=== PATIENT | male | born 1965 | race Native Hawaiian/Other Pacific Islander ===

== ENCOUNTER 2023-04-26 16:39 | Inpatient (IN) | payer BC, OTHER ==
[2023-04-26] MEDS ORDERED: SODIUM CHLORIDE 0.9% 1,000 ML IV ONE ×3 (16:51→17:57)
[2023-04-26 16:59] LABS: Glucose,Whole Blood 146 mg/dL (70-110)
[2023-04-26 17:24] LABS: Basophils # (A) 0.1 k/uL (0-0.2); Basophils % (A) 0 %; Eosinophils % (A) 0 %; Hypochromasia Moderate; Lymphocytes # (A) 1.3 k/uL (1.0-4.8); Lymphocytes % (A) 5 %; MCH 29.6 pg (25.0-35.0); MCHC 31.8 g/dL (31.0-37.0); MCV 93.3 fL (80.0-100.0); Mean Platelet Volume 9.7; Monocytes # (A) 1.2 k/uL (0-1.0); Monocytes % (A) 4 %; Neutrophils # (A) 25.7 k/uL (1.3-7.7); Neutrophils % (A) 90 %; Platelet Count 115 k/uL (150-450); Poikilocytosis Slight; RBC 6.98 m/uL (4.30-5.90); RDW 14.9 % (11.5-15.5); WBC 28.5 k/uL (3.8-10.6)
[2023-04-26 17:39] LABS: HGB 20.7 gm/dL (13.0-17.5)
[2023-04-26 17:40] LABS: HCT 65.1 % (39.0-53.0)
[2023-04-26 17:46] LABS: ALT 123 U/L (4-49); AST 326 U/L (17-59); African American GFR (CKD) 37 (>60 ml/min/1.73 sqM); Alcohol <10 mg/dL; Alkaline Phosphatase 59 U/L (38-126); Anion Gap 30 mmol/L; Blood Urea Nitrogen 56 mg/dL (9-20); Calcium 10.5 mg/dL (8.4-10.2); Chloride 108 mmol/L (98-107); Glucose 147 mg/dL (74-99); Non-African American GFR(CKD) 32 (>60 ml/min/1.73 sqM); Sodium 147 mmol/L (137-145); Total Bilirubin 1.6 mg/dL (0.2-1.3); Total Protein 8.2 g/dL (6.3-8.2)
[2023-04-26 17:52] LABS: Amphetamine Screen,Urine Not Detected (NotDetected); Barbiturate Screen,Urine Not Detected (NotDetected); Benzodiazepines Screen,Urine Not Detected (NotDetected); Cocaine Screen,Urine Not Detected (NotDetected); Methadone Screen, Urine Not Detected (NotDetected); Opiate Screen,Urine Not Detected (NotDetected); Oxycodone Screen, Urine Not Detected (NotDetected); Phencyclidine Screen,Urine Not Detected (NotDetected); Tricyclic Antidepressant,Urine Not Detected (NotDetected); Urn Cannabinoid Scrn Not Detected (NotDetected)
[2023-04-26 17:53] LABS: Carbon Dioxide 9 mmol/L (22-30); Lactic Acid, Venous 12.1 mmol/L (0.7-2.0)
[2023-04-26] MEDS ORDERED: SODIUM CHLORIDE 0.9% 1,000 ML IV SCH (18:00)
[2023-04-26 18:23] LABS: Appearance,Urine Clear (Clear); Bilirubin,Urine Negative (Negative); Color,Urine Yellow; Glucose,Urine (UA) Negative (Negative); Ketones,Urine Negative (Negative); Protein,Urine Trace (Negative)
[2023-04-26 18:24] LABS: Blood,Urine Large (Negative); Leukocyte Esterase,Urine Negative (Negative); Nitrite,Urine Negative (Negative); Urobilinogen,Urine <2.0 mg/dL (<2.0)
--- NOTE | 2023-04-26 18:29 | XR ---
EXAMINATION: XR chest 1V portable DATE AND TIME: 04/26/2023 5:38 PM CLINICAL INDICATION: PHH; altered mental status TECHNIQUE: Portable AP supine COMPARISON: None FINDINGS: There is consolidative opacity throughout the right upper lung zone, in the right infrahilar position , and in the left upper lung zone, consistent with a clinical diagnosis of multifocal bronchopneumoni a. The pleural spaces are negative, as seen. The cardiac silhouette is borderline enlarged. The skeletal structures and soft tissues are negative for acute findings. Limitation: Supine radiography cannot exclude pneumothorax. IMPRESSION: Multifocal airspace filling process.
--- NOTE | 2023-04-26 18:30 | XR ---
PROCEDURE: XR pelvis AP view - 1V DATE AND TIME: 04/26/2023 5:36 PM CLINICAL INDICATION: PHH; found down TECHNIQUE: AP view COMPARISON: None FINDINGS: There is no fracture or malalignment. The soft tissues are unremarkable. IMPRESSION: NO ACUTE PROCESS.
--- NOTE | 2023-04-26 18:42 | ED ---
Altered Mental Status HPI - General Chief Complaint: Altered Mental Status Stated Complaint: Altered Mental Status Time Seen by Provider: 04/26/23 16:45 Source: EMS Mode of arrival: EMS Limitations: altered mental status - History of Present Illness Initial Comments: 58-year-old male with reported recent diagnosis of lung cancer and diabetes who presents to the emergency department with altered mental status. EMS did provide the history. States that the patient was last seen by his neighbor's on Sunday. He does not have any family. He has one brother however he has been a strange to from him. Neighbors state that they help take care of him. On Sunday they took him shopping and this was the last that they had seen him normal. They noted that they had not heard from him in a couple of days and therefore they had police do a well check. Please had to break into the house and found the patient on the floor on his back in front of his stove. It had appeared that the patient had been burning things on his stove and the gas was on. He was significantly altered and it appeared that the patient had been down for an extended period of time. He was unable to provide any history and neighbors were unable to provide much information either. Unknown if the patient was intensely trying to harm himself however on scene he made a comment of "just leave me here" and therefore police do fill out a petition on the patient. Upon exam the patient is covered in soot. Appears to have been down on the ground for an extended period of time as he does have several areas of lividity. He has neglected to his right side with contracture of his right upper extremity. Notable well-healed surgical incisions to the right upper extremity. Neighbor states that the patient went into [facility] and was diagnosed with an arterial occlusion. He was transferred down [facility]. He required 2 surgeries and was placed on Eliquis. She states that he regained function of the right upper extremity after the surgery. Remainder of the history is limited because the patient's current condition with no close family - Related Data Allergies Allergy/AdvReac Type Severity Reaction Status Date / Time Unable to Assess Allergy Verified 04/26/23 16:54 Review of Systems ROS Statement: Those systems with pertinent positive or pertinent negative responses have been documented in the HPI. ROS Other: All systems not noted in ROS Statement are negative. Past Medical History Past Medical History: Cancer, Diabetes Mellitus Additional Past Medical History / Comment(s): lung ca History of Any Multi-Drug Resistant Organisms: Unobtainable Past Psychological History: Unable to Obtain Smoking Status: Unknown if ever smoked Past Alcohol Use History: Unable to Obtain Past Drug Use History: Unable to Obtain General Exam Limitations: altered mental status General appearance: obtunded, in distress, other (Patient has neglect to his right side) Head exam: Present: atraumatic Pupils: Present: mydriatic ENT exam: Present: mucous membranes dry, other (No visible soot in the patient's mouth) Respiratory exam: Present: rales, other (Tachypnea) Cardiovascular Exam: Present: tachycardia GI/Abdominal exam: Present: soft, normal bowel sounds. Absent: distended, tenderness, guarding, rebound, rigid Extremities exam: Present: other (three well-healed incisions on the right anterior forearm. No pustular drainage. No bleeding. Significant hematoma formation to the dependent areas. No palpable pulse from the antecubital fossa down) Neurological exam: Present: altered, other (Incomprehensible sounds) Psychiatric exam: Present: agitated Skin exam: Present: pallor, mottled, other (Dependent areas of lividity on the patient's knees) Course Vital Signs 04/26/23 04/26/23 04/26/23 16:43 17:00 17:15 Temperature 94.4 F L Pulse Rate 104 H 103 H 106 H Respiratory 28 H 28 H 28 H Rate Blood Pressure 115/74 117/77 113/83 O2 Sat by Pulse 93 L 93 L 96 Oximetry Fraction of Inspired Oxygen (FIO2) 04/26/23 04/26/23 04/26/23 17:30 20:30 21:00 Temperature 97.0 F L Pulse Rate 100 113 H 108 H Respiratory 28 H 28 H 20 Rate Blood Pressure 119/77 168/103 147/93 O2 Sat by Pulse 96 95 98 Oximetry Fraction of 100 Inspired Oxygen (FIO2) 04/26/23 04/26/23 04/26/23 21:20 21:55 21:58 Temperature Pulse Rate 102 H 98 Respiratory 20 20 Rate Blood Pressure 148/89 107/71 O2 Sat by Pulse 98 99 Oximetry Fraction of 100 Inspired Oxygen (FIO2) Procedures - Elfrida Protocol (Time Out) Nurse: Maile Mitchell - Intubation Sedative: Etomidate Mg Given: 20 Paralytic: Rocuronium Mg Given: 50 Laryngoscope: fiber optic video scope Size: 3 ET Tube Size: 7.5 ET Tube Uncuffed: No Other Airway Intervention: 26 Tube Secured Location: lips Tube Placement Confirmation: visualized tube passing through cords, equal breath sounds bilaterally, no breath sounds over epigastrium, confirmation by capnometry Patient Tolerated Procedure: well, no complications Medical Decision Making - Medical Decision Making Was pt. sent in by a medical professional or institution (, PA, PLATFORM BUILDER, urgent care, hospital, or [place] health care facility...) When possible be specific @ -No Did you speak to anyone other than the patient for history (EMS, parent, family, police, friend...)? What history was obtained from this source @ -I spoke with EMS and the patient's neighbors Did you review nursing and triage notes (agree or disagree)? Why? @ -I reviewed and agree with nursing and triage notes Were old charts reviewed (outside hosp., previous admission, EMS record, old EKG, old radiological studies, urgent care reports/EKG's, [place] health care facility records)? Report findings @ -No old charts were reviewed Differential Diagnosis (chest pain, altered mental status, abdominal pain women, abdominal pain men, vaginal bleeding, weakness, fever, dyspnea, syncope, headache, dizziness, GI bleed, back pain, seizure, CVA, palpatations, mental health, musculoskeletal)? @ -Differential Altered Mental Status: Hypoglycemia, DKA, hypercapnia, ETOH, overdose, CO poisoning, trauma, myxedema coma, HTN encephalopathy, infection, encephalitis, psychosis, intercranial hemorrhage, hepatic encephalopathy, meningitis, CVA, this is not meant to be an all-inclusive list EKG interpreted by me (3pts min.). @ -Yes and demonstrates sinus tachycardia with a rate of 102. WV interval 112. QRS 106. QTC 438. No acute ST segment elevations or depressions X-rays interpreted by me (1pt min.). @ -Yes and demonstrates multilobar pneumonia CT interpreted by me (1pt min.). @ -Yes and demonstrates large left MCA subacute stroke U/S interpreted by me (1pt. min.). @ -Bedside ultrasound performed of the patient's right upper extremity which does not appear to have arterial flow below the patient's right elbow What testing was considered but not performed or refused? (CT, X-rays, U/S, labs)? Why? @ -CT of the chest, CT of the right arm was considered however patient in acute renal failure What meds were considered but not given or refused? Why? @ -Heparin was considered however not administered as the patient does have a subacute CVA Did you discuss the management of the patient with other professionals (professionals i.e. Dr., PA, PLATFORM BUILDER, lab, RT, psych nurse, social media community manager, scientist, teacher, booking police officer, bilingual patient support caseworker)? Give summary @ -I attempted to transfer the patient for hyperbarics. I spoke with [facility] however they do not have hyperbarics available at this time. They did recommend [facility]. We called and spoke with [facility] however they are unable to perform hyperbarics at this time also. I spoke with Dr. Bustos and who presents to the emergency department to see the patient. He accepts the patient in the ICU. He places a central line. I also spoke with Dr. Cage to ask for recommendations in regards to the patient's care. He states that this is not his patient and that the patient should be transferred to [facility] as the patient is postop. Patient is not stable for transport at this time and Dr. Francisco agrees to keep the patient in the ICU here. Was smoking cessation discussed for >3mins.? @ -No Was critical care preformed (if so, how long)? @ -yes, 65 minutes for multiple attempts at transfer, multiple re-evaluations due to patient's critical status Were there social determinants of health that impacted care today? How? (Homelessness, low income, unemployed, alcoholism, drug addiction, transportation, low edu. Level, literacy, decrease access to med. care, fpc, rehab)? @ -Patient has no family to help make decisions Was there de-escalation of care discussed even if they declined (Discuss DNR or withdrawal of care, Hospice)? DNR status @ -No What co-morbidities impacted this encounter? (DM, HTN, Smoking, COPD, CAD, Cancer, CVA, ARF, Chemo, Hep., AIDS, mental health diagnosis, sleep apnea, mor bid obesity)? @ -None Was patient admitted / discharged? Hospital course, mention meds given and route, prescriptions, significant lab abnormalities, going to OR and other pertinent info. @ -Admitted. Upon arrival patient was promptly placed in a trauma 1. Thorough history and physical exam was performed. GCS is obtained and is 10. Patient is covered in that however has no identifiable ramires. No soot appears to be in the airway. He is placed on a nonrebreather. IV is established. He is given 2 L of normal saline and placed on a blanket warmer due to his temp of 94. Laboratory studies are conducted. Portable chest and pelvic x-ray are performed. X-ray does demonstrate multifocal opacities and therefore did obtain blood cultures and initiated the patient on Rocephin. CT is performed the patient's head which demonstrates subacute CVA. Attempted to perform a CTA however the patient is in renal failure and therefore will not tolerate contrast. Patient is started on 130 mL/h due to his lactic acidosis and rhabdomyolysis. Patient's carbon monoxide is 41%. I did attempt to call several transfer facilities however they do refused as hyperbarics is not available. I spoke with Dr. Bustos who agreed to accept the patient as all other facilities in [place] are refusing with hyperbaric capabilities. Patient was intubated as his work of breathing did increase. Repeat x-ray demonstrates worsening ARDS. I attempted to speak with Dr. Ayon about the arterial occlusion however no recommendations were offered other than to transport the patient to [facility]. Heparin was not initiated due to recent subacute CVA. Dr. Bustos does place a central line. Patient is transported up to the ICU in critical condition with a very guarded prognosis Undiagnosed new problem with uncertain prognosis? @ -yes Drug Therapy requiring intensive monitoring for toxicity (Heparin, Nitro, Insulin, Cardizem)? @ -No Were any procedures done? @ -No Diagnosis/symptom? @ -Acute encephalopathy, ventilator dependence, carbon monoxide poisoning, subacute CVA left MCA, and STEMI, acute kidney injury, rhabdomyolysis, lactic acidosis, leukocytosis, multifocal pneumonia, developing ARDS, suspected arterial occlusion right upper extremity Acute, or Chronic, or Acute on Chronic? @ -Acute Uncomplicated (without systemic symptoms) or Complicated (systemic symptoms)? @ -Complicated Side effects of treatment? @ -No Exacerbation, Progression, or Severe Exacerbation? @ -No Poses a threat to life or bodily function? How? (Chest pain, USA, VT, pneumonia, PE, COPD, DKA, ARF, appy, cholecystitis, CVA, Diverticulitis, Homicidal, Suicidal, threat to staff... and all critical care pts) @ -Yes patient has a very guarded prognosis - Lab Data Result diagrams: 04/26/23 16:58 04/26/23 16:58 Lab Results 04/26/23 04/26/23 04/26/23 Range/Units 16:48 16:58 16:58 WBC 28.5 H (3.8-10.6) k/uL RBC 6.98 H (4.30-5.90) m/uL Hgb 20.7 H* (13.0-17.5) gm/dL Hct 65.1 H* (39.0-53.0) % MCV 93.3 (80.0-100.0) fL MCH 29.6 (25.0-35.0) pg MCHC 31.8 (31.0-37.0) g/dL RDW 14.9 (11.5-15.5) % Plt Count 115 L (150-450) k/uL MPV 9.7 Neutrophils % 90 % Lymphocytes % 5 % Monocytes % 4 % Eosinophils % 0 % Basophils % 0 % Neutrophils # 25.7 H (1.3-7.7) k/uL Lymphocytes # 1.3 (1.0-4.8) k/uL Monocytes # 1.2 H (0-1.0) k/uL Eosinophils # 0.0 (0-0.7) k/uL Basophils # 0.1 (0-0.2) k/uL Differential Comment Manual Slide Review Performed Hypochromasia Moderate Poikilocytosis Slight PT (10.0-12.5) sec INR (<1.2) APTT (22.0-30.0) sec Carbon Monoxide, Quant (<10.0) % Sodium (137-145) mmol/L Potassium (3.5-5.1) mmol/L Chloride (98-107) mmol/L Carbon Dioxide (22-30) mmol/L Anion Gap mmol/L BUN (9-20) mg/dL Creatinine (0.66-1.25) mg/dL Est GFR (CKD-EPI)AfAm (>60 ml/min/1.73 sqM) Est GFR (CKD-EPI)NonAf (>60 ml/min/1.73 sqM) Glucose (74-99) mg/dL POC Glucose (mg/dL) 146 H (70-110) mg/dL POC Glu Appeals Specialist ID Melchor Rosenberg Lactic Ac Sepsis Rflx Plasma Lactic Acid Willie (0.7-2.0) mmol/L Calcium (8.4-10.2) mg/dL Total Bilirubin (0.2-1.3) mg/dL AST (17-59) U/L ALT (4-49) U/L Alkaline Phosphatase (38-126) U/L Ammonia (<30) umol/L Creatine Kinase (55-170) U/L Troponin I (0.000-0.034) ng/mL Total Protein (6.3-8.2) g/dL Albumin (3.5-5.0) g/dL Urine Color Urine Appearance (Clear) Urine pH (5.0-8.0) Ur Specific [place] (1.001-1.035) Urine Protein (Negative) Urine Glucose (UA) (Negative) Urine Ketones (Negative) Urine Blood (Negative) Urine Nitrite (Negative) Urine Bilirubin (Negative) Urine Urobilinogen (<2.0) mg/dL Ur Leukocyte Esterase (Negative) Urine RBC (0-5) /hpf Urine WBC (0-5) /hpf Hyaline Casts (0-2) /lpf Urine Mucus (None) /hpf Urine Opiates Screen Not Detected (NotDetected) Ur Oxycodone Screen Not Detected (NotDetected) Urine Methadone Screen Not Detected (NotDetected) Ur Propoxyphene Screen Not Detected (NotDetected) Ur Barbiturates Screen Not Detected (NotDetected) U Tricyclic Antidepress Not Detected (NotDetected) Ur Phencyclidine Scrn Not Detected (NotDetected) Ur Amphetamines Screen Not Detected (NotDetected) U Methamphetamines Scrn Not Detected (NotDetected) U Benzodiazepines Scrn Not Detected (NotDetected) Urine Cocaine Screen Not Detected (NotDetected) U Marijuana (THC) Screen Not Detected (NotDetected) Serum Alcohol mg/dL 04/26/23 04/26/23 04/26/23 Range/Units 16:58 16:58 16:58 WBC (3.8-10.6) k/uL RBC (4.30-5.90) m/uL Hgb (13.0-17.5) gm/dL Hct (39.0-53.0) % MCV (80.0-100.0) fL MCH (25.0-35.0) pg MCHC (31.0-37.0) g/dL RDW (11.5-15.5) % Plt Count (150-450) k/uL MPV Neutrophils % % Lymphocytes % % Monocytes % % Eosinophils % % Basophils % % Neutrophils # (1.3-7.7) k/uL Lymphocytes # (1.0-4.8) k/uL Monocytes # (0-1.0) k/uL Eosinophils # (0-0.7) k/uL Basophils # (0-0.2) k/uL Differential Comment Manual Slide Review Hypochromasia Poikilocytosis PT (10.0-12.5) sec INR (<1.2) APTT (22.0-30.0) sec Carbon Monoxide, Quant (<10.0) % Sodium 147 H (137-145) mmol/L Potassium 5.0 (3.5-5.1) mmol/L Chloride 108 H (98-107) mmol/L Carbon Dioxide 9 L* (22-30) mmol/L Anion Gap 30 mmol/L BUN 56 H (9-20) mg/dL Creatinine 2.19 H (0.66-1.25) mg/dL Est GFR (CKD-EPI)AfAm 37 (>60 ml/min/1.73 sqM) Est GFR (CKD-EPI)NonAf 32 (>60 ml/min/1.73 sqM) Glucose 147 H (74-99) mg/dL POC Glucose (mg/dL) (70-110) mg/dL POC Glu Appeals Specialist ID Lactic Ac Sepsis Rflx Plasma Lactic Acid Willie (0.7-2.0) mmol/L Calcium 10.5 H (8.4-10.2) mg/dL Total Bilirubin 1.6 H (0.2-1.3) mg/dL AST 326 H (17-59) U/L ALT 123 H (4-49) U/L Alkaline Phosphatase 59 (38-126) U/L Ammonia (<30) umol/L Creatine Kinase 78475 H* (55-170) U/L Troponin I 8.390 H* (0.000-0.034) ng/mL Total Protein 8.2 (6.3-8.2) g/dL Albumin 5.0 (3.5-5.0) g/dL Urine Color Yellow Urine Appearance Clear (Clear) Urine pH 6.0 (5.0-8.0) Ur Specific [place] 1.030 (1.001-1.035) Urine Protein Trace H (Negative) Urine Glucose (UA) Negative (Negative) Urine Ketones Negative (Negative) Urine Blood Large H (Negative) Urine Nitrite Negative (Negative) Urine Bilirubin Negative (Negative) Urine Urobilinogen <2.0 (<2.0) mg/dL Ur Leukocyte Esterase Negative (Negative) Urine RBC 1 (0-5) /hpf Urine WBC 9 H (0-5) /hpf Hyaline Casts 11 H (0-2) /lpf Urine Mucus Occasional H (None) /hpf Urine Opiates Screen (NotDetected) Ur Oxycodone Screen (NotDetected) Urine Methadone Screen (NotDetected) Ur Propoxyphene Screen (NotDetected) Ur Barbiturates Screen (NotDetected) U Tricyclic Antidepress (NotDetected) Ur Phencyclidine Scrn (NotDetected) Ur Amphetamines Screen (NotDetected) U Methamphetamines Scrn (NotDetected) U Benzodiazepines Scrn (NotDetected) Urine Cocaine Screen (NotDetected) U Marijuana (THC) Screen (NotDetected) Serum Alcohol <10 mg/dL 04/26/23 04/26/23 04/26/23 Range/Units 16:58 16:58 17:53 WBC (3.8-10.6) k/uL RBC (4.30-5.90) m/uL Hgb (13.0-17.5) gm/dL Hct (39.0-53.0) % MCV (80.0-100.0) fL MCH (25.0-35.0) pg MCHC (31.0-37.0) g/dL RDW (11.5-15.5) % Plt Count (150-450) k/uL MPV Neutrophils % % Lymphocytes % % Monocytes % % Eosinophils % % Basophils % % Neutrophils # (1.3-7.7) k/uL Lymphocytes # (1.0-4.8) k/uL Monocytes # (0-1.0) k/uL Eosinophils # (0-0.7) k/uL Basophils # (0-0.2) k/uL Differential Comment Manual Slide Review Hypochromasia Poikilocytosis PT (10.0-12.5) sec INR (<1.2) APTT (22.0-30.0) sec Carbon Monoxide, Quant >20.0 H* (<10.0) % Sodium (137-145) mmol/L Potassium (3.5-5.1) mmol/L Chloride (98-107) mmol/L Carbon Dioxide (22-30) mmol/L Anion Gap mmol/L BUN (9-20) mg/dL Creatinine (0.66-1.25) mg/dL Est GFR (CKD-EPI)AfAm (>60 ml/min/1.73 sqM) Est GFR (CKD-EPI)NonAf (>60 ml/min/1.73 sqM) Glucose (74-99) mg/dL POC Glucose (mg/dL) (70-110) mg/dL POC Glu Appeals Specialist ID Lactic Ac Sepsis Rflx Y Plasma Lactic Acid Willie 12.1 H* (0.7-2.0) mmol/L Calcium (8.4-10.2) mg/dL Total Bilirubin (0.2-1.3) mg/dL AST (17-59) U/L ALT (4-49) U/L Alkaline Phosphatase (38-126) U/L Ammonia 14 (<30) umol/L Creatine Kinase (55-170) U/L Troponin I (0.000-0.034) ng/mL Total Protein (6.3-8.2) g/dL Albumin (3.5-5.0) g/dL Urine Color Urine Appearance (Clear) Urine pH (5.0-8.0) Ur Specific [place] (1.001-1.035) Urine Protein (Negative) Urine Glucose (UA) (Negative) Urine Ketones (Negative) Urine Blood (Negative) Urine Nitrite (Negative) Urine Bilirubin (Negative) Urine Urobilinogen (<2.0) mg/dL Ur Leukocyte Esterase (Negative) Urine RBC (0-5) /hpf Urine WBC (0-5) /hpf Hyaline Casts (0-2) /lpf Urine Mucus (None) /hpf Urine Opiates Screen (NotDetected) Ur Oxycodone Screen (NotDetected) Urine Methadone Screen (NotDetected) Ur Propoxyphene Screen (NotDetected) Ur Barbiturates Screen (NotDetected) U Tricyclic Antidepress (NotDetected) Ur Phencyclidine Scrn (NotDetected) Ur Amphetamines Screen (NotDetected) U Methamphetamines Scrn (NotDetected) U Benzodiazepines Scrn (NotDetected) Urine Cocaine Screen (NotDetected) U Marijuana (THC) Screen (NotDetected) Serum Alcohol mg/dL 04/26/23 04/26/23 Range/Units 17:59 21:08 WBC (3.8-10.6) k/uL RBC (4.30-5.90) m/uL Hgb (13.0-17.5) gm/dL Hct (39.0-53.0) % MCV (80.0-100.0) fL MCH (25.0-35.0) pg MCHC (31.0-37.0) g/dL RDW (11.5-15.5) % Plt Count (150-450) k/uL MPV Neutrophils % % Lymphocytes % % Monocytes % % Eosinophils % % Basophils % % Neutrophils # (1.3-7.7) k/uL Lymphocytes # (1.0-4.8) k/uL Monocytes # (0-1.0) k/uL Eosinophils # (0-0.7) k/uL Basophils # (0-0.2) k/uL Differential Comment Manual Slide Review Hypochromasia Poikilocytosis PT 13.9 H (10.0-12.5) sec INR 1.3 H (<1.2) APTT 19.9 L (22.0-30.0) sec Carbon Monoxide, Quant (<10.0) % Sodium (137-145) mmol/L Potassium (3.5-5.1) mmol/L Chloride (98-107) mmol/L Carbon Dioxide (22-30) mmol/L Anion Gap mmol/L BUN (9-20) mg/dL Creatinine (0.66-1.25) mg/dL Est GFR (CKD-EPI)AfAm (>60 ml/min/1.73 sqM) Est GFR (CKD-EPI)NonAf (>60 ml/min/1.73 sqM) Glucose (74-99) mg/dL POC Glucose (mg/dL) (70-110) mg/dL POC Glu Appeals Specialist ID Lactic Ac Sepsis Rflx Plasma Lactic Acid Willie 2.4 H* (0.7-2.0) mmol/L Calcium (8.4-10.2) mg/dL Total Bilirubin (0.2-1.3) mg/dL AST (17-59) U/L ALT (4-49) U/L Alkaline Phosphatase (38-126) U/L Ammonia (<30) umol/L Creatine Kinase (55-170) U/L Troponin I (0.000-0.034) ng/mL Total Protein (6.3-8.2) g/dL Albumin (3.5-5.0) g/dL Urine Color Urine Appearance (Clear) Urine pH (5.0-8.0) Ur Specific [place] (1.001-1.035) Urine Protein (Negative) Urine Glucose (UA) (Negative) Urine Ketones (Negative) Urine Blood (Negative) Urine Nitrite (Negative) Urine Bilirubin (Negative) Urine Urobilinogen (<2.0) mg/dL Ur Leukocyte Esterase (Negative) Urine RBC (0-5) /hpf Urine WBC (0-5) /hpf Hyaline Casts (0-2) /lpf Urine Mucus (None) /hpf Urine Opiates Screen (NotDetected) Ur Oxycodone Screen (NotDetected) Urine Methadone Screen (NotDetected) Ur Propoxyphene Screen (NotDetected) Ur Barbiturates Screen (NotDetected) U Tricyclic Antidepress (NotDetected) Ur Phencyclidine Scrn (NotDetected) Ur Amphetamines Screen (NotDetected) U Methamphetamines Scrn (NotDetected) U Benzodiazepines Scrn (NotDetected) Urine Cocaine Screen (NotDetected) U Marijuana (THC) Screen (NotDetected) Serum Alcohol mg/dL Disposition Clinical Impression: Ventilator dependence, Ischemic cerebrovascular accident (CVA), Rhabdomyolysis, DARRYL (acute kidney injury), Arterial occlusion, NSTEMI (non-ST elevated myocardial infarction), Carbon monoxide poisoning, Encephalopathy acute Disposition: ADMITTED IP TO THIS HOSP Condition: Critical Is patient prescribed a controlled substance at d/c from ED?: No Time of Disposition: 21:21 Decision to Admit Reason: Admit from EC Decision Date: 04/26/23 Decision Time: 21:22
[2023-04-26 18:49] LABS: Hyaline Casts,Urine 11 /lpf (0-2); Mucus,Urine Occasional /hpf; RBC,Urine 1 /hpf (0-5); WBC,Urine 9 /hpf (0-5)
--- NOTE | 2023-04-26 19:10 | CT ---
EXAMINATION TYPE: CT brain cspine wo con DATE OF EXAM: 04/26/2023 COMPARISON: NONE HISTORY: Pt arrives repeating himself and asking for help. AMS CT DLP: 1540.8 mGycm. Automated Exposure Control for Dose Reduction was Utilized. TECHNIQUE: CT scan of the head and cervical spine are performed without contrast. FINDINGS: CT HEAD There is diffuse low attenuation in the left anterior territory, involving the left temporal and carlos etal lobe and measuring 8 x 4.5 x 3.5 cm. There is associated sulcal effacement consistent with mild local mass effect. No midline shift of structures. There is no skull fracture and no intracranial hem orrhage. There is no focal encephalomalacia. No extra-axial fluid collection. Orbits are intact and the orbital contents are unremarkable. The paranasal sinuses, middle ear caviti es, and mastoid sinus air cells are clear. CT CERVICAL SPINE Negative for fracture or malalignment. Visualized lung apices show prominent bilateral lung consolidations, consistent with multifocal pneum onia. Requesting clinician notified of results via phone discussion. IMPRESSION: CT Head: Subacute 8 x 4 x 4 cm left MCA territory nonhemorrhagic infarction. CT C Spine: Prominent biapical lung consolidations.
[2023-04-26 19:26] LABS: Creatine Kinase 10403 U/L (55-170)
[2023-04-26] MEDS ORDERED: ROCURONIUM 10 MG/ML (5 ML VIAL) IV STA (20:15)
[2023-04-26] MEDS ORDERED: ETOMIDATE 2 MG/ML 10 ML VIAL IVP STA (20:15)
[2023-04-26 20:20] LABS: INR 1.3 (<1.2); Prothrombin Time 13.9 sec (10.0-12.5)
[2023-04-26 20:35] LABS: Partial Thromboplastin Time 19.9 sec (22.0-30.0)
[2023-04-26] MEDS ORDERED: SODIUM CHLORIDE 0.9% 2,000 ML IV ONE (20:57)
[2023-04-26] MEDS ORDERED: Magnesium Replacement Protocol 1 EACH MISC MISCELLANE PRN (21:22)
[2023-04-26] MEDS ORDERED: Phosphorus Replacement Protoco 1 EACH MISC MISCELLANE PRN (21:22)
[2023-04-26] MEDS ORDERED: Potassium Replacement Protocol 1 EACH MISC MISCELLANE PRN (21:22)
[2023-04-26] MEDS ORDERED: NALOXONE 0.4 MG/ML 1 ML VIAL IV PRN (21:22)
--- NOTE | 2023-04-26 21:29 | XR ---
EXAMINATION: XR chest 1V portable DATE AND TIME: 04/26/2023 9:10 PM CLINICAL INDICATION: PHH; tube placement TECHNIQUE: Portable AP supine radiograph COMPARISON: Portable AP supine radiograph 04/26/2023 at 5:17 PM FINDINGS: Since the prior study the patient has been intubated, with ET tube tip 1 cm above the chasidy; may be better placed if withdrawn 2 cm. Also new since the prior study is the placement of an NG tube with its port superimposed over the exp ected position of the most distal esophagus; NG tube may be better placement if advanced 7 cm distall y. There is interval progression of the consolidative opacity - now seen throughout the central right up per, mid, and lower lung zones and the left left upper and midlung zones. The pleural spaces are negative, as seen, but this is a supine radiograph. The cardiac silhouette is borderline enlarged. The skeletal structures and soft tissues are negative for acute findings. Limitation: Supine radiography cannot exclude pneumothorax. IMPRESSION: Post intubation CXR with ET tube and NG tube comments as above. Interval worsening in the bilateral airspace filling process, right greater than left.
--- NOTE | 2023-04-26 21:33 | XR ---
EXAMINATION: XR chest 1V portable DATE AND TIME: 04/26/2023 9:27 PM CLINICAL INDICATION: PHH; line placement TECHNIQUE: Portable AP supine COMPARISON: Portable AP supine radiograph 04/26/2023 at 8:34 PM FINDINGS: Since the prior study a left subclavian central line is in place with tip superimposed over the dista l SVC. The ET tube tip is 1 cm above the chasidy, and may be better placed if withdrawn 2 cm. The NG tube has its port superimposed over the expected position of the most distal esophagus; NG tub e may be better placement if advanced 7 cm distally. Redemonstrated marked bilateral consolidative opacity - seen throughout the central right upper, mid, and lower lung zones and the central left upper and midlung zones. The pleural spaces are negative, as seen, but this is a supine radiograph. The cardiac silhouette is borderline enlarged. The skeletal structures and soft tissues are negative for acute findings. Limitation: Supine radiography cannot exclude pneumothorax. IMPRESSION: Post central line placement CXR. ET tube comments as above. NG tube comments as above.
[2023-04-26 21:37] LABS: ABG Base Excess -19.6 mmol/L; ABG Oxygen Saturation 89.4 % (94-97); ABG PCO2 24 mmHg (35-45); ABG PO2 68 mmHg (83-108); ABG TCO2 10 mmol/L (19-24); Allen Test Performed? Yes
[2023-04-26 21:45] LABS: ABG HCO3 9 mmol/L (21-25); ABG PH 7.17 (7.35-7.45)
[2023-04-26 22:14] LABS: Glucose,Whole Blood 122 mg/dL (70-110)
[2023-04-26] MEDS ORDERED: DEXTROSE 5% IN WATER 1,000 ML with SODIUM BICARB (1 MEQ/ML) 150 ML IV SCH (22:30)
[2023-04-26] MEDS ORDERED: SODIUM BICARB 8.4% 50 ML SYR (1 MEQ/ML) IV STA (23:21)
[2023-04-27] MEDS: CHLORHEXIDINE GLUCONATE 15 ML CUP MUCOUS MEM SCH ×3 (00:36→22:54)
[2023-04-27] MEDS: PIPERACILLIN-TAZOBACTAM 3.375 GM in SODIUM CHLORIDE 0.9% 100 ML IVPB SCH ×3 (00:45→15:30)
[2023-04-27] MEDS ORDERED: ASPIRIN 325 MG TAB PO STA (03:12)
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
[2023-04-27 04:25] LABS: HCT 52.7 % (39.0-53.0); Hypochromasia Moderate; MCH 30.5 pg (25.0-35.0); MCHC 32.9 g/dL (31.0-37.0); MCV 92.7 fL (80.0-100.0); Mean Platelet Volume 9.8; Poikilocytosis Slight; RBC 5.69 m/uL (4.30-5.90); RDW 15.2 % (11.5-15.5)
[2023-04-27] MEDS: IPRATROPIUM-ALBUTEROL 3 ML NEB INHALATION SCH ×7 (04:35→23:41)
[2023-04-27 04:39] LABS: African American GFR (CKD) 78 (>60 ml/min/1.73 sqM); Anion Gap 10 mmol/L; Blood Urea Nitrogen 45 mg/dL (9-20); Calcium 7.6 mg/dL (8.4-10.2); Carbon Dioxide 23 mmol/L (22-30); Chloride 116 mmol/L (98-107); Glucose 167 mg/dL (74-99); Non-African American GFR(CKD) 67 (>60 ml/min/1.73 sqM); Potassium 4.3 mmol/L (3.5-5.1); Sodium 149 mmol/L (137-145)
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
[2023-04-27 05:19] LABS: Creatine Kinase 18435 U/L (55-170)
[2023-04-27 05:34] LABS: HGB 17.3 gm/dL (13.0-17.5)
[2023-04-27 06:21] LABS: ABG Base Excess 2.5 mmol/L; ABG HCO3 27 mmol/L (21-25); ABG PCO2 40 mmHg (35-45); ABG PH 7.44 (7.35-7.45); ABG PO2 >400 mmHg (83-108); ABG TCO2 28 mmol/L (19-24); Allen Test Performed? Yes
[2023-04-27] MEDS: fentaNYL (PF). 1,000 MCG in SODIUM CHLORIDE 0.9% 80 ML IV SCH ×2 (07:05→22:00)
[2023-04-27 07:19] LABS: Band Neutrophils % 1 %; Monocytes # (M) 0.64 k/uL (0-1.0); Neutrophils % (M) 90 %; Nucleated Red Blood Cells 1 /100 WBC (0-0); Total Cells Counted 200; WBC 21.4 k/uL (3.8-10.6)
[2023-04-27 07:20] LABS: Anisocytosis (M) Present; Polychromasia Present
[2023-04-27 07:22] LABS: Platelet Count 75 k/uL (150-450)
[2023-04-27 07:26] LABS: Amorphous Sediment,Urine Rare /hpf; Bacteria,Urine Rare /hpf; Budding Yeast,Urine Many /hpf; RBC,Urine 35 /hpf (0-5); Uric Acid Crystals,Urine Few /hpf; WBC,Urine 15 /hpf (0-5)
[2023-04-27 07:37] LABS: Appearance,Urine Cloudy (Clear); Bilirubin,Urine Negative (Negative); Blood,Urine Large (Negative); Color,Urine Yellow; Glucose,Urine (UA) Negative (Negative); Ketones,Urine Negative (Negative); Protein,Urine 1+ (Negative); Specific Gravity,Urine 1.025 (1.001-1.035)
[2023-04-27 07:38] LABS: Leukocyte Esterase,Urine Negative (Negative); Nitrite,Urine Negative (Negative); Urobilinogen,Urine 0.2 mg/dL (<2.0)
[2023-04-27] MEDS ORDERED: HEPARIN SODIUM,PORCINE 5,000 UNIT/ML 1 ML VIAL SQ SCH (08:00)
--- NOTE | 2023-04-27 08:22 | XR ---
EXAMINATION TYPE: XR chest 1V portable DATE OF EXAM: 04/27/2023 Comparison: 04/26/2023 Clinical History: 58-year-old male Tube placement Findings: NG tube satisfactory. Left subclavian CVC tip at the lower SVC. Heart normal size. Mild interstitial densities remain low with considerable improvement from prior study. No pleural effusion. ET tube has been pulled back by 3.5 cm, tip now at the medial clavicular heads. Impression: 1. Note that the ET tube has been pulled back by 3.5 cm. Tip is now at the medial clavicular heads. 2. Some minimal interstitial densities remain, though with considerable improvement from prior exam.
[2023-04-27] MEDS: SODIUM CHLORIDE 0.9% 1,000 ML IV SCH ×3 (08:37→15:33)
--- NOTE | 2023-04-27 08:43 | P.PCN ---
Date of Procedure: 04/26/23 Operative Findings: Procedure(s) Performed: central line insertion Anesthesia: local Surgeon: Mikki Francisco Estimated Blood Loss (ml): 0 Pathology: none sent Condition: critical Disposition: ICU Operative Findings: Indication: Hemodynamic monitoring/Intravenous access. A time-out was completed verifying correct patient, procedure, site, positioning, and implant(s) or special equipment if applicable. The patient was placed in a dependent position appropriate for central line placement based on the vein to be cannulated. The patients left chest was prepped and draped in sterile fashion. 1% Lidocaine was used to anesthetize the surrounding skin area. A triple lumen 9F Cordis catheter was introduced into the left subclavian vein using Seldinger technique. The catheter was threaded smoothly over the guide wire and appropriate blood return was obtained. Each lumen of the catheter was evacuated of air and flushed with sterile saline. The catheter was then sutured in place to the skin and a sterile dressing applied. Perfusion to the extremity distal to the point of catheter insertion was checked and found to be adequate. The patient tolerated the procedure well and there were no complications.
[2023-04-27] MEDS: ASPIRIN 81 MG PO SCH (09:18)
[2023-04-27] MEDS: METOPROLOL TARTRATE 12.5 MG TAB PO SCH ×2 (09:18→22:54)
--- NOTE | 2023-04-27 09:18 | XR ---
EXAMINATION TYPE: XR chest 1V portable DATE OF EXAM: 04/27/2023 Comparison: 04/27/2023 Clinical History: 58-year-old male ETT PLACEMENT Findings: Interval repositioning of the patient's ET tube. Tip now measuring 3.5 cm from the chasidy, satisfacto ry. NG tube remains satisfactory as well. Heart normal size. Mild interstitial density is unchanged f rom earlier today, again, noted to be considerably improved from yesterday's exam. No pleural effusio n. Impression: Interval satisfactory repositioning of the ET tube, now 3.5 cm from the chasidy.
--- NOTE | 2023-04-27 10:15 | CA ---
Transthoracic Echo Report Name: Chava Kaba Age: 58 Gender: M : 1965 Exam Date: 04/27/2023 08:58 Exam Location: [facility] Ht (in): 70 Wt (lb): 154 Ordering Physician: Otilio Julien Attending/Referring Phys: Trauma Doctor Bebo Holder Procedure CPT: Indications: evaluate LV function Cardiac Hx: Technical Quality: Technically difficult study Contrast 1: Definity Total Dose (mL): 2 Contrast 2: Total Dose (mL): MEASUREMENTS (Male / Female) Normal Values 2D ECHO LV Diastolic Diameter PLAX 3.8 cm 4.2 - 5.9 / 3.9 - 5.3 cm LV Systolic Diameter PLAX 2.7 cm IVS Diastolic Thickness 1.1 cm 0.6 - 1.0 / 0.6 - 0.9 cm LVPW Diastolic Thickness 0.9 cm 0.6 - 1.0 / 0.6 - 0.9 cm LV Relative Wall Thickness 0.5 RV Internal Dim ED PLAX 2.1 cm LVOT Diameter 2.1 cm Aortic Root Diameter 2.4 cm LA Systolic Diameter LX 2.5 cm 3.0 - 4.0 / 2.7 - 3.8 cm LV Diastolic Volume MOD BP 76.0 cm??? 67 - 155 / 56 - 104 cm??? LV Systolic Volume MOD BP 58.4 cm??? - 58 / 19 - 49 cm??? LV Ejection Fraction MOD BP 23.2 % >= 55 % LV Cardiac Index MOD BP 1104.1 cm???/min???m??? LV Diastolic Volume MOD 4C 75.0 cm??? LV Systolic Volume MOD 4C 59.7 cm??? LV Ejection Fraction MOD 4C 20.4 % LV Cardiac Index MOD 4C 958.2 cm???/min???m??? LV Diastolic Length 4C 8.9 cm LV Systolic Length 4C 8.8 cm LV Diastolic Volume MOD 2C 76.0 cm??? LV Systolic Volume MOD 2C 55.9 cm??? LV Ejection Fraction MOD 2C 26.5 % LV Cardiac Index MOD 2C 1257.3 cm???/min???m??? LV Diastolic Length 2C 8.8 cm LV Systolic Length 2C 8.6 cm LA Volume 27.9 cm??? 18 - 58 / 22 - 52 cm??? LA Volume Index 15.0 cm???/m??? 16 - 28 cm???/m??? DOPPLER AV Peak Velocity 115.5 cm/s AV Peak Gradient 5.3 mmHg LVOT Peak Velocity 81.9 cm/s LVOT Peak Gradient 2.7 mmHg LVOT Velocity Time Integral 13.4 cm LVOT Stroke Volume 44.9 cm??? LVOT Stroke Volume Index 24.0 ml/m??? LVOT Cardiac Index 2803.0 cm???/min???m??? AV Area Cont Eq pk 2.4 cm??? MV Peak Velocity 88.1 cm/s MV Peak Gradient 3.1 mmHg MV Mean Velocity 45.9 cm/s MV Mean Gradient 1.0 mmHg MV Velocity Time Integral 25.7 cm Mitral E Point Velocity 75.0 cm/s Mitral A Point Velocity 32.1 cm/s Mitral E to A Ratio 2.3 MV Deceleration Time 53.6 ms MV E' Velocity 9.8 cm/s Mitral E to MV E' Ratio 7.7 PV Peak Velocity 85.3 cm/s PV Peak Gradient 2.9 mmHg FINDINGS Left Ventricle Normal LV size and wall thickness. Left ventricular ejection fraction is estimated at 20-25 %. Right Ventricle Normal right ventricular size. Right Atrium Normal right atrial size. Left Atrium Normal left atrial size. Mitral Valve Structurally normal mitral valve. No mitral regurgitation. Aortic Valve Aortic valve not well visualized. No aortic regurgitation. No aortic stenosis. Tricuspid Valve Structurally normal tricuspid valve. No tricuspid regurgitation. Pulmonic Valve Pulmonic valve not well visualized. No pulmonic regurgitation. Pericardium Not visualized. Aorta Normal size aortic root. CONCLUSIONS Impaired all the function. The ejection fraction is about 20-25%. Mid ventricle and apical hypokinesia Previewed by: Dr. Leroy Carrera MD (Electronically Signed) Final Date: 27 April 2023 10:14
--- NOTE | 2023-04-27 10:39 | US ---
EXAMINATION TYPE: US carotid duplex BILAT DATE OF EXAM: 04/27/2023 COMPARISON: NONE CLINICAL INDICATION: Male, 58 years old with history of CVA MCA; CVA TECHNIQUE: Carotid duplex ultrasound examination. Indirect Doppler criteria was utilized. FINDINGS: EXAM MEASUREMENTS: RIGHT: Peak Systolic Velocity (PSV) cm/sec ----- Right CCA: 79.4 ----- Right ICA: 102.9 ----- Right ECA: 86.6 ICA/CCA ratio: 1.3 RIGHT: End Diastole cm/sec ----- Right CCA: 20.7 ----- Right ICA: 33.8 ----- Right ECA: 15.4 LEFT: Peak Systolic Velocity (PSV) cm/sec ----- Left CCA: 132.2 ----- Left ICA: 112.9 ----- Left ECA: 111.3 ICA/CCA ratio: 0.9 LEFT: End Diastole cm/sec ----- Left CCA: 41.8 ----- Left ICA: 22.5 ----- Left ECA: 16.0 VERTEBRALS (direction of flow): Right Vertebral: Antegrade Left Vertebral: Antegrade Rhythm: Normal FORGING MACHINE OPERATOR NOTES: No significant stenosis seen exam limited due to patient being intubated, and very high carotid bifurcation IMPRESSION: Less than 50% stenosis of bilateral carotid bifurcations. Criteria for Assigning % of Stenosis / Diameter reduction (Estimation based on the indirect measurements of the internal carotid artery velocities (ICA PSV). 1. Normal (no stenosis)=ICA PSV < 125 cm/s: ratio < 2.0: ICA EDV<40 cm/s. 2. Less than 50% stenosis=ICA PSV < 125 cm/s: ratio < 2.0: ICA EDV<40 cm/s. 3. 50 to 69% stenosis=ICA PSV of 125 to 230 cm/s: ration 2.0 ? 4.0: ICA EDV 40-100 cm/s. 4. Greater than 70% stenosis to near occlusion= ICA PSV > 230 cm/s: ratio > 4.0: ICA EDV > 100 cm/s. 5. Near occlusion= ICA PSV velocities may be low or undetectable: variable ratio and ICA EDV. 6. Total occlusion=unable to detect flow.
--- NOTE | 2023-04-27 10:48 | P.GSCN ---
History of Present Illness Consult date: 04/27/23 Reason for Consult: Arterial occlusion right arm Requesting physician: Giselle Cristobal History of present illness: This 58-year-old male who was brought into the emergency department yesterday evening around 1840 after being found unresponsive from a wellness check. Patient was admitted to the ICU and is currently sedated and intubated. Patient history is obtained from the chart. Patient was recently admitted to [facility] for right upper extremity limb ischemia due to thrombosis and underwent right brachial, radial and ulnar thrombectomy reportedly occurred twice during that hospitalization. Also reported that patient has a history of hypertension and recently diagnosed with lung cancer and chronic ongoing smoker. Patient reportedly was discharged on anticoagulation. Patient was noted to have no palpable pulses of the right upper extremity and cold hand. Vascular surgery, Dr. Ayon surgeon on-call was contacted by the emergency department and spoke with Dr. Ayon who recommended and requested that they transfer the patient to [facility] where patient was previously admitted and underwent right upper extremity thrombectomy with Dr. Carter. In the meantime apparently patient was admitted to the ICU with multiple acute conditions. He was intubated and sedated for acute hypoxemia secondary to aspiration pneumonia and monoxide poisoning. He had elevated creatinine kinase consistent with rhabdomyolysis but also may be consistent with critical limb ischemia. He was also noted to have elevated troponin consistent with non-ST elevation DC as well as CT head showing left anterior territory and left temporal and parietal lobe stroke. I was able to discuss patient's condition with Dr. Ayon this morning who recommended transfer to [facility], however ICU attending Dr. Francisco does not believe patient is stable for transfer. Review of Systems ROS unobtainable: due to endotracheal tube Past Medical History Past Medical History: Cancer, Diabetes Mellitus Additional Past Medical History / Comment(s): lung ca History of Any Multi-Drug Resistant Organisms: Unobtainable Past Surgical History: Unable to Obtain Additional Past Surgical History / Comment(s): Right Radial, ulnar, and brachial open thrombectomy Past Anesthesia/Blood Transfusion Reactions: No Reported Reaction Past Psychological History: Unable to Obtain Smoking Status: Unknown if ever smoked Past Alcohol Use History: Unable to Obtain Past Drug Use History: Unable to Obtain Medications and Allergies Home Medications Medication Instructions Recorded Confirmed Type Rivaroxaban [Xarelto] 15 mg PO BID 04/26/23 04/26/23 History Rivaroxaban [Xarelto] 20 mg PO DIRECTED 04/26/23 04/26/23 History Acetaminophen Tab [Tylenol] 650 mg PO Q6H 04/27/23 04/27/23 History Gabapentin [Neurontin] 100 mg PO TID 04/27/23 04/27/23 History Losartan/Hydrochlorothiazide 1 tab PO DAILY 04/27/23 04/27/23 History [Hyzaar 100-25 Tablet] amLODIPine [Norvasc] 10 mg PO DAILY 04/27/23 04/27/23 History Allergies Allergy/AdvReac Type Severity Reaction Status Date / Time Unable to Assess Allergy Verified 04/26/23 16:54 Surgical - Exam Vital Signs Temp Pulse Resp BP Pulse Ox 94.4 F L 104 H 28 H 115/74 93 L 04/26/23 16:43 04/26/23 16:43 04/26/23 16:43 04/26/23 16:43 04/26/23 16:43 General appearance: The patient is sedated and intubated on mechanical ventilation. HET: Head is normocephalic and atraumatic. Neck: Supple. Heart: Regular. Lungs: Equal expansion, on mechanical ventilation. Abdomen: Soft, nontender, nondistended. Extremities: Palpable left radial artery pulse, warm to the touch. Right upper extremity warm to the touch to the wrist, hand and fingers cold with noted bruising. There are sutures over radial and ulnar artery as well as brachial that are well approximated. Nonpalpable pulse, unable to obtain Doppler signal. Right hand contracted. B/l palpable femoral pulses. Bilateral feet mottled, cool to touch. Popliteal Doppler signal. Neurological: Sedated and intubated. Results - Labs 04/27/23 04:00 04/27/23 04:00 Abnormal Lab Results - Last 24 Hours (Table) 04/26/23 04/26/23 04/26/23 Range/Units 16:48 16:58 16:58 WBC 28.5 H (3.8-10.6) k/uL RBC 6.98 H (4.30-5.90) m/uL Hgb 20.7 H* (13.0-17.5) gm/dL Hct 65.1 H* (39.0-53.0) % Plt Count 115 L (150-450) k/uL Neutrophils # 25.7 H (1.3-7.7) k/uL Monocytes # 1.2 H (0-1.0) k/uL PT (10.0-12.5) sec INR (<1.2) APTT (22.0-30.0) sec ABG pH (7.35-7.45) ABG pCO2 (35-45) mmHg ABG pO2 (83-108) mmHg ABG HCO3 (21-25) mmol/L ABG Total CO2 (19-24) mmol/L ABG O2 Saturation (94-97) % Carbon Monoxide, Quant (<10.0) % Sodium 147 H (137-145) mmol/L Chloride 108 H (98-107) mmol/L Carbon Dioxide 9 L* (22-30) mmol/L BUN 56 H (9-20) mg/dL Creatinine 2.19 H (0.66-1.25) mg/dL Glucose 147 H (74-99) mg/dL POC Glucose (mg/dL) 146 H (70-110) mg/dL Plasma Lactic Acid Willie (0.7-2.0) mmol/L Calcium 10.5 H (8.4-10.2) mg/dL Total Bilirubin 1.6 H (0.2-1.3) mg/dL AST 326 H (17-59) U/L ALT 123 H (4-49) U/L Creatine Kinase 74111 H* (55-170) U/L Troponin I (0.000-0.034) ng/mL Urine Protein (Negative) Urine Blood (Negative) Urine WBC (0-5) /hpf Hyaline Casts (0-2) /lpf Urine Mucus (None) /hpf 04/26/23 04/26/23 04/26/23 Range/Units 16:58 16:58 16:58 WBC (3.8-10.6) k/uL RBC (4.30-5.90) m/uL Hgb (13.0-17.5) gm/dL Hct (39.0-53.0) % Plt Count (150-450) k/uL Neutrophils # (1.3-7.7) k/uL Monocytes # (0-1.0) k/uL PT (10.0-12.5) sec INR (<1.2) APTT (22.0-30.0) sec ABG pH (7.35-7.45) ABG pCO2 (35-45) mmHg ABG pO2 (83-108) mmHg ABG HCO3 (21-25) mmol/L ABG Total CO2 (19-24) mmol/L ABG O2 Saturation (94-97) % Carbon Monoxide, Quant (<10.0) % Sodium (137-145) mmol/L Chloride (98-107) mmol/L Carbon Dioxide (22-30) mmol/L BUN (9-20) mg/dL Creatinine (0.66-1.25) mg/dL Glucose (74-99) mg/dL POC Glucose (mg/dL) (70-110) mg/dL Plasma Lactic Acid Willie 12.1 H* (0.7-2.0) mmol/L Calcium (8.4-10.2) mg/dL Total Bilirubin (0.2-1.3) mg/dL AST (17-59) U/L ALT (4-49) U/L Creatine Kinase (55-170) U/L Troponin I 8.390 H* (0.000-0.034) ng/mL Urine Protein Trace H (Negative) Urine Blood Large H (Negative) Urine WBC 9 H (0-5) /hpf Hyaline Casts 11 H (0-2) /lpf Urine Mucus Occasional H (None) /hpf 04/26/23 04/26/23 04/26/23 Range/Units 16:58 17:59 21:08 WBC (3.8-10.6) k/uL RBC (4.30-5.90) m/uL Hgb (13.0-17.5) gm/dL Hct (39.0-53.0) % Plt Count (150-450) k/uL Neutrophils # (1.3-7.7) k/uL Monocytes # (0-1.0) k/uL PT 13.9 H (10.0-12.5) sec INR 1.3 H (<1.2) APTT 19.9 L (22.0-30.0) sec ABG pH (7.35-7.45) ABG pCO2 (35-45) mmHg ABG pO2 (83-108) mmHg ABG HCO3 (21-25) mmol/L ABG Total CO2 (19-24) mmol/L ABG O2 Saturation (94-97) % Carbon Monoxide, Quant >20.0 H* (<10.0) % Sodium (137-145) mmol/L Chloride (98-107) mmol/L Carbon Dioxide (22-30) mmol/L BUN (9-20) mg/dL Creatinine (0.66-1.25) mg/dL Glucose (74-99) mg/dL POC Glucose (mg/dL) (70-110) mg/dL Plasma Lactic Acid Willie 2.4 H* (0.7-2.0) mmol/L Calcium (8.4-10.2) mg/dL Total Bilirubin (0.2-1.3) mg/dL AST (17-59) U/L ALT (4-49) U/L Creatine Kinase (55-170) U/L Troponin I (0.000-0.034) ng/mL Urine Protein (Negative) Urine Blood (Negative) Urine WBC (0-5) /hpf Hyaline Casts (0-2) /lpf Urine Mucus (None) /hpf 04/26/23 04/26/23 04/27/23 Range/Units 21:31 22:12 01:20 WBC (3.8-10.6) k/uL RBC (4.30-5.90) m/uL Hgb (13.0-17.5) gm/dL Hct (39.0-53.0) % Plt Count (150-450) k/uL Neutrophils # (1.3-7.7) k/uL Monocytes # (0-1.0) k/uL PT (10.0-12.5) sec INR (<1.2) APTT (22.0-30.0) sec ABG pH 7.17 L* (7.35-7.45) ABG pCO2 24 L (35-45) mmHg ABG pO2 68 L (83-108) mmHg ABG HCO3 9 L* (21-25) mmol/L ABG Total CO2 10 L (19-24) mmol/L ABG O2 Saturation 89.4 L (94-97) % Carbon Monoxide, Quant (<10.0) % Sodium (137-145) mmol/L Chloride (98-107) mmol/L Carbon Dioxide (22-30) mmol/L BUN (9-20) mg/dL Creatinine (0.66-1.25) mg/dL Glucose (74-99) mg/dL POC Glucose (mg/dL) 122 H (70-110) mg/dL Plasma Lactic Acid Willie 2.7 H* (0.7-2.0) mmol/L Calcium (8.4-10.2) mg/dL Total Bilirubin (0.2-1.3) mg/dL AST (17-59) U/L ALT (4-49) U/L Creatine Kinase (55-170) U/L Troponin I (0.000-0.034) ng/mL Urine Protein (Negative) Urine Blood (Negative) Urine WBC (0-5) /hpf Hyaline Casts (0-2) /lpf Urine Mucus (None) /hpf 04/27/23 04/27/23 04/27/23 Range/Units 04:00 04:00 04:00 WBC 21.6 H (3.8-10.6) k/uL RBC (4.30-5.90) m/uL Hgb (13.0-17.5) gm/dL Hct (39.0-53.0) % Plt Count (150-450) k/uL Neutrophils # (1.3-7.7) k/uL Monocytes # (0-1.0) k/uL PT (10.0-12.5) sec INR (<1.2) APTT (22.0-30.0) sec ABG pH (7.35-7.45) ABG pCO2 (35-45) mmHg ABG pO2 (83-108) mmHg ABG HCO3 (21-25) mmol/L ABG Total CO2 (19-24) mmol/L ABG O2 Saturation (94-97) % Carbon Monoxide, Quant (<10.0) % Sodium 149 H (137-145) mmol/L Chloride 116 H (98-107) mmol/L Carbon Dioxide (22-30) mmol/L BUN 45 H (9-20) mg/dL Creatinine (0.66-1.25) mg/dL Glucose 167 H (74-99) mg/dL POC Glucose (mg/dL) (70-110) mg/dL Plasma Lactic Acid Willie (0.7-2.0) mmol/L Calcium 7.6 L (8.4-10.2) mg/dL Total Bilirubin (0.2-1.3) mg/dL AST (17-59) U/L ALT (4-49) U/L Creatine Kinase 20755 H* (55-170) U/L Troponin I 16.000 H* (0.000-0.034) ng/mL Urine Protein (Negative) Urine Blood (Negative) Urine WBC (0-5) /hpf Hyaline Casts (0-2) /lpf Urine Mucus (None) /hpf 04/27/23 Range/Units 06:19 WBC (3.8-10.6) k/uL RBC (4.30-5.90) m/uL Hgb (13.0-17.5) gm/dL Hct (39.0-53.0) % Plt Count (150-450) k/uL Neutrophils # (1.3-7.7) k/uL Monocytes # (0-1.0) k/uL PT (10.0-12.5) sec INR (<1.2) APTT (22.0-30.0) sec ABG pH (7.35-7.45) ABG pCO2 (35-45) mmHg ABG pO2 >400 H (83-108) mmHg ABG HCO3 27 H (21-25) mmol/L ABG Total CO2 28 H (19-24) mmol/L ABG O2 Saturation 100.0 H (94-97) % Carbon Monoxide, Quant (<10.0) % Sodium (137-145) mmol/L Chloride (98-107) mmol/L Carbon Dioxide (22-30) mmol/L BUN (9-20) mg/dL Creatinine (0.66-1.25) mg/dL Glucose (74-99) mg/dL POC Glucose (mg/dL) (70-110) mg/dL Plasma Lactic Acid Willie (0.7-2.0) mmol/L Calcium (8.4-10.2) mg/dL Total Bilirubin (0.2-1.3) mg/dL AST (17-59) U/L ALT (4-49) U/L Creatine Kinase (55-170) U/L Troponin I (0.000-0.034) ng/mL Urine Protein (Negative) Urine Blood (Negative) Urine WBC (0-5) /hpf Hyaline Casts (0-2) /lpf Urine Mucus (None) /hpf Diabetes panel 04/26/23 04/27/23 Range/Units 16:58 04:00 Sodium 147 H 149 H (137-145) mmol/L Potassium 5.0 4.3 (3.5-5.1) mmol/L Chloride 108 H 116 H (98-107) mmol/L Carbon Dioxide 9 L* 23 (22-30) mmol/L BUN 56 H 45 H (9-20) mg/dL Creatinine 2.19 H 1.17 (0.66-1.25) mg/dL Glucose 147 H 167 H (74-99) mg/dL Calcium 10.5 H 7.6 L (8.4-10.2) mg/dL AST 326 H (17-59) U/L ALT 123 H (4-49) U/L Alkaline Phosphatase 59 (38-126) U/L Total Protein 8.2 (6.3-8.2) g/dL Albumin 5.0 (3.5-5.0) g/dL Calcium panel 04/26/23 04/27/23 Range/Units 16:58 04:00 Calcium 10.5 H 7.6 L (8.4-10.2) mg/dL Albumin 5.0 (3.5-5.0) g/dL Pituitary panel 04/26/23 04/27/23 Range/Units 16:58 04:00 Sodium 147 H 149 H (137-145) mmol/L Potassium 5.0 4.3 (3.5-5.1) mmol/L Chloride 108 H 116 H (98-107) mmol/L Carbon Dioxide 9 L* 23 (22-30) mmol/L BUN 56 H 45 H (9-20) mg/dL Creatinine 2.19 H 1.17 (0.66-1.25) mg/dL Glucose 147 H 167 H (74-99) mg/dL Calcium 10.5 H 7.6 L (8.4-10.2) mg/dL Adrenal panel 04/26/23 04/27/23 Range/Units 16:58 04:00 Sodium 147 H 149 H (137-145) mmol/L Potassium 5.0 4.3 (3.5-5.1) mmol/L Chloride 108 H 116 H (98-107) mmol/L Carbon Dioxide 9 L* 23 (22-30) mmol/L BUN 56 H 45 H (9-20) mg/dL Creatinine 2.19 H 1.17 (0.66-1.25) mg/dL Glucose 147 H 167 H (74-99) mg/dL Calcium 10.5 H 7.6 L (8.4-10.2) mg/dL Total Bilirubin 1.6 H (0.2-1.3) mg/dL AST 326 H (17-59) U/L ALT 123 H (4-49) U/L Alkaline Phosphatase 59 (38-126) U/L Total Protein 8.2 (6.3-8.2) g/dL Albumin 5.0 (3.5-5.0) g/dL - Imaging Comments: X-ray chest interval satisfactory repositioning of the ET tube, now 3.5 cm from the chasidy Carotid duplex currently pending Echocardiogram report impaired alcohol function. The ejection fraction is about 20-25%. Mid ventricle and apical hypokinesia. CT brain C-spine without contrast reports diffuse low-attenuation in the left anterior territory, involving left temporal and parietal lobe measuring 8 x 4.5 x 3.5 cm. There is associated sulcal effacement consistent with mild local mass effect. No midline shift of structures. No skull fracture and no intracranial hemorrhage. Cervical spine negative for fracture or malalignment. Visualized lung apices show prominent bilateral lung consolidation, consistent with multifocal pneumonia Assessment and Plan Assessment: 1. Right upper extremity acute limb ischemia, status post recent radial, ulnar, and brachial artery thrombectomy done 04/16/[address] Carter at [facility] 2. Acute hypoxemic respiratory failure, intubated and on mechanical ventilation 3. Elevated carboxy hemoglobin 4. Acute non-ST elevation myocardial infarction 5. Lactic acidosis 6. Rhabdomyolysis 7. CVA 8. Leukocytosis 9. Possible history of lung cancer Plan: 1. Dr. Ayon is the on-call vascular surgeon recommended transfer to [facility] where patient's vascular surgeon Dr. Carter is present and available 2. Recommend IV heparin drip. This was discussed with medicine and neurology. Neurology Dr. Rivera approved to start heparin drip without bolus. 3. Continue with recommendations from other consultants 4. Further recommendations forthcoming per vascular surgeon Thank you for this consultation. The impression and plan of care has been dictated as directed. Dr De I performed a history and examination of this patient, discussed the same with the dictator. I agree with the dictator's note ,documented as a scribe. Any additional findings or plans will be noted.
[2023-04-27] MEDS ORDERED: HEPARIN SODIUM 1,000 UN/ML (10ML VL) IV PRN (11:10)
[2023-04-27] MEDS ORDERED: HEPARIN SOD,PORK IN 0.45% NACL 25,000 UNIT in 0.45% NACL 1 250ML.BAG IV SCH (11:15)
--- NOTE | 2023-04-27 11:24 | P.CNNES ---
History of Present Illness Consult date: 04/27/23 Requesting physician: Mikki Francisco Reason for Consult: ischemic stroke History of Present Illness: This is a 58-year-old gentleman who presented emergency department for altered mental status. History is obtained from medical record. Neurology is consulted for ischemic stroke. History is obtained from medical record. It seems that the patient was reportedly covered in suit and found minimally responsive next to the oven. He presented to our facility on 04/26/2023. She was last seen by his neighbor on Sunday. Per the ED note it seems of the neighbors state they help take care of him at home on [address] and he was normal. Then they have not heard from him in a couple days therefore the police did a well check and had to break into the house and he was found on the floor in front of the stove. Seems the patient has been burning things on the stove and the gas was on. Seems recently the patient was taken to [facility] and had arterial occlusion and was transferred to [facility] in which she had 2 surgeries. He had been right upper extremity ischemia and may be a recently diagnosed with lung cancer and he has a chronic smoker. Some other workup during our facility consisted of: Initial temperature is 94.4 which has improved to euthermia. Initial white blood cell is 28,000 predominantly neutrophilic hemoglobin is 20 hematocrit was 65 the hemoglobin and hematocrit improved. The white blood cells trending down. His recent sodium is 149, BUN 45, creatinine is 1.17, glucose is 167. Plasma lactic acid venous 12.1 and most recent one is 2.1. Calcium is 10.5 CK level is 10,403 and a repeat is 18,435. Troponin is 8.3 and most recent one is 13.7 Ammonia 14 Initial CO2: >20 and repeated 1.7. AB.17 and repeated and HCO3 9. UDS is nondetected and serum alcohol was less than 10 CT of the head is reported as subacute A by 4 x 4 cm left MCA territory nonhemorrhagic infarction. I personally agree that the patient has subacute changes over the left temporal parietal region. CT cervical spine is prominent by apical lung consolidation. Patient is on IV propofol and fentanyl. He is intubated. 2-D echo was reported as him. All the function. The ejection fraction is about 20-25%. Mild ventricular and apical hypokinesis. Review of Systems Limited but the positive and negative as per HPI. Past Medical History Past Medical History: Cancer, Diabetes Mellitus Additional Past Medical History / Comment(s): lung ca History of Any Multi-Drug Resistant Organisms: Unobtainable Past Surgical History: Unable to Obtain Additional Past Surgical History / Comment(s): Right Radial, ulnar, and brachial open thrombectomy Past Anesthesia/Blood Transfusion Reactions: No Reported Reaction Past Psychological History: Unable to Obtain Smoking Status: Unknown if ever smoked Past Alcohol Use History: Unable to Obtain Past Drug Use History: Unable to Obtain Medications and Allergies Home Medications Medication Instructions Recorded Confirmed Type Rivaroxaban [Xarelto] 15 mg PO BID 04/26/23 04/26/23 History Rivaroxaban [Xarelto] 20 mg PO DIRECTED 04/26/23 04/26/23 History Acetaminophen Tab [Tylenol] 650 mg PO Q6H 04/27/23 04/27/23 History Gabapentin [Neurontin] 100 mg PO TID 04/27/23 04/27/23 History Losartan/Hydrochlorothiazide 1 tab PO DAILY 04/27/23 04/27/23 History [Hyzaar 100-25 Tablet] amLODIPine [Norvasc] 10 mg PO DAILY 04/27/23 04/27/23 History Allergies Allergy/AdvReac Type Severity Reaction Status Date / Time Unable to Assess Allergy Verified 04/26/23 16:54 Physical Examination - Vital Signs Vital Signs: Vital Signs Temp Pulse Resp BP Pulse Ox FiO2 04/27/23 09:00 113 H 24 120/74 100 04/27/23 08:59 50 04/27/23 08:57 113 H 24 04/27/23 08:50 50 04/27/23 08:00 99.0 F 116 H 28 H 121/72 100 50 04/27/23 07:45 116 H 27 H 123/70 100 04/27/23 07:30 115 H 26 H 121/78 100 04/27/23 07:15 116 H 28 H 116/69 100 04/27/23 07:00 115 H 26 H 122/69 100 04/27/23 06:45 117 H 27 H 119/72 100 04/27/23 06:30 116 H 25 H 126/71 100 04/27/23 06:24 50 04/27/23 06:15 115 H 23 120/69 100 04/27/23 06:00 115 H 24 120/75 100 04/27/23 05:45 115 H 24 124/72 04/27/23 05:30 114 H 25 H 113/69 100 04/27/23 05:15 113 H 25 H 114/67 100 04/27/23 05:00 99.1 F 112 H 26 H 110/66 100 04/27/23 04:45 110 H 29 H 103/67 100 04/27/23 04:37 100 04/27/23 04:36 110 H 04/27/23 04:30 109 H 30 H 105/66 100 04/27/23 04:15 110 H 28 H 109/61 100 04/27/23 04:00 99.4 F 109 H 28 H 108/61 99 100 04/27/23 03:45 110 H 29 H 108/63 99 04/27/23 03:30 110 H 30 H 112/62 99 04/27/23 03:15 109 H 30 H 107/69 100 04/27/23 03:00 99.5 F 106 H 29 H 108/66 99 04/27/23 02:45 112 H 28 H 109/67 99 04/27/23 02:30 112 H 33 H 115/65 100 04/27/23 02:15 114 H 33 H 124/75 98 04/27/23 02:00 98.9 F 116 H 34 H 105/78 99 04/27/23 01:45 114 H 31 H 115/76 96 04/27/23 01:30 115 H 34 H 116/74 04/27/23 01:15 112 H 33 H 123/69 04/27/23 01:00 111 H 29 H 131/76 04/27/23 00:45 114 H 32 H 110/67 04/27/23 00:30 103 H 30 H 101/62 04/27/23 00:15 96 27 H 99/64 04/27/23 00:10 111 H 04/27/23 00:03 100 04/27/23 00:00 99.3 F 97 28 H 99/67 95 100 04/26/23 23:45 96 28 H 103/69 100 04/26/23 23:37 95 29 H 100 04/26/23 21:55 98 20 107/71 99 04/26/23 21:45 103 H 28 H 127/80 12/07/23 21:20 102 H 20 148/89 98 04/26/23 21:00 108 H 20 147/93 98 04/26/23 20:30 113 H 28 H 168/103 95 100 04/26/23 17:30 97.0 F L 100 28 H 119/77 96 04/26/23 17:15 106 H 28 H 113/83 96 04/26/23 17:00 103 H 28 H 117/77 93 L 04/26/23 16:43 94.4 F L 104 H 28 H 115/74 93 L Intake and Output 04/26/23 04/27/23 04/27/23 22:59 06:59 14:59 Intake Total 9.128 5232.893 627.288 Output Total 1725 385 Balance 9.128 3507.893 242.288 Intake: IV 5160 486 0.9 NS @ KVO 30 ARTERIAL LINE & CVP 6 Dextrose 5% in Water 1, 800 0 000 ml @ 100 mls/hr IV . [id number] DYLAN with Sodium Bicarb (1 Meq/ml) 150 ml Rx#:[id number] Piperacillin-Tazobactam 3 100 100 .375 gm In Sodium Chloride 0.9% 100 ml @ 25 mls/hr IVPB Q8HR ON LICENSE OF [facility] Rx# :[id number] Sodium Chloride 0.9% 1, 350 000 ml @ 150 mls/hr IV . Q6H40M ON LICENSE OF [facility] Rx#:[id number] Sodium Chloride 0.9% 1, 260 000 ml @ 200 mls/hr IV . Q5H ON LICENSE OF [facility] Rx#:[id number] Sodium Chloride 0.9% 1, 4000 000 ml @ 999 mls/hr IV . Q1H1M ONE Rx#:[id number] Intake, IV Titration 9.128 72.893 96.288 Amount fentaNYL (PF). 1,000 mcg 1.458 In Sodium Chloride 0.9% 80 ml @ 0.5 MCG/KG/HR 3.5 mls/hr IV .Q24H ON LICENSE OF [facility] Rx#: [id number] propofoL 1,000 mg In 9.128 72.893 94.83 Empty Bag 1 bag @ 15 MCG/ KG/MIN 4.905 mls/hr IV . [id number] ON LICENSE OF [facility] Rx#:[id number] Other 45 Output: Gastric Drainage 150 Urine 1725 235 Other: Voiding Method Indwelling Catheter Indwelling Catheter Weight 54.5 kg 70 kg General: Lying in bed and does not appear in acute distress. Lung: Intubated on ventilator. Cardiovascular: Has purplish discoloration of the bilateral distal upper and lower extremities. Is cold to touch in lowers distal extremities. Has suture of right upper extremities from recent surgery likely at [facility]. Neuro: Very limited because of overall condition and patient is on IV Propofol 60mcg/kg/min and IV fentanyl 1mg/kg/hr. Comatose. GCS 3 (E1, VT1, M1). I had to open eyes and primary gaze is midline. His pupils appear discolored in which has brownish around peripheral of pupils and center ?greenish. Pupils size appear 3mm bilaterally but again. Hard to assess reactivity. No facial weakness. Has gag/cough. Is breathing over the vent. Motor: Hard to assess. No spontaneous movement. No withdrawal to painful stimuli. Decrease tone througout. Reflex: 1+. Plantars: Mute bilaterally. Results - Laboratory Findings CBC and BMP: 04/27/23 12:12 04/27/23 04:00 Abnormal Lab Findings: Abnormal Labs 04/26/23 04/26/23 04/26/23 16:48 16:58 16:58 WBC 28.5 H RBC 6.98 H Hgb 20.7 H* Hct 65.1 H* Plt Count 115 L Neutrophils # 25.7 H Neutrophils # (Manual) Monocytes # 1.2 H Nucleated RBCs PT INR APTT ABG pH ABG pCO2 ABG pO2 ABG HCO3 ABG Total CO2 ABG O2 Saturation Carbon Monoxide, Quant Sodium 147 H Chloride 108 H Carbon Dioxide 9 L* BUN 56 H Creatinine 2.19 H Glucose 147 H POC Glucose (mg/dL) 146 H Plasma Lactic Acid Willie Calcium 10.5 H Total Bilirubin 1.6 H AST 326 H ALT 123 H Creatine Kinase 37145 H* Troponin I Urine Protein Urine Blood Urine RBC Urine WBC Uric Acid Crystals Amorphous Sediment Urine Bacteria Hyaline Casts Urine Mucus Urine Yeast (Budding) 04/26/23 04/26/23 04/26/23 16:58 16:58 16:58 WBC RBC Hgb Hct Plt Count Neutrophils # Neutrophils # (Manual) Monocytes # Nucleated RBCs PT INR APTT ABG pH ABG pCO2 ABG pO2 ABG HCO3 ABG Total CO2 ABG O2 Saturation Carbon Monoxide, Quant Sodium Chloride Carbon Dioxide BUN Creatinine Glucose POC Glucose (mg/dL) Plasma Lactic Acid Willie 12.1 H* Calcium Total Bilirubin AST ALT Creatine Kinase Troponin I 8.390 H* Urine Protein Trace H Urine Blood Large H Urine RBC Urine WBC 9 H Uric Acid Crystals Amorphous Sediment Urine Bacteria Hyaline Casts 11 H Urine Mucus Occasional H Urine Yeast (Budding) 04/26/23 04/26/23 04/26/23 16:58 17:59 21:08 WBC RBC Hgb Hct Plt Count Neutrophils # Neutrophils # (Manual) Monocytes # Nucleated RBCs PT 13.9 H INR 1.3 H APTT 19.9 L ABG pH ABG pCO2 ABG pO2 ABG HCO3 ABG Total CO2 ABG O2 Saturation Carbon Monoxide, Quant >20.0 H* Sodium Chloride Carbon Dioxide BUN Creatinine Glucose POC Glucose (mg/dL) Plasma Lactic Acid Willie 2.4 H* Calcium Total Bilirubin AST ALT Creatine Kinase Troponin I Urine Protein Urine Blood Urine RBC Urine WBC Uric Acid Crystals Amorphous Sediment Urine Bacteria Hyaline Casts Urine Mucus Urine Yeast (Budding) 04/26/23 04/26/23 04/27/23 21:31 22:12 01:20 WBC RBC Hgb Hct Plt Count Neutrophils # Neutrophils # (Manual) Monocytes # Nucleated RBCs PT INR APTT ABG pH 7.17 L* ABG pCO2 24 L ABG pO2 68 L ABG HCO3 9 L* ABG Total CO2 10 L ABG O2 Saturation 89.4 L Carbon Monoxide, Quant Sodium Chloride Carbon Dioxide BUN Creatinine Glucose POC Glucose (mg/dL) 122 H Plasma Lactic Acid Willie 2.7 H* Calcium Total Bilirubin AST ALT Creatine Kinase Troponin I Urine Protein Urine Blood Urine RBC Urine WBC Uric Acid Crystals Amorphous Sediment Urine Bacteria Hyaline Casts Urine Mucus Urine Yeast (Budding) 04/27/23 04/27/23 04/27/23 04:00 04:00 04:00 WBC 21.4 H RBC Hgb Hct Plt Count 75 L Neutrophils # Neutrophils # (Manual) 19.40 H Monocytes # Nucleated RBCs 1 H PT INR APTT ABG pH ABG pCO2 ABG pO2 ABG HCO3 ABG Total CO2 ABG O2 Saturation Carbon Monoxide, Quant Sodium 149 H Chloride 116 H Carbon Dioxide BUN 45 H Creatinine Glucose 167 H POC Glucose (mg/dL) Plasma Lactic Acid Willie Calcium 7.6 L Total Bilirubin AST ALT Creatine Kinase 88481 H* Troponin I 16.000 H* Urine Protein Urine Blood Urine RBC Urine WBC Uric Acid Crystals Amorphous Sediment Urine Bacteria Hyaline Casts Urine Mucus Urine Yeast (Budding) 04/27/23 04/27/23 04/27/23 05:30 06:19 06:39 WBC RBC Hgb Hct Plt Count Neutrophils # Neutrophils # (Manual) Monocytes # Nucleated RBCs PT INR APTT ABG pH ABG pCO2 ABG pO2 >400 H ABG HCO3 27 H ABG Total CO2 28 H ABG O2 Saturation 100.0 H Carbon Monoxide, Quant Sodium Chloride Carbon Dioxide BUN Creatinine Glucose POC Glucose (mg/dL) Plasma Lactic Acid Willie Calcium Total Bilirubin AST ALT Creatine Kinase Troponin I 13.700 H* Urine Protein 1+ H Urine Blood Large H Urine RBC 35 H Urine WBC 15 H Uric Acid Crystals Few H Amorphous Sediment Rare H Urine Bacteria Rare H Hyaline Casts Urine Mucus Urine Yeast (Budding) Many H 04/27/23 06:45 WBC RBC Hgb Hct Plt Count Neutrophils # Neutrophils # (Manual) Monocytes # Nucleated RBCs PT INR APTT ABG pH ABG pCO2 ABG pO2 ABG HCO3 ABG Total CO2 ABG O2 Saturation Carbon Monoxide, Quant Sodium Chloride Carbon Dioxide BUN Creatinine Glucose POC Glucose (mg/dL) Plasma Lactic Acid Willie 2.1 H* Calcium Total Bilirubin AST ALT Creatine Kinase Troponin I Urine Protein Urine Blood Urine RBC Urine WBC Uric Acid Crystals Amorphous Sediment Urine Bacteria Hyaline Casts Urine Mucus Urine Yeast (Budding) Assessment and Plan Assessment: This is a 58 y/o gentleman was found down in front of his stove on 04/26/2023 and last normal seen was on 04/23/2023. He was recent at [facility] for ischemic of upper s/p thrombectomy on third of March and had repeated surgery and was discharged on eliquis. His CO was >20 and repeated is normal. His CK level is elevated, elevated troponin. CT head show subacute ischemic stroke over the left MCA. Subacute left MCA. No IV tpa since outside window and appears last normal is 04/23/2023 and risk outweigh benefit. Encephalopathy due to stroke, hypercarobxyemia, metabolic encephalopathy and medication effect (Propofol and Fentanyl) NSTEMI Acute Rhabdomylolysis Recent right upper extremity thrombus with ischemia s/p thrombectomy X2 at [facility] towards of March 2023. 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 DARRYL Ejection fraction of 20-25% with apical hypokinesis and 2-D echo Leukocytosis--trending down Hypernatremia Polycythemia Possible lung cancer Plan: I ordered carotid duplex, routine EEG, TSH, vitamin B12, folate. I ordered lipid panel Ordered copper level because of discoloration of the pupil. Patient is on aspirin 81 mg daily. Regarding use of anticoagulation I spoke with the primary and vascular surgery team and from a neurologic perspective if the benefits outweigh the risk to pursue with anticoagulation such as heparin drip but avoid boluses and keep the PTT between 45 and 60. Also we'll get a repeat CT of the head tomorrow. Will avoid the statin because of his rhabdo but once the rhabdo resolves will place him on statin I started the patient on thiamine 100mg IV daily. Every 2 neurochecks Cardiac monitoring PT OT and PRESCHOOL ASSISTANT DIRECTOR is consulted Cardiology, vascular surgery consulted We'll defer the rest of the medical management to the primary team DVT prophylaxis patient is on subcu heparin. The plan was discussed with the patient's primary team and vascular surgery team Patient condition is critical. Thank you for the consultation Time with Patient: Greater than 30
--- NOTE | 2023-04-27 11:28 | P.CRDCN ---
History of Present Illness Consult date: 04/27/23 History of present illness: History of Present Illness: The patient is a 58-year-old male who was admitted after being found unresponsive with an elevated carboxy hemoglobin level above 20% with unclear reason. Was attempting suicide. Patient has a known history of lung cancer and chronic tobacco use and has underwent recent surgical intervention with revascularization and thrombectomy of the right upper extremity. He was in sinus tachycardia on presentation. There is no history available. Patient is not on vasopressor. He has mottling in his lower extremities. He is intubated and unresponsive. His lab data remarkable for elevation of his CK enzymes at 1 0,400 with a BUN of 56 and a creatinine 2.19. His troponin is elevated. Other history is not available at this time. The patient has no prior admission to this hospital. Medications: Norvasc 10 mg daily, Hyzaar 95160 milligrams daily, Xarelto Review of Systems: Could not be obtained, patient intubated and sedated Physical Examination: Patient intubated ,Blood pressure 113/70, Heart rate 110 Head: Normocephalic. Eyes: Sclerae nonicteric. Pupils not reactive Neck: Good carotid upstroke, no bruit, no jugular venous distention. Lungs: Clear to auscultation. Heart: , Tachycardic Regular rate and rhythm, S1-S2, no S3, no rub. No murmur. Abdomen: Soft nontender, hypoactive bowel sounds no organomegaly. Extremities: Mottling of the lower extremities with decreased pulses. Decreased pulse on the right upper extremity with sutures noted. Labs: WBC 28.5, hemoglobin 20.7, platelet count 15, pH 7.17. Potassium 5.0. BUN 56, creatinine 2.19. CPK 10,400. Plasma lactic acid 12.1. Troponin 8.3, 16, 13.7. His pH now is 7.44. Chest x-ray shows ET tube EKG: Sinus tachycardia with right atrial abnormality and T-wave inversion laterally suggestive of LVH and strain, cannot exclude ischemia Impression: 1. Unresponsiveness, elevated carboxy hemoglobin level with respiratory failure 2. Evidence of myocardial infarction could be exacerbated by hypoxemia, acidosis, rule out primary cardiac event 3. Recent thrombectomy of the right upper extremity 4. History of hypertension 5. Renal failure of unknown duration 6. History of smoking 7. History of lung cancer Plan: 1. Obtain an echocardiogram with Doppler 2. Supportive care 3. Obtain prior records 4. Neurologically consultation 5. Prognosis is guarded thank you for this consult we will follow with you Past Medical History Past Medical History: Cancer, Diabetes Mellitus Additional Past Medical History / Comment(s): lung ca History of Any Multi-Drug Resistant Organisms: Unobtainable Past Surgical History: Unable to Obtain Additional Past Surgical History / Comment(s): Right Radial, ulnar, and brachial open thrombectomy Past Anesthesia/Blood Transfusion Reactions: No Reported Reaction Past Psychological History: Unable to Obtain Smoking Status: Unknown if ever smoked Past Alcohol Use History: Unable to Obtain Past Drug Use History: Unable to Obtain Medications and Allergies Home Medications Medication Instructions Recorded Confirmed Type Rivaroxaban [Xarelto] 15 mg PO BID 04/26/23 04/26/23 History Rivaroxaban [Xarelto] 20 mg PO DIRECTED 04/26/23 04/26/23 History Acetaminophen Tab [Tylenol] 650 mg PO Q6H 04/27/23 04/27/23 History Gabapentin [Neurontin] 100 mg PO TID 04/27/23 04/27/23 History Losartan/Hydrochlorothiazide 1 tab PO DAILY 04/27/23 04/27/23 History [Hyzaar 100-25 Tablet] amLODIPine [Norvasc] 10 mg PO DAILY 04/27/23 04/27/23 History Allergies Allergy/AdvReac Type Severity Reaction Status Date / Time Unable to Assess Allergy Verified 04/26/23 16:54 Physical Exam Vitals: Vital Signs Temp Pulse Resp BP Pulse Ox FiO2 04/27/23 10:00 114 H 22 113/71 100 04/27/23 09:00 113 H 24 120/74 100 04/27/23 08:59 50 04/27/23 08:57 113 H 24 04/27/23 08:50 50 04/27/23 08:00 99.0 F 116 H 28 H 121/72 100 50 04/27/23 07:45 116 H 27 H 123/70 100 04/27/23 07:30 115 H 26 H 121/78 100 04/27/23 07:15 116 H 28 H 116/69 100 04/27/23 07:00 115 H 26 H 122/69 100 04/27/23 06:45 117 H 27 H 119/72 100 04/27/23 06:30 116 H 25 H 126/71 100 04/27/23 06:24 50 04/27/23 06:15 115 H 23 120/69 100 04/27/23 06:00 115 H 24 120/75 100 04/27/23 05:45 115 H 24 124/72 04/27/23 05:30 114 H 25 H 113/69 100 04/27/23 05:15 113 H 25 H 114/67 100 04/27/23 05:00 99.1 F 112 H 26 H 110/66 100 04/27/23 04:45 110 H 29 H 103/67 100 04/27/23 04:37 100 04/27/23 04:36 110 H 04/27/23 04:30 109 H 30 H 105/66 100 04/27/23 04:15 110 H 28 H 109/61 100 04/27/23 04:00 99.4 F 109 H 28 H 108/61 99 100 04/27/23 03:45 110 H 29 H 108/63 99 04/27/23 03:30 110 H 30 H 112/62 99 04/27/23 03:15 109 H 30 H 107/69 100 04/27/23 03:00 99.5 F 106 H 29 H 108/66 99 04/27/23 02:45 112 H 28 H 109/67 99 04/27/23 02:30 112 H 33 H 115/65 100 04/27/23 02:15 114 H 33 H 124/75 98 04/27/23 02:00 98.9 F 116 H 34 H 105/78 99 04/27/23 01:45 114 H 31 H 115/76 96 04/27/23 01:30 115 H 34 H 116/74 04/27/23 01:15 112 H 33 H 123/69 04/27/23 01:00 111 H 29 H 131/76 04/27/23 00:45 114 H 32 H 110/67 04/27/23 00:30 103 H 30 H 101/62 04/27/23 00:15 96 27 H 99/64 04/27/23 00:10 111 H 04/27/23 00:03 100 04/27/23 00:00 99.3 F 97 28 H 99/67 95 100 04/26/23 23:45 96 28 H 103/69 100 04/26/23 23:37 95 29 H 100 04/26/23 21:55 98 20 107/71 99 04/26/23 21:45 103 H 28 H 127/80 04/26/23 21:20 102 H 20 148/89 98 04/26/23 21:00 108 H 20 147/93 98 04/26/23 20:30 113 H 28 H 168/103 95 100 04/26/23 17:30 97.0 F L 100 28 H 119/77 96 04/26/23 17:15 106 H 28 H 113/83 96 04/26/23 17:00 103 H 28 H 117/77 93 L 04/26/23 16:43 94.4 F L 104 H 28 H 115/74 93 L Intake and Output 04/26/23 04/27/23 04/27/23 22:59 06:59 14:59 Intake Total 9.128 5232.893 790.288 Output Total 1725 420 Balance 9.128 3507.893 370.288 Intake: IV 5160 649 0.9 NS @ KVO 40 ARTERIAL LINE & CVP 9 Dextrose 5% in Water 1, 800 0 000 ml @ 100 mls/hr IV . [id number] [facility] with Sodium Bicarb (1 Meq/ml) 150 ml Rx#:[id number] Piperacillin-Tazobactam 3 100 100 .375 gm In Sodium Chloride 0.9% 100 ml @ 25 mls/hr IVPB Q8HR [facility] Rx# :[id number] Sodium Chloride 0.9% 1, 500 000 ml @ 150 mls/hr IV . Q6H40M [facility] Rx#:[id number] Sodium Chloride 0.9% 1, 260 000 ml @ 200 mls/hr IV . Q5H [facility] Rx#:[id number] Sodium Chloride 0.9% 1, 4000 000 ml @ 999 mls/hr IV . Q1H1M [facility] Rx#:[id number] Intake, IV Titration 9.128 72.893 96.288 Amount fentaNYL (PF). 1,000 mcg 1.458 In Sodium Chloride 0.9% 80 ml @ 0.5 MCG/KG/HR 3.5 mls/hr IV .Q24H [facility] Rx#: [id number] propofoL 1,000 mg In 9.128 72.893 94.83 Empty Bag 1 bag @ 15 MCG/ KG/MIN 4.905 mls/hr IV . [id number] [facility] Rx#:[id number] Other 45 Output: Gastric Drainage 150 Urine 1725 270 Other: Voiding Method Indwelling Catheter Indwelling Catheter Weight 54.5 kg 70 kg 70 kg Results 04/27/23 04:00 04/27/23 04:00 Cardiac Enzymes 04/26/23 04/26/23 04/27/23 Range/Units 16:58 16:58 04:00 AST 326 H (17-59) U/L Troponin I 8.390 H* 16.000 H* (0.000-0.034) ng/mL 04/27/23 Range/Units 06:39 AST (17-59) U/L Troponin I 13.700 H* (0.000-0.034) ng/mL Coagulation 04/26/23 Range/Units 17:59 PT 13.9 H (10.0-12.5) sec APTT 19.9 L (22.0-30.0) sec CBC 04/26/23 04/27/23 Range/Units 16:58 04:00 WBC 28.5 H 21.4 H (3.8-10.6) k/uL RBC 6.98 H 5.69 (4.30-5.90) m/uL Hgb 20.7 H* 17.3 D (13.0-17.5) gm/dL Hct 65.1 H* 52.7 (39.0-53.0) % Plt Count 115 L 75 L (150-450) k/uL Comprehensive Metabolic Panel 04/26/23 04/27/23 Range/Units 16:58 04:00 Sodium 147 H 149 H (137-145) mmol/L Potassium 5.0 4.3 (3.5-5.1) mmol/L Chloride 108 H 116 H (98-107) mmol/L Carbon Dioxide 9 L* 23 (22-30) mmol/L BUN 56 H 45 H (9-20) mg/dL Creatinine 2.19 H 1.17 (0.66-1.25) mg/dL Glucose 147 H 167 H (74-99) mg/dL Calcium 10.5 H 7.6 L (8.4-10.2) mg/dL AST 326 H (17-59) U/L ALT 123 H (4-49) U/L Alkaline Phosphatase 59 (38-126) U/L Total Protein 8.2 (6.3-8.2) g/dL Albumin 5.0 (3.5-5.0) g/dL Current Medications Generic Name Dose Route Start Last Admin Trade Name Freq PRN Reason Stop Dose Admin Albuterol/Ipratropium 3 ml 04/27/23 00:00 04/27/23 08:57 Ipratropium-Albuterol 3 Ml Neb INHALATION 3 ml RT-Q4H [facility] Administration Aspirin 81 mg 04/27/23 09:00 04/27/23 09:18 Aspirin 81 Mg PO 81 mg DAILY [facility] Administration Atorvastatin Calcium 40 mg 04/27/23 21:00 Atorvastatin 40 Mg Tab PO HS [facility] Chlorhexidine Gluconate 15 ml 04/26/23 22:00 04/27/23 08:55 Chlorhexidine Gluconate 15 Ml Cup MUCOUS MEM 15 ml BID [facility] Administration Heparin Sodium (Porcine) 5,000 unit 04/27/23 08:00 04/27/23 08:36 Heparin Sodium,Porcine 5,000 Unit/Ml 1 Ml Vial SQ 5,000 unit Q8HR [facility] Administration Propofol 1,000 mg/ IV Solution 100 mls @ 4.905 mls/hr 04/26/23 20:22 04/27/23 07:30 IV 60 mcg/kg/min .[id number] [facility] 19.62 mls/hr Administration Protocol 15 MCG/KG/MIN Piperacillin Sod/Tazobactam 100 mls @ 25 mls/hr 04/27/23 00:00 04/27/23 08:37 Sod 3.375 gm/ Sodium Chloride IVPB 25 mls/hr Q8HR [facility] Administration Protocol Sodium Chloride 1,000 mls @ 150 mls/hr 04/27/23 06:30 04/27/23 08:55 Saline 0.9% IV 150 mls/hr .Q6H40M [facility] Administration Fentanyl Citrate 1,000 mcg/ 100 mls @ 3.5 mls/hr 04/27/23 06:30 04/27/23 07:30 Sodium Chloride IV 1 mcg/kg/hr .Q24H [facility] 7 mls/hr Titration Protocol 0.5 MCG/KG/HR Heparin Sodium/Sodium Chloride 250 mls @ 8.4 mls/hr 04/27/23 11:15 25,000 unit/ Sodium Chloride IV .Q24H [facility] Protocol 12 UNITS/KG/HR Metoprolol Tartrate 12.5 mg 04/27/23 09:00 04/27/23 09:18 Metoprolol Tartrate 12.5 Mg Tab PO 12.5 mg BID [facility] Administration Miscellaneous Information 1 each 04/26/23 21:22 Potassium Replacement Protocol 1 Each Misc MISCELLANE DAILY PRN Per Protocol Miscellaneous Information 1 each 04/26/23 21:22 Magnesium Replacement Protocol 1 Each Misc MISCELLANE DAILY PRN Per Protocol Protocol Miscellaneous Information 1 each 04/26/23 21:22 Phosphorus Replacement Protoco 1 Each Mis MISCELLANE DAILY PRN Per Protocol Protocol Naloxone HCl 0.2 mg 04/26/23 21:22 Naloxone 0.4 Mg/Ml 1 Ml Vial IV Q2M PRN Opioid Reversal Intake and Output 04/26/23 04/27/23 04/27/23 22:59 06:59 14:59 Intake Total 9.128 5232.893 790.288 Output Total 1725 420 Balance 9.128 3507.893 370.288 Intake: IV 5160 649 0.9 NS @ KVO 40 ARTERIAL LINE & CVP 9 Dextrose 5% in Water 1, 800 0 000 ml @ 100 mls/hr IV . [id number] [facility] with Sodium Bicarb (1 Meq/ml) 150 ml Rx#:[id number] Piperacillin-Tazobactam 3 100 100 .375 gm In Sodium Chloride 0.9% 100 ml @ 25 mls/hr IVPB Q8HR [facility] Rx# :[id number] Sodium Chloride 0.9% 1, 500 000 ml @ 150 mls/hr IV . Q6H40M [facility] Rx#:[id number] Sodium Chloride 0.9% 1, 260 000 ml @ 200 mls/hr IV . Q5H [facility] Rx#:[id number] Sodium Chloride 0.9% 1, 4000 000 ml @ 999 mls/hr IV . Q1H1M [facility] Rx#:[id number] Intake, IV Titration 9.128 72.893 96.288 Amount fentaNYL (PF). 1,000 mcg 1.458 In Sodium Chloride 0.9% 80 ml @ 0.5 MCG/KG/HR 3.5 mls/hr IV .Q24H [facility] Rx#: [id number] propofoL 1,000 mg In 9.128 72.893 94.83 Empty Bag 1 bag @ 15 MCG/ KG/MIN 4.905 mls/hr IV . [id number] [facility] Rx#:[id number] Other 45 Output: Gastric Drainage 150 Urine 1725 270 Other: Voiding Method Indwelling Catheter Indwelling Catheter Weight 54.5 kg 70 kg 70 kg Patient Weight 04/28/23 06:59 Weight 70 kg 04/27/23 04:00 04/27/23 04:00
[2023-04-27 12:28] LABS: Basophils # (A) 0.1 k/uL (0-0.2); Basophils % (A) 0 %; Eosinophils # (A) 0.1 k/uL (0-0.7); Eosinophils % (A) 1 %; HCT 52.9 % (39.0-53.0); HGB 16.7 gm/dL (13.0-17.5); Hypochromasia Moderate; Lymphocytes # (A) 1.4 k/uL (1.0-4.8); Lymphocytes % (A) 7 %; MCH 29.3 pg (25.0-35.0); MCHC 31.5 g/dL (31.0-37.0); Mean Platelet Volume 10.7; Monocytes # (A) 0.7 k/uL (0-1.0); Monocytes % (A) 4 %; Neutrophils # (A) 16.3 k/uL (1.3-7.7); Platelet Count 63 k/uL (150-450); Poikilocytosis Slight; RBC 5.69 m/uL (4.30-5.90); RDW 15.3 % (11.5-15.5)
[2023-04-27 12:43] LABS: INR 1.5 (<1.2); Partial Thromboplastin Time 27.6 sec (22.0-30.0); Prothrombin Time 15.6 sec (10.0-12.5)
[2023-04-27 13:31] LABS: Band Neutrophils % 1 %; Lymphocytes # (M) 1.27 k/uL (1.0-4.8); Monocytes # (M) 1.09 k/uL (0-1.0); Neutrophils % (M) 86 %; Nucleated Red Blood Cells 3 /100 WBC (0-0); Total Cells Counted 200; WBC 18.1 k/uL (3.8-10.6)
[2023-04-27 13:33] LABS: Polychromasia Present
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
[2023-04-27] MEDS: THIAMINE 100 MG/ML 2 ML VIAL IVP SCH (17:10)
[2023-04-27 18:16] LABS: HGB 17.4 gm/dL (13.0-17.5); Hypochromasia Marked; MCH 30.6 pg (25.0-35.0); MCHC 31.5 g/dL (31.0-37.0); MCV 97.2 fL (80.0-100.0); Mean Platelet Volume 10.5; RBC 5.68 m/uL (4.30-5.90); RDW 15.2 % (11.5-15.5); WBC 22.7 k/uL (3.8-10.6)
[2023-04-27 18:20] LABS: HCT 55.2 % (39.0-53.0)
[2023-04-27 18:40] LABS: Platelet Count 57 k/uL (150-450)
[2023-04-27 20:30] LABS: Chol/HDL Ratio 3.37 Ratio
[2023-04-27] MEDS ORDERED: ATORVASTATIN 40 MG TAB PO SCH (21:00)
[2023-04-28] MEDS: PIPERACILLIN-TAZOBACTAM 3.375 GM in SODIUM CHLORIDE 0.9% 100 ML IVPB SCH ×3 (00:04→16:38)
--- NOTE | 2023-04-28 00:13 | EEG ---
ELECTROENCEPHALOGRAM REPORT CLINICAL HISTORY: This is a 58-year-old gentleman with altered mental status. The video EEG is obtained to evaluate for seizure epileptiform activity. RELEVANT MEDICATION: IV propofol and IV sentinel. EEG type is a routine 21-channel EEG with video using the 10/20 electrode placement system. DESCRIPTION: The patient is intubated on a ventilator. The background consists of [id number] voltage of 7.5 to 8.5 hertz activity. Also the background is intermixed with diffuse suppression. There is no physiological stage 2 sleep architecture. There is no focal slowing. Interictal and ictal is none. Activation procedure is photic stimulation. Hyperventilation is not performed. CLINICAL INTERPRETATION: This is an abnormal routine EEG. The background slowing is suggestive of mild encephalopathy. The diffuse suppression activity is likely due to medication effect (Propofol and Fentanyl). There is no focal slowing, epileptiform discharge, or seizure on the EEG. Clinical correlation is recommended. HORACE / RASHAD: [id number] / MTDD
[2023-04-28] MEDS: IPRATROPIUM-ALBUTEROL 3 ML NEB INHALATION SCH ×5 (03:50→20:42)
[2023-04-28 06:35] LABS: ABG Base Excess 1.5 mmol/L; ABG HCO3 26 mmol/L (21-25); ABG Oxygen Saturation 99.8 % (94-97); ABG PCO2 40 mmHg (35-45); ABG PH 7.42 (7.35-7.45); ABG PO2 252 mmHg (83-108); ABG TCO2 27 mmol/L (19-24); Allen Test Performed? Yes
[2023-04-28] MEDS: SODIUM CHLORIDE 0.9% 1,000 ML IV SCH ×2 (06:59→11:11)
[2023-04-28 07:34] LABS: Basophils % (A) 0 %; Eosinophils # (A) 0.1 k/uL (0-0.7); Eosinophils % (A) 0 %; HCT 47.6 % (39.0-53.0); HGB 14.7 gm/dL (13.0-17.5); Hypochromasia Marked; Lymphocytes # (A) 1.1 k/uL (1.0-4.8); Lymphocytes % (A) 7 %; MCH 29.6 pg (25.0-35.0); MCHC 30.9 g/dL (31.0-37.0); MCV 95.7 fL (80.0-100.0); Mean Platelet Volume 10.1; Monocytes # (A) 0.5 k/uL (0-1.0); Monocytes % (A) 3 %; Neutrophils # (A) 13.6 k/uL (1.3-7.7); Neutrophils % (A) 89 %; Poikilocytosis Slight; RBC 4.97 m/uL (4.30-5.90); RDW 15.3 % (11.5-15.5); WBC 15.3 k/uL (3.8-10.6)
[2023-04-28 07:42] LABS: INR 1.3 (<1.2); Prothrombin Time 13.6 sec (10.0-12.5)
[2023-04-28 07:43] LABS: ALT 149 U/L (4-49); AST 387 U/L (17-59); African American GFR (CKD) >90 (>60 ml/min/1.73 sqM); Albumin 2.3 g/dL (3.5-5.0); Alkaline Phosphatase 43 U/L (38-126); Anion Gap 4 mmol/L; Blood Urea Nitrogen 28 mg/dL (9-20); Calcium 7.5 mg/dL (8.4-10.2); Carbon Dioxide 25 mmol/L (22-30); Chloride 122 mmol/L (98-107); Glucose 136 mg/dL (74-99); Magnesium 2.8 mg/dL (1.6-2.3); Non-African American GFR(CKD) >90 (>60 ml/min/1.73 sqM); Potassium 4.2 mmol/L (3.5-5.1); Sodium 151 mmol/L (137-145); Total Bilirubin 0.6 mg/dL (0.2-1.3); Total Protein 4.6 g/dL (6.3-8.2)
[2023-04-28 07:52] LABS: Platelet Count 57 k/uL (150-450)
[2023-04-28] MEDS: METOPROLOL TARTRATE 12.5 MG TAB PO SCH ×2 (08:13→22:05)
[2023-04-28] MEDS: CHLORHEXIDINE GLUCONATE 15 ML CUP MUCOUS MEM SCH ×2 (08:13→22:05)
[2023-04-28] MEDS: ASPIRIN 81 MG PO SCH (08:13)
[2023-04-28] MEDS: THIAMINE 100 MG/ML 2 ML VIAL IVP SCH (08:15)
[2023-04-28 08:25] LABS: Creatine Kinase 13719 U/L (55-170)
--- NOTE | 2023-04-28 09:16 | XR ---
EXAMINATION TYPE: XR chest 1V portable DATE OF EXAM: 04/28/2023 Comparison: 04/27/2023 Clinical History: 58-year-old male Tube placement Findings: On the present exam, there is possible left infrahilar mass measuring 3.1 cm. Left subclavian CVC tip at the lower SVC. Satisfactory ET tube. Heart normal size. No consolidation or pleural effusion. Impression: The current exam suggests the presence of a 3.1 cm left infrahilar mass. Appropriate further evaluati on for underlying neoplasm is advised.
--- NOTE | 2023-04-28 09:29 | CT ---
EXAMINATION TYPE: CT brain wo con DATE OF EXAM: 04/28/2023 COMPARISON: 04/26/2023 HISTORY: 58-year-old male stroke. Rule out bleed since started on anticoagulation TECHNIQUE: Examination was done in axial plane without intravenous contrast. Coronal and sagittal r econstructions performed. CT DLP: 1167.7 mGycm Automated exposure control for dose reduction was used. FINDINGS: Patient is intubated. Redemonstrated left CCA territory subacute infarct with extensive cortical and subcortical hypodensit y and sulcal effacement. There is minimal petechial hemorrhage along the anterior margin of the region of infarct, for example , refer to axial images 31 and 33. No herniation or midline shift is seen. Right posterior scalp contusion appears to have developed in the interval. No hydrocephalus. No extra-axial fluid collection. Paranasal sinuses and mastoid air cells are well pneumatized. Orbits and globes are intact. IMPRESSION: 1. Left SPINNER FRAME territory subacute infarct redemonstrated. Difficult to exclude minimal petechial hemorrh age within the anterior margin of the region of infarct. Some preserved cortical parenchyma is the al ternative consideration. Ongoing follow-up recommended. 2. No midline shift or herniation seen. 3. A small right posterior scalp contusion appears to have developed.
--- NOTE | 2023-04-28 09:45 | P.PN ---
Subjective Progress Note Date: 04/28/23 PROGRESS NOTE The patient is a 58-year-old male who was admitted after being found unresponsive with an elevated carboxy hemoglobin level above 20% with unclear reason. Was attempting suicide. Patient has a known history of lung cancer and chronic tobacco use and has underwent recent surgical intervention with revascularization and thrombectomy of the right upper extremity. He was in sinus tachycardia on presentation. There is no history available. Patient is not on vasopressor. He has mottling in his lower extremities. He is intubated and unresponsive. His lab data remarkable for elevation of his CK enzymes at 10,400 with a BUN of 56 and a creatinine 2.19. His troponin is elevated. Other history is not available at this time. The patient has no prior admission to this hospital. April 28: The patient remains intubated, unresponsive, poor urine output and severe mottling of the lower extremities. His echocardiogram showed severe impairment of the left ventricle systolic function with segmental wall motion abnormality. He underwent a computed tomography scan that showed left [employer]UMENT [employer]CH[employer] subacute infarct. His chest x-ray showed left infrahilar mass. Carotid duplex scan showed no ev idence of high-grade stenosis. He has evidence of thrombocytopenia that has worsened since his admission. [place] [address]. Medications: Metoprolol 12-1/2 mg twice a day, his IV heparin is on hold because of the thrombocytopenia PHYSICAL EXAMINATION: Intubated not responsive Blood pressure 130/69 heart rate 90 LUNGS: Clear to auscultation anteriorly HEART: Regular rate and rhythm, S1, S2. No S3. No systolic murmur ABDOMEN: Soft, no organomegaly EXTREMETIES: Severe mottling of the lower extremities him a cold with discoloration of the right upper extremity, status post thrombectomy LAB: Hemoglobin 14.7, potassium 4.2, BUN 28, creatinine 0.9, platelets 57,000 IMPRESSION: 1. Respiratory failure was elevated carboxy hemoglobin level and severe hypoxemia 2. Non-STEMI with severely impaired left ventricle systolic function of unknown duration or etiology 3. Status post thrombectomy of the right upper extremity with discoloration and mottling of the lower extremities 4. History of smoking 5. History of lung cancer 6. Thrombocytopenia could be related to heparin or DIC 7. Evidence of CVA her computed tomography scan PLAN: 1. Continue supportive care 2. Prognosis is very poor 3. Further management per intensive care Objective - Vital Signs Vital signs: Vital Signs Temp 99.6 F 04/28/23 08:00 Pulse 98 04/28/23 09:00 Resp 22 04/28/23 09:00 BP 130/69 04/28/23 09:00 Pulse Ox 100 04/28/23 09:00 FiO2 50 04/28/23 08:00 Intake & Output 04/27/23 04/28/23 04/28/23 18:59 06:59 18:59 Intake Total 2556.342 2380.417 789.5 Output Total 775 430 55 Balance 6351.231 8444.417 734.5 Weight 70 kg 71.2 kg Intake: IV 2052 1995 559 0.9 NS @ KVO 120 120 30 CVP 33 36 9 Dextrose 5% in Water 1, 0 000 ml @ 100 mls/hr IV . [id number] [facility] with Sodium Bicarb (1 Meq/ml) 150 ml Rx#:[id number] Piperacillin-Tazobactam 3 200 100 100 .375 gm In Sodium Chloride 0.9% 100 ml @ 25 mls/hr IVPB Q8HR [facility] Rx# :[id number] Sodium Chloride 0.9% 1, 1700 1740 420 000 ml @ 150 mls/hr IV . Q6H40M [facility] Rx#:[id number] Intake, IV Titration 328.342 234.417 110.5 Amount Heparin Sod,Pork in 0.45% 52.92 35.875 10.5 NaCl 25,000 unit In 0.45 % NaCl 1 250ml.bag @ 12 UNITS/KG/HR 8.4 mls/hr IV .Q24H [facility] Rx#:[id number] fentaNYL (PF). 1,000 mcg 1.458 98.542 In Sodium Chloride 0.9% 80 ml @ 0.5 MCG/KG/HR 3.5 mls/hr IV .Q24H [facility] Rx#: [id number] propofoL 1,000 mg In 273.964 100 100 Empty Bag 1 bag @ 15 MCG/ KG/MIN 4.905 mls/hr IV . [id number] [facility] Rx#:[id number] Tube Feeding 70 90 60 Other 105 60 60 Output: Gastric Drainage 150 Urine 625 430 55 Other: Voiding Method Indwelling Catheter Indwelling Catheter # Bowel Movements 1 - Labs CBC & Chem 7: 04/28/23 07:15 04/28/23 07:15 Labs: Abnormal Lab Results - Last 24 Hours (Table) 04/27/23 04/27/23 04/27/23 Range/Units 12:12 12:12 12:12 WBC 18.1 H (3.8-10.6) k/uL Hct (39.0-53.0) % MCHC (31.0-37.0) g/dL Plt Count 63 L (150-450) k/uL Neutrophils # 16.3 H (1.3-7.7) k/uL Neutrophils # (Manual) 15.70 H (1.3-7.7) k/uL Monocytes # (Manual) 1.09 H (0-1.0) k/uL Nucleated RBCs 3 H (0-0) /100 WBC PT 15.6 H (10.0-12.5) sec INR 1.5 H (<1.2) APTT (22.0-30.0) sec ABG pO2 (83-108) mmHg ABG HCO3 (21-25) mmol/L ABG Total CO2 (19-24) mmol/L ABG O2 Saturation (94-97) % Sodium (137-145) mmol/L Chloride (98-107) mmol/L BUN (9-20) mg/dL Glucose (74-99) mg/dL Calcium (8.4-10.2) mg/dL Magnesium (1.6-2.3) mg/dL AST (17-59) U/L ALT (4-49) U/L Creatine Kinase (55-170) U/L Total Protein (6.3-8.2) g/dL Albumin (3.5-5.0) g/dL Triglycerides 209.00 H (0.00-149.00) mg/dL VLDL Cholesterol, Calc 41.80 H (5.00-40.00) mg/dL HDL Cholesterol 28.20 L (40.00-60.00) mg/dL 04/27/23 04/27/23 04/28/23 Range/Units 17:09 17:09 01:53 WBC 22.7 H (3.8-10.6) k/uL Hct 55.2 H (39.0-53.0) % MCHC (31.0-37.0) g/dL Plt Count 57 L (150-450) k/uL Neutrophils # (1.3-7.7) k/uL Neutrophils # (Manual) (1.3-7.7) k/uL Monocytes # (Manual) (0-1.0) k/uL Nucleated RBCs (0-0) /100 WBC PT (10.0-12.5) sec INR (<1.2) APTT 34.2 H (22.0-30.0) sec ABG pO2 (83-108) mmHg ABG HCO3 (21-25) mmol/L ABG Total CO2 (19-24) mmol/L ABG O2 Saturation (94-97) % Sodium (137-145) mmol/L Chloride (98-107) mmol/L BUN (9-20) mg/dL Glucose (74-99) mg/dL Calcium (8.4-10.2) mg/dL Magnesium (1.6-2.3) mg/dL AST (17-59) U/L ALT (4-49) U/L Creatine Kinase 71334 H* (55-170) U/L Total Protein (6.3-8.2) g/dL Albumin (3.5-5.0) g/dL Triglycerides (0.00-149.00) mg/dL VLDL Cholesterol, Calc (5.00-40.00) mg/dL HDL Cholesterol (40.00-60.00) mg/dL 04/28/23 04/28/23 04/28/23 Range/Units 06:25 07:15 07:15 WBC 15.3 H (3.8-10.6) k/uL Hct (39.0-53.0) % MCHC 30.9 L (31.0-37.0) g/dL Plt Count 57 L (150-450) k/uL Neutrophils # (1.3-7.7) k/uL Neutrophils # (Manual) (1.3-7.7) k/uL Monocytes # (Manual) (0-1.0) k/uL Nucleated RBCs (0-0) /100 WBC PT 13.6 H (10.0-12.5) sec INR 1.3 H (<1.2) APTT (22.0-30.0) sec ABG pO2 252 H (83-108) mmHg ABG HCO3 26 H (21-25) mmol/L ABG Total CO2 27 H (19-24) mmol/L ABG O2 Saturation 99.8 H (94-97) % Sodium (137-145) mmol/L Chloride (98-107) mmol/L BUN (9-20) mg/dL Glucose (74-99) mg/dL Calcium (8.4-10.2) mg/dL Magnesium (1.6-2.3) mg/dL AST (17-59) U/L ALT (4-49) U/L Creatine Kinase (55-170) U/L Total Protein (6.3-8.2) g/dL Albumin (3.5-5.0) g/dL Triglycerides (0.00-149.00) mg/dL VLDL Cholesterol, Calc (5.00-40.00) mg/dL HDL Cholesterol (40.00-60.00) mg/dL 04/28/23 Range/Units 07:15 WBC (3.8-10.6) k/uL Hct (39.0-53.0) % MCHC (31.0-37.0) g/dL Plt Count (150-450) k/uL Neutrophils # (1.3-7.7) k/uL Neutrophils # (Manual) (1.3-7.7) k/uL Monocytes # (Manual) (0-1.0) k/uL Nucleated RBCs (0-0) /100 WBC PT (10.0-12.5) sec INR (<1.2) APTT (22.0-30.0) sec ABG pO2 (83-108) mmHg ABG HCO3 (21-25) mmol/L ABG Total CO2 (19-24) mmol/L ABG O2 Saturation (94-97) % Sodium 151 H (137-145) mmol/L Chloride 122 H (98-107) mmol/L BUN 28 H (9-20) mg/dL Glucose 136 H (74-99) mg/dL Calcium 7.5 L (8.4-10.2) mg/dL Magnesium 2.8 H (1.6-2.3) mg/dL AST 387 H (17-59) U/L ALT 149 H (4-49) U/L Creatine Kinase 46116 H* (55-170) U/L Total Protein 4.6 L (6.3-8.2) g/dL Albumin 2.3 L (3.5-5.0) g/dL Triglycerides (0.00-149.00) mg/dL VLDL Cholesterol, Calc (5.00-40.00) mg/dL HDL Cholesterol (40.00-60.00) mg/dL Microbiology - Last 24 Hours (Table) 04/27/23 05:30 Urine Culture - Final Urine,Voided 04/26/23 19:00 Blood Culture - Preliminary Blood 04/26/23 18:45 Blood Culture - Preliminary Blood
[2023-04-28] MEDS ORDERED: DEXTROSE 5% IN WATER 1,000 ML IV ONE (10:55)
[2023-04-28] MEDS ORDERED: RX INFO: IV CONTRAST WAS GIVEN 1 EACH MISC MISCELLANE PRN (10:56)
--- NOTE | 2023-04-28 10:56 | P.PN ---
Subjective Progress Note Date: 04/28/23 I am seeing this patient in consultation today 04/27/2023 in the intensive care unit after he was brought in by EMS yesterday evening. He was reportedly covered in soot, and found minimally responsive next to the oven. Patient is a 58-year-old white male with limited known past medical history. He did reportedly just have a vascular procedure done at [facility] for right upper limb ischemia recently. The nurses are working on getting this documentation. He also may have recently been diagnosed with lung cancer and is a chronic ongoing smoker. He has no family other than an estranged brother. Patient was last seen well by his neighbor on Sunday. The neighbors did not hear from him for a c ouple of days and decided to call the police to do a wellness check. He was found on the floor next to the stove, the gas was on. He was covered in soot, He may have been burning something on the stove. He was altered and minimally responsive. Questionable, whether he may have tried to commit suicide, and is petitioned by the police. His carboxyhemoglobin level was greater than 20%. The ER physician did try to reach out to tertiary care centers for possible hyperbaric oxygen therapy, however, no accepting facilities were found. Patient was ultimately intubated for airway protection. Current ventilator settings are assist control, respiratory rate 20, tidal volume 400, FiO2 100%, PEEP of 10. Most recent ABGs show a pO2 of 68, pCO2 of 24, pH of 7.17. Patient has been given 2 A of sodium bicarb and is on a bicarb drip at 100 ML's per hour. Post intubation chest x-ray shows endotracheal tube approximately 1 cm above the chasidy, this will be withdrawn 1-2 cm. There is an orogastric tube coursing into the stomach. There is a left subclavian triple-lumen catheter tip near the cavoatrial junction. There is bilateral multifocal infiltrates consistent with pneumonia, likely aspiration pneumonia. He is covered on Zosyn. BP is stable at this time. He did receive 4 normal saline boluses in the ER. Not requiring any vasopressors at the moment. Patient is currently sedated on propofol which is infusing at 50 mcg/kg/m. He is fairly synchronous with the mechanical ventilator. His right arm appears postsurgical, with two healing and approximated incisions. The extremity is pulseless and cold. Previously on examination, the patient was noted to have a left gaze deviation, a brain and C- spine CT demonstrated a subacute 8 by 4 x 4 centimeters left MCA territory nonhemorrhagic infarct or midline shift. No cervical spine fracture. No seizure like activity noted by nursing staff. Neuro examination is limited by sedation. Urine drug screen negative. CBC on arrival shows a WBC count of 28.5, hemoglobin 20.7, hematocrit 65.1, platelets 115. BMP shows sodium 147, potas sium 5, chloride 108, serum bicarbonate 9, BUN 56, creatinine 2.19, glucose 147. Lactic acid level was 12 and is down to 2.4. LFTs mildly elevated. Creatinine kinase is elevated at 10,400 and is consistent with rhabdomyolysis. He was found on the ground. He does bruising on his legs. Troponin elevated, consistent with non-ST elevation [place], likely related to tissue hypoxemia and carbon monoxide p oisoning. Chest x-ray did show sinus tachycardia with T-wave inversion in anterior lateral leads. No other ST or T wave abnormalities noted. Patient's condition is obviously critical, and he is being monitored in the intensive care unit. On 04/28/2023, seeing the patient for a follow-up. This morning, the patient is on propofol running at 30 mcg/kg/m. He is arousable. He withdraws to painful stimulation. He is not following commands at this point in time. He is on assist-control mode of mechanical ventilation at the rate of 20, tidal volume of 400, FiO2 is currently at 40% with a PEEP of 10. The blood gas showed a pH of 7.42 with a pCO2 of 40 and pO2 of 252. His, monocyte level is normalized. His chest x-ray from today showing no significant acute abnormalities. There may be a opacity in the left hilar area consistent with his previous history of lung cancer. He has a triple-lumen catheter in his left subclavian vein. The tube is in a good location. No airspace disease or consolidations this point in time. A repeat CAT scan of the brain was done this morning and it showed left H[employer]PITAL[employer] DIRECTOR territory subacute infarct and possibility of some edema minimal petechial hemorrhage cannot be completely excluded in the anterior margin of the infarct. The patient was started on IV heparin by vascular surgery. I stopped the heparin yesterday based on the fact that the patient's platelet count has dropped onto 57 and at the same time there is a concern of hemorrhagic transformation of his stroke. The same time, the patient is hemodynamically stable. Troponins peaked at 16 and then down trended. His echocardiogram showed impaired LV function and his ejection fraction is in order of 20-25%. The patient also has rhabdomyolysis. CPK peaked at 18,000 and currently it is d own trending. He continues to have obvious vascular issues. The patient was seen by vascular surgery. We came to find other the patient has undergone a right brachial, radial and ulnar thrombectomy reportedly twice during an earlier hospitalization. His right upper extremity is contracted and dusky and cold with absent pulses and remains ischemic. In same time, the patient has ischemic feet bilaterally with absent pulses in the feet are cold and clammy without any dorsalis pedis or posterior tibialis and a demarcation is being developed at this point in time. Terms of his blood work, sodium levels of 151, potassium is at 4.2, currently 122, BUN is 28 with a creatinine of 0.9 and the patient has recovered from his acute kidney injury. The white cell count dropped at 15.3 with a hemoglobin of 14.7. The patient patient also had a drop in the platelet count down to 57. He was started on IV heparin. I stopped IV heparin. Heparin-induced thrombocytopenia antibodies were sent and the patient is being started on agratoban been based on recommendations done by the vascular team and the medical team. Objective - Vital Signs Vital signs: Vital Signs Temp 99.6 F 04/28/23 08:00 Pulse 98 04/28/23 09:00 Resp 22 04/28/23 09:00 BP 130/69 04/28/23 09:00 Pulse Ox 100 04/28/23 09:00 FiO2 50 04/28/23 08:00 Intake & Output 04/27/23 04/28/23 04/28/23 18:59 06:59 18:59 Intake Total 2556.342 2380.417 789.5 Output Total 775 430 55 Balance 7719.286 8371.417 734.5 Weight 70 kg 71.2 kg Intake: IV 2052 0.9 NS @ KVO 120 120 30 CVP 33 36 9 Dextrose 5% in Water 1, 0 000 ml @ 100 mls/hr IV . [id number] [facility] with Sodium Bicarb (1 Meq/ml) 150 ml Rx#:[id number] Piperacillin-Tazobactam 3 200 100 100 .375 gm In Sodium Chloride 0.9% 100 ml @ 25 mls/hr IVPB Q8HR [facility] Rx# :[id number] Sodium Chloride 0.9% 1, 1700 1740 420 000 ml @ 150 mls/hr IV . Q6H40M [facility] Rx#:[id number] Intake, IV Titration 328.342 234.417 110.5 Amount Heparin Sod,Pork in 0.45% 52.92 35.875 10.5 NaCl 25,000 unit In 0.45 % NaCl 1 250ml.bag @ 12 UNITS/KG/HR 8.4 mls/hr IV .Q24H [facility] Rx#:[id number] fentaNYL (PF). 1,000 mcg 1.458 98.542 In Sodium Chloride 0.9% 80 ml @ 0.5 MCG/KG/HR 3.5 mls/hr IV .Q24H [facility] Rx#: [id number] propofoL 1,000 mg In 273.964 100 100 Empty Bag 1 bag @ 15 MCG/ KG/MIN 4.905 mls/hr IV . [id number] [facility] Rx#:[id number] Tube Feeding 70 90 60 Other 105 60 60 Output: Gastric Drainage 150 Urine 625 430 55 Other: Voiding Method Indwelling Catheter Indwelling Catheter Indwelling Catheter # Bowel Movements 1 - Exam GENERAL EXAM: Unresponsive and sedated, 58-year-old white male, intubated and mechanical ventilator. HEAD: Normocephalic and atraumatic EYES: Normal reaction of pupils, equal size. NOSE: Clear with pink turbinates. THROAT: No erythema or exudates. NECK: No masses, no JVD. CHEST: No chest wall deformity. LUNGS: Equal air entry with she has rhonchi heard throughout. Intubated on the mechanical ventilator. CVS: S1 and S2 normal with no audible murmur, regular rhythm. No extra heart sounds ABDOMEN: No hepatosplenomegaly, active bowel sounds, no guarding or rigidity. SPINE: No scoliosis or deformity SKIN: Bilateral lower extremity bruising and mottling. 2 right upper extremity incision sites clean and approximated. CENTRAL NERVOUS SYSTEM: Unresponsive and sedated. Limited neurological examination. No obvious facial asymmetry. Pupils are equal and responsive to light. No gait deviation my examination. Extremities are flaccid. DTRs are absent. Bilateral Babinski neutral. EXTREMITIES: There is bilateral lower extremity bruising and mottling. Right upper extremity is pulseless and cold. No capillary refill. Remaining extremities also have diminished pulses, but are found with Doppler. There is no peripheral edema, clubbing. Feet are also cold and clammy and mottled with absent capillary refills. There is also a line of demarcation developing in the lower extremities - Labs CBC & Chem 7: 04/28/23 07:15 04/28/23 07:15 Labs: Abnormal Lab Results - Last 24 Hours (Table) 04/27/23 04/27/23 04/27/23 Range/Units 12:12 12:12 12:12 WBC 18.1 H (3.8-10.6) k/uL Hct (39.0-53.0) % MCHC (31.0-37.0) g/dL Plt Count 63 L (150-450) k/uL Neutrophils # 16.3 H (1.3-7.7) k/uL Neutrophils # (Manual) 15.70 H (1.3-7.7) k/uL Monocytes # (Manual) 1.09 H (0-1.0) k/uL Nucleated RBCs 3 H (0-0) /100 WBC PT 15.6 H (10.0-12.5) sec INR 1.5 H (<1.2) APTT (22.0-30.0) sec ABG pO2 (83-108) mmHg ABG HCO3 (21-25) mmol/L ABG Total CO2 (19-24) mmol/L ABG O2 Saturation (94-97) % Sodium (137-145) mmol/L Chloride (98-107) mmol/L BUN (9-20) mg/dL Glucose (74-99) mg/dL Calcium (8.4-10.2) mg/dL Magnesium (1.6-2.3) mg/dL AST (17-59) U/L ALT (4-49) U/L Creatine Kinase (55-170) U/L Total Protein (6.3-8.2) g/dL Albumin (3.5-5.0) g/dL Triglycerides 209.00 H (0.00-149.00) mg/dL VLDL Cholesterol, Calc 41.80 H (5.00-40.00) mg/dL HDL Cholesterol 28.20 L (40.00-60.00) mg/dL 04/27/23 04/27/23 04/28/23 Range/Units 17:09 17:09 01:53 WBC 22.7 H (3.8-10.6) k/uL Hct 55.2 H (39.0-53.0) % MCHC (31.0-37.0) g/dL Plt Count 57 L (150-450) k/uL Neutrophils # (1.3-7.7) k/uL Neutrophils # (Manual) (1.3-7.7) k/uL Monocytes # (Manual) (0-1.0) k/uL Nucleated RBCs (0-0) /100 WBC PT (10.0-12.5) sec INR (<1.2) APTT 34.2 H (22.0-30.0) sec ABG pO2 (83-108) mmHg ABG HCO3 (21-25) mmol/L ABG Total CO2 (19-24) mmol/L ABG O2 Saturation (94-97) % Sodium (137-145) mmol/L Chloride (98-107) mmol/L BUN (9-20) mg/dL Glucose (74-99) mg/dL Calcium (8.4-10.2) mg/dL Magnesium (1.6-2.3) mg/dL AST (17-59) U/L ALT (4-49) U/L Creatine Kinase 07740 H* (55-170) U/L Total Protein (6.3-8.2) g/dL Albumin (3.5-5.0) g/dL Triglycerides (0.00-149.00) mg/dL VLDL Cholesterol, Calc (5.00-40.00) mg/dL HDL Cholesterol (40.00-60.00) mg/dL 04/28/23 04/28/23 04/28/23 Range/Units 06:25 07:15 07:15 WBC 15.3 H (3.8-10.6) k/uL Hct (39.0-53.0) % MCHC 30.9 L (31.0-37.0) g/dL Plt Count 57 L (150-450) k/uL Neutrophils # 13.6 H (1.3-7.7) k/uL Neutrophils # (Manual) (1.3-7.7) k/uL Monocytes # (Manual) (0-1.0) k/uL Nucleated RBCs (0-0) /100 WBC PT 13.6 H (10.0-12.5) sec INR 1.3 H (<1.2) APTT (22.0-30.0) sec ABG pO2 252 H (83-108) mmHg ABG HCO3 26 H (21-25) mmol/L ABG Total CO2 27 H (19-24) mmol/L ABG O2 Saturation 99.8 H (94-97) % Sodium (137-145) mmol/L Chloride (98-107) mmol/L BUN (9-20) mg/dL Glucose (74-99) mg/dL Calcium (8.4-10.2) mg/dL Magnesium (1.6-2.3) mg/dL AST (17-59) U/L ALT (4-49) U/L Creatine Kinase (55-170) U/L Total Protein (6.3-8.2) g/dL Albumin (3.5-5.0) g/dL Triglycerides (0.00-149.00) mg/dL VLDL Cholesterol, Calc (5.00-40.00) mg/dL HDL Cholesterol (40.00-60.00) mg/dL 04/28/23 Range/Units 07:15 WBC (3.8-10.6) k/uL Hct (39.0-53.0) % MCHC (31.0-37.0) g/dL Plt Count (150-450) k/uL Neutrophils # (1.3-7.7) k/uL Neutrophils # (Manual) (1.3-7.7) k/uL Monocytes # (Manual) (0-1.0) k/uL Nucleated RBCs (0-0) /100 WBC PT (10.0-12.5) sec INR (<1.2) APTT (22.0-30.0) sec ABG pO2 (83-108) mmHg ABG HCO3 (21-25) mmol/L ABG Total CO2 (19-24) mmol/L ABG O2 Saturation (94-97) % Sodium 151 H (137-145) mmol/L Chloride 122 H (98-107) mmol/L BUN 28 H (9-20) mg/dL Glucose 136 H (74-99) mg/dL Calcium 7.5 L (8.4-10.2) mg/dL Magnesium 2.8 H (1.6-2.3) mg/dL AST 387 H (17-59) U/L ALT 149 H (4-49) U/L Creatine Kinase 29124 H* (55-170) U/L Total Protein 4.6 L (6.3-8.2) g/dL Albumin 2.3 L (3.5-5.0) g/dL Triglycerides (0.00-149.00) mg/dL VLDL Cholesterol, Calc (5.00-40.00) mg/dL HDL Cholesterol (40.00-60.00) mg/dL Microbiology - Last 24 Hours (Table) 04/26/23 20:38 Gram Stain - Preliminary Sputum 04/27/23 05:30 Urine Culture - Final Urine,Voided 04/26/23 19:00 Blood Culture - Preliminary Blood 04/26/23 18:45 Blood Culture - Preliminary Blood Assessment and Plan Assessment: Acute hypoxemic respiratory failure, intubated mechanical ventilator, chest x- ray was reviewed. The patient has a left hilar mass. The pulmonary infiltrates have subsided and the patient remains intubated on a mechanical ventilator, sedated. Acute limb ischemia involving the right upper extremity and the feet bilaterally. Vascular surgeries on the case. Unable to give IV heparin due to development of somewhat cytopenia. Heparin-induced was at the pain is being considered. The patient will be started on agratoban Elevated carboxyhemoglobin, greater than 20%, recovered Altered mental status, related to toxic metabolic encephalopathy, secondary to above Severe anion gap metabolic acidosis, secondary to above and lactic acidosis, improved Lactic acidosis, improving Non-ST elevation myocardial infarction Systolic heart failure with an ejection fraction of 20-25%, chronicity is not known Subacute CVA, measuring 8 by 4 x 4 centimeters in the left MCA territory, nonhemorrhagic, repeat CAT scan of the brain showed a left [employer] territory subacute infarct with questionable petechial hemorrhage. This was not confirmed by the neurologist. Acute kidney injury, related to rhabdomyolysis, improving and the renal function is normalized Acute rhabdomyolysis, CPK level is improving Mild transaminitis Acute Leukocytosis, improving Possible lung cancer history, chest x-ray reveals a left hilar mass Hyperchloremic hypernatremia Acute thrombocytopenia currently under investigation. Rule out underlying heparin-induced thrombocytopenia. Plan Prognosis is extremely poor in this patient with the above-mentioned comorbidities Vascular surgeries on the case regarding the ongoing ischemic changes in the right upper extremity and the lower extremities bilaterally. The patient is being considered for amputation at the later stage. No immediate vascular intervention is recommended this point in time. Keep the patient sedated with a combination of propofol and fentanyl Change IV fluids to D5 water at the rate of 75 mL an hour and stop the normal saline infusion CAT scan of the brain was noted The decision was to start the patient on agratoban as the risk-benefit of this treatment is more in favor of benefit. No evidence of any intracerebral hem orrhage at this point in time based on the CAT scan of the brain that was interpreted by our neurologist. Monitor CPK Obtain a CAT scan of the chest with contrast to evaluate for the lung mass Prop the PEEP down to 5 Enteral feeding for nutritional support Monitor the platelet count and watch for any signs of bleed or thrombosis Echocardiogram was noted Prognosis is obviously poor. Legal guardianship is being established. The patient will meanwhile will be kept intubated on a mechanical ventilator. Valuation was done in 30 minutes. The patient is critically ill. He has a very poor prognosis. Time with Patient: Greater than 30
[2023-04-28 11:36] LABS: Glucose,Whole Blood 129 mg/dL (70-110)
--- NOTE | 2023-04-28 11:41 | P.PN ---
Subjective Progress Note Date: 04/28/23 I am following-up with patient and per the nurse patient is opening eyes even with sedation. Yesterday patient was started on heparin drip and it seems the platelets has dropped therefore heparin drip was stopped. Objective - Vital Signs Vital signs: Vital Signs Temp 99.6 F 04/28/23 08:00 Pulse 96 04/28/23 11:17 Resp 22 04/28/23 09:00 BP 130/69 04/28/23 09:00 Pulse Ox 100 04/28/23 09:00 FiO2 40 04/28/23 10:55 Intake & Output 04/27/23 04/28/23 04/28/23 18:59 06:59 18:59 Intake Total 2556.342 2380.417 789.5 Output Total 775 430 55 Balance 8057.002 2298.417 734.5 Weight 70 kg 71.2 kg Intake: IV 2052 1995 559 0.9 NS @ KVO 120 120 30 CVP 33 36 9 Dextrose 5% in Water 1, 0 000 ml @ 100 mls/hr IV . [id number] [facility] with Sodium Bicarb (1 Meq/ml) 150 ml Rx#:[id number] Piperacillin-Tazobactam 3 200 100 100 .375 gm In Sodium Chloride 0.9% 100 ml @ 25 mls/hr IVPB Q8HR [facility] Rx# :[id number] Sodium Chloride 0.9% 1, 1700 1740 420 000 ml @ 150 mls/hr IV . Q6H40M [facility] Rx#:[id number] Intake, IV Titration 328.342 234.417 110.5 Amount Heparin Sod,Pork in 0.45% 52.92 35.875 10.5 NaCl 25,000 unit In 0.45 % NaCl 1 250ml.bag @ 12 UNITS/KG/HR 8.4 mls/hr IV .Q24H [facility] Rx#:[id number] fentaNYL (PF). 1,000 mcg 1.458 98.542 In Sodium Chloride 0.9% 80 ml @ 0.5 MCG/KG/HR 3.5 mls/hr IV .Q24H [facility] Rx#: [id number] propofoL 1,000 mg In 273.964 100 100 Empty Bag 1 bag @ 15 MCG/ KG/MIN 4.905 mls/hr IV . [id number] [facility] Rx#:[id number] Tube Feeding 70 90 60 Other 105 60 60 Output: Gastric Drainage 150 Urine 625 430 55 Other: Voiding Method Indwelling Catheter Indwelling Catheter Indwelling Catheter # Bowel Movements 1 - Exam General: Lying in bed and does not appear in acute distress. Lung: Intubated on ventilator. Cardiovascular: Has purplish discoloration of the bilateral lower extremities and right upper extremity. Neuro: Very limited because of overall condition and patient is on IV Propofol 30mcg/kg/min and IV fentanyl 1mg/kg/hr. Comatose. GCS 3 (E1, VT1, M1). I had to open eyes and primary gaze is midline. His pupils appear discolored in which has brownish around peripheral of pupils and center ?greenish. Pupils size appear 3mm bilaterally but again. Hard to assess reactivity. No facial w eakness. Has gag/cough. Is breathing over the vent. Motor: Hard to assess. No spontaneous movement. No withdrawal to painful stimuli. Decrease tone throughout. Plantars: Mute bilaterally. Some other workup during our facility consisted of: Plasma lactic acid venous 12.1 and most recent one is 1.8 Calcium is 10.5 CK level is 10,403 and a repeat is 18,435-->13K Troponin is 8.3 and most recent one is 13.7 Ammonia 14 Lipid panel: TG 209, Cholestroll 95, LDL 25 and HDL 28 TSH: 2.34 Vitamin B12: 797 Folate: 19.3 Initial CO2: >20 and repeated 1.7. AB.17 and repeated and HCO3 9. UDS is nondetected and serum alcohol was less than 10 CT of the head is reported as subacute A by 4 x 4 cm left MCA territory nonhemorrhagic infarction. I personally agree that the patient has subacute changes over the left temporal parietal region. CT cervical spine is prominent by apical lung consolidation. Patient is on IV propofol and fentanyl. He is intubated. 2-D echo was reported as him. All the function. The ejection fraction is about 20-25%. Mild ventricular and apical hypokinesis. Routine EEG: Is abnormal. The background slowing is suggestive of mild encephalopathy. There is no focal slowing, epileptiform discharge or seizure on the EEG. The diffuse suppression is likely due to medication induced (Propofol and fentanyl). 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 Difficult to exclude minimal petechial hemmorrhage within the anterior region of infarct. some preserved cortical parenchyma is the alternative consideration. Ongoing follow-up recommended. No midline shift or herniation seen. A small posterior scalp contusion appears to have developed. I personally reviewed the CT and agree there is subacute changes over the left temporal/parietal region. I felt it was cortical parenchyma seen and felt less about petechial hemorrhage but cannot be excluded. Carotid duplex is reported as less than 50% stenosis bilateral carotid bifurcation. - Labs CBC & Chem 7: 04/28/23 11:09 04/28/23 07:15 Labs: Abnormal Lab Results - Last 24 Hours (Table) 04/27/23 04/27/23 04/27/23 Range/Units 12:12 12:12 12:12 WBC 18.1 H (3.8-10.6) k/uL Hct (39.0-53.0) % MCHC (31.0-37.0) g/dL Plt Count 63 L (150-450) k/uL Neutrophils # 16.3 H (1.3-7.7) k/uL Neutrophils # (Manual) 15.70 H (1.3-7.7) k/uL Monocytes # (Manual) 1.09 H (0-1.0) k/uL Nucleated RBCs 3 H (0-0) /100 WBC PT 15.6 H (10.0-12.5) sec INR 1.5 H (<1.2) APTT (22.0-30.0) sec ABG pO2 (83-108) mmHg ABG HCO3 (21-25) mmol/L ABG Total CO2 (19-24) mmol/L ABG O2 Saturation (94-97) % Sodium (137-145) mmol/L Chloride (98-107) mmol/L BUN (9-20) mg/dL Glucose (74-99) mg/dL Calcium (8.4-10.2) mg/dL Magnesium (1.6-2.3) mg/dL AST (17-59) U/L ALT (4-49) U/L Creatine Kinase (55-170) U/L Total Protein (6.3-8.2) g/dL Albumin (3.5-5.0) g/dL Triglycerides 209.00 H (0.00-149.00) mg/dL VLDL Cholesterol, Calc 41.80 H (5.00-40.00) mg/dL HDL Cholesterol 28.20 L (40.00-60.00) mg/dL 04/27/23 04/27/23 04/28/23 Range/Units 17:09 17:09 01:53 WBC 22.7 H (3.8-10.6) k/uL Hct 55.2 H (39.0-53.0) % MCHC (31.0-37.0) g/dL Plt Count 57 L (150-450) k/uL Neutrophils # (1.3-7.7) k/uL Neutrophils # (Manual) (1.3-7.7) k/uL Monocytes # (Manual) (0-1.0) k/uL Nucleated RBCs (0-0) /100 WBC PT (10.0-12.5) sec INR (<1.2) APTT 34.2 H (22.0-30.0) sec ABG pO2 (83-108) mmHg ABG HCO3 (21-25) mmol/L ABG Total CO2 (19-24) mmol/L ABG O2 Saturation (94-97) % Sodium (137-145) mmol/L Chloride (98-107) mmol/L BUN (9-20) mg/dL Glucose (74-99) mg/dL Calcium (8.4-10.2) mg/dL Magnesium (1.6-2.3) mg/dL AST (17-59) U/L ALT (4-49) U/L Creatine Kinase 84544 H* (55-170) U/L Total Protein (6.3-8.2) g/dL Albumin (3.5-5.0) g/dL Triglycerides (0.00-149.00) mg/dL VLDL Cholesterol, Calc (5.00-40.00) mg/dL HDL Cholesterol (40.00-60.00) mg/dL 04/28/23 04/28/23 04/28/23 Range/Units 06:25 07:15 07:15 WBC 15.3 H (3.8-10.6) k/uL Hct (39.0-53.0) % MCHC 30.9 L (31.0-37.0) g/dL Plt Count 57 L (150-450) k/uL Neutrophils # 13.6 H (1.3-7.7) k/uL Neutrophils # (Manual) (1.3-7.7) k/uL Monocytes # (Manual) (0-1.0) k/uL Nucleated RBCs (0-0) /100 WBC PT 13.6 H (10.0-12.5) sec INR 1.3 H (<1.2) APTT (22.0-30.0) sec ABG pO2 252 H (83-108) mmHg ABG HCO3 26 H (21-25) mmol/L ABG Total CO2 27 H (19-24) mmol/L ABG O2 Saturation 99.8 H (94-97) % Sodium (137-145) mmol/L Chloride (98-107) mmol/L BUN (9-20) mg/dL Glucose (74-99) mg/dL Calcium (8.4-10.2) mg/dL Magnesium (1.6-2.3) mg/dL AST (17-59) U/L ALT (4-49) U/L Creatine Kinase (55-170) U/L Total Protein (6.3-8.2) g/dL Albumin (3.5-5.0) g/dL Triglycerides (0.00-149.00) mg/dL VLDL Cholesterol, Calc (5.00-40.00) mg/dL HDL Cholesterol (40.00-60.00) mg/dL 04/28/23 Range/Units 07:15 WBC (3.8-10.6) k/uL Hct (39.0-53.0) % MCHC (31.0-37.0) g/dL Plt Count (150-450) k/uL Neutrophils # (1.3-7.7) k/uL Neutrophils # (Manual) (1.3-7.7) k/uL Monocytes # (Manual) (0-1.0) k/uL Nucleated RBCs (0-0) /100 WBC PT (10.0-12.5) sec INR (<1.2) APTT (22.0-30.0) sec ABG pO2 (83-108) mmHg ABG HCO3 (21-25) mmol/L ABG Total CO2 (19-24) mmol/L ABG O2 Saturation (94-97) % Sodium 151 H (137-145) mmol/L Chloride 122 H (98-107) mmol/L BUN 28 H (9-20) mg/dL Glucose 136 H (74-99) mg/dL Calcium 7.5 L (8.4-10.2) mg/dL Magnesium 2.8 H (1.6-2.3) mg/dL AST 387 H (17-59) U/L ALT 149 H (4-49) U/L Creatine Kinase 12414 H* (55-170) U/L Total Protein 4.6 L (6.3-8.2) g/dL Albumin 2.3 L (3.5-5.0) g/dL Triglycerides (0.00-149.00) mg/dL VLDL Cholesterol, Calc (5.00-40.00) mg/dL HDL Cholesterol (40.00-60.00) mg/dL Microbiology - Last 24 Hours (Table) 04/26/23 20:38 Gram Stain - Preliminary Sputum 04/27/23 05:30 Urine Culture - Final Urine,Voided 04/26/23 19:00 Blood Culture - Preliminary Blood 04/26/23 18:45 Blood Culture - Preliminary Blood Assessment and Plan Assessment: This is a 58 y/o gentleman was found down in front of his stove on 04/26/2023 and last normal seen was on 04/23/2023. He was recent at [facility] for ischemic of upper s/p thrombectomy on third week of March and had repeated surgery and was discharged on eliquis. His CO was >20 and repeated is normal. His CK level is elevated, elevated troponin. CT head show subacute ischemic stroke over the left MCA. Subacute left temporal/parietal. No IV tpa since outside window and appears last normal is 04/23/2023 and risk outweigh benefit. Encephalopathy due to stroke, hypercarobxyemia, metabolic encephalopathy and medication effect (Propofol and Fentanyl). EEG is mild encephalopathy but no s eizure or discharges. NSTEMI Acute Rhabdomylolysis--slightly trending down Recent right upper extremity thrombus with ischemia s/p thrombectomy X2 at [facility] towards 3rd of March 2023. 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 DARRYL--resolved. Ejection fraction of 20-25% with apical hypokinesis and 2-D echo Leukocytosis--trending down Hypernatremia Polycythemia Possible lung cancer Plan: Patient is on aspirin 81 mg daily. There is a risk of bleed with anticoagulation use since patient has moderate size subacute stroke. But if the benefits outweigh the risk to pursue with anticoagulation. Heparin is stopped since thrombocytopenia dropped and there is ?concern for HIT. Will avoid the statin because of his rhabdo but once the rhabdo resolves will place him on statin I will get a repeat CT head for tomorrow A.M. Primary team ordered hypercoagulable work-up and pending. Spoke with primary team agree with LEONIDAS. Pending copper level. Continue thiamine 100mg IV daily. Every 2 neurochecks Cardiac monitoring PT OT and RESEARCH BIOSTATISTICIAN is consulted Cardiology, vascular surgery consulted We'll defer the rest of the medical management to the primary team DVT prophylaxis: can consider Lovenox. The plan was discussed with the patient's primary team and ICU team. Patient condition is critical. Will continue to follow. Time with Patient: Less than 30
[2023-04-28 12:09] LABS: Basophils % (A) 0 %; Eosinophils % (A) 0 %; HGB 14.1 gm/dL (13.0-17.5); Hypochromasia Marked; Lymphocytes % (A) 7 %; MCHC 31.3 g/dL (31.0-37.0); MCV 96.1 fL (80.0-100.0); Mean Platelet Volume 10.6; Monocytes # (A) 0.5 k/uL (0-1.0); Monocytes % (A) 4 %; Neutrophils % (A) 88 %; Poikilocytosis Slight; RBC 4.69 m/uL (4.30-5.90); RDW 15.4 % (11.5-15.5); WBC 13.6 k/uL (3.8-10.6)
[2023-04-28 12:10] LABS: Platelet Count 55 k/uL (150-450)
[2023-04-28 12:19] LABS: INR 1.2 (<1.2); Partial Thromboplastin Time 23.2 sec (22.0-30.0); Prothrombin Time 12.4 sec (10.0-12.5)
[2023-04-28] MEDS: ARGATROBAN 50 MG in SODIUM CHLORIDE 0.9% 50 ML IV SCH (12:24)
--- NOTE | 2023-04-28 12:38 | P.PN ---
Subjective Progress Note Date: 04/28/23 Principal diagnosis: Systemic thrombosis. Patient is evaluated today in the intensive care unit. He remains intubated. His sedation has been decreased and the patient is becoming more awake. He seems to want to follow instruction to move his extremities although little movement if any movement is noted. Objective - Vital Signs Vital signs: Vital Signs Temp 99.6 F 04/28/23 08:00 Pulse 96 04/28/23 11:31 Resp 22 04/28/23 09:00 BP 130/69 04/28/23 09:00 Pulse Ox 100 04/28/23 09:00 FiO2 40 04/28/23 10:55 Intake & Output 04/27/23 04/28/23 04/28/23 18:59 06:59 18:59 Intake Total 2556.342 2380.417 789.5 Output Total 775 430 55 Balance 3018.031 3143.417 734.5 Weight 70 kg 71.2 kg Intake: IV 2052 1995 559 0.9 NS @ KVO 120 120 30 CVP 33 36 9 Dextrose 5% in Water 1, 0 000 ml @ 100 mls/hr IV . [id number] [facility] with Sodium Bicarb (1 Meq/ml) 150 ml Rx#:[id number] Piperacillin-Tazobactam 3 200 100 100 .375 gm In Sodium Chloride 0.9% 100 ml @ 25 mls/hr IVPB Q8HR [facility] Rx# :[id number] Sodium Chloride 0.9% 1, 1700 1740 420 000 ml @ 150 mls/hr IV . Q6H40M [facility] Rx#:[id number] Intake, IV Titration 328.342 234.417 110.5 Amount Heparin Sod,Pork in 0.45% 52.92 35.875 10.5 NaCl 25,000 unit In 0.45 % NaCl 1 250ml.bag @ 12 UNITS/KG/HR 8.4 mls/hr IV .Q24H [facility] Rx#:[id number] fentaNYL (PF). 1,000 mcg 1.458 98.542 In Sodium Chloride 0.9% 80 ml @ 0.5 MCG/KG/HR 3.5 mls/hr IV .Q24H [facility] Rx#: [id number] propofoL 1,000 mg In 273.964 100 100 Empty Bag 1 bag @ 15 MCG/ KG/MIN 4.905 mls/hr IV . [id number] [facility] Rx#:[id number] Tube Feeding 70 90 60 Other 105 60 60 Output: Gastric Drainage 150 Urine 625 430 55 Other: Voiding Method Indwelling Catheter Indwelling Catheter Indwelling Catheter # Bowel Movements 1 - Exam Patient's eyes are open and is moving his head from side to side however this does not appear to be purposeful. Patient's feet and calf areas are ischemic bilaterally. I cannot feel popliteal or pedal pulses. The right hand is also ischemic. - Labs CBC & Chem 7: 04/28/23 11:09 04/28/23 07:15 Labs: Abnormal Lab Results - Last 24 Hours (Table) 04/27/23 04/27/23 04/27/23 Range/Units 12:12 12:12 12:12 WBC 18.1 H (3.8-10.6) k/uL Hct (39.0-53.0) % MCHC (31.0-37.0) g/dL Plt Count 63 L (150-450) k/uL Neutrophils # 16.3 H (1.3-7.7) k/uL Neutrophils # (Manual) 15.70 H (1.3-7.7) k/uL Monocytes # (Manual) 1.09 H (0-1.0) k/uL Nucleated RBCs 3 H (0-0) /100 WBC PT 15.6 H (10.0-12.5) sec INR 1.5 H (<1.2) APTT (22.0-30.0) sec ABG pO2 (83-108) mmHg ABG HCO3 (21-25) mmol/L ABG Total CO2 (19-24) mmol/L ABG O2 Saturation (94-97) % Sodium (137-145) mmol/L Chloride (98-107) mmol/L BUN (9-20) mg/dL Glucose (74-99) mg/dL POC Glucose (mg/dL) (70-110) mg/dL Calcium (8.4-10.2) mg/dL Magnesium (1.6-2.3) mg/dL AST (17-59) U/L ALT (4-49) U/L Creatine Kinase (55-170) U/L Total Protein (6.3-8.2) g/dL Albumin (3.5-5.0) g/dL Triglycerides 209.00 H (0.00-149.00) mg/dL VLDL Cholesterol, Calc 41.80 H (5.00-40.00) mg/dL HDL Cholesterol 28.20 L (40.00-60.00) mg/dL 04/27/23 04/27/23 04/28/23 Range/Units 17:09 17:09 01:53 WBC 22.7 H (3.8-10.6) k/uL Hct 55.2 H (39.0-53.0) % MCHC (31.0-37.0) g/dL Plt Count 57 L (150-450) k/uL Neutrophils # (1.3-7.7) k/uL Neutrophils # (Manual) (1.3-7.7) k/uL Monocytes # (Manual) (0-1.0) k/uL Nucleated RBCs (0-0) /100 WBC PT (10.0-12.5) sec INR (<1.2) APTT 34.2 H (22.0-30.0) sec ABG pO2 (83-108) mmHg ABG HCO3 (21-25) mmol/L ABG Total CO2 (19-24) mmol/L ABG O2 Saturation (94-97) % Sodium (137-145) mmol/L Chloride (98-107) mmol/L BUN (9-20) mg/dL Glucose (74-99) mg/dL POC Glucose (mg/dL) (70-110) mg/dL Calcium (8.4-10.2) mg/dL Magnesium (1.6-2.3) mg/dL AST (17-59) U/L ALT (4-49) U/L Creatine Kinase 06044 H* (55-170) U/L Total Protein (6.3-8.2) g/dL Albumin (3.5-5.0) g/dL Triglycerides (0.00-149.00) mg/dL VLDL Cholesterol, Calc (5.00-40.00) mg/dL HDL Cholesterol (40.00-60.00) mg/dL 04/28/23 04/28/23 04/28/23 Range/Units 06:25 07:15 07:15 WBC 15.3 H (3.8-10.6) k/uL Hct (39.0-53.0) % MCHC 30.9 L (31.0-37.0) g/dL Plt Count 57 L (150-450) k/uL Neutrophils # 13.6 H (1.3-7.7) k/uL Neutrophils # (Manual) (1.3-7.7) k/uL Monocytes # (Manual) (0-1.0) k/uL Nucleated RBCs (0-0) /100 WBC PT 13.6 H (10.0-12.5) sec INR 1.3 H (<1.2) APTT (22.0-30.0) sec ABG pO2 252 H (83-108) mmHg ABG HCO3 26 H (21-25) mmol/L ABG Total CO2 27 H (19-24) mmol/L ABG O2 Saturation 99.8 H (94-97) % Sodium (137-145) mmol/L Chloride (98-107) mmol/L BUN (9-20) mg/dL Glucose (74-99) mg/dL POC Glucose (mg/dL) (70-110) mg/dL Calcium (8.4-10.2) mg/dL Magnesium (1.6-2.3) mg/dL AST (17-59) U/L ALT (4-49) U/L Creatine Kinase (55-170) U/L Total Protein (6.3-8.2) g/dL Albumin (3.5-5.0) g/dL Triglycerides (0.00-149.00) mg/dL VLDL Cholesterol, Calc (5.00-40.00) mg/dL HDL Cholesterol (40.00-60.00) mg/dL 04/28/23 04/28/23 04/28/23 Range/Units 07:15 11:09 11:34 WBC 13.6 H (3.8-10.6) k/uL Hct (39.0-53.0) % MCHC (31.0-37.0) g/dL Plt Count 55 L (150-450) k/uL Neutrophils # (1.3-7.7) k/uL Neutrophils # (Manual) (1.3-7.7) k/uL Monocytes # (Manual) (0-1.0) k/uL Nucleated RBCs (0-0) /100 WBC PT (10.0-12.5) sec INR (<1.2) APTT (22.0-30.0) sec ABG pO2 (83-108) mmHg ABG HCO3 (21-25) mmol/L ABG Total CO2 (19-24) mmol/L ABG O2 Saturation (94-97) % Sodium 151 H (137-145) mmol/L Chloride 122 H (98-107) mmol/L BUN 28 H (9-20) mg/dL Glucose 136 H (74-99) mg/dL POC Glucose (mg/dL) 129 H (70-110) mg/dL Calcium 7.5 L (8.4-10.2) mg/dL Magnesium 2.8 H (1.6-2.3) mg/dL AST 387 H (17-59) U/L ALT 149 H (4-49) U/L Creatine Kinase 86250 H* (55-170) U/L Total Protein 4.6 L (6.3-8.2) g/dL Albumin 2.3 L (3.5-5.0) g/dL Triglycerides (0.00-149.00) mg/dL VLDL Cholesterol, Calc (5.00-40.00) mg/dL HDL Cholesterol (40.00-60.00) mg/dL Microbiology - Last 24 Hours (Table) 04/26/23 20:38 Gram Stain - Preliminary Sputum 04/27/23 05:30 Urine Culture - Final Urine,Voided 04/26/23 19:00 Blood Culture - Preliminary Blood 04/26/23 18:45 Blood Culture - Preliminary Blood Assessment and Plan Assessment: Systemic arterial thrombosis, suspect hypercoagulable syndrome. Advanced ischemic changes of the feet and calf areas bilaterally as well as the right hand and distal forearm area. History of CVA Multiple ongoing medical problems including suspicion for lung cancer. Plan: Given the fact that the patient's platelet count has dropped significantly I agree with the initiation of a gastric band and avoiding any heparin products. Overall the patient's prognosis appears to be quite poor and if the patient survives will need bilateral above-knee amputations and possibly amputation of the right hand.
[2023-04-28] MEDS ORDERED: LACTATED RINGERS 1,000 ML IV SCH (12:45)
[2023-04-28] MEDS: fentaNYL (PF). 1,000 MCG in SODIUM CHLORIDE 0.9% 80 ML IV SCH (13:00)
--- NOTE | 2023-04-28 13:41 | P.PN ---
Subjective Progress Note Date: 04/28/23 Pt has multiple acute medical issues at this time including NSTEMI, acute limb ischemia of RUE, LLE, RLE, acute cardiomyopathy with apical hypokinesis, ischemic L MCA infarct, and rhabdomyolysis. Had extensive conversation with vascular surgery and neurology yesterday regarding benefits of AC versus risks of hemorrhagic conversion of CVA and determined best interest standard for patient is to place him on heparin gtt to salvage as much limb as possible until demarcation of ischemic limbs are completed. However, overnight patient had drop in PLT to 57 and heparin gtt was dropped and HIT panel sent by my colleague. Combination of timing of platelet drop <24 hours after re-exposure to heparin with recent (<30 day) initial exposure to heparin, arterial thrombotic events, and júnior of platelets >50 with >50% drop yields intermediate to high risk 4 T score for possibility of JENNIFER. However, patients initial thrombotic event of RUE occlusion occured prior heparin exposure, and patients present thrombotic events (ischemic limbs, NSTEMI, and ischemic stroke) occured prior to re-exposure to heparin. These findings were discussed in detail with hematology, neurology. Patient started on argatroban gtt, and hypercoaguable workup sent. General: intubated, sedated HEENT: normocephalic, atraumatic, no tracheal deviation Respiratory: symmetric chest rise, no cyanosis, ventilator dependent CVS: Right lower extremity is dark/dusky, no palpable pulse, left lower extremity is dark/dusky, no palpable pulse, right upper extremity is dark/dusky with contracture of the hand with no palpable pulse, no pitting edema GI: soft, ND : no SPT, no CVAT, del castillo is present Neuro: sedated Hospital course: Patient is a 58-year-old male with a PMH of recently diagnosed lung cancer, recent right upper extremity arterial occlusion status post multiple surgeries, and type II DM who was brought to the emergency room for altered mental status. The history was obtained from ED provider and from the chart as the patient was intubated at the time of interview and no family or other contacts were availabl e. The patient had reportedly last been seen by his neighbors on Sunday. He does not have any family aside from a brother with whom he is estranged. The neighbors noted not having heard from several days contacted police to do well check. The police had to break into the house and found the patient on the floor next to the stove. As per EMS, it had appeared that the patient was burning things on the stove with a gasping on. The patient was also reportedly covered in soot. He was altered and had appeared to pin down for an extended period of time. There were concerns for possible suicidality as the patient had said to the EMS to "just leave me here". As per the ED provider, the patient has had multiple recent surgeries of his right upper extremity and that he was placed on Eliquis and had also regained function of the right upper extremity after recent surgeries. In the emergency room, a chest x-ray revealed multifocal airspace opacities. With a pelvis x-ray unremarkable. CT brain and cervical spine revealed a subacute 8 x 4 x 4 cm left MCA ischemic infarction. EKG revealed sinus tachycardia with short ID interval at 102 bpm with diffuse T-wave inversions as reviewed by me. Laboratory evaluation revealed hemoglobin of 20.7, WBC count 28.5, platelets 115, carbon dioxide greater than 20, CO2 9, BUN 56, creatinine 2.19, lactic acid 12.1, creatine kinase 10,403, total bilirubin 1.6, troponin 8.3, with an unremarkable UA and urine toxicology. Pt has multiple acute medical issues at this time including NSTEMI, acute limb ischemia of RUE, LLE, RLE, acute cardiomyopathy with apical hypokinesis, ischemic L MCA infarct, and rhabdomyolysis. Had extensive conversation with vascular surgery and neurology yesterday regarding benefits of AC versus risks of hemorrhagic conversion of CVA and determined best interest standard for patient is to place him on heparin gtt to salvage as much limb as possible until demarcation of ischemic limbs are completed. However, overnight patient had drop in PLT to 57 and heparin gtt was dropped and HIT panel sent by my colleague. Combination of timing of platelet drop <24 hours after re-exposure to heparin with recent (<30 day) initial exposure to heparin, arterial thrombotic events, and júnior of platelets >50 with >50% drop yields intermediate to high risk 4 T score for possibility of JENNIFER. However, patients initial thrombotic event of RUE occlusion occured prior heparin exposure, and patients present thrombotic events (ischemic limbs, NSTEMI, and ischemic stroke) occured prior to re-exposure to heparin. These findings were discussed in detail with hematology, neurology. Patient started on argatroban gtt, and hypercoaguable workup sent. Assessment/plan: Acute hypoxic respiratory failure Carbon Monoxide poisoning - ventilator per ICU - CO level reviewed and normalized - propofol, fentanyl gtt for sedation and pain control, appreciate cornell vera Acute MCA infarct Non-ST elevation NE Acute Systolic Heart Failure with EF of 20-25%, apical hypokinesis Rhabdomyolysis Acute Limb Ischemia - hypercoagulability workup including - prothrombin mutation, protein C/S activity, anti-thrombin III, Factor V Leiden - APS labs: anti-cardiolipin, lupus AC, [id number]-glycoprotein - BARB - Hematology consult appreciated - HIV, peripheral smear, hepatitis panel also ordered - Argotroban gtt - Neurology consult appreciated - agree with LEONIDAS - copper level ordered - EEG ordered - repeat CT Head ordered - Cardiology consult appreciated - metoprolol - consideration of LEONIDAS as above Social Determinant of Health: pt has complex social situation by having no surrogate decision maker due to having no family except for estranged brother. SW working on guardianship. DVT prophylaxis: on argatroban The patient is admitted with an anticipated greater than 2 midnight stay for evaluation of CODE STATUS: Full Code Objective - Vital Signs Vital signs: Vital Signs Temp 100.4 F H 04/28/23 12:00 Pulse 99 04/28/23 12:00 Resp 26 H 04/28/23 12:00 BP 119/60 04/28/23 12:00 Pulse Ox 100 04/28/23 12:00 FiO2 50 04/28/23 12:00 Intake & Output 04/27/23 04/28/23 04/28/23 18:59 06:59 18:59 Intake Total 2556.342 2380.417 2590.086 Output Total 775 430 120 Balance 5370.563 8239.417 2470.086 Weight 70 kg 71.2 kg Intake: IV 2052 1995 2170 0.9 NS @ KVO 120 120 70 CVP 33 36 21 Dextrose 5% in Water 1, 0 000 ml @ 100 mls/hr IV . [id number] [facility] with Sodium Bicarb (1 Meq/ml) 150 ml Rx#:[id number] Piperacillin-Tazobactam 3 200 100 100 .375 gm In Sodium Chloride 0.9% 100 ml @ 25 mls/hr IVPB Q8HR DYLAN Rx# :[id number] Sodium Chloride 0.9% 1, 1700 1740 980 000 ml @ 150 mls/hr IV . Q6H40M [facility] Rx#:[id number] Sodium Chloride 0.9% 1, 1000 000 ml @ 999 mls/hr IV . Q1H1M [facility] Rx#:[id number] Intake, IV Titration 328.342 234.417 149.086 Amount Heparin Sod,Pork in 0.45% 52.92 35.875 10.5 NaCl 25,000 unit In 0.45 % NaCl 1 250ml.bag @ 12 UNITS/KG/HR 8.4 mls/hr IV .Q24H [facility] Rx#:[id number] fentaNYL (PF). 1,000 mcg 1.458 98.542 In Sodium Chloride 0.9% 80 ml @ 0.5 MCG/KG/HR 3.5 mls/hr IV .Q24H [facility] Rx#: [id number] propofoL 1,000 mg In 273.964 100 138.586 Empty Bag 1 bag @ 15 MCG/ KG/MIN 4.905 mls/hr IV . [id number] [facility] Rx#:[id number] Tube Feeding 70 90 180 Other 105 60 90 Output: Gastric Drainage 150 Urine 625 430 120 Other: Voiding Method Indwelling Catheter Indwelling Catheter Indwelling Catheter # Bowel Movements 1 - Labs CBC & Chem 7: 04/28/23 11:09 04/28/23 07:15 Labs: Abnormal Lab Results - Last 24 Hours (Table) 04/27/23 04/27/23 04/27/23 Range/Units 12:12 12:12 17:09 WBC 18.1 H (3.8-10.6) k/uL Hct (39.0-53.0) % MCHC (31.0-37.0) g/dL Plt Count 63 L (150-450) k/uL Neutrophils # 16.3 H (1.3-7.7) k/uL Neutrophils # (Manual) 15.70 H (1.3-7.7) k/uL Monocytes # (Manual) 1.09 H (0-1.0) k/uL Nucleated RBCs 3 H (0-0) /100 WBC PT (10.0-12.5) sec INR (<1.2) APTT 34.2 H (22.0-30.0) sec ABG pO2 (83-108) mmHg ABG HCO3 (21-25) mmol/L ABG Total CO2 (19-24) mmol/L ABG O2 Saturation (94-97) % Sodium (137-145) mmol/L Chloride (98-107) mmol/L BUN (9-20) mg/dL Glucose (74-99) mg/dL POC Glucose (mg/dL) (70-110) mg/dL Calcium (8.4-10.2) mg/dL Magnesium (1.6-2.3) mg/dL AST (17-59) U/L ALT (4-49) U/L Creatine Kinase (55-170) U/L Total Protein (6.3-8.2) g/dL Albumin (3.5-5.0) g/dL Triglycerides 209.00 H (0.00-149.00) mg/dL VLDL Cholesterol, Calc 41.80 H (5.00-40.00) mg/dL HDL Cholesterol 28.20 L (40.00-60.00) mg/dL 04/27/23 04/28/23 04/28/23 Range/Units 17:09 01:53 06:25 WBC 22.7 H (3.8-10.6) k/uL Hct 55.2 H (39.0-53.0) % MCHC (31.0-37.0) g/dL Plt Count 57 L (150-450) k/uL Neutrophils # (1.3-7.7) k/uL Neutrophils # (Manual) (1.3-7.7) k/uL Monocytes # (Manual) (0-1.0) k/uL Nucleated RBCs (0-0) /100 WBC PT (10.0-12.5) sec INR (<1.2) APTT (22.0-30.0) sec ABG pO2 252 H (83-108) mmHg ABG HCO3 26 H (21-25) mmol/L ABG Total CO2 27 H (19-24) mmol/L ABG O2 Saturation 99.8 H (94-97) % Sodium (137-145) mmol/L Chloride (98-107) mmol/L BUN (9-20) mg/dL Glucose (74-99) mg/dL POC Glucose (mg/dL) (70-110) mg/dL Calcium (8.4-10.2) mg/dL Magnesium (1.6-2.3) mg/dL AST (17-59) U/L ALT (4-49) U/L Creatine Kinase 85439 H* (55-170) U/L Total Protein (6.3-8.2) g/dL Albumin (3.5-5.0) g/dL Triglycerides (0.00-149.00) mg/dL VLDL Cholesterol, Calc (5.00-40.00) mg/dL HDL Cholesterol (40.00-60.00) mg/dL 04/28/23 04/28/23 04/28/23 Range/Units 07:15 07:15 07:15 WBC 15.3 H (3.8-10.6) k/uL Hct (39.0-53.0) % MCHC 30.9 L (31.0-37.0) g/dL Plt Count 57 L (150-450) k/uL Neutrophils # 13.6 H (1.3-7.7) k/uL Neutrophils # (Manual) (1.3-7.7) k/uL Monocytes # (Manual) (0-1.0) k/uL Nucleated RBCs (0-0) /100 WBC PT 13.6 H (10.0-12.5) sec INR 1.3 H (<1.2) APTT (22.0-30.0) sec ABG pO2 (83-108) mmHg ABG HCO3 (21-25) mmol/L ABG Total CO2 (19-24) mmol/L ABG O2 Saturation (94-97) % Sodium 151 H (137-145) mmol/L Chloride 122 H (98-107) mmol/L BUN 28 H (9-20) mg/dL Glucose 136 H (74-99) mg/dL POC Glucose (mg/dL) (70-110) mg/dL Calcium 7.5 L (8.4-10.2) mg/dL Magnesium 2.8 H (1.6-2.3) mg/dL AST 387 H (17-59) U/L ALT 149 H (4-49) U/L Creatine Kinase 12845 H* (55-170) U/L Total Protein 4.6 L (6.3-8.2) g/dL Albumin 2.3 L (3.5-5.0) g/dL Triglycerides (0.00-149.00) mg/dL VLDL Cholesterol, Calc (5.00-40.00) mg/dL HDL Cholesterol (40.00-60.00) mg/dL 04/28/23 04/28/23 04/28/23 Range/Units 11:09 11:09 11:34 WBC 13.6 H (3.8-10.6) k/uL Hct (39.0-53.0) % MCHC (31.0-37.0) g/dL Plt Count 55 L (150-450) k/uL Neutrophils # (1.3-7.7) k/uL Neutrophils # (Manual) (1.3-7.7) k/uL Monocytes # (Manual) (0-1.0) k/uL Nucleated RBCs (0-0) /100 WBC PT (10.0-12.5) sec INR 1.2 H (<1.2) APTT (22.0-30.0) sec ABG pO2 (83-108) mmHg ABG HCO3 (21-25) mmol/L ABG Total CO2 (19-24) mmol/L ABG O2 Saturation (94-97) % Sodium (137-145) mmol/L Chloride (98-107) mmol/L BUN (9-20) mg/dL Glucose (74-99) mg/dL POC Glucose (mg/dL) 129 H (70-110) mg/dL Calcium (8.4-10.2) mg/dL Magnesium (1.6-2.3) mg/dL AST (17-59) U/L ALT (4-49) U/L Creatine Kinase (55-170) U/L Total Protein (6.3-8.2) g/dL Albumin (3.5-5.0) g/dL Triglycerides (0.00-149.00) mg/dL VLDL Cholesterol, Calc (5.00-40.00) mg/dL HDL Cholesterol (40.00-60.00) mg/dL Microbiology - Last 24 Hours (Table) 04/26/23 20:38 Gram Stain - Preliminary Sputum 04/27/23 05:30 Urine Culture - Final Urine,Voided 04/26/23 19:00 Blood Culture - Preliminary Blood 04/26/23 18:45 Blood Culture - Preliminary Blood
[2023-04-28 14:07] LABS: Hepatitis A Antibody IgM Nonreactive; Hepatitis B Core IgM Nonreactive; Hepatitis B Surface Antigen Nonreactive; Hepatitis C IgG Antibody Nonreactive
--- NOTE | 2023-04-28 15:48 | CT ---
EXAMINATION TYPE: CT chest w con DATE OF EXAM: 04/28/2023 COMPARISON: None HISTORY: lung mass CT DLP: 446.1 mGycm Automated exposure control for dose reduction was used. TECHNIQUE: CT scan of the chest is performed without and with IV Contrast, patient injected with 100 mL of Isovu e 300. MIP Images are created on CT scanner and reviewed. 3D reconstructed images are created on an independent workstation and reviewed. FINDINGS: There is a left subclavian central venous catheter the tip of which is in the SVC/R junction. There i s an NG tube within the stomach. There is a tracheostomy tube. There is a 3.1 cm mass in the left hilum highly suspicious for primary neoplasm or adenopathy. A seco nd adjacent 2 cm mass is suspected as well. There is a large filling defect in the descending thoracic aorta consistent with a large thrombus. It nearly occludes the distal thoracic aorta. There is mild groundglass density in the right middle lobe and there is minimal infiltrate/atelectasi s in the lung bases posteriorly. Limited scanning the upper abdomen reveals a distended gallbladder without gallstones, wall thickenin g or pericholecystic fluid. No focal osseous lesions are seen. IMPRESSION: 1. 2 left hilar masses highly suspicious for neoplasm as described. 2. Large nearly occluding thrombus in the distal descending thoracic aorta. 3. Mild by basilar infiltrate/atelectasis. 4. Mild groundglass density in the right middle lobe. 5. NG tube, central venous catheter and ET tube as described.
[2023-04-28 17:49] LABS: Glucose,Whole Blood 134 mg/dL (70-110)
--- NOTE | 2023-04-28 19:23 | P.CONS ---
History of Present Illness - Reason for Consult Consult date: 04/28/23 thrombocytopenia Requesting physician: Mane Jara - Chief Complaint altered mental status - History of Present Illness Patient is a 58-year-old male with an extensive medical history. Consult was placed with thrombocytopenia on heparin, concern for JENNIFER. Patient presented to the emergency room for altered mental status. Patient's neighbors became worried when they had not seen him for couple days and a well check was performed and patient was found in the kitchen on the floor for unknown period of time. Upon admission CT brain/C-spine revealed subacute 8 x 4 x 4 cm left MCA territory nonhemorrhagic infarction. C-spine negative for fracture or malalignment. Chest x-ray showed multifocal airspace filling process. Repeat CT brain revealed left [facility] territory subacute infarct redemonstrated. Difficult to exclude minimal petechial hemorrhage within the anterior margin of the region of infarct. No midline shift or herniation seen. Small right posterior scalp contusion. Serial trops elevated consistent with NSTEMI. Patient was started on heparin drip. However, platelets did drop from 115,000 to 63,000 after heparin initiation. However, upon trending labs, plts had dropped to 75,000 prior to starting heparin. Of note patient was has undergone a right brachial, radial and ulnar thrombectomy reportedly twice during the last 1 month at [facility], and was likely heparinzied at some point during this admission. He was also reportedly recently diagnosed with lung cancer and was being worked up at [facility]. Hgb 14.7, WBC 15.3. CK 14,128 upon admission. AST 387, ALT 149. Bilirubin 1.6, now 0.6. Creatinine 2.19 on admission, now normal at 0.90, GFR >90. Review of Systems 10 point ROS is negative except as stated in the HPI Past Medical History Past Medical History: Cancer, Diabetes Mellitus Additional Past Medical History / Comment(s): lung ca History of Any Multi-Drug Resistant Organisms: Unobtainable Past Surgical History: Unable to Obtain Additional Past Surgical History / Comment(s): Right Radial, ulnar, and brachial open thrombectomy Past Anesthesia/Blood Transfusion Reactions: No Reported Reaction Past Psychological History: Unable to Obtain Smoking Status: Unknown if ever smoked Past Alcohol Use History: Unable to Obtain Past Drug Use History: Unable to Obtain Medications and Allergies Home Medications Medication Instructions Recorded Confirmed Type Rivaroxaban [Xarelto] 15 mg PO BID 04/26/23 04/26/23 History Rivaroxaban [Xarelto] 20 mg PO DIRECTED 04/26/23 04/26/23 History Acetaminophen Tab [Tylenol] 650 mg PO Q6H 04/27/23 04/27/23 History Gabapentin [Neurontin] 100 mg PO TID 04/27/23 04/27/23 History Losartan/Hydrochlorothiazide 1 tab PO DAILY 04/27/23 04/27/23 History [Hyzaar 100-25 Tablet] amLODIPine [Norvasc] 10 mg PO DAILY 04/27/23 04/27/23 History Allergies Allergy/AdvReac Type Severity Reaction Status Date / Time Unable to Assess Allergy Verified 04/26/23 16:54 Physical Exam Vitals: Vital Signs Temp Pulse Resp BP Pulse Ox FiO2 04/28/23 17:00 95 26 H 125/89 98 04/28/23 16:21 95 04/28/23 16:12 94 04/28/23 16:00 99.9 F H 98 22 115/61 99 40 04/28/23 15:40 40 04/28/23 15:00 96 24 121/65 100 04/28/23 14:00 101 H 26 H 114/59 100 04/28/23 13:00 101 H 25 H 126/63 100 04/28/23 12:00 100.4 F H 99 26 H 119/60 100 50 04/28/23 11:31 96 04/28/23 11:17 96 04/28/23 11:00 96 24 132/69 100 04/28/23 10:55 40 04/28/23 10:00 96 25 H 128/67 100 04/28/23 09:00 98 22 130/69 100 04/28/23 08:48 101 H 04/28/23 08:00 99.6 F 102 H 24 133/75 100 50 04/28/23 07:51 40 04/28/23 07:00 104 H 20 132/71 99 04/28/23 06:36 40 04/28/23 06:00 105 H 20 128/72 99 04/28/23 05:00 109 H 24 128/75 100 04/28/23 04:00 98.7 F 109 H 26 H 114/69 100 40 04/28/23 03:58 109 H 04/28/23 03:51 106 H 50 04/28/23 03:00 94 20 114/68 100 04/28/23 02:00 95 20 112/67 100 04/28/23 01:00 96 18 109/66 100 04/28/23 00:06 98 18 109/66 100 04/28/23 00:00 99.4 F 98 18 115/72 100 04/27/23 23:52 98 04/27/23 23:42 98 04/27/23 23:41 50 04/27/23 23:37 50 04/27/23 23:36 50 04/27/23 23:00 101 H 18 114/67 99 04/27/23 22:00 101 H 19 116/71 100 04/27/23 21:00 102 H 18 115/68 100 04/27/23 20:55 101 H 04/27/23 20:48 101 H 04/27/23 20:35 100 50 04/27/23 20:00 99.9 F H 101 H 17 114/71 100 50 04/27/23 19:00 103 H 24 112/65 100 Intake and Output 04/28/23 04/28/23 04/28/23 06:59 14:59 22:59 Intake Total 1394 2649.500 491.44 Output Total 250 180 400 Balance 1144 2469.500 91.44 Intake: IV 1344 2129 364 0.9 NS @ KVO 80 80 30 CVP 24 24 9 Dextrose 5% in Water 1, 225 225 000 ml @ 75 mls/hr IV . [id number] [facility] Rx#:[id number] Piperacillin-Tazobactam 3 100 100 100 .375 gm In Sodium Chloride 0.9% 100 ml @ 25 mls/hr IVPB Q8HR [facility] Rx# :[id number] Sodium Chloride 0.9% 1, 1140 700 000 ml @ 150 mls/hr IV . Q6H40M [facility] Rx#:[id number] Sodium Chloride 0.9% 1, 1000 000 ml @ 999 mls/hr IV . Q1H1M [facility] Rx#:[id number] Intake, IV Titration 210.500 7.44 Amount Argatroban 50 mg In 7.44 Sodium Chloride 0.9% 50 ml @ 0.5 MCG/KG/MIN 2.136 mls/hr IV .[id number] [facility] Rx#:[id number] Heparin Sod,Pork in 0.45% 10.5 NaCl 25,000 unit In 0.45 % NaCl 1 250ml.bag @ 12 UNITS/KG/HR 8.4 mls/hr IV .Q24H [facility] Rx#:[id number] propofoL 1,000 mg In 200.000 Empty Bag 1 bag @ 15 MCG/ KG/MIN 4.905 mls/hr IV . [id number] [facility] Rx#:[id number] Tube Feeding 20 220 120 Other 30 90 Output: Urine 250 180 400 Other: Voiding Method Indwelling Catheter Indwelling Catheter Indwelling Catheter # Bowel Movements 1 Weight 71.2 kg - Constitutional General appearance: no acute distress - Respiratory ventilated breath sounds - Cardiovascular tachycardia Rhythm: regular dorsalis pedis Peripheral Pulses: bilateral: Absent radial pulse Peripheral Pulses: right: Absent, left: Normal - Integumentary mottling of BLE and RUE, cool to touch, approximated surgical incisions noted to RUE - Psychiatric sedated Results CBC & Chem 7: 04/28/23 11:09 04/28/23 07:15 Labs: Abnormal Lab Results - Last 24 Hours (Table) 04/27/23 04/27/23 04/28/23 Range/Units 12:12 17:09 01:53 WBC 22.7 H (3.8-10.6) k/uL Hct 55.2 H (39.0-53.0) % MCHC (31.0-37.0) g/dL Plt Count 57 L (150-450) k/uL Neutrophils # (1.3-7.7) k/uL PT (10.0-12.5) sec INR (<1.2) ABG pO2 (83-108) mmHg ABG HCO3 (21-25) mmol/L ABG Total CO2 (19-24) mmol/L ABG O2 Saturation (94-97) % Sodium (137-145) mmol/L Chloride (98-107) mmol/L BUN (9-20) mg/dL Glucose (74-99) mg/dL POC Glucose (mg/dL) (70-110) mg/dL Calcium (8.4-10.2) mg/dL Magnesium (1.6-2.3) mg/dL AST (17-59) U/L ALT (4-49) U/L Creatine Kinase 18433 H* (55-170) U/L Total Protein (6.3-8.2) g/dL Albumin (3.5-5.0) g/dL Triglycerides 209.00 H (0.00-149.00) mg/dL VLDL Cholesterol, Calc 41.80 H (5.00-40.00) mg/dL HDL Cholesterol 28.20 L (40.00-60.00) mg/dL 04/28/23 04/28/23 04/28/23 Range/Units 06:25 07:15 07:15 WBC 15.3 H (3.8-10.6) k/uL Hct (39.0-53.0) % MCHC 30.9 L (31.0-37.0) g/dL Plt Count 57 L (150-450) k/uL Neutrophils # 13.6 H (1.3-7.7) k/uL PT 13.6 H (10.0-12.5) sec INR 1.3 H (<1.2) ABG pO2 252 H (83-108) mmHg ABG HCO3 26 H (21-25) mmol/L ABG Total CO2 27 H (19-24) mmol/L ABG O2 Saturation 99.8 H (94-97) % Sodium (137-145) mmol/L Chloride (98-107) mmol/L BUN (9-20) mg/dL Glucose (74-99) mg/dL POC Glucose (mg/dL) (70-110) mg/dL Calcium (8.4-10.2) mg/dL Magnesium (1.6-2.3) mg/dL AST (17-59) U/L ALT (4-49) U/L Creatine Kinase (55-170) U/L Total Protein (6.3-8.2) g/dL Albumin (3.5-5.0) g/dL Triglycerides (0.00-149.00) mg/dL VLDL Cholesterol, Calc (5.00-40.00) mg/dL HDL Cholesterol (40.00-60.00) mg/dL 04/28/23 04/28/23 04/28/23 Range/Units 07:15 11:09 11:09 WBC 13.6 H (3.8-10.6) k/uL Hct (39.0-53.0) % MCHC (31.0-37.0) g/dL Plt Count 55 L (150-450) k/uL Neutrophils # 12.0 H (1.3-7.7) k/uL PT (10.0-12.5) sec INR 1.2 H (<1.2) ABG pO2 (83-108) mmHg ABG HCO3 (21-25) mmol/L ABG Total CO2 (19-24) mmol/L ABG O2 Saturation (94-97) % Sodium 151 H (137-145) mmol/L Chloride 122 H (98-107) mmol/L BUN 28 H (9-20) mg/dL Glucose 136 H (74-99) mg/dL POC Glucose (mg/dL) (70-110) mg/dL Calcium 7.5 L (8.4-10.2) mg/dL Magnesium 2.8 H (1.6-2.3) mg/dL AST 387 H (17-59) U/L ALT 149 H (4-49) U/L Creatine Kinase 64942 H* (55-170) U/L Total Protein 4.6 L (6.3-8.2) g/dL Albumin 2.3 L (3.5-5.0) g/dL Triglycerides (0.00-149.00) mg/dL VLDL Cholesterol, Calc (5.00-40.00) mg/dL HDL Cholesterol (40.00-60.00) mg/dL 04/28/23 04/28/23 Range/Units 11:34 17:47 WBC (3.8-10.6) k/uL Hct (39.0-53.0) % MCHC (31.0-37.0) g/dL Plt Count (150-450) k/uL Neutrophils # (1.3-7.7) k/uL PT (10.0-12.5) sec INR (<1.2) ABG pO2 (83-108) mmHg ABG HCO3 (21-25) mmol/L ABG Total CO2 (19-24) mmol/L ABG O2 Saturation (94-97) % Sodium (137-145) mmol/L Chloride (98-107) mmol/L BUN (9-20) mg/dL Glucose (74-99) mg/dL POC Glucose (mg/dL) 129 H 134 H (70-110) mg/dL Calcium (8.4-10.2) mg/dL Magnesium (1.6-2.3) mg/dL AST (17-59) U/L ALT (4-49) U/L Creatine Kinase (55-170) U/L Total Protein (6.3-8.2) g/dL Albumin (3.5-5.0) g/dL Triglycerides (0.00-149.00) mg/dL VLDL Cholesterol, Calc (5.00-40.00) mg/dL HDL Cholesterol (40.00-60.00) mg/dL Microbiology - Last 24 Hours (Table) 04/26/23 20:38 Gram Stain - Preliminary Sputum 04/27/23 05:30 Urine Culture - Final Urine,Voided 04/26/23 19:00 Blood Culture - Preliminary Blood 04/26/23 18:45 Blood Culture - Preliminary Blood Comments: ECHO reviewed Chest x-ray: report reviewed CT scan - chest: report reviewed Assessment and Plan (1) Thrombocytopenia Current Visit: Yes Status: Acute Priority: High Code(s): D69.6 - THROMBOCYTOPENIA, UNSPECIFIED SNOMED Code(s): 032236859 (2) DARRYL (acute kidney injury) Current Visit: Yes Status: Acute Priority: High Code(s): N17.9 - ACUTE KIDNEY FAILURE, UNSPECIFIED SNOMED Code(s): 27577230 (3) Arterial occlusion Current Visit: Yes Status: Acute Priority: High Code(s): I70.90 - UNSPECIFIED ATHEROSCLEROSIS SNOMED Code(s): 3837245 (4) Ischemic cerebrovascular accident (CVA) Current Visit: Yes Status: Acute Priority: High Code(s): I63.9 - CEREBRAL INFARCTION, UNSPECIFIED SNOMED Code(s): 642281153 (5) NSTEMI (non-ST elevated myocardial infarction) Current Visit: Yes Status: Acute Priority: High Code(s): I21.4 - NON-ST ELEVATION (NSTEMI) MYOCARDIAL INFARCTION SNOMED Code(s): 47478949 Plan: Thrombocytopenia: -Platelets 115,000 upon admission. No previous labs to trend. Unknown if has previous blood or liver disorders -Patient was started on heparin drip for NSTEMI and ischemic extremities. Platelets dropped from 115,000 to 63,000 after heparin initiation. Today platelets at 55,000. However, upon trending labs, plts had dropped to 75,000 prior to starting heparin. Of note patient has undergone a right brachial, radial and ulnar thrombectomy reportedly twice during the last 1 month at [facility], and was likely heparinzied at some point during this admission. -Typically JENNIFER is seen 5-10 days after initiation, but can occur earlier with recent previous heparin exposure. JENNIFER antibody has been ordered. Spoke with IM team, and with recent vascular surgery and likely exposure to heparin and current decrease in plts, it would be reasonable to stop heparin and switch to argatroban -PT/INR elevated upon admission, fibrinogen ordered, and was 426, not consistent with DIC -TSH normal at 2.3 -IM team has ordered APLS labs and hypercoaguable workup -Will obtain acute hepatitis panel, HIV, anemia workup, hemolysis labs, and peripheral blood smear -Thrombocytopenia likely multifactorial. Differential include reactive thrombocytopenia, underlying chronic liver disease, JENNIFER, and medication induced thrombocytopenia due to antibiotic and thiazide use -If continues on anticoagulation, goal for platelets is greater than 50,000. Please transfuse for platelets less than 50,000 of if symptomatic Arterial occlusions: -Dx with RUE arterial occlusion at [facility], and has undergone a right brachial, radial and ulnar thrombectomy reportedly twice during the last 1 month. He was placed on xarelto -RUE and BLE are found to be mottled and right radial and bilateral pedal pulses are absent -Vascular surgery following NSTEMI; -Serial trops elevated -Echocardiogram revealed ejection fraction 20-25%. Mid ventricle and apical hypokinesia -Heparin discontinued. Argatroban started -Cardiology following CVA: -Upon admission CT brain/C-spine revealed subacute 8 x 4 x 4 cm left MCA territory nonhemorrhagic infarction. Repeat CT brain revealed left [facility] territory subacute infarct redemonstrated. Difficult to exclude minimal petechial hemorrhage within the anterior margin of the region of infarct. No midline shift or herniation seen. Small right posterior scalp contusion. -Neuro following. EEG scheduled
[2023-04-28 22:02] LABS: HGB 13.3 gm/dL (13.0-17.5); Hypochromasia Marked; MCH 30.9 pg (25.0-35.0); MCHC 32.5 g/dL (31.0-37.0); Mean Platelet Volume 10.5; Poikilocytosis Slight; RBC 4.31 m/uL (4.30-5.90); RDW 15.3 % (11.5-15.5); WBC 14.7 k/uL (3.8-10.6)
[2023-04-28 22:47] LABS: Platelet Count 52 k/uL (150-450)
[2023-04-28 23:26] LABS: % Iron Saturation 5.58 (15.00-50.00); Ferritin 65.1 ng/mL (22.0-322.0)
[2023-04-28 23:47] LABS: Reticulocyte % 1.3 % (0.5-2.0)
[2023-04-29 00:12] LABS: Glucose,Whole Blood 114 mg/dL (70-110)
[2023-04-29] MEDS: IPRATROPIUM-ALBUTEROL 3 ML NEB INHALATION SCH ×6 (00:15→20:48)
[2023-04-29] MEDS: PIPERACILLIN-TAZOBACTAM 3.375 GM in SODIUM CHLORIDE 0.9% 100 ML IVPB SCH ×3 (00:58→16:51)
[2023-04-29] MEDS: ARGATROBAN 50 MG in SODIUM CHLORIDE 0.9% 50 ML IV SCH (04:00)
[2023-04-29 05:48] LABS: HCT 42.1 % (39.0-53.0); HGB 13.1 gm/dL (13.0-17.5); Hypochromasia Marked; MCH 29.9 pg (25.0-35.0); MCHC 31.2 g/dL (31.0-37.0); MCV 95.7 fL (80.0-100.0); Mean Platelet Volume 11.1; RDW 15.4 % (11.5-15.5)
[2023-04-29 05:59] LABS: ALT 149 U/L (4-49); AST 350 U/L (17-59); African American GFR (CKD) >90 (>60 ml/min/1.73 sqM); Albumin 2.2 g/dL (3.5-5.0); Alkaline Phosphatase 42 U/L (38-126); Anion Gap 3 mmol/L; Blood Urea Nitrogen 19 mg/dL (9-20); Calcium 7.8 mg/dL (8.4-10.2); Carbon Dioxide 26 mmol/L (22-30); Chloride 117 mmol/L (98-107); Glucose 120 mg/dL (74-99); Non-African American GFR(CKD) >90 (>60 ml/min/1.73 sqM); Potassium 3.6 mmol/L (3.5-5.1); Sodium 146 mmol/L (137-145); Total Bilirubin 0.5 mg/dL (0.2-1.3); Total Protein 4.4 g/dL (6.3-8.2)
[2023-04-29 06:44] LABS: Glucose,Whole Blood 111 mg/dL (70-110)
[2023-04-29 06:50] LABS: Platelet Count 49 k/uL (150-450)
[2023-04-29] MEDS ORDERED: POTASSIUM CHLORIDE 10 MEQ in WATER FOR INJECTION 1 100ML.BAG IVPB SCH (07:00)
[2023-04-29 07:54] LABS: Eosinophils # (M) 0.14 k/uL (0-0.7); Lymphocytes # (M) 0.82 k/uL (1.0-4.8); Monocytes # (M) 0.55 k/uL (0-1.0); Neutrophils # (M) 12.33 k/uL (1.3-7.7); Neutrophils % (M) 90 %; Nucleated Red Blood Cells 1 /100 WBC (0-0); Total Cells Counted 200; WBC 13.7 k/uL (3.8-10.6)
[2023-04-29] MEDS: fentaNYL (PF). 1,000 MCG in SODIUM CHLORIDE 0.9% 80 ML IV SCH ×2 (08:14→20:45)
[2023-04-29] MEDS: ASPIRIN 81 MG PO SCH (08:24)
[2023-04-29] MEDS: METOPROLOL TARTRATE 12.5 MG TAB PO SCH (08:24)
[2023-04-29] MEDS: CHLORHEXIDINE GLUCONATE 15 ML CUP MUCOUS MEM SCH ×2 (08:24→20:48)
[2023-04-29] MEDS: THIAMINE 100 MG/ML 2 ML VIAL IVP SCH (08:34)
[2023-04-29] MEDS ORDERED: POTASSIUM BICARBONATE/CIT AC 20 MEQ TABLET.EFF NG-TUBE SCH ×2 (09:00)
--- NOTE | 2023-04-29 09:16 | P.PN ---
Subjective Progress Note Date: 04/29/23 I am seeing this patient in consultation today 04/27/2023 in the intensive care unit after he was brought in by EMS yesterday evening. He was reportedly covered in soot, and found minimally responsive next to the oven. Patient is a 58-year-old white male with limited known past medical history. He did reportedly just have a vascular procedure done at [facility] for right upper limb ischemia recently. The nurses are working on getting this documentation. He also may have recently been diagnosed with lung cancer and is a chronic ongoing smoker. He has no family other than an estranged brother. Patient was last seen well by his neighbor on Sunday. The neighbors did not hear from him for a c ouple of days and decided to call the police to do a wellness check. He was found on the floor next to the stove, the gas was on. He was covered in soot, He may have been burning something on the stove. He was altered and minimally responsive. Questionable, whether he may have tried to commit suicide, and is petitioned by the police. His carboxyhemoglobin level was greater than 20%. The ER physician did try to reach out to tertiary care centers for possible hyperbaric oxygen therapy, however, no accepting facilities were found. Patient was ultimately intubated for airway protection. Current ventilator settings are assist control, respiratory rate 20, tidal volume 400, FiO2 100%, PEEP of 10. Most recent ABGs show a pO2 of 68, pCO2 of 24, pH of 7.17. Patient has been given 2 A of sodium bicarb and is on a bicarb drip at 100 ML's per hour. Post intubation chest x-ray shows endotracheal tube approximately 1 cm above the chasidy, this will be withdrawn 1-2 cm. There is an orogastric tube coursing into the stomach. There is a left subclavian triple-lumen catheter tip near the cavoatrial junction. There is bilateral multifocal infiltrates consistent with pneumonia, likely aspiration pneumonia. He is covered on Zosyn. BP is stable at this time. He did receive 4 normal saline boluses in the ER. Not requiring any vasopressors at the moment. Patient is currently sedated on propofol which is infusing at 50 mcg/kg/m. He is fairly synchronous with the mechanical ventilator. His right arm appears postsurgical, with two healing and approximated incisions. The extremity is pulseless and cold. Previously on examination, the patient was noted to have a left gaze deviation, a brain and C- spine CT demonstrated a subacute 8 by 4 x 4 centimeters left MCA territory nonhemorrhagic infarct or midline shift. No cervical spine fracture. No seizure like activity noted by nursing staff. Neuro examination is limited by sedation. Urine drug screen negative. CBC on arrival shows a WBC count of 28.5, hemoglobin 20.7, hematocrit 65.1, platelets 115. BMP shows sodium 147, potas sium 5, chloride 108, serum bicarbonate 9, BUN 56, creatinine 2.19, glucose 147. Lactic acid level was 12 and is down to 2.4. LFTs mildly elevated. Creatinine kinase is elevated at 10,400 and is consistent with rhabdomyolysis. He was found on the ground. He does bruising on his legs. Troponin elevated, consistent with non-ST elevation NM, likely related to tissue hypoxemia and carbon monoxide p oisoning. Chest x-ray did show sinus tachycardia with T-wave inversion in anterior lateral leads. No other ST or T wave abnormalities noted. Patient's condition is obviously critical, and he is being monitored in the intensive care unit. On 04/28/2023, seeing the patient for a follow-up. This morning, the patient is on propofol running at 30 mcg/kg/m. He is arousable. He withdraws to painful stimulation. He is not following commands at this point in time. He is on assist-control mode of mechanical ventilation at the rate of 20, tidal volume of 400, FiO2 is currently at 40% with a PEEP of 10. The blood gas showed a pH of 7.42 with a pCO2 of 40 and pO2 of 252. His, monocyte level is normalized. His chest x-ray from today showing no significant acute abnormalities. There may be a opacity in the left hilar area consistent with his previous history of lung cancer. He has a triple-lumen catheter in his left subclavian vein. The tube is in a good location. No airspace disease or consolidations this point in time. A repeat CAT scan of the brain was done this morning and it showed left [employer] territory subacute infarct and possibility of some edema minimal petechial hemorrhage cannot be completely excluded in the anterior margin of the infarct. The patient was started on IV heparin by vascular surgery. I stopped the heparin yesterday based on the fact that the patient's platelet count has dropped onto 57 and at the same time there is a concern of hemorrhagic transformation of his stroke. The same time, the patient is hemodynamically stable. Troponins peaked at 16 and then down trended. His echocardiogram showed impaired LV function and his ejection fraction is in order of 20-25%. The patient also has rhabdomyolysis. CPK peaked at 18,000 and currently it is d own trending. He continues to have obvious vascular issues. The patient was seen by vascular surgery. We came to find other the patient has undergone a right brachial, radial and ulnar thrombectomy reportedly twice during an earlier hospitalization. His right upper extremity is contracted and dusky and cold with absent pulses and remains ischemic. In same time, the patient has ischemic feet bilaterally with absent pulses in the feet are cold and clammy without any dorsalis pedis or posterior tibialis and a demarcation is being developed at this point in time. Terms of his blood work, sodium levels of 151, potassium is at 4.2, currently 122, BUN is 28 with a creatinine of 0.9 and the patient has recovered from his acute kidney injury. The white cell count dropped at 15.3 with a hemoglobin of 14.7. The patient patient also had a drop in the platelet count down to 57. He was started on IV heparin. I stopped IV heparin. Heparin-induced thrombocytopenia antibodies were sent and the patient is being started on agratoban been based on recommendations done by the vascular team and the medical team. On 04/29/2023, the patient is following some simple commands while being off s edation. Repeat CAT scan of the brain was done today and that is also still pending. The patient has a large ischemic stroke involving the left [employer] distribution. Concern is for any evolving bleed especially the patient is currently on agratoban . Otherwise, the patient remains intubated [facility] ventilator. He is on assist control mode with a rate of 20, tidal volume of 400, FiO2 of 40% with a PEEP of 5. No blood gas from today. The chest x-ray from today showing no acute abnormalities. The patient has a left hilar mass. EKG was in a good location. I did obtain a CAT scan of his chest yesterday and the patient has a confirmed mass in the left hilum which I believe it was biopsied earlier and the outside hospital. This was a 3.1 cm mass in the left hilar area. The same time, the patient has a thrombus causing the descending resting aorta. There is significant narrowing of the lumen of the ascending aorta and this was discussed with vascular surgery team. Overall vas cular condition is extremely poor. The patient has no pulses in his feet bilaterally. His legs are cold and clammy with absent capillary refills. He is developing demarcation lines in his feet. The same for the right upper extremity. He does have a pulse in his left upper extremity. Vascular surgery are following the patient. No intervention is recommended because of his poor prognosis and his underlying comorbidities. Vascular surgery plans to do amputations once patient is more stable. Meanwhile, the patient remains on Agratoban, hit antibodies are still pending, hypercoagulable workup was also done and the blood work was sent to rule out the possibility of any antiphospholipid syndrome in this patient. His platelet count currently is at 49. Hemoglobin is stable at 13.1. The white cycles of 15.7. Rest of the blood work and electrolytes are all within normal limits. Sodium level is improved compared to yesterday's currently down to 146. IV fluids are in the form of D5 water at the rate of 75 mL an hour. He is receiving enteral feeding for nutritional support. He is currently on vital high-protein at the rate of 50 mL an hour. Patient is being seen by different consultants including cardiology, neurology, vascular surgery, hematology oncology. His adequately sedated with a combination of propofol and fentanyl. He remains on broad-spectrum antibiotic coverage with IV Zosyn. No family identified. There is a brother with does not want to be contacted. There is also a neighbor. Legal guardianship is being acquired Objective - Vital Signs Vital signs: Vital Signs Temp 99.9 F H 04/29/23 08:00 Pulse 96 04/29/23 08:10 Resp 28 H 04/29/23 08:00 BP 128/72 04/29/23 08:00 Pulse Ox 98 04/29/23 08:00 FiO2 40 04/29/23 07:50 Intake & Output 04/28/23 04/29/23 04/29/23 18:59 06:59 18:59 Intake Total 3276.202 1946.842 496 Output Total 610 630 95 Balance 2666.202 1316.842 401 Weight 78.6 kg Intake: IV 2581 1156 366 0.9 NS @ KVO 120 120 10 CVP 36 36 6 Dextrose 5% in Water 1, 525 900 150 000 ml @ 75 mls/hr IV . [id number] [facility] Rx#:[id number] Piperacillin-Tazobactam 3 200 100 100 .375 gm In Sodium Chloride 0.9% 100 ml @ 25 mls/hr IVPB Q8HR [facility] Rx# :[id number] Potassium Chloride 10 meq 100 In Water For Injection 1 100ml.bag @ 100 mls/hr IVPB Q1H [facility] Rx#: [id number] Sodium Chloride 0.9% 1, 700 000 ml @ 150 mls/hr IV . Q6H40M [facility] Rx#:[id number] Sodium Chloride 0.9% 1, 1000 000 ml @ 999 mls/hr IV . Q1H1M [facility] Rx#:[id number] Intake, IV Titration 225.202 140.842 Amount Argatroban 50 mg In 14.702 40.842 Sodium Chloride 0.9% 50 ml @ 0.5 MCG/KG/MIN 2.136 mls/hr IV .[id number] [facility] Rx#:[id number] Heparin Sod,Pork in 0.45% 10.5 NaCl 25,000 unit In 0.45 % NaCl 1 250ml.bag @ 12 UNITS/KG/HR 8.4 mls/hr IV .Q24H [facility] Rx#:[id number] propofoL 1,000 mg In 200.000 100 Empty Bag 1 bag @ 15 MCG/ KG/MIN 4.905 mls/hr IV . [id number] [facility] Rx#:[id number] Tube Feeding 380 560 100 Other 90 90 30 Output: Urine 610 630 95 Other: Voiding Method Indwelling Catheter Indwelling Catheter # Bowel Movements 1 - Exam GENERAL EXAM: Unresponsive and sedated, 58-year-old white male, intubated and mechanical ventilator. HEAD: Normocephalic and atraumatic EYES: Normal reaction of pupils, equal size. NOSE: Clear with pink turbinates. THROAT: No erythema or exudates. NECK: No masses, no JVD. CHEST: No chest wall deformity. LUNGS: Equal air entry with she has rhonchi heard throughout. Intubated on the mechanical ventilator. CVS: S1 and S2 normal with no audible murmur, regular rhythm. No extra heart sounds ABDOMEN: No hepatosplenomegaly, active bowel sounds, no guarding or rigidity. SPINE: No scoliosis or deformity SKIN: Bilateral lower extremity bruising and mottling. 2 right upper extremity incision sites clean and approximated. CENTRAL NERVOUS SYSTEM: Unresponsive and sedated. Limited neurological examination. No obvious facial asymmetry. Pupils are equal and responsive to light. No gait deviation my examination. Extremities are flaccid. DTRs are absent. Bilateral Babinski neutral. EXTREMITIES: There is bilateral lower extremity bruising and mottling. Right upper extremity is pulseless and cold. No capillary refill. Remaining extremities also have diminished pulses, but are found with Doppler. There is no peripheral edema, clubbing. Feet are also cold and clammy and mottled with absent capillary refills. There is also a line of demarcation developing in the lower extremities - Labs CBC & Chem 7: 04/29/23 05:20 04/29/23 05:20 Labs: Abnormal Lab Results - Last 24 Hours (Table) 04/28/23 04/28/23 04/28/23 Range/Units 07:15 11:09 11:09 WBC 13.6 H (3.8-10.6) k/uL Plt Count 55 L (150-450) k/uL Neutrophils # 13.6 H 12.0 H (1.3-7.7) k/uL Neutrophils # (Manual) (1.3-7.7) k/uL Lymphocytes # (Manual) (1.0-4.8) k/uL Nucleated RBCs (0-0) /100 WBC INR 1.2 H (<1.2) APTT (22.0-30.0) sec Sodium (137-145) mmol/L Chloride (98-107) mmol/L Glucose (74-99) mg/dL POC Glucose (mg/dL) (70-110) mg/dL Calcium (8.4-10.2) mg/dL Iron (65-175) UG/DL % Saturation (15.00-50.00) Transferrin (204.0-354.0) mg/dL AST (17-59) U/L ALT (4-49) U/L Lactate Dehydrogenase (120-246) U/L Total Protein (6.3-8.2) g/dL Albumin (3.5-5.0) g/dL 04/28/23 04/28/23 04/28/23 Range/Units 11:09 11:34 17:47 WBC (3.8-10.6) k/uL Plt Count (150-450) k/uL Neutrophils # (1.3-7.7) k/uL Neutrophils # (Manual) (1.3-7.7) k/uL Lymphocytes # (Manual) (1.0-4.8) k/uL Nucleated RBCs (0-0) /100 WBC INR (<1.2) APTT (22.0-30.0) sec Sodium (137-145) mmol/L Chloride (98-107) mmol/L Glucose (74-99) mg/dL POC Glucose (mg/dL) 129 H 134 H (70-110) mg/dL Calcium (8.4-10.2) mg/dL Iron 14 L (65-175) UG/DL % Saturation 5.58 L (15.00-50.00) Transferrin 179.0 L (204.0-354.0) mg/dL AST (17-59) U/L ALT (4-49) U/L Lactate Dehydrogenase (120-246) U/L Total Protein (6.3-8.2) g/dL Albumin (3.5-5.0) g/dL 04/28/23 04/28/23 04/28/23 Range/Units 18:12 21:00 21:00 WBC 14.7 H (3.8-10.6) k/uL Plt Count 52 L (150-450) k/uL Neutrophils # (1.3-7.7) k/uL Neutrophils # (Manual) (1.3-7.7) k/uL Lymphocytes # (Manual) (1.0-4.8) k/uL Nucleated RBCs (0-0) /100 WBC INR (<1.2) APTT 32.4 H (22.0-30.0) sec Sodium (137-145) mmol/L Chloride (98-107) mmol/L Glucose (74-99) mg/dL POC Glucose (mg/dL) (70-110) mg/dL Calcium (8.4-10.2) mg/dL Iron (65-175) UG/DL % Saturation (15.00-50.00) Transferrin (204.0-354.0) mg/dL AST (17-59) U/L ALT (4-49) U/L Lactate Dehydrogenase 974 H (120-246) U/L Total Protein (6.3-8.2) g/dL Albumin (3.5-5.0) g/dL 04/29/23 04/29/23 04/29/23 Range/Units 00:11 01:20 05:20 WBC 13.7 H (3.8-10.6) k/uL Plt Count 49 L (150-450) k/uL Neutrophils # (1.3-7.7) k/uL Neutrophils # (Manual) 12.33 H (1.3-7.7) k/uL Lymphocytes # (Manual) 0.82 L (1.0-4.8) k/uL Nucleated RBCs 1 H (0-0) /100 WBC INR (<1.2) APTT 31.1 H (22.0-30.0) sec Sodium (137-145) mmol/L Chloride (98-107) mmol/L Glucose (74-99) mg/dL POC Glucose (mg/dL) 114 H (70-110) mg/dL Calcium (8.4-10.2) mg/dL Iron (65-175) UG/DL % Saturation (15.00-50.00) Transferrin (204.0-354.0) mg/dL AST (17-59) U/L ALT (4-49) U/L Lactate Dehydrogenase (120-246) U/L Total Protein (6.3-8.2) g/dL Albumin (3.5-5.0) g/dL 04/29/23 04/29/23 04/29/23 Range/Units 05:20 05:31 06:43 WBC (3.8-10.6) k/uL Plt Count (150-450) k/uL Neutrophils # (1.3-7.7) k/uL Neutrophils # (Manual) (1.3-7.7) k/uL Lymphocytes # (Manual) (1.0-4.8) k/uL Nucleated RBCs (0-0) /100 WBC INR (<1.2) APTT 32.2 H (22.0-30.0) sec Sodium 146 H (137-145) mmol/L Chloride 117 H (98-107) mmol/L Glucose 120 H (74-99) mg/dL POC Glucose (mg/dL) 111 H (70-110) mg/dL Calcium 7.8 L (8.4-10.2) mg/dL Iron (65-175) UG/DL % Saturation (15.00-50.00) Transferrin (204.0-354.0) mg/dL AST 350 H (17-59) U/L ALT 149 H (4-49) U/L Lactate Dehydrogenase (120-246) U/L Total Protein 4.4 L (6.3-8.2) g/dL Albumin 2.2 L (3.5-5.0) g/dL Microbiology - Last 24 Hours (Table) 04/26/23 19:00 Blood Culture - Preliminary Blood 04/26/23 18:45 Blood Culture - Preliminary Blood 04/26/23 20:38 Gram Stain - Preliminary Sputum 04/27/23 05:30 Urine Culture - Final Urine,Voided Assessment and Plan Assessment: Acute hypoxemic respiratory failure, intubated mechanical ventilator, chest x- ray was reviewed. The patient has a left hilar mass. The pulmonary infiltrates have subsided and the patient remains intubated on a mechanical ventilator, sedated. Left hilar mass measuring 3.1 cm in size Acute limb ischemia involving the right upper extremity and the feet bilaterally. Vascular surgeries on the case. Unable to give IV heparin due to development of somewhat cytopenia. Heparin-induced was at the pain is being considered. The patient will be started on agratoban Descending thoracic aneurysm clot causing significant narrowing of the lumen of the aorta Elevated carboxyhemoglobin, greater than 20%, recovered Altered mental status, related to toxic metabolic encephalopathy, secondary to above, follow-up CAT scan of the brain was ordered for today, that is also still pending Severe anion gap metabolic acidosis, secondary to above and lactic acidosis, improved Lactic acidosis, improving Non-ST elevation myocardial infarction Systolic heart failure with an ejection fraction of 20-25%, chronicity is not known Subacute CVA, measuring 8 by 4 x 4 centimeters in the left MCA territory, non hemorrhagic, repeat CAT scan of the brain showed a left [employer] territory subacute infarct with questionable petechial hemorrhage. This was not confirmed by the neurologist. Acute kidney injury, related to rhabdomyolysis, improving and the renal function is normalized Acute rhabdomyolysis, CPK level is improving Mild transaminitis Acute Leukocytosis, improving Possible lung cancer history, chest x-ray reveals a left hilar mass Hyperchloremic hypernatremia improving and the patient is currently on D5 water Acute thrombocytopenia currently under investigation. Rule out underlying heparin-induced thrombocytopenia. Rule out antiphospholipid syndrome as the patient was having arterial clots even prior to his current hospitalization. Rule out also hypercoagulability induced by his underlying lung mass. Plan Prognosis is extremely poor in this patient with the above-mentioned comorbid ities Vascular surgeries on the case regarding the ongoing ischemic changes in the right upper extremity and the lower extremities bilaterally. The patient is being considered for amputation at the later stage. I immediately after intervention for now. The descending thoracic aortic clot was also discussed with the vascular surgeon. No immediate vascular intervention is recommended this point in time. Keep the patient sedated with a combination of propofol and fentanyl Change IV fluids to D5 water at the rate of 75 mL an hour and stop the normal saline infusion CAT scan of the brain was noted, we will stop the anticoagulation should there be any evidence of any INVENTORY CONTROL COORDINATOR bleed The decision was to start the patient on agratoban as the risk-benefit of this treatment is more in favor of benefit. No evidence of any intracerebral hemorrhage based on the CAT scan of the brain that was done yesterday and a repeat CAT scan was ordered for today Monitor CPK No ventilator changes Enteral feeding for nutritional support Monitor the platelet count and watch for any signs of bleed or thrombosis Echocardiogram was noted Prognosis is obviously poor. Legal guardianship is being established. The patient will meanwhile will be kept intubated on a mechanical ventilator. Easily guardianship is being acquired Valuation was done in 30 minutes. The patient is critically ill. He has a very poor prognosis. Time with Patient: Greater than 30
--- NOTE | 2023-04-29 09:36 | P.PN ---
Subjective Progress Note Date: 04/29/23 PROGRESS NOTE The patient is a 58-year-old male who was admitted after being found unresponsive with an elevated carboxy hemoglobin level above 20% with unclear reason. Was attempting suicide. Patient has a known history of lung cancer and chronic tobacco use and has underwent recent surgical intervention with revascularization and thrombectomy of the right upper extremity. He was in sinus tachycardia on presentation. There is no history available. Patient is not on vasopressor. He has mottling in his lower extremities. He is intubated and unresponsive. His lab data remarkable for elevation of his CK enzymes at 10,400 with a BUN of 56 and a creatinine 2.19. His troponin is elevated. Other history is not available at this time. The patient has no prior admission to this hospital. April 28: The patient remains intubated, unresponsive, poor urine output and severe mottling of the lower extremities. His echocardiogram showed severe impairment of the left ventricle systolic function with segmental wall motion abnormality. He underwent a computed tomography scan that showed left [employer] subacute infarct. His chest x-ray showed left infrahilar mass. Carotid duplex scan showed no ev idence of high-grade stenosis. He has evidence of thrombocytopenia that has worsened since his admission. [place] [address]. April 29: The patient remains intubated. His blood pressure and heart rate are stable. He has significant discoloration in his right hand and both feet, cold with absence of pulse. His computed tomography scan showed a thrombus in the aorta. There is no evidence of malignant arrhythmia. According to the nursing staff he shook his head today. He has evidence of left hilar mass. He continues to be on Argatoban. He is receiving feeding tube. Medications: Metoprolol 12-1/2 mg twice a day, IV Argatroban PHYSICAL EXAMINATION: Intubated not responsive Blood pressure 129/70 heart rate 95 LUNGS: Clear to auscultation anteriorly HEART: Regular rate and rhythm, S1, S2. No S3. No systolic murmur ABDOMEN: Soft, no organomegaly EXTREMETIES: Severe mottling of the lower extremities him a cold with discoloration of the right upper extremity, status post thrombectomy, demarcation noted on both feet and right hand LAB: Hemoglobin 13.1, potassium 3.6, BUN 19, creatinine 0.69, platelets 49,000 IMPRESSION: 1. Respiratory failure was elevated carboxy hemoglobin level and severe hypoxemia 2. Non-STEMI with severely impaired left ventricle systolic function of unknown duration or etiology 3. Status post thrombectomy of the right upper extremity with discoloration and mottling of the lower extremities 4. History of smoking 5. History of lung cancer 6. Thrombocytopenia could be related to heparin or DIC 7. Evidence of CVA her computed tomography scan PLAN: 1. Continue supportive care 2. Prognosis is very poor 3. Increase beta patt 4. Depending on his progress further recommendations will be made Objective - Vital Signs Vital signs: Vital Signs Temp 99.9 F H 04/29/23 08:00 Pulse 99 04/29/23 09:00 Resp 17 04/29/23 09:00 BP 129/74 04/29/23 09:00 Pulse Ox 96 04/29/23 09:00 FiO2 40 04/29/23 07:50 Intake & Output 04/28/23 04/29/23 04/29/23 18:59 06:59 18:59 Intake Total 3276.202 1946.842 496 Output Total 610 630 95 Balance 2666.202 1316.842 401 Weight 78.6 kg Intake: IV 2581 1156 366 0.9 NS @ KVO 120 120 10 CVP 36 36 6 Dextrose 5% in Water 1, 525 900 150 000 ml @ 75 mls/hr IV . [id number] [facility] Rx#:[id number] Piperacillin-Tazobactam 3 200 100 100 .375 gm In Sodium Chloride 0.9% 100 ml @ 25 mls/hr IVPB Q8HR [facility] Rx# :[id number] Potassium Chloride 10 meq 100 In Water For Injection 1 100ml.bag @ 100 mls/hr IVPB Q1H [facility] Rx#: [id number] Sodium Chloride 0.9% 1, 700 000 ml @ 150 mls/hr IV . Q6H40M [facility] Rx#:[id number] Sodium Chloride 0.9% 1, 1000 000 ml @ 999 mls/hr IV . Q1H1M [facility] Rx#:[id number] Intake, IV Titration 225.202 140.842 Amount Argatroban 50 mg In 14.702 40.842 Sodium Chloride 0.9% 50 ml @ 0.5 MCG/KG/MIN 2.136 mls/hr IV .[id number] [facility] Rx#:[id number] Heparin Sod,Pork in 0.45% 10.5 NaCl 25,000 unit In 0.45 % NaCl 1 250ml.bag @ 12 UNITS/KG/HR 8.4 mls/hr IV .Q24H [facility] Rx#:[id number] propofoL 1,000 mg In 200.000 100 Empty Bag 1 bag @ 15 MCG/ KG/MIN 4.905 mls/hr IV . [id number] [facility] Rx#:[id number] Tube Feeding 380 560 100 Other 90 90 30 Output: Urine 610 630 95 Other: Voiding Method Indwelling Catheter Indwelling Catheter # Bowel Movements 1 - Labs CBC & Chem 7: 04/29/23 05:20 04/29/23 05:20 Labs: Abnormal Lab Results - Last 24 Hours (Table) 04/28/23 04/28/23 04/28/23 Range/Units 07:15 11:09 11:09 WBC 13.6 H (3.8-10.6) k/uL Plt Count 55 L (150-450) k/uL Neutrophils # 13.6 H 12.0 H (1.3-7.7) k/uL Neutrophils # (Manual) (1.3-7.7) k/uL Lymphocytes # (Manual) (1.0-4.8) k/uL Nucleated RBCs (0-0) /100 WBC INR 1.2 H (<1.2) APTT (22.0-30.0) sec Sodium (137-145) mmol/L Chloride (98-107) mmol/L Glucose (74-99) mg/dL POC Glucose (mg/dL) (70-110) mg/dL Calcium (8.4-10.2) mg/dL Iron (65-175) UG/DL % Saturation (15.00-50.00) Transferrin (204.0-354.0) mg/dL AST (17-59) U/L ALT (4-49) U/L Lactate Dehydrogenase (120-246) U/L Total Protein (6.3-8.2) g/dL Albumin (3.5-5.0) g/dL 04/28/23 04/28/23 04/28/23 Range/Units 11:09 11:34 17:47 WBC (3.8-10.6) k/uL Plt Count (150-450) k/uL Neutrophils # (1.3-7.7) k/uL Neutrophils # (Manual) (1.3-7.7) k/uL Lymphocytes # (Manual) (1.0-4.8) k/uL Nucleated RBCs (0-0) /100 WBC INR (<1.2) APTT (22.0-30.0) sec Sodium (137-145) mmol/L Chloride (98-107) mmol/L Glucose (74-99) mg/dL POC Glucose (mg/dL) 129 H 134 H (70-110) mg/dL Calcium (8.4-10.2) mg/dL Iron 14 L (65-175) UG/DL % Saturation 5.58 L (15.00-50.00) Transferrin 179.0 L (204.0-354.0) mg/dL AST (17-59) U/L ALT (4-49) U/L Lactate Dehydrogenase (120-246) U/L Total Protein (6.3-8.2) g/dL Albumin (3.5-5.0) g/dL 04/28/23 04/28/23 04/28/23 Range/Units 18:12 21:00 21:00 WBC 14.7 H (3.8-10.6) k/uL Plt Count 52 L (150-450) k/uL Neutrophils # (1.3-7.7) k/uL Neutrophils # (Manual) (1.3-7.7) k/uL Lymphocytes # (Manual) (1.0-4.8) k/uL Nucleated RBCs (0-0) /100 WBC INR (<1.2) APTT 32.4 H (22.0-30.0) sec Sodium (137-145) mmol/L Chloride (98-107) mmol/L Glucose (74-99) mg/dL POC Glucose (mg/dL) (70-110) mg/dL Calcium (8.4-10.2) mg/dL Iron (65-175) UG/DL % Saturation (15.00-50.00) Transferrin (204.0-354.0) mg/dL AST (17-59) U/L ALT (4-49) U/L Lactate Dehydrogenase 974 H (120-246) U/L Total Protein (6.3-8.2) g/dL Albumin (3.5-5.0) g/dL 04/29/23 04/29/23 04/29/23 Range/Units 00:11 01:20 05:20 WBC 13.7 H (3.8-10.6) k/uL Plt Count 49 L (150-450) k/uL Neutrophils # (1.3-7.7) k/uL Neutrophils # (Manual) 12.33 H (1.3-7.7) k/uL Lymphocytes # (Manual) 0.82 L (1.0-4.8) k/uL Nucleated RBCs 1 H (0-0) /100 WBC INR (<1.2) APTT 31.1 H (22.0-30.0) sec Sodium (137-145) mmol/L Chloride (98-107) mmol/L Glucose (74-99) mg/dL POC Glucose (mg/dL) 114 H (70-110) mg/dL Calcium (8.4-10.2) mg/dL Iron (65-175) UG/DL % Saturation (15.00-50.00) Transferrin (204.0-354.0) mg/dL AST (17-59) U/L ALT (4-49) U/L Lactate Dehydrogenase (120-246) U/L Total Protein (6.3-8.2) g/dL Albumin (3.5-5.0) g/dL 04/29/23 04/29/23 04/29/23 Range/Units 05:20 05:31 06:43 WBC (3.8-10.6) k/uL Plt Count (150-450) k/uL Neutrophils # (1.3-7.7) k/uL Neutrophils # (Manual) (1.3-7.7) k/uL Lymphocytes # (Manual) (1.0-4.8) k/uL Nucleated RBCs (0-0) /100 WBC INR (<1.2) APTT 32.2 H (22.0-30.0) sec Sodium 146 H (137-145) mmol/L Chloride 117 H (98-107) mmol/L Glucose 120 H (74-99) mg/dL POC Glucose (mg/dL) 111 H (70-110) mg/dL Calcium 7.8 L (8.4-10.2) mg/dL Iron (65-175) UG/DL % Saturation (15.00-50.00) Transferrin (204.0-354.0) mg/dL AST 350 H (17-59) U/L ALT 149 H (4-49) U/L Lactate Dehydrogenase (120-246) U/L Total Protein 4.4 L (6.3-8.2) g/dL Albumin 2.2 L (3.5-5.0) g/dL Microbiology - Last 24 Hours (Table) 04/26/23 19:00 Blood Culture - Preliminary Blood 04/26/23 18:45 Blood Culture - Preliminary Blood 04/26/23 20:38 Gram Stain - Preliminary Sputum 04/27/23 05:30 Urine Culture - Final Urine,Voided
--- NOTE | 2023-04-29 09:57 | CT ---
EXAMINATION TYPE: CT brain wo con DATE OF EXAM: 04/29/2023 COMPARISON: 04/28/2023 HISTORY: 58-year-old male Stroke. Assess for bleed compared to prior CT TECHNIQUE: Examination was done in axial plane without intravenous contrast. Coronal and sagittal r econstructions performed. CT DLP: 1255.4 mGycm Automated exposure control for dose reduction was used. FINDINGS: Redemonstrated cortical and subcortical territorial hypodensity left parietal lobe extending into the posterior and lateral left temporal lobe. There are increasing foci of petechial hemorrhage within t he area of infarct. Similar sulcal effacement. No herniation, hydrocephalus, or midline shift has developed. No extra-axial fluid collection. IMPRESSION: Redemonstrated left parietal and posterior left temporal lobe subacute infarct. There are increasing areas of petechial hemorrhage throughout the infarct zone. No midline shift or herniation.
[2023-04-29] MEDS: SODIUM FERRIC GLUCONAT-SUCROSE 125 MG in SODIUM CHLORIDE 0.9% 100 ML IVPB SCH (10:07)
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
--- NOTE | 2023-04-29 11:23 | XR ---
EXAMINATION TYPE: XR chest 1V portable DATE OF EXAM: 04/29/2023 Comparison: 04/28/2023 Clinical History: 58 year-old male tube placement Findings: ET tube satisfactory. NG tube courses below the diaphragm. An esophageal monitor is present as well. Left subclavian CVC tip at the cavoatrial junction. Heart normal size. Interstitial density. Previous ly mentioned left perihilar mass which needs to be appropriately evaluated. Impression: Slight increasing interstitial prominence. Follow-up recommended to exclude early atypical pneumonia. Previously described left hilar mass. Further appropriate workup/evaluation is advised to exclude ne oplasm.
--- NOTE | 2023-04-29 12:02 | P.PN ---
Subjective Progress Note Date: 04/29/23 I am following-up with the patient and per the nurse, he is on IV Propofol 60mcg/kg/min and fentanyl 1.5mcg/kg/hr and continues to follow minimal simple commands. He had repeat CT head and showed petechial hemorrhage. He is on Argatroban. Objective - Vital Signs Vital signs: Vital Signs Temp 100.0 F H 04/29/23 10:59 Pulse 97 04/29/23 11:00 Resp 24 04/29/23 11:00 BP 130/76 04/29/23 11:00 Pulse Ox 96 04/29/23 11:00 FiO2 40 04/29/23 11:00 Intake & Output 04/28/23 04/29/23 04/29/23 18:59 06:59 18:59 Intake Total 3276.202 1946.842 931.233 Output Total 610 630 245 Balance 2666.202 1316.842 686.233 Weight 78.6 kg Intake: IV 2581 1156 630 0.9 NS @ KVO 120 120 40 CVP 36 36 15 Dextrose 5% in Water 1, 525 900 375 000 ml @ 75 mls/hr IV . [id number] [facility] Rx#:[id number] Piperacillin-Tazobactam 3 200 100 100 .375 gm In Sodium Chloride 0.9% 100 ml @ 25 mls/hr IVPB Q8HR [facility] Rx# :[id number] Potassium Chloride 10 meq 100 In Water For Injection 1 100ml.bag @ 100 mls/hr IVPB Q1H [facility] Rx#: [id number] Sodium Chloride 0.9% 1, 700 000 ml @ 150 mls/hr IV . Q6H40M [facility] Rx#:[id number] Sodium Chloride 0.9% 1, 1000 000 ml @ 999 mls/hr IV . Q1H1M [facility] Rx#:[id number] Intake, IV Titration 225.202 140.842 21.233 Amount Argatroban 50 mg In 14.702 40.842 Sodium Chloride 0.9% 50 ml @ 0.5 MCG/KG/MIN 2.136 mls/hr IV .[id number] [facility] Rx#:[id number] Heparin Sod,Pork in 0.45% 10.5 NaCl 25,000 unit In 0.45 % NaCl 1 250ml.bag @ 12 UNITS/KG/HR 8.4 mls/hr IV .Q24H [facility] Rx#:[id number] fentaNYL (PF). 1,000 mcg 21.233 In Sodium Chloride 0.9% 80 ml @ 0.5 MCG/KG/HR 3.5 mls/hr IV .Q24H [facility] Rx#: [id number] propofoL 1,000 mg In 200.000 100 Empty Bag 1 bag @ 15 MCG/ KG/MIN 4.905 mls/hr IV . [id number] [facility] Rx#:[id number] Tube Feeding 380 560 250 Blood Product 0 Platelet Pheresis Pas 0 Psoralen Unit [id number] Other 90 90 30 Output: Urine 610 630 245 Other: Voiding Method Indwelling Catheter Indwelling Catheter # Bowel Movements 1 - Exam General: Lying in bed and does not appear in acute distress. Lung: Intubated on ventilator. Cardiovascular: Has purplish discoloration of the bilateral lower extremities and right upper extremity. Neuro: Very limited because of overall condition and patient is on IV Propofol 60mcg/kg/min and IV fentanyl 1.5mg/kg/hr. Comatose. GCS 5 (E3, VT1, M1). He opens his eyes to voice and move head side to side. He is not following commands. His pupils appear discolored in which has brownish around peripheral of pupils and center ?greenish. Pupils size appear 3mm bilaterally but again. Hard to assess reactivity. No facial weakness. Has gag/cough. Is breathing over the vent. Motor: Hard to assess. No spontaneous movement. No withdrawal to painful stimuli. Decrease tone throughout. Plantars: Mute bilaterally. Some other workup during our facility consisted of: Plasma lactic acid venous 12.1 and most recent one is 1.8 Calcium is 10.5 CK level is 10,403 and a repeat is 18,435-->13K Troponin is 8.3 and most recent one is 13.7 Ammonia 14 Lipid panel: TG 209, Cholestroll 95, LDL 25 and HDL 28 TSH: 2.34 Vitamin B12: 797 Folate: 19.3 Initial CO2: >20 and repeated 1.7. AB.17 and repeated and HCO3 9. UDS is nondetected and serum alcohol was less than 10 CT of the head is reported as subacute A by 4 x 4 cm left MCA territory nonhemorrhagic infarction. I personally agree that the patient has subacute changes over the left temporal parietal region. CT cervical spine is prominent by apical lung consolidation. Patient is on IV propofol and fentanyl. He is intubated. 2-D echo was reported as him. All the function. The ejection fraction is about 20-25%. Mild ventricular and apical hypokinesis. Routine EEG: Is abnormal. The background slowing is suggestive of mild encephalopathy. There is no focal slowing, epileptiform discharge or seizure on the EEG. The diffuse suppression is likely due to medication induced (Propofol and fentanyl). 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 Difficult to exclude minimal petechial hemmorrhage within the anterior region of infarct. some preserved cortical parenchyma is the alternative consideration. Ongoing follow-up recommended. No midline shift or herniation seen. A small posterior scalp contusion appears to have developed. I personally reviewed the CT and agree there is subacute changes over the left temporal/parietal region. I felt it was cortical parenchyma seen and felt less about petechial hemorrhage but cannot be excluded. Carotid duplex is reported as less than 50% stenosis bilateral carotid bifurcation. Repeat CT head today early in A.M.: It is reported as redemonstrated left parietal and temporal subacute infarct. There are increasing aerial petechial hemorrhage without that infarct tone. No midline shift or herniation. Personally reviewed the CT and agree with the report CT of the chest was reported as 2 left hilar masses highly suspicious for neoplasm. Large nearly occluding thrombus in the distal descending thoracic aorta. Mild basilar infiltrate/atelectasis. Mild groundglass a density in the right middle lobe. - Labs CBC & Chem 7: 04/29/23 05:20 04/29/23 05:20 Labs: Abnormal Lab Results - Last 24 Hours (Table) 04/28/23 04/28/23 04/28/23 Range/Units 11:09 11:09 11:09 WBC 13.6 H (3.8-10.6) k/uL Plt Count 55 L (150-450) k/uL Neutrophils # 12.0 H (1.3-7.7) k/uL Neutrophils # (Manual) (1.3-7.7) k/uL Lymphocytes # (Manual) (1.0-4.8) k/uL Nucleated RBCs (0-0) /100 WBC INR 1.2 H (<1.2) APTT (22.0-30.0) sec Sodium (137-145) mmol/L Chloride (98-107) mmol/L Glucose (74-99) mg/dL POC Glucose (mg/dL) (70-110) mg/dL Calcium (8.4-10.2) mg/dL Iron 14 L (65-175) UG/DL % Saturation 5.58 L (15.00-50.00) Transferrin 179.0 L (204.0-354.0) mg/dL AST (17-59) U/L ALT (4-49) U/L Lactate Dehydrogenase (120-246) U/L Total Protein (6.3-8.2) g/dL Albumin (3.5-5.0) g/dL 04/28/23 04/28/23 04/28/23 Range/Units 17:47 18:12 21:00 WBC (3.8-10.6) k/uL Plt Count (150-450) k/uL Neutrophils # (1.3-7.7) k/uL Neutrophils # (Manual) (1.3-7.7) k/uL Lymphocytes # (Manual) (1.0-4.8) k/uL Nucleated RBCs (0-0) /100 WBC INR (<1.2) APTT 32.4 H (22.0-30.0) sec Sodium (137-145) mmol/L Chloride (98-107) mmol/L Glucose (74-99) mg/dL POC Glucose (mg/dL) 134 H (70-110) mg/dL Calcium (8.4-10.2) mg/dL Iron (65-175) UG/DL % Saturation (15.00-50.00) Transferrin (204.0-354.0) mg/dL AST (17-59) U/L ALT (4-49) U/L Lactate Dehydrogenase 974 H (120-246) U/L Total Protein (6.3-8.2) g/dL Albumin (3.5-5.0) g/dL 04/28/23 04/29/23 04/29/23 Range/Units 21:00 00:11 01:20 WBC 14.7 H (3.8-10.6) k/uL Plt Count 52 L (150-450) k/uL Neutrophils # (1.3-7.7) k/uL Neutrophils # (Manual) (1.3-7.7) k/uL Lymphocytes # (Manual) (1.0-4.8) k/uL Nucleated RBCs (0-0) /100 WBC INR (<1.2) APTT 31.1 H (22.0-30.0) sec Sodium (137-145) mmol/L Chloride (98-107) mmol/L Glucose (74-99) mg/dL POC Glucose (mg/dL) 114 H (70-110) mg/dL Calcium (8.4-10.2) mg/dL Iron (65-175) UG/DL % Saturation (15.00-50.00) Transferrin (204.0-354.0) mg/dL AST (17-59) U/L ALT (4-49) U/L Lactate Dehydrogenase (120-246) U/L Total Protein (6.3-8.2) g/dL Albumin (3.5-5.0) g/dL 04/29/23 04/29/23 04/29/23 Range/Units 05:20 05:20 05:31 WBC 13.7 H (3.8-10.6) k/uL Plt Count 49 L (150-450) k/uL Neutrophils # (1.3-7.7) k/uL Neutrophils # (Manual) 12.33 H (1.3-7.7) k/uL Lymphocytes # (Manual) 0.82 L (1.0-4.8) k/uL Nucleated RBCs 1 H (0-0) /100 WBC INR (<1.2) APTT 32.2 H (22.0-30.0) sec Sodium 146 H (137-145) mmol/L Chloride 117 H (98-107) mmol/L Glucose 120 H (74-99) mg/dL POC Glucose (mg/dL) (70-110) mg/dL Calcium 7.8 L (8.4-10.2) mg/dL Iron (65-175) UG/DL % Saturation (15.00-50.00) Transferrin (204.0-354.0) mg/dL AST 350 H (17-59) U/L ALT 149 H (4-49) U/L Lactate Dehydrogenase (120-246) U/L Total Protein 4.4 L (6.3-8.2) g/dL Albumin 2.2 L (3.5-5.0) g/dL 04/29/23 04/29/23 Range/Units 06:43 10:31 WBC (3.8-10.6) k/uL Plt Count (150-450) k/uL Neutrophils # (1.3-7.7) k/uL Neutrophils # (Manual) (1.3-7.7) k/uL Lymphocytes # (Manual) (1.0-4.8) k/uL Nucleated RBCs (0-0) /100 WBC INR (<1.2) APTT 34.9 H (22.0-30.0) sec Sodium (137-145) mmol/L Chloride (98-107) mmol/L Glucose (74-99) mg/dL POC Glucose (mg/dL) 111 H (70-110) mg/dL Calcium (8.4-10.2) mg/dL Iron (65-175) UG/DL % Saturation (15.00-50.00) Transferrin (204.0-354.0) mg/dL AST (17-59) U/L ALT (4-49) U/L Lactate Dehydrogenase (120-246) U/L Total Protein (6.3-8.2) g/dL Albumin (3.5-5.0) g/dL Microbiology - Last 24 Hours (Table) 04/26/23 20:38 Gram Stain - Final Sputum Sputum Culture - Final 04/26/23 19:00 Blood Culture - Preliminary Blood 04/26/23 18:45 Blood Culture - Preliminary Blood 04/27/23 05:30 Urine Culture - Final Urine,Voided Assessment and Plan Assessment: This is a 58 y/o gentleman was found down in front of his stove on 04/26/2023 and last normal seen was on 04/23/2023. He was recent at [facility] for ischemic of upper s/p thrombectomy on third week of March and had repeated surgery and was discharged on eliquis. His CO was >20 and repeated is normal. His CK level is elevated, elevated troponin. CT head show subacute ischemic stroke over the left MCA. Subacute left temporal/parietal with some petechial hemorrhage on repeated CT head. No IV tpa since outside window and appears last normal is 04/23/2023 and risk outweigh benefit. Encephalopathy due to stroke, hypercarobxyemia, metabolic encephalopathy and medication effect (Propofol and Fentanyl). EEG is mild encephalopathy but no seizure or discharges. Patient would open his eyes 2 left hilar masses highly suspicious for neoplasm on CT Large nearly occluding thrombus in the distal descending thoracic aorta on CT NSTEMI Acute Rhabdomylolysis--slightly trending down Recent right upper extremity thrombus with ischemia s/p thrombectomy X2 at [facility] towards 3rd week of March 2023. 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 DARRYL--resolved. Ejection fraction of 20-25% with apical hypokinesis and 2-D echo Leukocytosis--trending down Hypernatremia--trending down Polycythemia Possible lung cancer Plan: Patient was initially on heparin drip but then there is suspicion of ?HIT so was stopped and started on Argatroban. Most recent CT head showed petechial hemorrhage over the left temporal parietal. I doubt the petechial hemorrhage is due to heparin use or Argatroban. But since he is developing more noticeable hemorrhage and there is risk of bleed, recommend holding Argatroban to avoid risk of worsening bleed. Will get repeat CT head today around 4pm and then tomorrow and if by tomorrow bleed is stable can consider resuming if felt benefit outweigh the risk. Also the stool occult blood is positive. Patient has thromboctyopenia and initially there is ?concern for HIT. He is receiving platelete transfusion. Per primary team he thinks there is possible hemodilution effect as well. He is currently on ASA 81mg daily. If has worsening of bleeding or platelets then recommend holding ASA. Will avoid the statin because of his rhabdo but once the rhabdo resolves will place him on statin Hematology is on board. Primary team ordered hypercoagulable work-up and pending. Spoke with Dr. Betancourt (City Director) and he stated there is no benefit of pursuing LEONIDAS. Pending copper level. Continue thiamine 100mg IV daily. Every 2 neurochecks Cardiac monitoring PT OT and SAP BASIS ARCHITECT is consulted Cardiology and vascular surgery team are on board He has an estranged brother and otherwise no family members. Pending appointment of an emergent guardian. We'll defer the rest of the medical management to the primary team DVT prophylaxis: use SCD. The plan was discussed with the patient's primary team, cardiology and vascular surgery team and ICU nurse. Patient condition is critical. I feel overall prognosis is poor. Will continue to follow. Dr. Rueda will resume neurology service tomorrow A.M. Time with Patient: Greater than 30
--- NOTE | 2023-04-29 12:06 | P.PN ---
Subjective Progress Note Date: 04/29/23 Patient is evaluated today in the intensive care unit. He remains intubated. His sedation has been decreased and the patient is becoming more awake. He seems to want to follow instruction to move his extremities although little movement if any movement is noted. Recent CT imaging now demonstrates petechial hemorrhages with an ischemic stroke area of the left hemisphere. Computed tomography scan of the chest to evaluate for malignancy demonstrates thrombus within the aorta at the thoracic level. Objective - Vital Signs Vital signs: Vital Signs Temp 100.0 F H 04/29/23 10:59 Pulse 97 04/29/23 11:00 Resp 24 04/29/23 11:00 BP 130/76 04/29/23 11:00 Pulse Ox 96 04/29/23 11:00 FiO2 40 04/29/23 11:00 Intake & Output 04/28/23 04/29/23 04/29/23 18:59 06:59 18:59 Intake Total 3276.202 1946.842 931.233 Output Total 610 630 245 Balance 2666.202 1316.842 686.233 Weight 78.6 kg Intake: IV 2581 1156 630 0.9 NS @ KVO 120 120 40 CVP 36 36 15 Dextrose 5% in Water 1, 525 900 375 000 ml @ 75 mls/hr IV . [id number] [facility] Rx#:[id number] Piperacillin-Tazobactam 3 200 100 100 .375 gm In Sodium Chloride 0.9% 100 ml @ 25 mls/hr IVPB Q8HR [facility] Rx# :[id number] Potassium Chloride 10 meq 100 In Water For Injection 1 100ml.bag @ 100 mls/hr IVPB Q1H [facility] Rx#: [id number] Sodium Chloride 0.9% 1, 700 000 ml @ 150 mls/hr IV . Q6H40M [facility] Rx#:[id number] Sodium Chloride 0.9% 1, 1000 000 ml @ 999 mls/hr IV . Q1H1M [facility] Rx#:[id number] Intake, IV Titration 225.202 140.842 21.233 Amount Argatroban 50 mg In 14.702 40.842 Sodium Chloride 0.9% 50 ml @ 0.5 MCG/KG/MIN 2.136 mls/hr IV .[id number] [facility] Rx#:[id number] Heparin Sod,Pork in 0.45% 10.5 NaCl 25,000 unit In 0.45 % NaCl 1 250ml.bag @ 12 UNITS/KG/HR 8.4 mls/hr IV .Q24H [facility] Rx#:[id number] fentaNYL (PF). 1,000 mcg 21.233 In Sodium Chloride 0.9% 80 ml @ 0.5 MCG/KG/HR 3.5 mls/hr IV .Q24H [facility] Rx#: [id number] propofoL 1,000 mg In 200.000 100 Empty Bag 1 bag @ 15 MCG/ KG/MIN 4.905 mls/hr IV . [id number] [facility] Rx#:[id number] Tube Feeding 380 560 250 Blood Product 0 Platelet Pheresis Pas 0 Psoralen Unit [id number] Other 90 90 30 Output: Urine 610 630 245 Other: Voiding Method Indwelling Catheter Indwelling Catheter # Bowel Movements 1 - Exam Patient's eyes are open and is moving his head from side to side however this does not appear to be purposeful. Patient's feet and calf areas are ischemic bilaterally. I cannot feel popliteal or pedal pulses. The right hand is also ischemic. As of today April 29 the left foot and lower leg area becoming mummified. The right foot and right hand continued to remain ischemic. Patient does not respond to verbal stimuli. - Labs CBC & Chem 7: 04/29/23 05:20 04/29/23 05:20 Labs: Abnormal Lab Results - Last 24 Hours (Table) 04/28/23 04/28/23 04/28/23 Range/Units 11:09 11:09 11:09 WBC 13.6 H (3.8-10.6) k/uL Plt Count 55 L (150-450) k/uL Neutrophils # 12.0 H (1.3-7.7) k/uL Neutrophils # (Manual) (1.3-7.7) k/uL Lymphocytes # (Manual) (1.0-4.8) k/uL Nucleated RBCs (0-0) /100 WBC INR 1.2 H (<1.2) APTT (22.0-30.0) sec Sodium (137-145) mmol/L Chloride (98-107) mmol/L Glucose (74-99) mg/dL POC Glucose (mg/dL) (70-110) mg/dL Calcium (8.4-10.2) mg/dL Iron 14 L (65-175) UG/DL % Saturation 5.58 L (15.00-50.00) Transferrin 179.0 L (204.0-354.0) mg/dL AST (17-59) U/L ALT (4-49) U/L Lactate Dehydrogenase (120-246) U/L Total Protein (6.3-8.2) g/dL Albumin (3.5-5.0) g/dL 04/28/23 04/28/23 04/28/23 Range/Units 17:47 18:12 21:00 WBC (3.8-10.6) k/uL Plt Count (150-450) k/uL Neutrophils # (1.3-7.7) k/uL Neutrophils # (Manual) (1.3-7.7) k/uL Lymphocytes # (Manual) (1.0-4.8) k/uL Nucleated RBCs (0-0) /100 WBC INR (<1.2) APTT 32.4 H (22.0-30.0) sec Sodium (137-145) mmol/L Chloride (98-107) mmol/L Glucose (74-99) mg/dL POC Glucose (mg/dL) 134 H (70-110) mg/dL Calcium (8.4-10.2) mg/dL Iron (65-175) UG/DL % Saturation (15.00-50.00) Transferrin (204.0-354.0) mg/dL AST (17-59) U/L ALT (4-49) U/L Lactate Dehydrogenase 974 H (120-246) U/L Total Protein (6.3-8.2) g/dL Albumin (3.5-5.0) g/dL 04/28/23 04/29/23 04/29/23 Range/Units 21:00 00:11 01:20 WBC 14.7 H (3.8-10.6) k/uL Plt Count 52 L (150-450) k/uL Neutrophils # (1.3-7.7) k/uL Neutrophils # (Manual) (1.3-7.7) k/uL Lymphocytes # (Manual) (1.0-4.8) k/uL Nucleated RBCs (0-0) /100 WBC INR (<1.2) APTT 31.1 H (22.0-30.0) sec Sodium (137-145) mmol/L Chloride (98-107) mmol/L Glucose (74-99) mg/dL POC Glucose (mg/dL) 114 H (70-110) mg/dL Calcium (8.4-10.2) mg/dL Iron (65-175) UG/DL % Saturation (15.00-50.00) Transferrin (204.0-354.0) mg/dL AST (17-59) U/L ALT (4-49) U/L Lactate Dehydrogenase (120-246) U/L Total Protein (6.3-8.2) g/dL Albumin (3.5-5.0) g/dL 04/29/23 04/29/23 04/29/23 Range/Units 05:20 05:20 05:31 WBC 13.7 H (3.8-10.6) k/uL Plt Count 49 L (150-450) k/uL Neutrophils # (1.3-7.7) k/uL Neutrophils # (Manual) 12.33 H (1.3-7.7) k/uL Lymphocytes # (Manual) 0.82 L (1.0-4.8) k/uL Nucleated RBCs 1 H (0-0) /100 WBC INR (<1.2) APTT 32.2 H (22.0-30.0) sec Sodium 146 H (137-145) mmol/L Chloride 117 H (98-107) mmol/L Glucose 120 H (74-99) mg/dL POC Glucose (mg/dL) (70-110) mg/dL Calcium 7.8 L (8.4-10.2) mg/dL Iron (65-175) UG/DL % Saturation (15.00-50.00) Transferrin (204.0-354.0) mg/dL AST 350 H (17-59) U/L ALT 149 H (4-49) U/L Lactate Dehydrogenase (120-246) U/L Total Protein 4.4 L (6.3-8.2) g/dL Albumin 2.2 L (3.5-5.0) g/dL 04/29/23 04/29/23 Range/Units 06:43 10:31 WBC (3.8-10.6) k/uL Plt Count (150-450) k/uL Neutrophils # (1.3-7.7) k/uL Neutrophils # (Manual) (1.3-7.7) k/uL Lymphocytes # (Manual) (1.0-4.8) k/uL Nucleated RBCs (0-0) /100 WBC INR (<1.2) APTT 34.9 H (22.0-30.0) sec Sodium (137-145) mmol/L Chloride (98-107) mmol/L Glucose (74-99) mg/dL POC Glucose (mg/dL) 111 H (70-110) mg/dL Calcium (8.4-10.2) mg/dL Iron (65-175) UG/DL % Saturation (15.00-50.00) Transferrin (204.0-354.0) mg/dL AST (17-59) U/L ALT (4-49) U/L Lactate Dehydrogenase (120-246) U/L Total Protein (6.3-8.2) g/dL Albumin (3.5-5.0) g/dL Microbiology - Last 24 Hours (Table) 04/26/23 20:38 Gram Stain - Final Sputum Sputum Culture - Final 04/26/23 19:00 Blood Culture - Preliminary Blood 04/26/23 18:45 Blood Culture - Preliminary Blood 04/27/23 05:30 Urine Culture - Final Urine,Voided Assessment and Plan Assessment: Systemic arterial thrombosis, suspect hypercoagulable syndrome. Advanced ischemic changes of the feet and calf areas bilaterally as well as the right hand and distal forearm area. History of CVA Multiple ongoing medical problems including suspicion for lung cancer. Additional new diagnoses include thoracic aortic thrombus as well as petechial hemorrhage within the left hemispheric ischemic infarct. Plan: Given the fact that the patient's platelet count has dropped significantly I agree with the initiation of a gastric band and avoiding any heparin products. Overall the patient's prognosis appears to be quite poor and if the patient survives will need bilateral above-knee amputations and possibly amputation of the right hand. 04/29/2023: Unfortunately the patient continues to have a very bad prognosis. Should he survive he will need bilateral lower extremity amputations as well as amputation of the right hand. Not withstanding the patient has a large cerebral infarct as well as thoracic aortic thrombus and 3.1 cm left hilar mass suspicious for carcinoma. Overall the prognosis remains poor. Time with Patient: Less than 30
[2023-04-29 12:42] LABS: Glucose,Whole Blood 102 mg/dL (70-110)
--- NOTE | 2023-04-29 13:39 | P.PCN ---
Date of Procedure: 04/29/23 Preoperative Diagnosis: Acute hypoxic respiratory failure Postoperative Diagnosis: Same Procedure(s) Performed: Arterial line Anesthesia: local Surgeon: Mikki Francisco Pathology: none sent Condition: critical Disposition: ICU Operative Findings: Indication: Hemodynamic monitoring. A time-out was completed verifying correct patient, procedure, site, positioning, and implant(s) or special equipment if applicable. Allens test was performed to ensure adequate perfusion. The patients was prepped and draped in sterile fashion. 1% Lidocaine was used to anesthetize the area. An 18G Arrow arterial line was introduced into the left radial artery. The catheter was threaded over the guide wire and the needle was removed with appropriate pulsatile blood return. Blood loss was minimal. The catheter was then sutured in place to the skin and a sterile dressing applied. Perfusion to the extremity distal to the point of catheter insertion was checked and found to be adequate. The patient tolerated the procedure well and there were no complications.
--- NOTE | 2023-04-29 16:17 | P.PN ---
Subjective Progress Note Date: 04/29/23 Patient was seen in ICU at todays visit Plts 49,000, continues on ASA and argatroban. 1 dose plts ordered. Hgb stable at 13.1. No reported episodes of bleeding VINH noted, parenteral iron started Remains on ventilation and sedation Objective - Vital Signs Vital signs: Vital Signs Temp 99.9 F H 04/29/23 08:00 Pulse 96 04/29/23 08:10 Resp 28 H 04/29/23 08:00 BP 128/72 04/29/23 08:00 Pulse Ox 98 04/29/23 08:00 FiO2 40 04/29/23 07:50 Intake & Output 04/28/23 04/29/23 04/29/23 18:59 06:59 18:59 Intake Total 3276.202 1946.842 496 Output Total 610 630 95 Balance 2666.202 1316.842 401 Weight 78.6 kg Intake: IV 2581 1156 366 0.9 NS @ KVO 120 120 10 CVP 36 36 6 Dextrose 5% in Water 1, 525 900 150 000 ml @ 75 mls/hr IV . [id number] [facility] Rx#:[id number] Piperacillin-Tazobactam 3 200 100 100 .375 gm In Sodium Chloride 0.9% 100 ml @ 25 mls/hr IVPB Q8HR [facility] Rx# :[id number] Potassium Chloride 10 meq 100 In Water For Injection 1 100ml.bag @ 100 mls/hr IVPB Q1H [facility] Rx#: [id number] Sodium Chloride 0.9% 1, 700 000 ml @ 150 mls/hr IV . Q6H40M [facility] Rx#:[id number] Sodium Chloride 0.9% 1, 1000 000 ml @ 999 mls/hr IV . Q1H1M [facility] Rx#:[id number] Intake, IV Titration 225.202 140.842 Amount Argatroban 50 mg In 14.702 40.842 Sodium Chloride 0.9% 50 ml @ 0.5 MCG/KG/MIN 2.136 mls/hr IV .[id number] [facility] Rx#:[id number] Heparin Sod,Pork in 0.45% 10.5 NaCl 25,000 unit In 0.45 % NaCl 1 250ml.bag @ 12 UNITS/KG/HR 8.4 mls/hr IV .Q24H [facility] Rx#:[id number] propofoL 1,000 mg In 200.000 100 Empty Bag 1 bag @ 15 MCG/ KG/MIN 4.905 mls/hr IV . [id number] [facility] Rx#:[id number] Tube Feeding 380 560 100 Other 90 90 30 Output: Urine 610 630 95 Other: Voiding Method Indwelling Catheter Indwelling Catheter # Bowel Movements 1 - Constitutional General appearance: Present: no acute distress - EENT ENT: Present: hearing grossly normal - Respiratory Details: ventilated breath sounds - Cardiovascular Rhythm: regular Heart sounds: normal: S1, S2 - Peripheral pulses dorsalis pedis Peripheral Pulses: bilateral: Absent radial pulse Peripheral Pulses: right: Absent, left: Normal - Integumentary Integumentary Comment(s): mottling to BLE and right hand - Psychiatric Psychiatric Comment(s): sedated - Labs CBC & Chem 7: 04/29/23 05:20 04/29/23 05:20 Labs: Abnormal Lab Results - Last 24 Hours (Table) 04/28/23 04/28/23 04/28/23 Range/Units 07:15 11:09 11:09 WBC 13.6 H (3.8-10.6) k/uL Plt Count 55 L (150-450) k/uL Neutrophils # 13.6 H 12.0 H (1.3-7.7) k/uL Neutrophils # (Manual) (1.3-7.7) k/uL Lymphocytes # (Manual) (1.0-4.8) k/uL Nucleated RBCs (0-0) /100 WBC INR 1.2 H (<1.2) APTT (22.0-30.0) sec Sodium (137-145) mmol/L Chloride (98-107) mmol/L Glucose (74-99) mg/dL POC Glucose (mg/dL) (70-110) mg/dL Calcium (8.4-10.2) mg/dL Iron (65-175) UG/DL % Saturation (15.00-50.00) Transferrin (204.0-354.0) mg/dL AST (17-59) U/L ALT (4-49) U/L Lactate Dehydrogenase (120-246) U/L Total Protein (6.3-8.2) g/dL Albumin (3.5-5.0) g/dL 04/28/23 04/28/23 04/28/23 Range/Units 11:09 11:34 17:47 WBC (3.8-10.6) k/uL Plt Count (150-450) k/uL Neutrophils # (1.3-7.7) k/uL Neutrophils # (Manual) (1.3-7.7) k/uL Lymphocytes # (Manual) (1.0-4.8) k/uL Nucleated RBCs (0-0) /100 WBC INR (<1.2) APTT (22.0-30.0) sec Sodium (137-145) mmol/L Chloride (98-107) mmol/L Glucose (74-99) mg/dL POC Glucose (mg/dL) 129 H 134 H (70-110) mg/dL Calcium (8.4-10.2) mg/dL Iron 14 L (65-175) UG/DL % Saturation 5.58 L (15.00-50.00) Transferrin 179.0 L (204.0-354.0) mg/dL AST (17-59) U/L ALT (4-49) U/L Lactate Dehydrogenase (120-246) U/L Total Protein (6.3-8.2) g/dL Albumin (3.5-5.0) g/dL 04/28/23 04/28/23 04/28/23 Range/Units 18:12 21:00 21:00 WBC 14.7 H (3.8-10.6) k/uL Plt Count 52 L (150-450) k/uL Neutrophils # (1.3-7.7) k/uL Neutrophils # (Manual) (1.3-7.7) k/uL Lymphocytes # (Manual) (1.0-4.8) k/uL Nucleated RBCs (0-0) /100 WBC INR (<1.2) APTT 32.4 H (22.0-30.0) sec Sodium (137-145) mmol/L Chloride (98-107) mmol/L Glucose (74-99) mg/dL POC Glucose (mg/dL) (70-110) mg/dL Calcium (8.4-10.2) mg/dL Iron (65-175) UG/DL % Saturation (15.00-50.00) Transferrin (204.0-354.0) mg/dL AST (17-59) U/L ALT (4-49) U/L Lactate Dehydrogenase 974 H (120-246) U/L Total Protein (6.3-8.2) g/dL Albumin (3.5-5.0) g/dL 04/29/23 04/29/23 04/29/23 Range/Units 00:11 01:20 05:20 WBC 13.7 H (3.8-10.6) k/uL Plt Count 49 L (150-450) k/uL Neutrophils # (1.3-7.7) k/uL Neutrophils # (Manual) 12.33 H (1.3-7.7) k/uL Lymphocytes # (Manual) 0.82 L (1.0-4.8) k/uL Nucleated RBCs 1 H (0-0) /100 WBC INR (<1.2) APTT 31.1 H (22.0-30.0) sec Sodium (137-145) mmol/L Chloride (98-107) mmol/L Glucose (74-99) mg/dL POC Glucose (mg/dL) 114 H (70-110) mg/dL Calcium (8.4-10.2) mg/dL Iron (65-175) UG/DL % Saturation (15.00-50.00) Transferrin (204.0-354.0) mg/dL AST (17-59) U/L ALT (4-49) U/L Lactate Dehydrogenase (120-246) U/L Total Protein (6.3-8.2) g/dL Albumin (3.5-5.0) g/dL 04/29/23 04/29/23 04/29/23 Range/Units 05:20 05:31 06:43 WBC (3.8-10.6) k/uL Plt Count (150-450) k/uL Neutrophils # (1.3-7.7) k/uL Neutrophils # (Manual) (1.3-7.7) k/uL Lymphocytes # (Manual) (1.0-4.8) k/uL Nucleated RBCs (0-0) /100 WBC INR (<1.2) APTT 32.2 H (22.0-30.0) sec Sodium 146 H (137-145) mmol/L Chloride 117 H (98-107) mmol/L Glucose 120 H (74-99) mg/dL POC Glucose (mg/dL) 111 H (70-110) mg/dL Calcium 7.8 L (8.4-10.2) mg/dL Iron (65-175) UG/DL % Saturation (15.00-50.00) Transferrin (204.0-354.0) mg/dL AST 350 H (17-59) U/L ALT 149 H (4-49) U/L Lactate Dehydrogenase (120-246) U/L Total Protein 4.4 L (6.3-8.2) g/dL Albumin 2.2 L (3.5-5.0) g/dL Microbiology - Last 24 Hours (Table) 04/26/23 19:00 Blood Culture - Preliminary Blood 04/26/23 18:45 Blood Culture - Preliminary Blood 04/26/23 20:38 Gram Stain - Preliminary Sputum 04/27/23 05:30 Urine Culture - Final Urine,Voided - Imaging and Cardiology CT scan - chest: report reviewed Assessment and Plan (1) Thrombocytopenia Current Visit: Yes Status: Acute Priority: High Code(s): D69.6 - THROMBOCYTOPENIA, UNSPECIFIED SNOMED Code(s): 424746915 (2) DARRYL (acute kidney injury) Current Visit: Yes Status: Acute Priority: High Code(s): N17.9 - ACUTE KIDNEY FAILURE, UNSPECIFIED SNOMED Code(s): 53582527 (3) Arterial occlusion Current Visit: Yes Status: Acute Priority: High Code(s): I70.90 - UNSPECIFIED ATHEROSCLEROSIS SNOMED Code(s): 7699281 (4) Ischemic cerebrovascular accident (CVA) Current Visit: Yes Status: Acute Priority: High Code(s): I63.9 - CEREBRAL INFARCTION, UNSPECIFIED SNOMED Code(s): 940091154 (5) NSTEMI (non-ST elevated myocardial infarction) Current Visit: Yes Status: Acute Priority: High Code(s): I21.4 - NON-ST ELEVATION (NSTEMI) MYOCARDIAL INFARCTION SNOMED Code(s): 81605503 Plan: Thrombocytopenia: -Platelets 115,000 upon admission. No previous labs to trend. Unknown if has previous blood or liver disorders -Patient was started on heparin drip for NSTEMI and ischemic extremities. Pl atelets dropped from 115,000 to 63,000 after heparin initiation. Today platelets at 55,000. However, upon trending labs, plts had dropped to 75,000 prior to starting heparin. Of note patient has undergone a right brachial, radial and ulnar thrombectomy reportedly twice during the last 1 month at [facility], and was likely heparinzied at some point during this admission. -Typically JENNIFER is seen 5-10 days after initiation, but can occur earlier with recent previous heparin exposure. JENNIFER antibody has been ordered, results pending. Spoke with IM team, and with recent vascular surgery and likely exposure to heparin and current decrease in plts, it would be reasonable to stop heparin and switch to argatroban -PT/INR elevated upon admission, fibrinogen normal, 426, not consistent with DIC -TSH normal at 2.3 -IM team has ordered APLS labs and hypercoaguable workup. Labs pending -Will obtain acute hepatitis panel, HIV, anemia workup, hemolysis labs, and peripheral blood smear -Thrombocytopenia likely multifactorial. Differential include reactive thrombocytopenia, underlying chronic liver disease, JENNIFER, and medication induced thrombocytopenia due to antibiotic and thiazide use -Hepatitis panel negative. Vit B12 and folate normal. VINH noted, parenteral iron started x 3 doses. Remaining workup pending -Plts noted at 49,000 today, 1 dose plts ordered. No reported episodes of bleeding -If continues on anticoagulation, goal for platelets is greater than 50,000. Please transfuse for platelets less than 50,000 of if symptomatic Arterial occlusions: -Dx with RUE arterial occlusion at [facility], and has undergone a right brachial, radial and ulnar thrombectomy reportedly twice during the last 1 month. He was placed on xarelto -RUE hand and BLE are found to be mottled and right radial and bilateral pedal pulses are absent -CT chest revealed 2 left hilar masses and nearly occluding thrombus in the distal descending thoracic aorta -Continues on ASA and argatroban -Vascular surgery following NSTEMI; -Serial trops elevated -Echocardiogram revealed ejection fraction 20-25%. Mid ventricle and apical hypokinesia -Heparin discontinued. Argatroban started -Cardiology following CVA: -Upon admission CT brain/C-spine revealed subacute 8 x 4 x 4 cm left MCA territory nonhemorrhagic infarction. Repeat CT brain revealed left BLEACH MIXER territory subacute infarct redemonstrated. Difficult to exclude minimal petechial hemorrhage within the anterior margin of the region of infarct. No midline shift or herniation seen. Small right posterior scalp contusion. -Neuro following. EEG scheduled
[2023-04-29] MEDS: METOPROLOL TARTRATE 25 MG TAB PO SCH (20:48)
--- NOTE | 2023-04-29 22:39 | CT ---
EXAMINATION TYPE: CT brain wo con CT DLP: 1179.4 mGycm, Automated exposure control for dose reduction was used. DATE OF EXAM: 04/29/2023 4:26 PM COMPARISON: Multiple recent prior head CTs, the most recent 04/29/2023 4:24 AM. CLINICAL INDICATION:Male, 58 years old with history of assess bleed compared to earlier ct head, asse ss bleed compared to earlier ct head TECHNIQUE: Brain: Axial CT images of the brain were obtained with coronal and sagittal reformats created and rev iewed. Contrast used: None. Oral contrast used: None. FINDINGS: There is again a moderately large region of hypoattenuation with sulcal effacement in the left MCA te rritory, involving the left parietal and superior temporal lobes, consistent with subacute infarct; t his is similar in appearance and extent to the prior study. Several small foci of increased attenuati on within likely representing petechial hemorrhages, appear essentially stable compared to the prior exam. Again there is mild associated mass affect on the posterior horn of the left lateral ventricle which appears unchanged. Ventricular size is stable, without evidence of hydrocephalus. No midline sh ift. No evidence of herniation. No definite new intracranial hemorrhage is seen. Remainder of the exa m appears unchanged. IMPRESSION: 1. Stable appearance of left parietotemporal subacute infarct, with associated internal petechial he morrhages, compared to the prior exam. 2. Stable mild associated mass effect, without evidence of midline shift or herniation.
[2023-04-30 00:12] LABS: Glucose,Whole Blood 115 mg/dL (70-110)
[2023-04-30] MEDS: IPRATROPIUM-ALBUTEROL 3 ML NEB INHALATION SCH ×7 (00:34→23:56)
[2023-04-30] MEDS: PIPERACILLIN-TAZOBACTAM 3.375 GM in SODIUM CHLORIDE 0.9% 100 ML IVPB SCH ×3 (00:59→16:06)
[2023-04-30 05:04] LABS: Basophils % (A) 0 %; Eosinophils # (A) 0.2 k/uL (0-0.7); Eosinophils % (A) 2 %; HGB 12.2 gm/dL (13.0-17.5); Hypochromasia Marked; Lymphocytes # (A) 0.9 k/uL (1.0-4.8); Lymphocytes % (A) 8 %; MCH 29.8 pg (25.0-35.0); MCHC 31.3 g/dL (31.0-37.0); MCV 95.3 fL (80.0-100.0); Mean Platelet Volume 10.3; Monocytes # (A) 0.6 k/uL (0-1.0); Monocytes % (A) 5 %; Neutrophils # (A) 10.3 k/uL (1.3-7.7); Neutrophils % (A) 85 %; Poikilocytosis Slight; RBC 4.09 m/uL (4.30-5.90); RDW 15.3 % (11.5-15.5); WBC 12.2 k/uL (3.8-10.6)
[2023-04-30 05:08] LABS: Platelet Count 64 k/uL (150-450)
[2023-04-30] MEDS ORDERED: DEXTROSE 5% IN WATER 1,000 ML IV SCH (05:15)
[2023-04-30 05:19] LABS: African American GFR (CKD) >90 (>60 ml/min/1.73 sqM); Anion Gap 3 mmol/L; Blood Urea Nitrogen 18 mg/dL (9-20); Calcium 7.9 mg/dL (8.4-10.2); Carbon Dioxide 27 mmol/L (22-30); Chloride 110 mmol/L (98-107); Glucose 115 mg/dL (74-99); Non-African American GFR(CKD) >90 (>60 ml/min/1.73 sqM); Sodium 140 mmol/L (137-145)
[2023-04-30] MEDS: fentaNYL (PF). 1,000 MCG in SODIUM CHLORIDE 0.9% 80 ML IV SCH ×3 (06:08→23:16)
[2023-04-30 06:19] LABS: ABG Base Excess 3.9 mmol/L; ABG HCO3 28 mmol/L (21-25); ABG Oxygen Saturation 99.4 % (94-97); ABG PCO2 40 mmHg (35-45); ABG PH 7.45 (7.35-7.45); ABG PO2 132 mmHg (83-108); ABG TCO2 29 mmol/L (19-24)
[2023-04-30 06:42] LABS: Glucose,Whole Blood 128 mg/dL (70-110)
[2023-04-30] MEDS: METOPROLOL TARTRATE 25 MG TAB PO SCH ×2 (07:53→20:55)
[2023-04-30] MEDS: ASPIRIN 81 MG PO SCH (07:53)
[2023-04-30] MEDS: THIAMINE 100 MG/ML 2 ML VIAL IVP SCH (07:53)
[2023-04-30] MEDS: CHLORHEXIDINE GLUCONATE 15 ML CUP MUCOUS MEM SCH ×2 (07:53→20:55)
[2023-04-30] MEDS: SODIUM FERRIC GLUCONAT-SUCROSE 125 MG in SODIUM CHLORIDE 0.9% 100 ML IVPB SCH (08:38)
--- NOTE | 2023-04-30 08:46 | XR ---
EXAMINATION TYPE: XR chest 1V portable DATE OF EXAM: 04/30/2023 Comparison: 04/29/2023 Clinical History: 58-year-old male ICU follow-up, shortness of breath, assess lungs Findings: ET and NG tubes are satisfactory. Intraesophageal monitor. Left subclavian CVC tip at the lower SVC/c avoatrial junction. Heart is normal in size. Diffuse interstitial opacities persist. Possible 3.4 cm left hilar mass remains. Impression: 1. Similar diffuse interstitial opacities, either pulmonary vascular congestion or atypical/COVID pne umonias. 2. Previously described 3.4 cm left hilar mass. Appropriate further workup and management advised to exclude neoplasm.
[2023-04-30] MEDS: ARGATROBAN 50 MG in SODIUM CHLORIDE 0.9% 50 ML IV SCH ×2 (09:33→20:57)
[2023-04-30] MEDS: PANTOPRAZOLE 40 MG/10 ML VIAL IVP SCH (10:00)
[2023-04-30 10:42] LABS: Prothrombin 20210A Mutation Negative
[2023-04-30] MEDS: DEXTROSE 5%-0.45% NACL 1,000 ML IV SCH ×2 (11:25→23:19)
[2023-04-30 12:19] LABS: Glucose,Whole Blood 119 mg/dL (70-110)
--- NOTE | 2023-04-30 12:19 | CT ---
EXAMINATION TYPE: CT brain wo con DATE OF EXAM: 04/30/2023 COMPARISON: 04/29/2023 INDICATION: Bleed DLP: 1095.4 mGycm, Automated exposure control for dose reduction was used. CONTRAST: None CT of the brain is performed utilizing 3 mm thick sections through the posterior fossa and 3 mm thick sections through the remaining calvarium. Study is performed within 24 hours of arrival to the hosp ital. There are couple of punctate hyperdensities within the left parietal-occipital region could be small petechial hemorrhages. Within the large left parietal-occipital findings are maturing over the interval. No midline shift is evident. No compression of the lateral ventricles evident. No mass lesion is evident. Ventricles and sulci away from the infarct are appropriate for the patient age. Paranasal sinuses and mastoid air cells within the [id number] are clear. IMPRESSION: 1. Maturing left parietal-occipital infarct. Couple of punctate hyperdensities are present could be petechial hemorrhages present previously and stable.
[2023-04-30 12:29] LABS: Anti-Thrombin III Activity 73 % (79-109)
[2023-04-30 12:30] LABS: Protein C (Activity) 46 % (71-138)
[2023-04-30] MEDS ORDERED: methylPREDNISolone SOD SUCCI 125 MG/2 ML VIAL IV SCH (12:30)
[2023-04-30] MEDS: methylPREDNISolone SOD SUCCIN 500 MG in SODIUM CHLORIDE 0.9% 100 ML IVPB SCH (13:51)
[2023-04-30 14:03] LABS: Cardiolipin Ab IgG Interp Negative (Negative); Cardiolipin Ab IgM Interp Negative (Negative); Cardiolipin IgA Antibody <2.0 U/mL; Cardiolipin IgM Antibody 4.7 U/mL
[2023-04-30 14:04] LABS: HIV 2 AB Non-Reactive (Non-Reactive); HIV AB P24 Non-Reactive (Non-Reactive); HIV P24 AG Non-Reactive (Non-Reactive)
--- NOTE | 2023-04-30 14:26 | P.PN ---
Subjective Progress Note Date: 04/30/23 Patient was initially seen by Dr. Dr. Alexander Mera. Please refer to his note for details. 58M with subacute left temporal/parietal stroke. Patient had CT head performed yesterday, which revealed 2 areas of small petechial hemorrage in the infarct core. He has left descending aortic thrombus, suspicious for lung cancer, ischemia of extremities (bilateral lower and right upper extremity). Heparin drip stopped for ?HIT. Argatroban was put on hold because of petecthial hemorrhage, but restarted today after the repeat CT head performed today shows stable area of petechial hemorrhage. He is on ASA. Very critical patient. Some other workup during our facility consisted of: Plasma lactic acid venous 12.1 and most recent one is 1.8 Calcium is 10.5 CK level is 10,403 and a repeat is 18,435-->13K Troponin is 8.3 and most recent one is 13.7 Ammonia 14 Lipid panel: TG 209, Cholestroll 95, LDL 25 and HDL 28 TSH: 2.34 Vitamin B12: 797 Folate: 19.3 Initial CO2: >20 and repeated 1.7. AB.17 and repeated and HCO3 9. UDS is nondetected and serum alcohol was less than 10 CT of the head is reported as subacute A by 4 x 4 cm left MCA territory nonhemorrhagic infarction. I personally agree that the patient has subacute changes over the left temporal parietal region. CT cervical spine is prominent by apical lung consolidation. Patient is on IV propofol and fentanyl. He is intubated. 2-D echo was reported as him. All the function. The ejection fraction is about 20-25%. Mild ventricular and apical hypokinesis. Routine EEG: Is abnormal. The background slowing is suggestive of mild encephalopathy. There is no focal slowing, epileptiform discharge or seizure on the EEG. The diffuse suppression is likely due to medication induced (Propofol and fentanyl). 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 Difficult to exclude minimal petechial hemmorrhage within the anterior region of infarct. some preserved cortical parenchyma is the alternative consideration. Ongoing follow-up recommended. No midline shift or herniation seen. A small posterior scalp contusion appears to have developed. Carotid duplex is reported as less than 50% stenosis bilateral carotid bifurcation. Repeat CT head 04/29/2023: It is reported as redemonstrated left parietal and temporal subacute infarct. There are increasing aerial petechial hemorrhage without that infarct tone. No midline shift or herniation. Personally reviewed the CT and agree with the report CT of the chest was reported as 2 left hilar masses highly suspicious for neoplasm. Large nearly occluding thrombus in the distal descending thoracic aorta. Mild basilar infiltrate/atelectasis. Mild groundglass a density in the right middle lobe. Objective - Vital Signs Vital signs: Vital Signs Temp 99.9 F H 04/30/23 08:00 Pulse 88 04/30/23 11:34 Resp 20 04/30/23 11:00 BP 118/66 04/30/23 08:00 Pulse Ox 100 04/30/23 11:00 FiO2 40 04/30/23 11:22 Intake & Output 04/29/23 04/30/23 04/30/23 18:59 06:59 18:59 Intake Total 2591.580 2093.0 788.025 Output Total 600 861 415 Balance 4593.652 8072.0 373.025 Weight 77.5 kg 77.5 kg Intake: IV 1184 1176 305 0.9 NS @ KVO 120 110 50 CVP + A-line 39 66 30 Dextrose 5% in Water 1, 825 675 000 ml @ 75 mls/hr IV . [id number] [facility] Rx#:[id number] Dextrose 5% in Water 1, 225 225 000 ml @ 75 mls/hr IV . [id number] [facility] Rx#:[id number] Piperacillin-Tazobactam 3 100 100 .375 gm In Sodium Chloride 0.9% 100 ml @ 25 mls/hr IVPB Q8HR [facility] Rx# :[id number] Potassium Chloride 10 meq 100 In Water For Injection 1 100ml.bag @ 100 mls/hr IVPB Q1H [facility] Rx#: [id number] Intake, IV Titration 319.580 200.0 168.025 Amount Argatroban 50 mg In 19.58 0 Sodium Chloride 0.9% 50 ml @ 0.5 MCG/KG/MIN 2.136 mls/hr IV .[id number] [facility] Rx#:[id number] Dextrose 5%-0.45% NaCl 1, 150 000 ml @ 75 mls/hr IV . [id number] [facility] Rx#:[id number] Sodium Ferric Gluconat- 100 Sucrose 125 mg In Sodium Chloride 0.9% 100 ml @ 100 mls/hr IVPB DAILY [facility] Rx#:[id number] fentaNYL (PF). 1,000 mcg 100.000 100.0 18.025 In Sodium Chloride 0.9% 80 ml @ 0.5 MCG/KG/HR 3.5 mls/hr IV .Q24H [facility] Rx#: [id number] propofoL 1,000 mg In 100 100 Empty Bag 1 bag @ 15 MCG/ KG/MIN 4.905 mls/hr IV . [id number] [facility] Rx#:[id number] Tube Feeding 699 627 285 Blood Product 329 Platelet Pheresis Pas 329 Psoralen Unit [id number] Other 60 90 30 Output: Urine 600 860 415 Stool 1 Other: Voiding Method Indwelling Catheter Indwelling Catheter ABP, PAP, CO, CI - Last Documented Arterial Blood Pressure 129/53 - Exam Patient is laying in the bed, intubated, sedated with propofol 60 mcg/kg per minute, also on fentanyl 2.0 g/kg/hr. Patient does open his eyes to calling his name is still encephalopathic, prefers gaze to the left at times with some neglect on the right visual field. He wiggled his feet very slightly. Did not respond much. Patient has possible necrotic and cyanotic changes in the right hand, as well as bilateral feet. Patient's pupils are about 3 mm, minimally reacting. Extraocular muscles appears intact, but patient did not cooperate much. No obvious seizure-like activity noted. Patient's right hand and bilateral feet are very cold. - Labs CBC & Chem 7: 04/30/23 04:28 04/30/23 04:28 Labs: Abnormal Lab Results - Last 24 Hours (Table) 04/30/23 04/30/23 04/30/23 Range/Units 00:10 04:28 04:28 WBC 12.2 H (3.8-10.6) k/uL RBC 4.09 L (4.30-5.90) m/uL Hgb 12.2 L (13.0-17.5) gm/dL Plt Count 64 L (150-450) k/uL Neutrophils # 10.3 H (1.3-7.7) k/uL Lymphocytes # 0.9 L (1.0-4.8) k/uL ABG pO2 (83-108) mmHg ABG HCO3 (21-25) mmol/L ABG Total CO2 (19-24) mmol/L ABG O2 Saturation (94-97) % Chloride 110 H (98-107) mmol/L Creatinine 0.55 L (0.66-1.25) mg/dL Glucose 115 H (74-99) mg/dL POC Glucose (mg/dL) 115 H (70-110) mg/dL Calcium 7.9 L (8.4-10.2) mg/dL 04/30/23 04/30/23 Range/Units 04:54 06:41 WBC (3.8-10.6) k/uL RBC (4.30-5.90) m/uL Hgb (13.0-17.5) gm/dL Plt Count (150-450) k/uL Neutrophils # (1.3-7.7) k/uL Lymphocytes # (1.0-4.8) k/uL ABG pO2 132 H (83-108) mmHg ABG HCO3 28 H (21-25) mmol/L ABG Total CO2 29 H (19-24) mmol/L ABG O2 Saturation 99.4 H (94-97) % Chloride (98-107) mmol/L Creatinine (0.66-1.25) mg/dL Glucose (74-99) mg/dL POC Glucose (mg/dL) 128 H (70-110) mg/dL Calcium (8.4-10.2) mg/dL Microbiology - Last 24 Hours (Table) 04/26/23 19:00 Blood Culture - Preliminary Blood 04/26/23 18:45 Blood Culture - Preliminary Blood 04/26/23 20:38 Gram Stain - Final Sputum Sputum Culture - Final Assessment and Plan Assessment: This is a 58 y/o gentleman was found down in front of his stove on 04/26/2023 and last normal seen was on 04/23/2023. He was recent at [facility] for ischemia of right upper extremity, s/p thrombectomy on third week of March and had repeated surgery and was discharged on eliquis. His CO was >20 and repeated is normal. His CK level is elevated, elevated troponin. CT head show subacute ischemic stroke over the left MCA. Subacute left temporal/parietal with some petechial hemorrhage on repeated CT head. No IV tpa since outside window and appears last normal is 04/23/2023 and risk outweigh benefit. Encephalopathy due to stroke, carbon monoxide poisoning, metabolic encephalopathy and medication effect (Propofol and Fentanyl). EEG is mild encephalopathy but no seizure or discharges. Patient would open his eyes 2 left hilar masses highly suspicious for neoplasm on CT Large nearly occluding thrombus in the distal descending thoracic aorta on CT NSTEMI Acute Rhabdomylolysis--slightly trending down Recent right upper extremity thrombus with ischemia s/p thrombectomy X2 at [facility] towards 3rd week of March 2023. 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 DARRYL--resolved. Ejection fraction of 20-25% with apical hypokinesis and 2-D echo Leukocytosis--trending down Hypernatremia--trending down Polycythemia Possible lung cancer Plan: Repeat CT head performed today showed maturing left parietal occipital infarct. Couple of punctate hyperdensities are present, could be petechial hemorrhage, previously also present and stable. I personally review CT head, agree with the findings. Areas of hyperdensity appears definite small areas of acute hemorrhage. Patient was initially on heparin drip but then there is suspicion of ?HIT so was stopped and started on Argatroban. This was held, but now restarted on Argatroban as benefit outweigh the risk. Also the stool occult blood is positive. Patient has thromboctyopenia and initially there is ?concern for HIT. He is receiving platelete transfusion. Per primary team he thinks there is possible hemodilution effect as well. He is currently on ASA 81mg daily. If has worsening of bleeding or platelets then recommend holding ASA. Will avoid the statin because of his rhabdo but once the rhabdo resolves will place him on statin Hematology is on board. Primary team ordered hypercoagulable work-up and pending. Dr. Alexander Mera has discussed with Dr. Betancourt (Hostess Host) and he stated there is no benefit of pursuing LEONIDAS. Pending copper level. Continue thiamine 100mg IV daily. Every 2 neurochecks Cardiac monitoring PT OT and DIRECTOR OPERATIONS is consulted Cardiology and vascular surgery team are on board He has an estranged brother and otherwise no family members. Pending appointment of an emergent guardian. We'll defer the rest of the medical management to the primary team DVT prophylaxis: use SCD. Overall prognosis appears poor due to significant multiple medical/surgical conditions as above including CVA Discussed with patient's nurse in detail.
[2023-04-30 14:32] LABS: APTT 45 Sec(s) (<43); APTT 1:1 Mix 45 Sec(s) (<43); DRVVT 1:1 Mix 43 Sec(s) (<44); Dilute Russell Viper Venom 46 Sec(s) (<44); Hexagonal Phase Neutralization Positive (Negative)
--- NOTE | 2023-04-30 14:32 | P.PN ---
Subjective Progress Note Date: 04/30/23 Principal diagnosis: Acute hypoxic respiratory failure, left hilar mass, acute multiple limbs ischemia I am seeing this patient in consultation today 04/27/2023 in the intensive care unit after he was brought in by EMS yesterday evening. He was reportedly covered in soot, and found minimally responsive next to the oven. Patient is a 58-year-old white male with limited known past medical history. He did reportedly just have a vascular procedure done at [facility] for right upper limb ischemia recently. The nurses are working on getting this documentation. He also may have recently been diagnosed with lung cancer and is a chronic ongoing smoker. He has no family other than an estranged brother. Patient was last seen well by his neighbor on Sunday. The neighbors did not hear from him for a couple of days and decided to call the police to do a wellness check. He was found on the floor next to the stove, the gas was on. He was covered in soot, He may have been burning something on the stove. He was altered and minimally responsive. Questionable, whether he may have tried to commit suicide, and is petitioned by the police. His carboxyhemoglobin level was greater than 20%. The ER physician did try to reach out to tertiary care centers for possible hy perbaric oxygen therapy, however, no accepting facilities were found. Patient was ultimately intubated for airway protection. Current ventilator settings are assist control, respiratory rate 20, tidal volume 400, FiO2 100%, PEEP of 10. Most recent ABGs show a pO2 of 68, pCO2 of 24, pH of 7.17. Patient has been given 2 A of sodium bicarb and is on a bicarb drip at 100 ML's per hour. Post intubation chest x-ray shows endotracheal tube approximately 1 cm above the chasidy, this will be withdrawn 1-2 cm. There is an orogastric tube coursing into the stomach. There is a left subclavian triple-lumen catheter tip near the cavoatrial junction. There is bilateral multifocal infiltrates consistent with pneumonia, likely aspiration pneumonia. He is covered on Zosyn. BP is stable at this time. He did receive 4 normal saline boluses in the ER. Not requiring any vasopressors at the moment. Patient is currently sedated on propofol which is infusing at 50 mcg/kg/m. He is fairly synchronous with the mechanical ventilator. His right arm appears postsurgical, with two healing and approximated incisions. The extremity is pulseless and cold. Previously on examination, the patient was noted to have a left gaze deviation, a brain and C- spine CT demonstrated a subacute 8 by 4 x 4 centimeters left MCA territory nonhemorrhagic infarct or midline shift. No cervical spine fracture. No seizure like activity noted by nursing staff. Neuro examination is limited by sedation. Urine drug screen negative. CBC on arrival shows a WBC count of 28.5, hemoglobin 20.7, hematocrit 65.1, platelets 115. BMP shows sodium 147, potassium 5, chloride 108, serum bicarbonate 9, BUN 56, creatinine 2.19, glucose 147. Lactic acid level was 12 and is down to 2.4. LFTs mildly elevated. Creatinine kinase is elevated at 10,400 and is consistent with rhabdomyolysis. He was found on the ground. He does bruising on his legs. Troponin elevated, consistent with non-ST elevation IL, likely related to tissue hypoxemia and carbon monoxide poisoning. Chest x-ray did show sinus tachycardia with T-wave inversion in anterior lateral leads. No other ST or T wave abnormalities noted. Patient's condition is obviously critical, and he is being monitored in the intensive care unit. On 04/28/2023, seeing the patient for a follow-up. This morning, the patient is on propofol running at 30 mcg/kg/m. He is arousable. He withdraws to painful stimulation. He is not following commands at this point in time. He is on assist-control mode of mechanical ventilation at the rate of 20, tidal volume of 400, FiO2 is currently at 40% with a PEEP of 10. The blood gas showed a pH of 7.42 with a pCO2 of 40 and pO2 of 252. His, monocyte level is normalized. His chest x-ray from today showing no significant acute abnormalities. There may be a opacity in the left hilar area consistent with his previous history of lung cancer. He has a triple-lumen catheter in his left subclavian vein. The tube is in a good location. No airspace disease or consolidations this point in time. A repeat CAT scan of the brain was done this morning and it showed left TRAIN DIRECTOR territory subacute infarct and possibility of some edema minimal petechial hemorrhage cannot be completely excluded in the anterior margin of the infarct. The patient was started on IV heparin by vascular surgery. I stopped the heparin yesterday based on the fact that the patient's platelet count has dropped onto 57 and at the same time there is a concern of hemorrhagic transformation of his stroke. The same time, the patient is hemodynamically sta ble. Troponins peaked at 16 and then down trended. His echocardiogram showed impaired LV function and his ejection fraction is in order of 20-25%. The patient also has rhabdomyolysis. CPK peaked at 18,000 and currently it is down trending. He continues to have obvious vascular issues. The patient was seen by vascular surgery. We came to find other the patient has undergone a right brachial, radial and ulnar thrombectomy reportedly twice during an earlier hospitalization. His right upper extremity is contracted and dusky and cold with absent pulses and remains ischemic. In same time, the patient has ischemic feet bilaterally with absent pulses in the feet are cold and clammy without any dorsalis pedis or posterior tibialis and a demarcation is being developed at this point in time. Terms of his blood work, sodium levels of 151, potassium is at 4.2, currently 122, BUN is 28 with a creatinine of 0.9 and the patient has recovered from his acute kidney injury. The white cell count dropped at 15.3 with a hemoglobin of 14.7. The patient patient also had a drop in the platelet count down to 57. He was started on IV heparin. I stopped IV heparin. Heparin-induced thrombocytopenia antibodies were sent and the patient is being started on agratoban been based on recommendations done by the vascular team and the medical team. On 04/29/2023, the patient is following some simple commands while being off sedation. Repeat CAT scan of the brain was done today and that is also still pending. The patient has a large ischemic stroke involving the left TRAIN DIRECTOR distribution. Concern is for any evolving bleed especially the patient is currently on agratoban . Otherwise, the patient remains intubated on a mechanical ventilator. He is on assist control mode with a rate of 20, tidal volume of 400, FiO2 of 40% with a PEEP of 5. No blood gas from today. The chest x-ray from today showing no acute abnormalities. The patient has a left hilar mass. EKG was in a good location. I did obtain a CAT scan of his chest yesterday and the patient has a confirmed mass in the left hilum which I believe it was biopsied earlier and the outside hospital. This was a 3.1 cm mass in the left hilar area. The same time, the patient has a thrombus causing the descending resting aorta. There is significant narrowing of the lumen of the ascending aorta and this was discussed with vascular surgery team. Overall vascular condition is extremely poor. The patient has no pulses in his feet bilaterally. His legs are cold and clammy with absent capillary refills. He is developing demarcation lines in his feet. The same for the right upper extremity. He does have a pulse in his left upper extremity. Vascular surgery are following the patient. No intervention is recommended because of his poor prognosis and his underlying comorbidities. Vascular surgery plans to do amputations once patient is more stable. Meanwhile, the patient remains on Agratoban, hit antibodies are still pending, hypercoagulable workup was also done and the blood work was sent to rule out the possibility of any antiphospholipid syndrome in this patient. His platelet count currently is at 49. Hemoglobin is stable at 13.1. The white cycles of 15.7. Rest of the blood work and electrolytes are all within normal limits. Sodium level is improved compared to yesterday's currently down to 146. IV fluids are in the form of D5 water at the rate of 75 mL an hour. He is receiving enteral feeding for nutritional support. He is currently on vital high-protein at the rate of 50 mL an hour. Patient is being seen by different consultants including cardiology, neurology, vascular surgery, hematology oncology. His adequately sedated with a combination of propofol and fentanyl. He remains on broad-spectrum antibiotic coverage with IV Zosyn. No family identified. There is a brother with does not want to be contacted. There is also a neighbor. Legal guardianship is being acquired Patient was [id number]/11/2023, patient remains in the ICU, intubated and mechanically ventilated. Patient is on assist control rate of 20, volume 400 FiO2 40% and PEEP of 5 ABG showed a pO2 of 132 pCO2 40 pH of 7.45. Patient is on propofol at 60 mcg/kg/m is also on fentanyl 2 mcg/kg/h and D5W at 75 mL per hour. Patient is also empirically on Zosyn. And he is receiving iron. Recent CT of the chest showed possible malignancy and thromboses within the aorta at the thoracic level. Patient continues to have significant ischemic and almost gangrenous changes involving his bilateral lower extremities and his right upper extremity. CT of the brain showed petechial hemorrhages with an ischemic stroke area involving the left hemisphere. There is urologist felt the patient had a maturing left parietal occipital infarct and petechial hemorrhages are stable compared to previous CT of the brain. Chest x-ray continues to show diffuse interstitial opacities, either pulmonary vascular congestion or atypical pneumonia. There is also 3.4 cm left hilar mass present. Labs were reviewed, platelets remained low at 64,000 WBC count is 12.2 hemoglobin is 12.2 PTT is 41.6, heparin presently is on hold. Basic metabolic profile is normal, renal profile is normal, blood cultures and sputum cultures have been negative. Urine culture is also negative Objective - Vital Signs Vital signs: Vital Signs Temp 99.9 F H 04/30/23 08:00 Pulse 89 04/30/23 13:00 Resp 20 04/30/23 13:00 BP 118/66 04/30/23 08:00 Pulse Ox 100 04/30/23 13:00 FiO2 40 04/30/23 11:22 Intake & Output 04/29/23 04/30/23 04/30/23 18:59 06:59 18:59 Intake Total 2591.580 2093.0 788.025 Output Total 600 861 415 Balance 7553.721 3437.0 373.025 Weight 77.5 kg 77.5 kg Intake: IV 1184 1176 305 0.9 NS @ KVO 120 110 50 CVP + A-line 39 66 30 Dextrose 5% in Water 1, 825 675 000 ml @ 75 mls/hr IV . [id number] [facility] Rx#:[id number] Dextrose 5% in Water 1, 225 225 000 ml @ 75 mls/hr IV . [id number] [facility] Rx#:[id number] Piperacillin-Tazobactam 3 100 100 .375 gm In Sodium Chloride 0.9% 100 ml @ 25 mls/hr IVPB Q8HR [facility] Rx# :[id number] Potassium Chloride 10 meq 100 In Water For Injection 1 100ml.bag @ 100 mls/hr IVPB Q1H [facility] Rx#: [id number] Intake, IV Titration 319.580 200.0 168.025 Amount Argatroban 50 mg In 19.58 0 Sodium Chloride 0.9% 50 ml @ 0.5 MCG/KG/MIN 2.136 mls/hr IV .[id number] [facility] Rx#:[id number] Dextrose 5%-0.45% NaCl 1, 150 000 ml @ 75 mls/hr IV . [id number] [facility] Rx#:[id number] Sodium Ferric Gluconat- 100 Sucrose 125 mg In Sodium Chloride 0.9% 100 ml @ 100 mls/hr IVPB DAILY [facility] Rx#:[id number] fentaNYL (PF). 1,000 mcg 100.000 100.0 18.025 In Sodium Chloride 0.9% 80 ml @ 0.5 MCG/KG/HR 3.5 mls/hr IV .Q24H [facility] Rx#: [id number] propofoL 1,000 mg In 100 100 Empty Bag 1 bag @ 15 MCG/ KG/MIN 4.905 mls/hr IV . [id number] [facility] Rx#:[id number] Tube Feeding 699 627 285 Blood Product 329 Platelet Pheresis Pas 329 Psoralen Unit [id number] Other 60 90 30 Output: Urine 600 860 415 Stool 1 Other: Voiding Method Indwelling Catheter Indwelling Catheter ABP, PAP, CO, CI - Last Documented Arterial Blood Pressure 147/59 - Exam GENERAL EXAM: 58-year-old white male, intubated, mechanically ventilated, sedated, opens eyes but does not follow any instructions HEAD: Normocephalic and atraumatic EENT: PERRLA, EOMI, anicteric, no neck masses, no JVD. CHEST: No chest wall deformity. LUNGS: Good breath sound bilaterally no crackles or rhonchi or wheezes. CVS: Normal S1 and S2, no S3 gallop no murmur ABDOMEN: Soft nontender no megaly no rebound no guarding SKIN: Bilateral lower extremity bruising and mottling. 2 right upper extremity incision sites clean and approximated. CENTRAL NERVOUS SYSTEM: Opens eyes but does not follow any instructions EXTREMITIES: There is bilateral lower extremity bruising and mottling. Right upper extremity is pulseless and cold. No capillary refill. Remaining extremities also have diminished pulses, but are found with Doppler. There is no peripheral edema, clubbing. Feet are also cold and clammy and mottled with absent capillary refills. There is also a line of demarcation developing in the lower extremities - Labs CBC & Chem 7: 04/30/23 04:28 04/30/23 04:28 Labs: Abnormal Lab Results - Last 24 Hours (Table) 04/27/23 04/28/23 04/30/23 Range/Units 04:00 11:09 00:10 WBC (3.8-10.6) k/uL RBC (4.30-5.90) m/uL Hgb (13.0-17.5) gm/dL Plt Count (150-450) k/uL Neutrophils # (1.3-7.7) k/uL Lymphocytes # (1.0-4.8) k/uL APTT (22.0-30.0) sec Protein C Activity 46 L (71-138) % Antithrombin III Activ 73 L (79-109) % ABG pO2 (83-108) mmHg ABG HCO3 (21-25) mmol/L ABG Total CO2 (19-24) mmol/L ABG O2 Saturation (94-97) % Chloride (98-107) mmol/L Creatinine (0.66-1.25) mg/dL Glucose (74-99) mg/dL POC Glucose (mg/dL) 115 H (70-110) mg/dL Calcium (8.4-10.2) mg/dL Heparin-Ind Plt Ab Scrn 0.419 H (<0.4) OD 04/30/23 04/30/23 04/30/23 Range/Units 04:28 04:28 04:54 WBC 12.2 H (3.8-10.6) k/uL RBC 4.09 L (4.30-5.90) m/uL Hgb 12.2 L (13.0-17.5) gm/dL Plt Count 64 L (150-450) k/uL Neutrophils # 10.3 H (1.3-7.7) k/uL Lymphocytes # 0.9 L (1.0-4.8) k/uL APTT (22.0-30.0) sec Protein C Activity (71-138) % Antithrombin III Activ (79-109) % ABG pO2 132 H (83-108) mmHg ABG HCO3 28 H (21-25) mmol/L ABG Total CO2 29 H (19-24) mmol/L ABG O2 Saturation 99.4 H (94-97) % Chloride 110 H (98-107) mmol/L Creatinine 0.55 L (0.66-1.25) mg/dL Glucose 115 H (74-99) mg/dL POC Glucose (mg/dL) (70-110) mg/dL Calcium 7.9 L (8.4-10.2) mg/dL Heparin-Ind Plt Ab Scrn (<0.4) OD 04/30/23 04/30/23 04/30/23 Range/Units 06:41 12:14 12:14 WBC (3.8-10.6) k/uL RBC (4.30-5.90) m/uL Hgb (13.0-17.5) gm/dL Plt Count (150-450) k/uL Neutrophils # (1.3-7.7) k/uL Lymphocytes # (1.0-4.8) k/uL APTT 41.6 H (22.0-30.0) sec Protein C Activity (71-138) % Antithrombin III Activ (79-109) % ABG pO2 (83-108) mmHg ABG HCO3 (21-25) mmol/L ABG Total CO2 (19-24) mmol/L ABG O2 Saturation (94-97) % Chloride (98-107) mmol/L Creatinine (0.66-1.25) mg/dL Glucose (74-99) mg/dL POC Glucose (mg/dL) 128 H 119 H (70-110) mg/dL Calcium (8.4-10.2) mg/dL Heparin-Ind Plt Ab Scrn (<0.4) OD Microbiology - Last 24 Hours (Table) 04/26/23 19:00 Blood Culture - Preliminary Blood 04/26/23 18:45 Blood Culture - Preliminary Blood 04/26/23 20:38 Gram Stain - Final Sputum Sputum Culture - Final Assessment and Plan Assessment: Impression: Acute hypoxic respiratory failure requiring intubation and mechanical ventilation, multifactorial Left hilar mass, highly suspicious for bronchogenic carcinoma Acute systolic congestive heart failure, ejection fraction of 20-25% Subacute CVA Acute non-ST elevation myocardial infarction Acute multiple limbs ischemia, involving right upper extremity and bilateral lower extremities Aortic thrombosis as noted on CT of the chest and thoracic level. This ascending thoracic aneurysm/clot causing significant narrowing of the lumen of the aorta Elevated carboxyhemoglobin level on admission, suspect acute carbon monoxide poisoning possibly intentional Acute toxic metabolic encephalopathy Severe anion gap metabolic acidosis on presentation, improving Acute kidney injury related to her acute rhabdomyolysis Mild transaminitis Hyperchloremic hypernatremia improving with D5 W Acute thrombocytopenia could be heparin-induced, rule out antiphospholipid syndrome, hematology has been consulted, strongly suspect hypercoagulable state, driven by underlying malignancy and possibly underlying antiphospholipid syndrome. Recommendation: Continue ventilatory support Continue patient sedated on propofol and fentanyl Continue nutritional support/enteral feeding Must get some legal guardianship on this patient Prognosis is extremely poor, Hematology to decide onargatroban/anticoagulation therapy and if started needs to BE cleared by neurology on the case Hypercoagulable profile workup is in progress No major changes done in the vent settings today. Continue to monitor electrolytes, CPK, and renal profile Again overall prognosis is very poor, as a matter fact likely futile, Once we establish a legal guardianship on this patient, may have to discuss comfort care measures Critical care time is over 30 Time with Patient: Greater than 30
--- NOTE | 2023-04-30 14:33 | P.PN ---
Subjective Progress Note Date: 04/30/23 Principal diagnosis: Patient seen and examined today in the intensive care unit. He remains intubated. Sedation has been decreased and patient is a little more awake. Neurology and pulmonology had initially discontinued his argatroban due to concerns for thrombocytopenia and hemorrhage. No acute changes reported through the night. Objective - Vital Signs Vital signs: Vital Signs Temp 99.9 F H 04/30/23 08:00 Pulse 89 04/30/23 13:00 Resp 20 04/30/23 13:00 BP 118/66 04/30/23 08:00 Pulse Ox 100 04/30/23 13:00 FiO2 40 04/30/23 11:22 Intake & Output 04/29/23 04/30/23 04/30/23 18:59 06:59 18:59 Intake Total 2591.580 2093.0 788.025 Output Total 600 861 415 Balance 5568.838 6814.0 373.025 Weight 77.5 kg 77.5 kg Intake: IV 1184 1176 305 0.9 NS @ KVO 120 110 50 CVP + A-line 39 66 30 Dextrose 5% in Water 1, 825 675 000 ml @ 75 mls/hr IV . [id number] [facility] Rx#:[id number] Dextrose 5% in Water 1, 225 225 000 ml @ 75 mls/hr IV . [id number] [facility] Rx#:[id number] Piperacillin-Tazobactam 3 100 100 .375 gm In Sodium Chloride 0.9% 100 ml @ 25 mls/hr IVPB Q8HR [facility] Rx# :[id number] Potassium Chloride 10 meq 100 In Water For Injection 1 100ml.bag @ 100 mls/hr IVPB Q1H [facility] Rx#: [id number] Intake, IV Titration 319.580 200.0 168.025 Amount Argatroban 50 mg In 19.58 0 Sodium Chloride 0.9% 50 ml @ 0.5 MCG/KG/MIN 2.136 mls/hr IV .[id number] [facility] Rx#:[id number] Dextrose 5%-0.45% NaCl 1, 150 000 ml @ 75 mls/hr IV . [id number] [facility] Rx#:[id number] Sodium Ferric Gluconat- 100 Sucrose 125 mg In Sodium Chloride 0.9% 100 ml @ 100 mls/hr IVPB DAILY [facility] Rx#:[id number] fentaNYL (PF). 1,000 mcg 100.000 100.0 18.025 In Sodium Chloride 0.9% 80 ml @ 0.5 MCG/KG/HR 3.5 mls/hr IV .Q24H [facility] Rx#: [id number] propofoL 1,000 mg In 100 100 Empty Bag 1 bag @ 15 MCG/ KG/MIN 4.905 mls/hr IV . [id number] [facility] Rx#:[id number] Tube Feeding 699 627 285 Blood Product 329 Platelet Pheresis Pas 329 Psoralen Unit [id number] Other 60 90 30 Output: Urine 600 860 415 Stool 1 Other: Voiding Method Indwelling Catheter Indwelling Catheter ABP, PAP, CO, CI - Last Documented Arterial Blood Pressure 147/59 - Exam General appearance: The patient is intubated, awakes spontaneously with stimuli. HET: Head is normocephalic and atraumatic. Neck: Supple. Heart: Regular. Lungs: Equal expansion, on mechanical ventilation. Abdomen: Soft, nondistended. Extremities: Right hand is ischemic and contracted. Bilateral feet ischemic, with some ischemia of the left lower extremity. Feet cold to touch. Neurological: Patient is intubated, he does open his eyes and respond to stimuli. - Labs CBC & Chem 7: 04/30/23 04:28 04/30/23 04:28 Labs: Abnormal Lab Results - Last 24 Hours (Table) 04/27/23 04/28/23 04/30/23 Range/Units 04:00 11:09 00:10 WBC (3.8-10.6) k/uL RBC (4.30-5.90) m/uL Hgb (13.0-17.5) gm/dL Plt Count (150-450) k/uL Neutrophils # (1.3-7.7) k/uL Lymphocytes # (1.0-4.8) k/uL APTT (22.0-30.0) sec Protein C Activity 46 L (71-138) % Antithrombin III Activ 73 L (79-109) % ABG pO2 (83-108) mmHg ABG HCO3 (21-25) mmol/L ABG Total CO2 (19-24) mmol/L ABG O2 Saturation (94-97) % Chloride (98-107) mmol/L Creatinine (0.66-1.25) mg/dL Glucose (74-99) mg/dL POC Glucose (mg/dL) 115 H (70-110) mg/dL Calcium (8.4-10.2) mg/dL Heparin-Ind Plt Ab Scrn 0.419 H (<0.4) OD 04/30/23 04/30/23 04/30/23 Range/Units 04:28 04:28 04:54 WBC 12.2 H (3.8-10.6) k/uL RBC 4.09 L (4.30-5.90) m/uL Hgb 12.2 L (13.0-17.5) gm/dL Plt Count 64 L (150-450) k/uL Neutrophils # 10.3 H (1.3-7.7) k/uL Lymphocytes # 0.9 L (1.0-4.8) k/uL APTT (22.0-30.0) sec Protein C Activity (71-138) % Antithrombin III Activ (79-109) % ABG pO2 132 H (83-108) mmHg ABG HCO3 28 H (21-25) mmol/L ABG Total CO2 29 H (19-24) mmol/L ABG O2 Saturation 99.4 H (94-97) % Chloride 110 H (98-107) mmol/L Creatinine 0.55 L (0.66-1.25) mg/dL Glucose 115 H (74-99) mg/dL POC Glucose (mg/dL) (70-110) mg/dL Calcium 7.9 L (8.4-10.2) mg/dL Heparin-Ind Plt Ab Scrn (<0.4) OD 04/30/23 04/30/23 04/30/23 Range/Units 06:41 12:14 12:14 WBC (3.8-10.6) k/uL RBC (4.30-5.90) m/uL Hgb (13.0-17.5) gm/dL Plt Count (150-450) k/uL Neutrophils # (1.3-7.7) k/uL Lymphocytes # (1.0-4.8) k/uL APTT 41.6 H (22.0-30.0) sec Protein C Activity (71-138) % Antithrombin III Activ (79-109) % ABG pO2 (83-108) mmHg ABG HCO3 (21-25) mmol/L ABG Total CO2 (19-24) mmol/L ABG O2 Saturation (94-97) % Chloride (98-107) mmol/L Creatinine (0.66-1.25) mg/dL Glucose (74-99) mg/dL POC Glucose (mg/dL) 128 H 119 H (70-110) mg/dL Calcium (8.4-10.2) mg/dL Heparin-Ind Plt Ab Scrn (<0.4) OD Microbiology - Last 24 Hours (Table) 04/26/23 19:00 Blood Culture - Preliminary Blood 04/26/23 18:45 Blood Culture - Preliminary Blood 04/26/23 20:38 Gram Stain - Final Sputum Sputum Culture - Final Assessment and Plan Assessment: 1. Systemic arterial thrombosis, suspect hypercoagulable syndrome 2. Advanced ischemic changes of the feet and calf areas bilaterally as well as right hand and distal forearm 3. CT brain with Maturing left parietal occipital infarct. Couple of punctuate hyperdensities are present could be petechial hemorrhages present previously and stable 4. Nearly occluding thrombus in the distal descending thoracic aorta 5. CVA 6. Reported recent diagnosis of lung cancer Plan: Hematology on consult and recommended resuming argatroban. Patient's overall prognosis is quite poor, if patient survives he will need bilateral lower extremity amputations as well as amputation of the right hand. No plans for surgical intervention at this time. Continue medical/ICU management. The impression and plan of care has been dictated as directed. I performed a history and examination of this patient, discussed the same with the dictator. I agree with the dictator's note ,documented as a scribe. Any additional findings or plans will be noted.
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
[2023-04-30 17:41] LABS: Glucose,Whole Blood 173 mg/dL (70-110)
[2023-04-30] MEDS ORDERED: DEXTROSE 50% SYRINGE 50 ML IVP PRN ×2 (17:52)
[2023-04-30] MEDS: INSULIN ASPART (NovoLOG) 100 UNIT/ML VIAL SQ SCH (18:17)
--- NOTE | 2023-04-30 18:27 | P.PN ---
Subjective PROGRESS NOTE The patient is a 58-year-old male who was admitted after being found unresponsive with an elevated carboxy hemoglobin level above 20% with unclear reason. Was attempting suicide. Patient has a known history of lung cancer and chronic tobacco use and has underwent recent surgical intervention with revascularization and thrombectomy of the right upper extremity. He was in sinus tachycardia on presentation. There is no history available. Patient is not on vasopressor. He has mottling in his lower extremities. He is intubated and unresponsive. His lab data remarkable for elevation of his CK enzymes at 10,400 with a BUN of 56 and a creatinine 2.19. His troponin is elevated. Other history is not available at this time. The patient has no prior admission to this hospital. April 28: The patient remains intubated, unresponsive, poor urine output and severe mottling of the lower extremities. His echocardiogram showed severe impairment of the left ventricle systolic function with segmental wall motion abnormality. 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 His chest x-ray showed left infrahilar mass. Carotid duplex scan showed no evidence of high-grade stenosis. He has evidence of thrombocytopenia that has worsened since his admission[place] [address]. April 29: The patient remains intubated. His blood pressure and heart rate are stable. He has significant discoloration in his right hand and both feet, cold with absence of pulse. His computed tomography scan showed a thrombus in the aorta. There is no evidence of malignant arrhythmia. According to the nursing staff he shook his head today. He has evidence of left hilar mass. He continues to be on Argatoban. He is receiving feeding tube. 04/30 Patient seen and examined. Patient currently sedated on ventilator with FiO2 40% and PEEP of 5. IV fluids at 75 mL per hour. Remains in sinus rhythm. PHYSICAL EXAMINATION: Intubated not responsive Vitals reviewed LUNGS: Clear to auscultation anteriorly HEART: Regular rate and rhythm, S1, S2. No S3. No systolic murmur ABDOMEN: Soft, no organomegaly EXTREMETIES: Severe mottling of the lower extremities him a cold with dis coloration of the right upper extremity, status post thrombectomy, demarcation noted on both feet and right hand IMPRESSION: 1. Respiratory failure was elevated carboxy hemoglobin level and severe h ypoxemia 2. Non-STEMI with severely impaired left ventricle systolic function of unknown duration or etiology 3. Status post thrombectomy of the right upper extremity with discoloration and mottling of the lower extremities 4. History of smoking 5. History of lung cancer 6. Thrombocytopenia could be related to heparin or DIC 7. Evidence of CVA her computed tomography scan PLAN: 1. Continue supportive care 2. Prognosis is very poor 3. Continue beta patt 4. Depending on his progress further recommendations will be made Objective - Vital Signs Vital signs: Vital Signs Temp 99.5 F 04/30/23 16:00 Pulse 91 04/30/23 16:00 Resp 26 H 04/30/23 16:00 BP 129/69 04/30/23 16:00 Pulse Ox 99 04/30/23 16:00 FiO2 40 04/30/23 16:00 Intake & Output 04/29/23 04/30/23 04/30/23 18:59 06:59 18:59 Intake Total 2591.580 2093.0 1907.360 Output Total 600 861 945 Balance 2138.448 9285.0 962.360 Weight 77.5 kg 77.5 kg Intake: IV 1184 1176 417 0.9 NS @ KVO 120 110 120 CVP + A-line 39 66 72 Dextrose 5% in Water 1, 825 675 000 ml @ 75 mls/hr IV . [id number] [facility] Rx#:[id number] Dextrose 5% in Water 1, 225 225 000 ml @ 75 mls/hr IV . [id number] [facility] Rx#:[id number] Piperacillin-Tazobactam 3 100 100 .375 gm In Sodium Chloride 0.9% 100 ml @ 25 mls/hr IVPB Q8HR [facility] Rx# :[id number] Potassium Chloride 10 meq 100 In Water For Injection 1 100ml.bag @ 100 mls/hr IVPB Q1H [facility] Rx#: [id number] Intake, IV Titration 319.580 200.0 746.360 Amount Argatroban 50 mg In 19.58 21.36 Sodium Chloride 0.9% 50 ml @ 0.5 MCG/KG/MIN 2.136 mls/hr IV .[id number] [facility] Rx#:[id number] Dextrose 5%-0.45% NaCl 1, 525 000 ml @ 75 mls/hr IV . [id number] [facility] Rx#:[id number] Sodium Ferric Gluconat- 100 Sucrose 125 mg In Sodium Chloride 0.9% 100 ml @ 100 mls/hr IVPB DAILY [facility] Rx#:[id number] fentaNYL (PF). 1,000 mcg 100.000 100.0 100.000 In Sodium Chloride 0.9% 80 ml @ 0.5 MCG/KG/HR 3.5 mls/hr IV .Q24H [facility] Rx#: [id number] propofoL 1,000 mg In 100 100 100 Empty Bag 1 bag @ 15 MCG/ KG/MIN 4.905 mls/hr IV . [id number] [facility] Rx#:[id number] Tube Feeding 659 802 284 Blood Product 329 Platelet Pheresis Pas 329 Psoralen Unit [id number] Other 60 90 60 Output: Urine 600 860 945 Stool 1 Other: Voiding Method Indwelling Catheter Indwelling Catheter ABP, PAP, CO, CI - Last Documented Arterial Blood Pressure 134/57 - Labs CBC & Chem 7: 04/30/23 04:28 04/30/23 04:28 Labs: Abnormal Lab Results - Last 24 Hours (Table) 04/27/23 04/28/23 04/28/23 Range/Units 04:00 11:09 11:09 WBC (3.8-10.6) k/uL RBC (4.30-5.90) m/uL Hgb (13.0-17.5) gm/dL Plt Count (150-450) k/uL Neutrophils # (1.3-7.7) k/uL Lymphocytes # (1.0-4.8) k/uL APTT (22.0-30.0) sec Lupus Anticoag aPTT 45 H (<43) Sec(s) Lupus Anticoag PTT Mix 45 H (<43) Sec(s) Dil Keon Viper Venom 46 H (<44) Sec(s) Lupus Hexagonal Phase Positive A (Negative) Protein C Activity 46 L (71-138) % Antithrombin III Activ 73 L (79-109) % ABG pO2 (83-108) mmHg ABG HCO3 (21-25) mmol/L ABG Total CO2 (19-24) mmol/L ABG O2 Saturation (94-97) % Chloride (98-107) mmol/L Creatinine (0.66-1.25) mg/dL Glucose (74-99) mg/dL POC Glucose (mg/dL) (70-110) mg/dL Calcium (8.4-10.2) mg/dL Heparin-Ind Plt Ab Scrn 0.419 H (<0.4) OD 04/30/23 04/30/23 04/30/23 Range/Units 00:10 04:28 04:28 WBC 12.2 H (3.8-10.6) k/uL RBC 4.09 L (4.30-5.90) m/uL Hgb 12.2 L (13.0-17.5) gm/dL Plt Count 64 L (150-450) k/uL Neutrophils # 10.3 H (1.3-7.7) k/uL Lymphocytes # 0.9 L (1.0-4.8) k/uL APTT (22.0-30.0) sec Lupus Anticoag aPTT (<43) Sec(s) Lupus Anticoag PTT Mix (<43) Sec(s) Dil Keon Viper Venom (<44) Sec(s) Lupus Hexagonal Phase (Negative) Protein C Activity (71-138) % Antithrombin III Activ (79-109) % ABG pO2 (83-108) mmHg ABG HCO3 (21-25) mmol/L ABG Total CO2 (19-24) mmol/L ABG O2 Saturation (94-97) % Chloride 110 H (98-107) mmol/L Creatinine 0.55 L (0.66-1.25) mg/dL Glucose 115 H (74-99) mg/dL POC Glucose (mg/dL) 115 H (70-110) mg/dL Calcium 7.9 L (8.4-10.2) mg/dL Heparin-Ind Plt Ab Scrn (<0.4) OD 04/30/23 04/30/23 04/30/23 Range/Units 04:54 06:41 12:14 WBC (3.8-10.6) k/uL RBC (4.30-5.90) m/uL Hgb (13.0-17.5) gm/dL Plt Count (150-450) k/uL Neutrophils # (1.3-7.7) k/uL Lymphocytes # (1.0-4.8) k/uL APTT 41.6 H (22.0-30.0) sec Lupus Anticoag aPTT (<43) Sec(s) Lupus Anticoag PTT Mix (<43) Sec(s) Dil Keon Viper Venom (<44) Sec(s) Lupus Hexagonal Phase (Negative) Protein C Activity (71-138) % Antithrombin III Activ (79-109) % ABG pO2 132 H (83-108) mmHg ABG HCO3 28 H (21-25) mmol/L ABG Total CO2 29 H (19-24) mmol/L ABG O2 Saturation 99.4 H (94-97) % Chloride (98-107) mmol/L Creatinine (0.66-1.25) mg/dL Glucose (74-99) mg/dL POC Glucose (mg/dL) 128 H (70-110) mg/dL Calcium (8.4-10.2) mg/dL Heparin-Ind Plt Ab Scrn (<0.4) OD 04/30/23 04/30/23 04/30/23 Range/Units 12:14 17:39 17:40 WBC (3.8-10.6) k/uL RBC (4.30-5.90) m/uL Hgb (13.0-17.5) gm/dL Plt Count (150-450) k/uL Neutrophils # (1.3-7.7) k/uL Lymphocytes # (1.0-4.8) k/uL APTT 41.5 H (22.0-30.0) sec Lupus Anticoag aPTT (<43) Sec(s) Lupus Anticoag PTT Mix (<43) Sec(s) Dil Keon Viper Venom (<44) Sec(s) Lupus Hexagonal Phase (Negative) Protein C Activity (71-138) % Antithrombin III Activ (79-109) % ABG pO2 (83-108) mmHg ABG HCO3 (21-25) mmol/L ABG Total CO2 (19-24) mmol/L ABG O2 Saturation (94-97) % Chloride (98-107) mmol/L Creatinine (0.66-1.25) mg/dL Glucose (74-99) mg/dL POC Glucose (mg/dL) 119 H 173 H (70-110) mg/dL Calcium (8.4-10.2) mg/dL Heparin-Ind Plt Ab Scrn (<0.4) OD Microbiology - Last 24 Hours (Table) 04/26/23 19:00 Blood Culture - Preliminary Blood 04/26/23 18:45 Blood Culture - Preliminary Blood
--- NOTE | 2023-04-30 20:49 | P.PN ---
Subjective Progress Note Date: 04/30/23 Principal diagnosis: Arterial thromboses Pt remains ventilated, he opens eyes to voice and touch, Nursing reports that pt followed commands, he did not for exam today. Objective - Vital Signs Vital signs: Vital Signs Temp 99.9 F H 04/30/23 08:00 Pulse 88 04/30/23 11:34 Resp 20 04/30/23 11:00 BP 118/66 04/30/23 08:00 Pulse Ox 100 04/30/23 11:00 FiO2 40 04/30/23 11:22 Intake & Output 04/29/23 04/30/23 04/30/23 18:59 06:59 18:59 Intake Total 2591.580 2093.0 788.025 Output Total 600 861 415 Balance 8840.837 2004.0 373.025 Weight 77.5 kg 77.5 kg Intake: IV 1184 1176 305 0.9 NS @ KVO 120 110 50 CVP + A-line 39 66 30 Dextrose 5% in Water 1, 825 675 000 ml @ 75 mls/hr IV . [id number] [facility] Rx#:[id number] Dextrose 5% in Water 1, 225 225 000 ml @ 75 mls/hr IV . [id number] [facility] Rx#:[id number] Piperacillin-Tazobactam 3 100 100 .375 gm In Sodium Chloride 0.9% 100 ml @ 25 mls/hr IVPB Q8HR [facility] Rx# :[id number] Potassium Chloride 10 meq 100 In Water For Injection 1 100ml.bag @ 100 mls/hr IVPB Q1H [facility] Rx#: [id number] Intake, IV Titration 319.580 200.0 168.025 Amount Argatroban 50 mg In 19.58 0 Sodium Chloride 0.9% 50 ml @ 0.5 MCG/KG/MIN 2.136 mls/hr IV .[id number] [facility] Rx#:[id number] Dextrose 5%-0.45% NaCl 1, 150 000 ml @ 75 mls/hr IV . [id number] [facility] Rx#:[id number] Sodium Ferric Gluconat- 100 Sucrose 125 mg In Sodium Chloride 0.9% 100 ml @ 100 mls/hr IVPB DAILY [facility] Rx#:[id number] fentaNYL (PF). 1,000 mcg 100.000 100.0 18.025 In Sodium Chloride 0.9% 80 ml @ 0.5 MCG/KG/HR 3.5 mls/hr IV .Q24H [facility] Rx#: [id number] propofoL 1,000 mg In 100 100 Empty Bag 1 bag @ 15 MCG/ KG/MIN 4.905 mls/hr IV . [id number] [facility] Rx#:[id number] Tube Feeding 699 627 285 Blood Product 329 Platelet Pheresis Pas 329 Psoralen Unit [id number] Other 60 90 30 Output: Urine 600 860 415 Stool 1 Other: Voiding Method Indwelling Catheter Indwelling Catheter ABP, PAP, CO, CI - Last Documented Arterial Blood Pressure 129/53 - Constitutional General appearance: Present: average body habitus, no acute distress - EENT Eyes: Present: anicteric sclerae ENT: Present: hearing grossly normal - Respiratory Respiratory: bilateral: CTA - Cardiovascular Details: BLE cool/cold to touch, toes are turning black. 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 Psychiatric: Absent: appropriate affect, intact judgment & insight - Labs CBC & Chem 7: 04/30/23 04:28 04/30/23 04:28 Labs: Abnormal Lab Results - Last 24 Hours (Table) 04/30/23 04/30/23 04/30/23 Range/Units 00:10 04:28 04:28 WBC 12.2 H (3.8-10.6) k/uL RBC 4.09 L (4.30-5.90) m/uL Hgb 12.2 L (13.0-17.5) gm/dL Plt Count 64 L (150-450) k/uL Neutrophils # 10.3 H (1.3-7.7) k/uL Lymphocytes # 0.9 L (1.0-4.8) k/uL ABG pO2 (83-108) mmHg ABG HCO3 (21-25) mmol/L ABG Total CO2 (19-24) mmol/L ABG O2 Saturation (94-97) % Chloride 110 H (98-107) mmol/L Creatinine 0.55 L (0.66-1.25) mg/dL Glucose 115 H (74-99) mg/dL POC Glucose (mg/dL) 115 H (70-110) mg/dL Calcium 7.9 L (8.4-10.2) mg/dL 04/30/23 04/30/23 04/30/23 Range/Units 04:54 06:41 12:14 WBC (3.8-10.6) k/uL RBC (4.30-5.90) m/uL Hgb (13.0-17.5) gm/dL Plt Count (150-450) k/uL Neutrophils # (1.3-7.7) k/uL Lymphocytes # (1.0-4.8) k/uL ABG pO2 132 H (83-108) mmHg ABG HCO3 28 H (21-25) mmol/L ABG Total CO2 29 H (19-24) mmol/L ABG O2 Saturation 99.4 H (94-97) % Chloride (98-107) mmol/L Creatinine (0.66-1.25) mg/dL Glucose (74-99) mg/dL POC Glucose (mg/dL) 128 H 119 H (70-110) mg/dL Calcium (8.4-10.2) mg/dL Microbiology - Last 24 Hours (Table) 04/26/23 19:00 Blood Culture - Preliminary Blood 04/26/23 18:45 Blood Culture - Preliminary Blood 04/26/23 20:38 Gram Stain - Final Sputum Sputum Culture - Final - Imaging and Cardiology CT scan - chest: report reviewed, image reviewed CT Scan - head: report reviewed Assessment and Plan (1) Arterial occlusion Current Visit: Yes Status: Acute Priority: High Code(s): I70.90 - UNSPECIFIED ATHEROSCLEROSIS SNOMED Code(s): 5181458 (2) Thrombocytopenia Current Visit: Yes Status: Acute Priority: High Code(s): D69.6 - THROMBOCYTOPENIA, UNSPECIFIED SNOMED Code(s): 813896771 Plan: Thrombocytopenia -Plt 64,000 today, stable -HIT ab was 0.419, then 0.311. Chance of HIT ab <3% -Heparin was changed to argatroban, pt cont on at this time -DIC work up neg -APLS labs and hypercoaguable labs are so far negative, many results still pending. Lupus anticoagulant positive. Lab drawn on the , heparin was being infused on the , then argatroban was started on the . Pending the rest of the work up, cont on anticoagulation, further recs to follow -Acute hepatitis panel, HIV work up negative -Anemia workup showing iron deficiency, parenteral iron ordered -Hemolysis workup neg -Herbologist and Attending discussed case at length, reviewed CT images. Unclear the underlying cause of pt arterial clotting-catastrophic antiphospholipid syndrome, in which case anticoagulants are given, which pt is on. Sequela of carbon monoxide poisoning. It is agreed that the pt is at greatest risk for thrombosis at this time so, cont argatroban. Arterial occlusions -Recent Dx of RUE arterial occlusion at [facility], s/p radial and ulnar thrombectomy, reportedly twice during the last month. He was placed on xarelto, this is currently held -RUE and BLE are found to be progressively necrotic -Vascular surgery following NSTEMI -Heparin discontinued. Argatroban started -Cardiology following CVA -Repeat CT head reports maturing left parietal-occipital infarct, some punctate hyperdensities could be petechial hemorrhages but reported as present previously and stable -Neuro following. Attests: I have seen and examined pt, performed H&P, developed impression and plan of care. Discussed with dictator. Agree with documentation, dictated as a scribe. Time with Patient: Greater than 30
[2023-04-30 23:25] LABS: Glucose,Whole Blood 176 mg/dL (70-110)
[2023-05-01] MEDS: INSULIN ASPART (NovoLOG) 100 UNIT/ML VIAL SQ SCH ×4 (00:02→18:30)
[2023-05-01] MEDS: PIPERACILLIN-TAZOBACTAM 3.375 GM in SODIUM CHLORIDE 0.9% 100 ML IVPB SCH ×3 (00:02→16:11)
[2023-05-01] MEDS: IPRATROPIUM-ALBUTEROL 3 ML NEB INHALATION SCH ×6 (04:51→23:20)
[2023-05-01 05:12] LABS: Glucose,Whole Blood 166 mg/dL (70-110)
[2023-05-01 05:45] LABS: Basophils % (A) 0 %; Eosinophils % (A) 0 %; HCT 40.1 % (39.0-53.0); HGB 12.5 gm/dL (13.0-17.5); Hypochromasia Moderate; INR 1.3 (<1.2); Lymphocytes # (A) 0.3 k/uL (1.0-4.8); Lymphocytes % (A) 2 %; MCH 29.2 pg (25.0-35.0); MCHC 31.2 g/dL (31.0-37.0); MCV 93.5 fL (80.0-100.0); Mean Platelet Volume 9.5; Monocytes # (A) 0.6 k/uL (0-1.0); Monocytes % (A) 4 %; Neutrophils # (A) 15.2 k/uL (1.3-7.7); Neutrophils % (A) 94 %; Partial Thromboplastin Time 40.7 sec (22.0-30.0); Prothrombin Time 13.4 sec (10.0-12.5); RBC 4.29 m/uL (4.30-5.90); RDW 15.2 % (11.5-15.5); WBC 16.2 k/uL (3.8-10.6)
[2023-05-01 05:55] LABS: ALT 137 U/L (4-49); AST 250 U/L (17-59); African American GFR (CKD) >90 (>60 ml/min/1.73 sqM); Albumin 2.4 g/dL (3.5-5.0); Alkaline Phosphatase 54 U/L (38-126); Anion Gap 6 mmol/L; Blood Urea Nitrogen 20 mg/dL (9-20); Calcium 8.1 mg/dL (8.4-10.2); Carbon Dioxide 26 mmol/L (22-30); Chloride 107 mmol/L (98-107); Glucose 159 mg/dL (74-99); Magnesium 2.1 mg/dL (1.6-2.3); Non-African American GFR(CKD) >90 (>60 ml/min/1.73 sqM); Phosphorus 3.3 mg/dL (2.5-4.5); Potassium 3.7 mmol/L (3.5-5.1); Sodium 139 mmol/L (137-145); Total Bilirubin 0.6 mg/dL (0.2-1.3); Total Protein 4.7 g/dL (6.3-8.2)
[2023-05-01 06:04] LABS: Platelet Count 114 k/uL (150-450)
[2023-05-01] MEDS: ARGATROBAN 50 MG in SODIUM CHLORIDE 0.9% 50 ML IV SCH ×3 (06:21→21:45)
[2023-05-01 06:24] LABS: Creatine Kinase 6279 U/L (55-170)
[2023-05-01 06:26] LABS: ABG Base Excess 3.3 mmol/L; ABG HCO3 27 mmol/L (21-25); ABG Oxygen Saturation 97.2 % (94-97); ABG PCO2 39 mmHg (35-45); ABG PH 7.45 (7.35-7.45); ABG PO2 82 mmHg (83-108); ABG TCO2 29 mmol/L (19-24)
[2023-05-01] MEDS ORDERED: POTASSIUM BICARBONATE/CIT AC 20 MEQ TABLET.EFF NG-TUBE SCH (07:00)
--- NOTE | 2023-05-01 07:03 | XR ---
EXAMINATION TYPE: XR chest 1V portable DATE OF EXAM: 05/01/2023 COMPARISON: 04/30/2023 INDICATION: Mechanical ventilation TECHNIQUE: Single frontal view of the chest is obtained. FINDINGS: The heart size is normal. The pulmonary vasculature is normal. Left hilar density is unchanged. Endotracheal tube tip remains above the chasidy. This is been pulled back somewhat and is currently 5. 5 cm from the chasidy. 2 catheters extend towards the abdomen. These appear old back somewhat from bob or examination with one just at the gastroesophageal junction the second left upper quadrant of the a bdomen. Left-sided catheter line is present with the tip in the distal superior vena cava region. IMPRESSION: 1. Lines and catheters discussed above. These are somewhat tracked up from the prior examination. 2. Left hilar appearance is stable. Underlying mass may be present.
--- NOTE | 2023-05-01 08:03 | P.PN ---
Subjective Progress Note Date: 05/01/23 Principal diagnosis: Critical Limb ischemia, mental status changes, acute stroke Patient seen and examined today as follow-up in the ICU. He remains intubated. He does open his eyes to stimuli. No acute changes through the night. He remains on argatroban. Platelet count improving, today 114,000. Objective - Vital Signs Vital signs: Vital Signs Temp 100.0 F H 05/01/23 04:00 Pulse 94 05/01/23 07:00 Resp 20 05/01/23 07:00 BP 128/68 05/01/23 01:00 Pulse Ox 98 05/01/23 07:00 FiO2 40 05/01/23 04:51 Intake & Output 04/30/23 05/01/23 05/01/23 18:59 06:59 18:59 Intake Total 2425.487 2276.210 Output Total 1070 1015 Balance 9397.129 0572.210 Weight 77.5 kg Intake: IV 508 1112 0.9 NS @ KVO 130 40 CVP + A-line 78 72 Dextrose 5% in Water 1, 225 75 000 ml @ 75 mls/hr IV . [id number] [facility] Rx#:[id number] Dextrose 5%-0.45% NaCl 1, 825 000 ml @ 75 mls/hr IV . [id number] [facility] Rx#:[id number] Piperacillin-Tazobactam 3 75 100 .375 gm In Sodium Chloride 0.9% 100 ml @ 25 mls/hr IVPB Q8HR [facility] Rx# :[id number] Intake, IV Titration 1116.487 360.210 Amount Argatroban 50 mg In 41.487 58.513 Sodium Chloride 0.9% 50 ml @ 0.5 MCG/KG/MIN 2.136 mls/hr IV .[id number] [facility] Rx#:[id number] Dextrose 5%-0.45% NaCl 1, 675 000 ml @ 75 mls/hr IV . [id number] [facility] Rx#:[id number] Sodium Ferric Gluconat- 100 Sucrose 125 mg In Sodium Chloride 0.9% 100 ml @ 100 mls/hr IVPB DAILY [facility] Rx#:[id number] fentaNYL (PF). 1,000 mcg 100.000 100 In Sodium Chloride 0.9% 80 ml @ 0.5 MCG/KG/HR 3.5 mls/hr IV .Q24H [facility] Rx#: [id number] methylPREDNISolone SOD 100 SUCCIN 500 mg In Sodium Chloride 0.9% 100 ml @ 100 mls/hr IVPB DAILY [facility] Rx#:[id number] propofoL 1,000 mg In 100 201.697 Empty Bag 1 bag @ 15 MCG/ KG/MIN 4.905 mls/hr IV . [id number] [facility] Rx#:[id number] Tube Feeding 741 684 Other 60 120 Output: Urine 1070 1015 Other: Voiding Method Indwelling Catheter Indwelling Catheter ABP, PAP, CO, CI - Last Documented Arterial Blood Pressure 141/55 - Exam General appearance: The patient is intubated, awakes spontaneously with stimuli. HET: Head is normocephalic and atraumatic. Neck: Supple. Heart: Regular. Lungs: Equal expansion, on mechanical ventilation. Abdomen: Soft, nondistended. Extremities: Right hand is ischemic and contracted. Bilateral feet ischemic, with some ischemia of the left lower extremity. Feet cold to touch. Neurological: Patient is intubated, he does open his eyes and respond to stimuli. - Labs CBC & Chem 7: 05/01/23 05:11 05/01/23 05:11 Labs: Abnormal Lab Results - Last 24 Hours (Table) 04/27/23 04/28/23 04/28/23 Range/Units 04:00 11:09 11:09 WBC (3.8-10.6) k/uL RBC (4.30-5.90) m/uL Hgb (13.0-17.5) gm/dL Plt Count (150-450) k/uL Neutrophils # (1.3-7.7) k/uL Lymphocytes # (1.0-4.8) k/uL PT (10.0-12.5) sec INR (<1.2) APTT (22.0-30.0) sec Lupus Anticoag aPTT 45 H (<43) Sec(s) Lupus Anticoag PTT Mix 45 H (<43) Sec(s) Dil Keon Viper Venom 46 H (<44) Sec(s) Lupus Hexagonal Phase Positive A (Negative) Protein C Activity 46 L (71-138) % Antithrombin III Activ 73 L (79-109) % ABG pO2 (83-108) mmHg ABG HCO3 (21-25) mmol/L ABG Total CO2 (19-24) mmol/L ABG O2 Saturation (94-97) % Creatinine (0.66-1.25) mg/dL Glucose (74-99) mg/dL POC Glucose (mg/dL) (70-110) mg/dL Calcium (8.4-10.2) mg/dL AST (17-59) U/L ALT (4-49) U/L Creatine Kinase (55-170) U/L Total Protein (6.3-8.2) g/dL Albumin (3.5-5.0) g/dL Heparin-Ind Plt Ab Scrn 0.419 H (<0.4) OD 04/30/23 04/30/23 04/30/23 Range/Units 12:14 12:14 17:39 WBC (3.8-10.6) k/uL RBC (4.30-5.90) m/uL Hgb (13.0-17.5) gm/dL Plt Count (150-450) k/uL Neutrophils # (1.3-7.7) k/uL Lymphocytes # (1.0-4.8) k/uL PT (10.0-12.5) sec INR (<1.2) APTT 41.6 H (22.0-30.0) sec Lupus Anticoag aPTT (<43) Sec(s) Lupus Anticoag PTT Mix (<43) Sec(s) Dil Keon Viper Venom (<44) Sec(s) Lupus Hexagonal Phase (Negative) Protein C Activity (71-138) % Antithrombin III Activ (79-109) % ABG pO2 (83-108) mmHg ABG HCO3 (21-25) mmol/L ABG Total CO2 (19-24) mmol/L ABG O2 Saturation (94-97) % Creatinine (0.66-1.25) mg/dL Glucose (74-99) mg/dL POC Glucose (mg/dL) 119 H 173 H (70-110) mg/dL Calcium (8.4-10.2) mg/dL AST (17-59) U/L ALT (4-49) U/L Creatine Kinase (55-170) U/L Total Protein (6.3-8.2) g/dL Albumin (3.5-5.0) g/dL Heparin-Ind Plt Ab Scrn (<0.4) OD 04/30/23 04/30/23 04/30/23 Range/Units 17:40 20:47 23:23 WBC (3.8-10.6) k/uL RBC (4.30-5.90) m/uL Hgb (13.0-17.5) gm/dL Plt Count (150-450) k/uL Neutrophils # (1.3-7.7) k/uL Lymphocytes # (1.0-4.8) k/uL PT (10.0-12.5) sec INR (<1.2) APTT 41.5 H 41.5 H (22.0-30.0) sec Lupus Anticoag aPTT (<43) Sec(s) Lupus Anticoag PTT Mix (<43) Sec(s) Dil Keon Viper Venom (<44) Sec(s) Lupus Hexagonal Phase (Negative) Protein C Activity (71-138) % Antithrombin III Activ (79-109) % ABG pO2 (83-108) mmHg ABG HCO3 (21-25) mmol/L ABG Total CO2 (19-24) mmol/L ABG O2 Saturation (94-97) % Creatinine (0.66-1.25) mg/dL Glucose (74-99) mg/dL POC Glucose (mg/dL) 176 H (70-110) mg/dL Calcium (8.4-10.2) mg/dL AST (17-59) U/L ALT (4-49) U/L Creatine Kinase (55-170) U/L Total Protein (6.3-8.2) g/dL Albumin (3.5-5.0) g/dL Heparin-Ind Plt Ab Scrn (<0.4) OD 04/30/23 05/01/23 05/01/23 Range/Units 23:24 02:05 05:10 WBC (3.8-10.6) k/uL RBC (4.30-5.90) m/uL Hgb (13.0-17.5) gm/dL Plt Count (150-450) k/uL Neutrophils # (1.3-7.7) k/uL Lymphocytes # (1.0-4.8) k/uL PT (10.0-12.5) sec INR (<1.2) APTT 41.7 H 41.1 H (22.0-30.0) sec Lupus Anticoag aPTT (<43) Sec(s) Lupus Anticoag PTT Mix (<43) Sec(s) Dil Keon Viper Venom (<44) Sec(s) Lupus Hexagonal Phase (Negative) Protein C Activity (71-138) % Antithrombin III Activ (79-109) % ABG pO2 (83-108) mmHg ABG HCO3 (21-25) mmol/L ABG Total CO2 (19-24) mmol/L ABG O2 Saturation (94-97) % Creatinine (0.66-1.25) mg/dL Glucose (74-99) mg/dL POC Glucose (mg/dL) 166 H (70-110) mg/dL Calcium (8.4-10.2) mg/dL AST (17-59) U/L ALT (4-49) U/L Creatine Kinase (55-170) U/L Total Protein (6.3-8.2) g/dL Albumin (3.5-5.0) g/dL Heparin-Ind Plt Ab Scrn (<0.4) OD 05/01/23 05/01/23 05/01/23 Range/Units 05:11 05:11 05:11 WBC 16.2 H (3.8-10.6) k/uL RBC 4.29 L (4.30-5.90) m/uL Hgb 12.5 L (13.0-17.5) gm/dL Plt Count 114 L D (150-450) k/uL Neutrophils # 15.2 H (1.3-7.7) k/uL Lymphocytes # 0.3 L (1.0-4.8) k/uL PT 13.4 H (10.0-12.5) sec INR 1.3 H (<1.2) APTT 40.7 H (22.0-30.0) sec Lupus Anticoag aPTT (<43) Sec(s) Lupus Anticoag PTT Mix (<43) Sec(s) Dil Keon Viper Venom (<44) Sec(s) Lupus Hexagonal Phase (Negative) Protein C Activity (71-138) % Antithrombin III Activ (79-109) % ABG pO2 (83-108) mmHg ABG HCO3 (21-25) mmol/L ABG Total CO2 (19-24) mmol/L ABG O2 Saturation (94-97) % Creatinine 0.52 L (0.66-1.25) mg/dL Glucose 159 H (74-99) mg/dL POC Glucose (mg/dL) (70-110) mg/dL Calcium 8.1 L (8.4-10.2) mg/dL AST 250 H (17-59) U/L ALT 137 H (4-49) U/L Creatine Kinase 6279 H* (55-170) U/L Total Protein 4.7 L (6.3-8.2) g/dL Albumin 2.4 L (3.5-5.0) g/dL Heparin-Ind Plt Ab Scrn (<0.4) OD 05/01/23 Range/Units 05:52 WBC (3.8-10.6) k/uL RBC (4.30-5.90) m/uL Hgb (13.0-17.5) gm/dL Plt Count (150-450) k/uL Neutrophils # (1.3-7.7) k/uL Lymphocytes # (1.0-4.8) k/uL PT (10.0-12.5) sec INR (<1.2) APTT (22.0-30.0) sec Lupus Anticoag aPTT (<43) Sec(s) Lupus Anticoag PTT Mix (<43) Sec(s) Dil Keon Viper Venom (<44) Sec(s) Lupus Hexagonal Phase (Negative) Protein C Activity (71-138) % Antithrombin III Activ (79-109) % ABG pO2 82 L (83-108) mmHg ABG HCO3 27 H (21-25) mmol/L ABG Total CO2 29 H (19-24) mmol/L ABG O2 Saturation 97.2 H (94-97) % Creatinine (0.66-1.25) mg/dL Glucose (74-99) mg/dL POC Glucose (mg/dL) (70-110) mg/dL Calcium (8.4-10.2) mg/dL AST (17-59) U/L ALT (4-49) U/L Creatine Kinase (55-170) U/L Total Protein (6.3-8.2) g/dL Albumin (3.5-5.0) g/dL Heparin-Ind Plt Ab Scrn (<0.4) OD Microbiology - Last 24 Hours (Table) 04/26/23 19:00 Blood Culture - Preliminary Blood 04/26/23 18:45 Blood Culture - Preliminary Blood Assessment and Plan Assessment: 1. Systemic arterial thrombosis, suspect hypercoagulable syndrome 2. Advanced ischemic changes of the feet and calf areas bilaterally as well as right hand and distal forearm 3. CT brain with Maturing left parietal occipital infarct. Couple of punctuate hyperdensities are present could be petechial hemorrhages present previously and stable 4. Nearly occluding thrombus in the distal descending thoracic aorta 5. CVA 6. Reported recent diagnosis of lung cancer Plan: Hematology on consult and recommended resuming argatroban. Patient's overall prognosis is quite poor, if patient survives he will need bilateral lower ext remity amputations as well as amputation of the right hand. No plans for surgical intervention at this time. Continue medical/ICU management. The impression and plan of care has been dictated as directed. Dr. Bishop I performed a history and examination of this patient, discussed the same with the dictator. I agree with the dictator's note ,documented as a scribe. Any a dditional findings or plans will be noted.
[2023-05-01] MEDS: SODIUM FERRIC GLUCONAT-SUCROSE 125 MG in SODIUM CHLORIDE 0.9% 100 ML IVPB SCH (08:25)
[2023-05-01] MEDS: PANTOPRAZOLE 40 MG/10 ML VIAL IVP SCH (08:40)
[2023-05-01] MEDS: CHLORHEXIDINE GLUCONATE 15 ML CUP MUCOUS MEM SCH ×2 (08:42→21:07)
[2023-05-01] MEDS: ASPIRIN 81 MG PO SCH (08:42)
[2023-05-01] MEDS: ATORVASTATIN 40 MG TAB PO SCH (08:42)
[2023-05-01] MEDS: THIAMINE 100 MG/ML 2 ML VIAL IVP SCH (08:57)
[2023-05-01] MEDS ORDERED: LOSARTAN 25 MG TAB PO SCH (09:00)
[2023-05-01] MEDS ORDERED: IMMUNE GLOBULIN (GAMMAGARD) 30 GM in EMPTY BAG 1 BAG IV ONE (09:00)
[2023-05-01] MEDS: fentaNYL (PF). 1,000 MCG in SODIUM CHLORIDE 0.9% 80 ML IV SCH (09:30)
[2023-05-01] MEDS: methylPREDNISolone SOD SUCCIN 500 MG in SODIUM CHLORIDE 0.9% 100 ML IVPB SCH (10:21)
[2023-05-01] MEDS: METOPROLOL TARTRATE 25 MG TAB PO SCH ×2 (10:30→21:07)
[2023-05-01] MEDS: DEXTROSE 5%-0.45% NACL 1,000 ML IV SCH (12:46)
[2023-05-01 13:30] LABS: Glucose,Whole Blood 164 mg/dL (70-110)
--- NOTE | 2023-05-01 13:48 | P.PN ---
Subjective Progress Note Date: 05/01/23 Principal diagnosis: Acute hypoxic respiratory failure, left hilar mass, acute multiple limbs ischemia I am seeing this patient in consultation today 04/27/2023 in the intensive care unit after he was brought in by EMS yesterday evening. He was reportedly covered in soot, and found minimally responsive next to the oven. Patient is a 58-year-old white male with limited known past medical history. He did reportedly just have a vascular procedure done at [facility] for right upper limb ischemia recently. The nurses are working on getting this documentation. He also may have recently been diagnosed with lung cancer and is a chronic ongoing smoker. He has no family other than an estranged brother. Patient was last seen well by his neighbor on Sunday. The neighbors did not hear from him for a couple of days and decided to call the police to do a wellness check. He was found on the floor next to the stove, the gas was on. He was covered in soot, He may have been burning something on the stove. He was altered and minimally responsive. Questionable, whether he may have tried to commit suicide, and is petitioned by the police. His carboxyhemoglobin level was greater than 20%. The ER physician did try to reach out to tertiary care centers for possible hy perbaric oxygen therapy, however, no accepting facilities were found. Patient was ultimately intubated for airway protection. Current ventilator settings are assist control, respiratory rate 20, tidal volume 400, FiO2 100%, PEEP of 10. Most recent ABGs show a pO2 of 68, pCO2 of 24, pH of 7.17. Patient has been given 2 A of sodium bicarb and is on a bicarb drip at 100 ML's per hour. Post intubation chest x-ray shows endotracheal tube approximately 1 cm above the chasidy, this will be withdrawn 1-2 cm. There is an orogastric tube coursing into the stomach. There is a left subclavian triple-lumen catheter tip near the cavoatrial junction. There is bilateral multifocal infiltrates consistent with pneumonia, likely aspiration pneumonia. He is covered on Zosyn. BP is stable at this time. He did receive 4 normal saline boluses in the ER. Not requiring any vasopressors at the moment. Patient is currently sedated on propofol which is infusing at 50 mcg/kg/m. He is fairly synchronous with the mechanical ventilator. His right arm appears postsurgical, with two healing and approximated incisions. The extremity is pulseless and cold. Previously on examination, the patient was noted to have a left gaze deviation, a brain and C- spine CT demonstrated a subacute 8 by 4 x 4 centimeters left MCA territory nonhemorrhagic infarct or midline shift. No cervical spine fracture. No seizure like activity noted by nursing staff. Neuro examination is limited by sedation. Urine drug screen negative. CBC on arrival shows a WBC count of 28.5, hemoglobin 20.7, hematocrit 65.1, platelets 115. BMP shows sodium 147, potassium 5, chloride 108, serum bicarbonate 9, BUN 56, creatinine 2.19, glucose 147. Lactic acid level was 12 and is down to 2.4. LFTs mildly elevated. Creatinine kinase is elevated at 10,400 and is consistent with rhabdomyolysis. He was found on the ground. He does bruising on his legs. Troponin elevated, consistent with non-ST elevation [place], likely related to tissue hypoxemia and carbon monoxide poisoning. Chest x-ray did show sinus tachycardia with T-wave inversion in anterior lateral leads. No other ST or T wave abnormalities noted. Patient's condition is obviously critical, and he is being monitored in the intensive care unit. On 04/28/2023, seeing the patient for a follow-up. This morning, the patient is on propofol running at 30 mcg/kg/m. He is arousable. He withdraws to painful stimulation. He is not following commands at this point in time. He is on assist-control mode of mechanical ventilation at the rate of 20, tidal volume of 400, FiO2 is currently at 40% with a PEEP of 10. The blood gas showed a pH of 7.42 with a pCO2 of 40 and pO2 of 252. His, monocyte level is normalized. His chest x-ray from today showing no significant acute abnormalities. There may be a opacity in the left hilar area consistent with his previous history of lung cancer. He has a triple-lumen catheter in his left subclavian vein. The tube is in a good location. No airspace disease or consolidations this point in time. A repeat CAT scan of the brain was done this morning and it showed left [employer] SU[employer] territory subacute infarct and possibility of some edema minimal petechial hemorrhage cannot be completely excluded in the anterior margin of the infarct. The patient was started on IV heparin by vascular surgery. I stopped the heparin yesterday based on the fact that the patient's platelet count has dropped onto 57 and at the same time there is a concern of hemorrhagic transformation of his stroke. The same time, the patient is hemodynamically sta ble. Troponins peaked at 16 and then down trended. His echocardiogram showed impaired LV function and his ejection fraction is in order of 20-25%. The patient also has rhabdomyolysis. CPK peaked at 18,000 and currently it is down trending. He continues to have obvious vascular issues. The patient was seen by vascular surgery. We came to find other the patient has undergone a right brachial, radial and ulnar thrombectomy reportedly twice during an earlier hospitalization. His right upper extremity is contracted and dusky and cold with absent pulses and remains ischemic. In same time, the patient has ischemic feet bilaterally with absent pulses in the feet are cold and clammy without any dorsalis pedis or posterior tibialis and a demarcation is being developed at this point in time. Terms of his blood work, sodium levels of 151, potassium is at 4.2, currently 122, BUN is 28 with a creatinine of 0.9 and the patient has recovered from his acute kidney injury. The white cell count dropped at 15.3 with a hemoglobin of 14.7. The patient patient also had a drop in the platelet count down to 57. He was started on IV heparin. I stopped IV heparin. Heparin-induced thrombocytopenia antibodies were sent and the patient is being started on agratoban been based on recommendations done by the vascular team and the medical team. On 04/29/2023, the patient is following some simple commands while being off sedation. Repeat CAT scan of the brain was done today and that is also still pending. The patient has a large ischemic stroke involving the left [employer] SU[employer] distribution. Concern is for any evolving bleed especially the patient is currently on agratoban . Otherwise, the patient remains intubated on a mechanical ventilator. He is on assist control mode with a rate of 20, tidal volume of 400, FiO2 of 40% with a PEEP of 5. No blood gas from today. The chest x-ray from today showing no acute abnormalities. The patient has a left hilar mass. EKG was in a good location. I did obtain a CAT scan of his chest yesterday and the patient has a confirmed mass in the left hilum which I believe it was biopsied earlier and the outside hospital. This was a 3.1 cm mass in the left hilar area. The same time, the patient has a thrombus causing the descending resting aorta. There is significant narrowing of the lumen of the ascending aorta and this was discussed with vascular surgery team. Overall vascular condition is extremely poor. The patient has no pulses in his feet bilaterally. His legs are cold and clammy with absent capillary refills. He is developing demarcation lines in his feet. The same for the right upper extremity. He does have a pulse in his left upper extremity. Vascular surgery are following the patient. No intervention is recommended because of his poor prognosis and his underlying comorbidities. Vascular surgery plans to do amputations once patient is more stable. Meanwhile, the patient remains on Agratoban, hit antibodies are still pending, hypercoagulable workup was also done and the blood work was sent to rule out the possibility of any antiphospholipid syndrome in this patient. His platelet count currently is at 49. Hemoglobin is stable at 13.1. The white cycles of 15.7. Rest of the blood work and electrolytes are all within normal limits. Sodium level is improved compared to yesterday's currently down to 146. IV fluids are in the form of D5 water at the rate of 75 mL an hour. He is receiving enteral feeding for nutritional support. He is currently on vital high-protein at the rate of 50 mL an hour. Patient is being seen by different consultants including cardiology, neurology, vascular surgery, hematology oncology. His adequately sedated with a combination of propofol and fentanyl. He remains on broad-spectrum antibiotic coverage with IV Zosyn. No family identified. There is a brother with does not want to be contacted. There is also a neighbor. Legal guardianship is being acquired Patient was [id number]/11/2023, patient remains in the ICU, intubated and mechanically ventilated. Patient is on assist control rate of 20, volume 400 FiO2 40% and PEEP of 5 ABG showed a pO2 of 132 pCO2 40 pH of 7.45. Patient is on propofol at 60 mcg/kg/m is also on fentanyl 2 mcg/kg/h and D5W at 75 mL per hour. Patient is also empirically on Zosyn. And he is receiving iron. Recent CT of the chest showed possible malignancy and thromboses within the aorta at the thoracic level. Patient continues to have significant ischemic and almost gangrenous changes involving his bilateral lower extremities and his right upper extremity. CT of the brain showed petechial hemorrhages with an ischemic stroke area involving the left hemisphere. There is urologist felt the patient had a maturing left parietal occipital infarct and petechial hemorrhages are stable compared to previous CT of the brain. Chest x-ray continues to show diffuse interstitial opacities, either pulmonary vascular congestion or atypical pneumonia. There is also 3.4 cm left hilar mass present. Labs were reviewed, platelets remained low at 64,000 WBC count is 12.2 hemoglobin is 12.2 PTT is 41.6, heparin presently is on hold. Basic metabolic profile is normal, renal profile is normal, blood cultures and sputum cultures have been negative. Urine culture is also negative Reevaluated today on 05/01/2023, remains in the ICU, intubated and mechanically ventilated. Patient is on assist control rate of 20-2400 FiO2 40% and PEEP of 5. ABG showed a pO2 of 82 pCO2 39 pH of 7.45 hence no changes were made regarding his ventilator settings. Patient remains on propofol at 65 mcg/kg/m R get to ban at 1.6 mg/kg/m patient is also on fentanyl at 2 mcg/kg/h and vital HPF 57 mL per hour. Reviewed the pathology report from his previous lung biopsy, and it showed atypical carcinoid. At any rate patient clearly has severe prognosis, he is critically ill, continues to have ischemic changes in the right hand, right lower extremity and left lower extremity, and my fear the patient may eventually end up with DIC. Patient is being followed by hematology. I will discuss with his legal guardian once one is appointed which is supposed to be done next at 1:[address], and I will definitely recommend comfort care measures on this patient. WBC count today is 16.2 hemoglobin 12.5 PTT is 40.7 INR is 1.3. Platelets are up to 114. CPK 6279, renal functioning is normal. Patient continues to have good urine output. Objective - Vital Signs Vital signs: Vital Signs Temp 98.6 F 05/01/23 08:00 Pulse 82 05/01/23 13:00 Resp 22 05/01/23 13:00 BP 128/68 05/01/23 01:00 Pulse Ox 99 05/01/23 12:00 FiO2 40 05/01/23 12:00 Intake & Output 04/30/23 05/01/23 05/01/23 18:59 06:59 18:59 Intake Total 2425.487 2376.210 1086.821 Output Total 1070 1015 330 Balance 2469.516 2970.210 756.821 Weight 77.5 kg Intake: IV 508 1112 586 0.9 NS @ KVO 130 40 CVP + A-line 78 72 36 Dextrose 5% in Water 1, 225 75 000 ml @ 75 mls/hr IV . [id number] [facility] Rx#:[id number] Dextrose 5%-0.45% NaCl 1, 825 450 000 ml @ 75 mls/hr IV . [id number] [facility] Rx#:[id number] Piperacillin-Tazobactam 3 75 100 100 .375 gm In Sodium Chloride 0.9% 100 ml @ 25 mls/hr IVPB Q8HR [facility] Rx# :[id number] Intake, IV Titration 1116.487 460.210 128.821 Amount Argatroban 50 mg In 41.487 58.513 28.821 Sodium Chloride 0.9% 50 ml @ 0.5 MCG/KG/MIN 2.136 mls/hr IV .[id number] [facility] Rx#:[id number] Dextrose 5%-0.45% NaCl 1, 675 000 ml @ 75 mls/hr IV . [id number] [facility] Rx#:[id number] Sodium Ferric Gluconat- 100 Sucrose 125 mg In Sodium Chloride 0.9% 100 ml @ 100 mls/hr IVPB DAILY [facility] Rx#:[id number] fentaNYL (PF). 1,000 mcg 100.000 200 In Sodium Chloride 0.9% 80 ml @ 0.5 MCG/KG/HR 3.5 mls/hr IV .Q24H [facility] Rx#: [id number] methylPREDNISolone SOD 100 100 SUCCIN 500 mg In Sodium Chloride 0.9% 100 ml @ 100 mls/hr IVPB DAILY [facility]YLAN Rx#:[id number] propofoL 1,000 mg In 100 201.697 Empty Bag 1 bag @ 15 MCG/ KG/MIN 4.905 mls/hr IV . [id number] [facility]YLAN Rx#:[id number] Tube Feeding 741 684 342 Other 60 120 30 Output: Urine 1070 1015 330 Other: Voiding Method Indwelling Catheter Indwelling Catheter ABP, PAP, CO, CI - Last Documented Arterial Blood Pressure 125/52 - Exam GENERAL EXAM: 58-year-old white male, intubated, mechanically ventilated, sedated, opens eyes but does not follow any instructions HEAD: Normocephalic and atraumatic EENT: PERRLA, EOMI, anicteric, no neck masses, no JVD. CHEST: No chest wall deformity. LUNGS: Good breath sound bilaterally no crackles or rhonchi or wheezes. CVS: Normal S1 and S2, no S3 gallop no murmur ABDOMEN: Soft nontender no megaly no rebound no guarding SKIN: Bilateral lower extremity bruising and mottling. 2 right upper extremity incision sites clean and approximated. CENTRAL NERVOUS SYSTEM: Opens eyes but does not follow any instructions EXTREMITIES: There is bilateral lower extremity bruising and mottling. Right upper extremity is pulseless and cold. No capillary refill. Remaining extremities also have diminished pulses, but are found with Doppler. There is no peripheral edema, clubbing. Feet are also cold and clammy and mottled with absent capillary refills. There is also a line of demarcation developing in the lower extremities - Labs CBC & Chem 7: 05/01/23 05:11 05/01/23 05:11 Labs: Abnormal Lab Results - Last 24 Hours (Table) 04/27/23 04/28/23 04/30/23 Range/Units 12:12 11:09 17:39 WBC (3.8-10.6) k/uL RBC (4.30-5.90) m/uL Hgb (13.0-17.5) gm/dL Plt Count (150-450) k/uL Neutrophils # (1.3-7.7) k/uL Lymphocytes # (1.0-4.8) k/uL PT (10.0-12.5) sec INR (<1.2) APTT (22.0-30.0) sec Lupus Anticoag aPTT 45 H (<43) Sec(s) Lupus Anticoag PTT Mix 45 H (<43) Sec(s) Dil Keon Viper Venom 46 H (<44) Sec(s) Lupus Hexagonal Phase Positive A (Negative) ABG pO2 (83-108) mmHg ABG HCO3 (21-25) mmol/L ABG Total CO2 (19-24) mmol/L ABG O2 Saturation (94-97) % Creatinine (0.66-1.25) mg/dL Glucose (74-99) mg/dL POC Glucose (mg/dL) 173 H (70-110) mg/dL Calcium (8.4-10.2) mg/dL AST (17-59) U/L ALT (4-49) U/L Creatine Kinase (55-170) U/L Total Protein (6.3-8.2) g/dL Albumin (3.5-5.0) g/dL Copper 1664 H (665-1480) ug/L 04/30/23 04/30/23 04/30/23 Range/Units 17:40 20:47 23:23 WBC (3.8-10.6) k/uL RBC (4.30-5.90) m/uL Hgb (13.0-17.5) gm/dL Plt Count (150-450) k/uL Neutrophils # (1.3-7.7) k/uL Lymphocytes # (1.0-4.8) k/uL PT (10.0-12.5) sec INR (<1.2) APTT 41.5 H 41.5 H (22.0-30.0) sec Lupus Anticoag aPTT (<43) Sec(s) Lupus Anticoag PTT Mix (<43) Sec(s) Dil Keon Viper Venom (<44) Sec(s) Lupus Hexagonal Phase (Negative) ABG pO2 (83-108) mmHg ABG HCO3 (21-25) mmol/L ABG Total CO2 (19-24) mmol/L ABG O2 Saturation (94-97) % Creatinine (0.66-1.25) mg/dL Glucose (74-99) mg/dL POC Glucose (mg/dL) 176 H (70-110) mg/dL Calcium (8.4-10.2) mg/dL AST (17-59) U/L ALT (4-49) U/L Creatine Kinase (55-170) U/L Total Protein (6.3-8.2) g/dL Albumin (3.5-5.0) g/dL Copper (665-1480) ug/L 04/30/23 05/01/23 05/01/23 Range/Units 23:24 02:05 05:10 WBC (3.8-10.6) k/uL RBC (4.30-5.90) m/uL Hgb (13.0-17.5) gm/dL Plt Count (150-450) k/uL Neutrophils # (1.3-7.7) k/uL Lymphocytes # (1.0-4.8) k/uL PT (10.0-12.5) sec INR (<1.2) APTT 41.7 H 41.1 H (22.0-30.0) sec Lupus Anticoag aPTT (<43) Sec(s) Lupus Anticoag PTT Mix (<43) Sec(s) Dil Keon Viper Venom (<44) Sec(s) Lupus Hexagonal Phase (Negative) ABG pO2 (83-108) mmHg ABG HCO3 (21-25) mmol/L ABG Total CO2 (19-24) mmol/L ABG O2 Saturation (94-97) % Creatinine (0.66-1.25) mg/dL Glucose (74-99) mg/dL POC Glucose (mg/dL) 166 H (70-110) mg/dL Calcium (8.4-10.2) mg/dL AST (17-59) U/L ALT (4-49) U/L Creatine Kinase (55-170) U/L Total Protein (6.3-8.2) g/dL Albumin (3.5-5.0) g/dL Copper (665-1480) ug/L 05/01/23 05/01/23 05/01/23 Range/Units 05:11 05:11 05:11 WBC 16.2 H (3.8-10.6) k/uL RBC 4.29 L (4.30-5.90) m/uL Hgb 12.5 L (13.0-17.5) gm/dL Plt Count 114 L D (150-450) k/uL Neutrophils # 15.2 H (1.3-7.7) k/uL Lymphocytes # 0.3 L (1.0-4.8) k/uL PT 13.4 H (10.0-12.5) sec INR 1.3 H (<1.2) APTT 40.7 H (22.0-30.0) sec Lupus Anticoag aPTT (<43) Sec(s) Lupus Anticoag PTT Mix (<43) Sec(s) Dil Keon Viper Venom (<44) Sec(s) Lupus Hexagonal Phase (Negative) ABG pO2 (83-108) mmHg ABG HCO3 (21-25) mmol/L ABG Total CO2 (19-24) mmol/L ABG O2 Saturation (94-97) % Creatinine 0.52 L (0.66-1.25) mg/dL Glucose 159 H (74-99) mg/dL POC Glucose (mg/dL) (70-110) mg/dL Calcium 8.1 L (8.4-10.2) mg/dL AST 250 H (17-59) U/L ALT 137 H (4-49) U/L Creatine Kinase 6279 H* (55-170) U/L Total Protein 4.7 L (6.3-8.2) g/dL Albumin 2.4 L (3.5-5.0) g/dL Copper ([id number]) ug/L 05/01/23 05/01/23 05/01/23 Range/Units 05:52 08:34 13:26 WBC (3.8-10.6) k/uL RBC (4.30-5.90) m/uL Hgb (13.0-17.5) gm/dL Plt Count (150-450) k/uL Neutrophils # (1.3-7.7) k/uL Lymphocytes # (1.0-4.8) k/uL PT (10.0-12.5) sec INR (<1.2) APTT 41.2 H (22.0-30.0) sec Lupus Anticoag aPTT (<43) Sec(s) Lupus Anticoag PTT Mix (<43) Sec(s) Dil Keon Viper Venom (<44) Sec(s) Lupus Hexagonal Phase (Negative) ABG pO2 82 L (83-108) mmHg ABG HCO3 27 H (21-25) mmol/L ABG Total CO2 29 H (19-24) mmol/L ABG O2 Saturation 97.2 H (94-97) % Creatinine (0.66-1.25) mg/dL Glucose (74-99) mg/dL POC Glucose (mg/dL) 164 H (70-110) mg/dL Calcium (8.4-10.2) mg/dL AST (17-59) U/L ALT (4-49) U/L Creatine Kinase (55-170) U/L Total Protein (6.3-8.2) g/dL Albumin (3.5-5.0) g/dL Copper ([id number]) ug/L Assessment and Plan Assessment: Impression: Acute hypoxic respiratory failure requiring intubation and mechanical ventilation, multifactorial Left hilar mass, 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 ascending thoracic aneurysm/clot causing significant narrowing of the lumen of the aorta Elevated carboxyhemoglobin level on admission, suspect acute carbon monoxide poisoning possibly intentional Acute toxic metabolic encephalopathy Severe anion gap metabolic acidosis on presentation, improving Acute kidney injury related to her acute rhabdomyolysis, resolved, patient continues to have relatively elevated CPK Mild transaminitis Hyperchloremic hypernatremia improving with D5 W Acute thrombocytopenia could be heparin-induced, rule out antiphospholipid syndrome, hematology has been consulted, strongly suspect hypercoagulable state, driven by underlying malignancy and possibly underlying antiphospholipid syndrome. Recommendation: Continue ventilatory support Continue patient sedated on propofol and fentanyl Continue nutritional support/enteral feeding Awaiting court + legal guardian next , and I would likely discuss with the legal guardian the option of comfort care measures Prognosis is extremely poor, Continue on argatroban Hypercoagulable profile workup is in progress No changes done in the vent settings today. Continue to monitor electrolytes, CPK, and renal profile Prognosis remains very poor and likely futile Critical care time is over 30 Time with Patient: Greater than 30
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
--- NOTE | 2023-05-01 14:51 | P.PN ---
Subjective PROGRESS NOTE The patient is a 58-year-old male who was admitted after being found unresponsive with an elevated carboxy hemoglobin level above 20% with unclear reason. Was attempting suicide. Patient has a known history of lung cancer and chronic tobacco use and has underwent recent surgical intervention with revascularization and thrombectomy of the right upper extremity. He was in sinus tachycardia on presentation. There is no history available. Patient is not on vasopressor. He has mottling in his lower extremities. He is intubated and unresponsive. His lab data remarkable for elevation of his CK enzymes at 10,400 with a BUN of 56 and a creatinine 2.19. His troponin is elevated. Other history is not available at this time. The patient has no prior admission to this hospital. April 28: The patient remains intubated, unresponsive, poor urine output and severe mottling of the lower extremities. His echocardiogram showed severe impairment of the left ventricle systolic function with segmental wall motion abnormality. He underwent a computed tomography scan that showed left DANCING MASTER subacute infarct. His chest x-ray showed left infrahilar mass. Carotid duplex scan showed no evidence of high-grade stenosis. He has evidence of thrombocytopenia that has worsened since his admission[place] [address]. April 29: The patient remains intubated. His blood pressure and heart rate are stable. He has significant discoloration in his right hand and both feet, cold with absence of pulse. His computed tomography scan showed a thrombus in the aorta. There is no evidence of malignant arrhythmia. According to the nursing staff he shook his head today. He has evidence of left hilar mass. He continues to be on Argatoban. He is receiving feeding tube. 04/30 Patient seen and examined. Patient currently sedated on ventilator with FiO2 40% and PEEP of 5. IV fluids at 75 mL per hour. Remains in sinus rhythm. 05/01 Patient seen and examined. Remains on ventilator. Only Doppler pulses in the femoral arteries. Concern of catastrophic antiphospholipid syndrome and therefore was started on IVIG and high-dose steroids. PHYSICAL EXAMINATION: Intubated not responsive Vitals reviewed LUNGS: Clear to auscultation anteriorly HEART: Regular rate and rhythm, S1, S2. No S3. No systolic murmur ABDOMEN: Soft, no organomegaly EXTREMETIES: Severe mottling of the lower extremities him a cold with discoloration of the right upper extremity, status post thrombectomy, demarcation noted on both feet and right hand IMPRESSION: 1. Respiratory failure was elevated carboxy hemoglobin level and severe hypoxemia 2. Non-STEMI with severely impaired left ventricle systolic function of unknown duration or etiology 3. Status post thrombectomy of the right upper extremity with discoloration and mottling of the lower extremities 4. History of smoking 5. History of lung cancer 6. Thrombocytopenia could be related to heparin or DIC, concern of catastrophic antiphospholipid syndrome 7. Evidence of CVA her computed tomography scan PLAN: 1. Continue supportive care 2. Prognosis is very poor 3. Continue beta patt 4. Depending on his progress further recommendations will be made Objective - Vital Signs Vital signs: Vital Signs Temp 98.6 F 05/01/23 08:00 Pulse 82 05/01/23 13:00 Resp 22 05/01/23 13:00 BP 128/68 05/01/23 01:00 Pulse Ox 99 05/01/23 12:00 FiO2 40 05/01/23 12:00 Intake & Output 04/30/23 05/01/23 05/01/23 18:59 06:59 18:59 Intake Total 2425.487 2376.210 1086.821 Output Total 1070 1015 330 Balance 7267.280 8300.210 756.821 Weight 77.5 kg Intake: IV 508 1112 586 0.9 NS @ KVO 130 40 CVP + A-line 78 72 36 Dextrose 5% in Water 1, 225 75 000 ml @ 75 mls/hr IV . [id number] [facility] Rx#:[id number] Dextrose 5%-0.45% NaCl 1, 825 450 000 ml @ 75 mls/hr IV . [id number] [facility] Rx#:[id number] Piperacillin-Tazobactam 3 75 100 100 .375 gm In Sodium Chloride 0.9% 100 ml @ 25 mls/hr IVPB Q8HR [facility] Rx# :[id number] Intake, IV Titration 1116.487 460.210 128.821 Amount Argatroban 50 mg In 41.487 58.513 28.821 Sodium Chloride 0.9% 50 ml @ 0.5 MCG/KG/MIN 2.136 mls/hr IV .[id number] [facility] Rx#:[id number] Dextrose 5%-0.45% NaCl 1, 675 000 ml @ 75 mls/hr IV . [id number] [facility] Rx#:[id number] Sodium Ferric Gluconat- 100 Sucrose 125 mg In Sodium Chloride 0.9% 100 ml @ 100 mls/hr IVPB DAILY [facility] Rx#:[id number] fentaNYL (PF). 1,000 mcg 100.000 200 In Sodium Chloride 0.9% 80 ml @ 0.5 MCG/KG/HR 3.5 mls/hr IV .Q24H [facility] Rx#: [id number] methylPREDNISolone SOD 100 100 SUCCIN 500 mg In Sodium Chloride 0.9% 100 ml @ 100 mls/hr IVPB DAILY [facility] Rx#:[id number] propofoL 1,000 mg In 100 201.697 Empty Bag 1 bag @ 15 MCG/ KG/MIN 4.905 mls/hr IV . [id number] [facility] Rx#:[id number] Tube Feeding 741 684 342 Other 60 120 30 Output: Urine 1070 1015 330 Other: Voiding Method Indwelling Catheter Indwelling Catheter ABP, PAP, CO, CI - Last Documented Arterial Blood Pressure 125/52 - Labs CBC & Chem 7: 05/01/23 05:11 05/01/23 13:30 Labs: Abnormal Lab Results - Last 24 Hours (Table) 04/27/23 04/30/23 04/30/23 Range/Units 12:12 17:39 17:40 WBC (3.8-10.6) k/uL RBC (4.30-5.90) m/uL Hgb (13.0-17.5) gm/dL Plt Count (150-450) k/uL Neutrophils # (1.3-7.7) k/uL Lymphocytes # (1.0-4.8) k/uL PT (10.0-12.5) sec INR (<1.2) APTT 41.5 H (22.0-30.0) sec ABG pO2 (83-108) mmHg ABG HCO3 (21-25) mmol/L ABG Total CO2 (19-24) mmol/L ABG O2 Saturation (94-97) % Creatinine (0.66-1.25) mg/dL Glucose (74-99) mg/dL POC Glucose (mg/dL) 173 H (70-110) mg/dL Calcium (8.4-10.2) mg/dL AST (17-59) U/L ALT (4-49) U/L Creatine Kinase (55-170) U/L Total Protein (6.3-8.2) g/dL Albumin (3.5-5.0) g/dL Copper 1664 H (665-1480) ug/L 04/30/23 04/30/23 04/30/23 Range/Units 20:47 23:23 23:24 WBC (3.8-10.6) k/uL RBC (4.30-5.90) m/uL Hgb (13.0-17.5) gm/dL Plt Count (150-450) k/uL Neutrophils # (1.3-7.7) k/uL Lymphocytes # (1.0-4.8) k/uL PT (10.0-12.5) sec INR (<1.2) APTT 41.5 H 41.7 H (22.0-30.0) sec ABG pO2 (83-108) mmHg ABG HCO3 (21-25) mmol/L ABG Total CO2 (19-24) mmol/L ABG O2 Saturation (94-97) % Creatinine (0.66-1.25) mg/dL Glucose (74-99) mg/dL POC Glucose (mg/dL) 176 H (70-110) mg/dL Calcium (8.4-10.2) mg/dL AST (17-59) U/L ALT (4-49) U/L Creatine Kinase (55-170) U/L Total Protein (6.3-8.2) g/dL Albumin (3.5-5.0) g/dL Copper (665-1480) ug/L 05/01/23 05/01/23 05/01/23 Range/Units 02:05 05:10 05:11 WBC 16.2 H (3.8-10.6) k/uL RBC 4.29 L (4.30-5.90) m/uL Hgb 12.5 L (13.0-17.5) gm/dL Plt Count 114 L D (150-450) k/uL Neutrophils # 15.2 H (1.3-7.7) k/uL Lymphocytes # 0.3 L (1.0-4.8) k/uL PT (10.0-12.5) sec INR (<1.2) APTT 41.1 H (22.0-30.0) sec ABG pO2 (83-108) mmHg ABG HCO3 (21-25) mmol/L ABG Total CO2 (19-24) mmol/L ABG O2 Saturation (94-97) % Creatinine (0.66-1.25) mg/dL Glucose (74-99) mg/dL POC Glucose (mg/dL) 166 H (70-110) mg/dL Calcium (8.4-10.2) mg/dL AST (17-59) U/L ALT (4-49) U/L Creatine Kinase (55-170) U/L Total Protein (6.3-8.2) g/dL Albumin (3.5-5.0) g/dL Copper (665-1480) ug/L 05/01/23 05/01/23 05/01/23 Range/Units 05:11 05:11 05:52 WBC (3.8-10.6) k/uL RBC (4.30-5.90) m/uL Hgb (13.0-17.5) gm/dL Plt Count (150-450) k/uL Neutrophils # (1.3-7.7) k/uL Lymphocytes # (1.0-4.8) k/uL PT 13.4 H (10.0-12.5) sec INR 1.3 H (<1.2) APTT 40.7 H (22.0-30.0) sec ABG pO2 82 L (83-108) mmHg ABG HCO3 27 H (21-25) mmol/L ABG Total CO2 29 H (19-24) mmol/L ABG O2 Saturation 97.2 H (94-97) % Creatinine 0.52 L (0.66-1.25) mg/dL Glucose 159 H (74-99) mg/dL POC Glucose (mg/dL) (70-110) mg/dL Calcium 8.1 L (8.4-10.2) mg/dL AST 250 H (17-59) U/L ALT 137 H (4-49) U/L Creatine Kinase 6279 H* (55-170) U/L Total Protein 4.7 L (6.3-8.2) g/dL Albumin 2.4 L (3.5-5.0) g/dL Copper (665-1480) ug/L 05/01/23 05/01/23 05/01/23 Range/Units 08:34 13:26 13:30 WBC (3.8-10.6) k/uL RBC (4.30-5.90) m/uL Hgb (13.0-17.5) gm/dL Plt Count (150-450) k/uL Neutrophils # (1.3-7.7) k/uL Lymphocytes # (1.0-4.8) k/uL PT (10.0-12.5) sec INR (<1.2) APTT 41.2 H 50.5 H (22.0-30.0) sec ABG pO2 (83-108) mmHg ABG HCO3 (21-25) mmol/L ABG Total CO2 (19-24) mmol/L ABG O2 Saturation (94-97) % Creatinine (0.66-1.25) mg/dL Glucose (74-99) mg/dL POC Glucose (mg/dL) 164 H (70-110) mg/dL Calcium (8.4-10.2) mg/dL AST (17-59) U/L ALT (4-49) U/L Creatine Kinase (55-170) U/L Total Protein (6.3-8.2) g/dL Albumin (3.5-5.0) g/dL Copper (665-1480) ug/L
[2023-05-01] MEDS: HYDROmorphone 1 MG/ML 1 ML SYRINGE IVP PRN ×2 (15:10→23:07)
--- NOTE | 2023-05-01 16:10 | P.PN ---
Subjective Progress Note Date: 05/01/23 Principal diagnosis: Arterial thromboses Pt remains ventilated, he did not open his eyes to voice and touch today, pupil reaction is sluggish today. Objective - Vital Signs Vital signs: Vital Signs Temp 100.0 F H 05/01/23 04:00 Pulse 94 05/01/23 07:00 Resp 20 05/01/23 07:00 BP 128/68 05/01/23 01:00 Pulse Ox 98 05/01/23 07:00 FiO2 40 05/01/23 04:51 Intake & Output 04/30/23 05/01/23 05/01/23 18:59 06:59 18:59 Intake Total 2425.487 2276.210 Output Total 1070 1015 Balance 2992.186 7972.210 Weight 77.5 kg Intake: IV 508 1112 0.9 NS @ KVO 130 40 CVP + A-line 78 72 Dextrose 5% in Water 1, 225 75 000 ml @ 75 mls/hr IV . [id number] [facility] Rx#:[id number] Dextrose 5%-0.45% NaCl 1, 825 000 ml @ 75 mls/hr IV . [id number] [facility] Rx#:[id number] Piperacillin-Tazobactam 3 75 100 .375 gm In Sodium Chloride 0.9% 100 ml @ 25 mls/hr IVPB Q8HR [facility] Rx# :[id number] Intake, IV Titration 1116.487 360.210 Amount Argatroban 50 mg In 41.487 58.513 Sodium Chloride 0.9% 50 ml @ 0.5 MCG/KG/MIN 2.136 mls/hr IV .[id number] [facility] Rx#:[id number] Dextrose 5%-0.45% NaCl 1, 675 000 ml @ 75 mls/hr IV . [id number] [facility] Rx#:[id number] Sodium Ferric Gluconat- 100 Sucrose 125 mg In Sodium Chloride 0.9% 100 ml @ 100 mls/hr IVPB DAILY [facility] Rx#:[id number] fentaNYL (PF). 1,000 mcg 100.000 100 In Sodium Chloride 0.9% 80 ml @ 0.5 MCG/KG/HR 3.5 mls/hr IV .Q24H [facility] Rx#: [id number] methylPREDNISolone SOD 100 SUCCIN 500 mg In Sodium Chloride 0.9% 100 ml @ 100 mls/hr IVPB DAILY [facility] Rx#:[id number] propofoL 1,000 mg In 100 201.697 Empty Bag 1 bag @ 15 MCG/ KG/MIN 4.905 mls/hr IV . [id number] [facility] Rx#:[id number] Tube Feeding 741 684 Other 60 120 Output: Urine 1070 1015 Other: Voiding Method Indwelling Catheter Indwelling Catheter ABP, PAP, CO, CI - Last Documented Arterial Blood Pressure 141/55 - Constitutional Constitutional Comment(s): Patient is warm, diaphoretic to the touch on the face and proximal extremities General appearance: Present: average body habitus - EENT Eyes: Present: anicteric sclerae - Respiratory Details: Respirations unlabored on the ventilator - Cardiovascular Details: Extremities are cold to the touch - Gastrointestinal General gastrointestinal: Present: soft - Musculoskeletal Musculoskeletal: Absent: gait normal, generalized weakness, strength equal bilaterally, right sided weakness, left sided weakness - Psychiatric Psychiatric: Absent: A&O x's 3, appropriate affect, intact judgment & insight - Labs CBC & Chem 7: 05/01/23 05:11 05/01/23 13:30 Labs: Abnormal Lab Results - Last 24 Hours (Table) 04/27/23 04/28/23 04/28/23 Range/Units 04:00 11:09 11:09 WBC (3.8-10.6) k/uL RBC (4.30-5.90) m/uL Hgb (13.0-17.5) gm/dL Plt Count (150-450) k/uL Neutrophils # (1.3-7.7) k/uL Lymphocytes # (1.0-4.8) k/uL PT (10.0-12.5) sec INR (<1.2) APTT (22.0-30.0) sec Lupus Anticoag aPTT 45 H (<43) Sec(s) Lupus Anticoag PTT Mix 45 H (<43) Sec(s) Dil Keon Viper Venom 46 H (<44) Sec(s) Lupus Hexagonal Phase Positive A (Negative) Protein C Activity 46 L (71-138) % Antithrombin III Activ 73 L (79-109) % ABG pO2 (83-108) mmHg ABG HCO3 (21-25) mmol/L ABG Total CO2 (19-24) mmol/L ABG O2 Saturation (94-97) % Creatinine (0.66-1.25) mg/dL Glucose (74-99) mg/dL POC Glucose (mg/dL) (70-110) mg/dL Calcium (8.4-10.2) mg/dL AST (17-59) U/L ALT (4-49) U/L Creatine Kinase (55-170) U/L Total Protein (6.3-8.2) g/dL Albumin (3.5-5.0) g/dL Heparin-Ind Plt Ab Scrn 0.419 H (<0.4) OD 04/30/23 04/30/23 04/30/23 Range/Units 12:14 12:14 17:39 WBC (3.8-10.6) k/uL RBC (4.30-5.90) m/uL Hgb (13.0-17.5) gm/dL Plt Count (150-450) k/uL Neutrophils # (1.3-7.7) k/uL Lymphocytes # (1.0-4.8) k/uL PT (10.0-12.5) sec INR (<1.2) APTT 41.6 H (22.0-30.0) sec Lupus Anticoag aPTT (<43) Sec(s) Lupus Anticoag PTT Mix (<43) Sec(s) Dil Keon Viper Venom (<44) Sec(s) Lupus Hexagonal Phase (Negative) Protein C Activity (71-138) % Antithrombin III Activ (79-109) % ABG pO2 (83-108) mmHg ABG HCO3 (21-25) mmol/L ABG Total CO2 (19-24) mmol/L ABG O2 Saturation (94-97) % Creatinine (0.66-1.25) mg/dL Glucose (74-99) mg/dL POC Glucose (mg/dL) 119 H 173 H (70-110) mg/dL Calcium (8.4-10.2) mg/dL AST (17-59) U/L ALT (4-49) U/L Creatine Kinase (55-170) U/L Total Protein (6.3-8.2) g/dL Albumin (3.5-5.0) g/dL Heparin-Ind Plt Ab Scrn (<0.4) OD 04/30/23 04/30/23 04/30/23 Range/Units 17:40 20:47 23:23 WBC (3.8-10.6) k/uL RBC (4.30-5.90) m/uL Hgb (13.0-17.5) gm/dL Plt Count (150-450) k/uL Neutrophils # (1.3-7.7) k/uL Lymphocytes # (1.0-4.8) k/uL PT (10.0-12.5) sec INR (<1.2) APTT 41.5 H 41.5 H (22.0-30.0) sec Lupus Anticoag aPTT (<43) Sec(s) Lupus Anticoag PTT Mix (<43) Sec(s) Dil Keon Viper Venom (<44) Sec(s) Lupus Hexagonal Phase (Negative) Protein C Activity (71-138) % Antithrombin III Activ (79-109) % ABG pO2 (83-108) mmHg ABG HCO3 (21-25) mmol/L ABG Total CO2 (19-24) mmol/L ABG O2 Saturation (94-97) % Creatinine (0.66-1.25) mg/dL Glucose (74-99) mg/dL POC Glucose (mg/dL) 176 H (70-110) mg/dL Calcium (8.4-10.2) mg/dL AST (17-59) U/L ALT (4-49) U/L Creatine Kinase (55-170) U/L Total Protein (6.3-8.2) g/dL Albumin (3.5-5.0) g/dL Heparin-Ind Plt Ab Scrn (<0.4) OD 04/30/23 05/01/23 05/01/23 Range/Units 23:24 02:05 05:10 WBC (3.8-10.6) k/uL RBC (4.30-5.90) m/uL Hgb (13.0-17.5) gm/dL Plt Count (150-450) k/uL Neutrophils # (1.3-7.7) k/uL Lymphocytes # (1.0-4.8) k/uL PT (10.0-12.5) sec INR (<1.2) APTT 41.7 H 41.1 H (22.0-30.0) sec Lupus Anticoag aPTT (<43) Sec(s) Lupus Anticoag PTT Mix (<43) Sec(s) Dil Keon Viper Venom (<44) Sec(s) Lupus Hexagonal Phase (Negative) Protein C Activity (71-138) % Antithrombin III Activ (79-109) % ABG pO2 (83-108) mmHg ABG HCO3 (21-25) mmol/L ABG Total CO2 (19-24) mmol/L ABG O2 Saturation (94-97) % Creatinine (0.66-1.25) mg/dL Glucose (74-99) mg/dL POC Glucose (mg/dL) 166 H (70-110) mg/dL Calcium (8.4-10.2) mg/dL AST (17-59) U/L ALT (4-49) U/L Creatine Kinase (55-170) U/L Total Protein (6.3-8.2) g/dL Albumin (3.5-5.0) g/dL Heparin-Ind Plt Ab Scrn (<0.4) OD 05/01/23 05/01/23 05/01/23 Range/Units 05:11 05:11 05:11 WBC 16.2 H (3.8-10.6) k/uL RBC 4.29 L (4.30-5.90) m/uL Hgb 12.5 L (13.0-17.5) gm/dL Plt Count 114 L D (150-450) k/uL Neutrophils # 15.2 H (1.3-7.7) k/uL Lymphocytes # 0.3 L (1.0-4.8) k/uL PT 13.4 H (10.0-12.5) sec INR 1.3 H (<1.2) APTT 40.7 H (22.0-30.0) sec Lupus Anticoag aPTT (<43) Sec(s) Lupus Anticoag PTT Mix (<43) Sec(s) Dil Keon Viper Venom (<44) Sec(s) Lupus Hexagonal Phase (Negative) Protein C Activity (71-138) % Antithrombin III Activ (79-109) % ABG pO2 (83-108) mmHg ABG HCO3 (21-25) mmol/L ABG Total CO2 (19-24) mmol/L ABG O2 Saturation (94-97) % Creatinine 0.52 L (0.66-1.25) mg/dL Glucose 159 H (74-99) mg/dL POC Glucose (mg/dL) (70-110) mg/dL Calcium 8.1 L (8.4-10.2) mg/dL AST 250 H (17-59) U/L ALT 137 H (4-49) U/L Creatine Kinase 6279 H* (55-170) U/L Total Protein 4.7 L (6.3-8.2) g/dL Albumin 2.4 L (3.5-5.0) g/dL Heparin-Ind Plt Ab Scrn (<0.4) OD 05/01/23 Range/Units 05:52 WBC (3.8-10.6) k/uL RBC (4.30-5.90) m/uL Hgb (13.0-17.5) gm/dL Plt Count (150-450) k/uL Neutrophils # (1.3-7.7) k/uL Lymphocytes # (1.0-4.8) k/uL PT (10.0-12.5) sec INR (<1.2) APTT (22.0-30.0) sec Lupus Anticoag aPTT (<43) Sec(s) Lupus Anticoag PTT Mix (<43) Sec(s) Dil Keon Viper Venom (<44) Sec(s) Lupus Hexagonal Phase (Negative) Protein C Activity (71-138) % Antithrombin III Activ (79-109) % ABG pO2 82 L (83-108) mmHg ABG HCO3 27 H (21-25) mmol/L ABG Total CO2 29 H (19-24) mmol/L ABG O2 Saturation 97.2 H (94-97) % Creatinine (0.66-1.25) mg/dL Glucose (74-99) mg/dL POC Glucose (mg/dL) (70-110) mg/dL Calcium (8.4-10.2) mg/dL AST (17-59) U/L ALT (4-49) U/L Creatine Kinase (55-170) U/L Total Protein (6.3-8.2) g/dL Albumin (3.5-5.0) g/dL Heparin-Ind Plt Ab Scrn (<0.4) OD Microbiology - Last 24 Hours (Table) 04/26/23 19:00 Blood Culture - Preliminary Blood 04/26/23 18:45 Blood Culture - Preliminary Blood Assessment and Plan (1) Arterial occlusion Current Visit: Yes Status: Acute Priority: High Code(s): I70.90 - UNSPECIFIED ATHEROSCLEROSIS SNOMED Code(s): 4705686 (2) Thrombocytopenia Current Visit: Yes Status: Acute Priority: High Code(s): D69.6 - THROMBOCY TOPENIA, UNSPECIFIED SNOMED Code(s): 550985938 Plan: Thrombocytopenia -Plt improved to 114,000 today after starting steroids yesterday -HIT ab was 0.419, then 0.311. Chance of HIT ab <3% but, there is a high clinical suspicion. KALA ordered for confirmation -Heparin was changed to argatroban, pt cont on at this time -APLS labs and hypercoaguable labs are neg except for Lupus anticoagulant, it is positive. This lab can be rechecked once patient has completely recovered from his current situation but, for now, even though patient was on heparin sometime around the drawing of this lab,Patient needs to remain on anticoagulation. -Acute hepatitis panel, HIV work up negative -Anemia workup showing iron deficiency, parenteral iron given -Hemolysis workup neg -DIC work up neg -Ladle Liner and Attending reviewed case again today. Plan for IVIG for possible HIT/catastrophic antiphospholipid syndrome. Cont high dose steroids for total of 3 doses. CBC monitoring. Cont anticoagulation Arterial occlusions -Recent Dx of RUE arterial occlusion at [facility], s/p radial and ulnar thrombectomy, reportedly twice during the last month. He was placed on xarelto, this is currently held as he is on IV anticoagulation -RUE and BLE are found to be necrotic -Vascular surgery following NSTEMI -Heparin discontinued. Argatroban started -Cardiology following CVA -Repeat CT head reports maturing left parietal-occipital infarct, some punctate hyperdensities could be petechial hemorrhages but reported as present previously and stable -Neuro following. Pt is pending guardianship hearing Attests: I have seen and examined pt, performed H&P, developed impression and plan of care. Discussed with dictator. Agree with documentation, dictated as a scribe.
[2023-05-01 18:12] LABS: Glucose,Whole Blood 167 mg/dL (70-110)
[2023-05-02 00:26] LABS: Glucose,Whole Blood 130 mg/dL (70-110)
[2023-05-02] MEDS: INSULIN ASPART (NovoLOG) 100 UNIT/ML VIAL SQ SCH ×4 (00:30→18:30)
[2023-05-02] MEDS: PIPERACILLIN-TAZOBACTAM 3.375 GM in SODIUM CHLORIDE 0.9% 100 ML IVPB SCH ×3 (00:58→15:23)
[2023-05-02] MEDS: DEXTROSE 5%-0.45% NACL 1,000 ML IV SCH ×3 (01:00→15:55)
[2023-05-02] MEDS: fentaNYL (PF). 1,000 MCG in SODIUM CHLORIDE 0.9% 80 ML IV SCH ×3 (02:24→15:36)
[2023-05-02] MEDS: ARGATROBAN 50 MG in SODIUM CHLORIDE 0.9% 50 ML IV SCH ×3 (03:37→16:49)
[2023-05-02] MEDS: IPRATROPIUM-ALBUTEROL 3 ML NEB INHALATION SCH ×5 (03:50→20:10)
[2023-05-02 04:39] LABS: Basophils % (A) 0 %; Eosinophils % (A) 0 %; HCT 36.9 % (39.0-53.0); HGB 11.6 gm/dL (13.0-17.5); Hypochromasia Marked; Lymphocytes # (A) 0.4 k/uL (1.0-4.8); Lymphocytes % (A) 2 %; MCH 29.8 pg (25.0-35.0); MCHC 31.5 g/dL (31.0-37.0); MCV 94.6 fL (80.0-100.0); Mean Platelet Volume 9.8; Monocytes # (A) 0.7 k/uL (0-1.0); Monocytes % (A) 4 %; Neutrophils # (A) 16.7 k/uL (1.3-7.7); Neutrophils % (A) 93 %; Platelet Count 155 k/uL (150-450); RDW 15.2 % (11.5-15.5); WBC 17.9 k/uL (3.8-10.6)
[2023-05-02 04:52] LABS: African American GFR (CKD) >90 (>60 ml/min/1.73 sqM); Anion Gap 4 mmol/L; Blood Urea Nitrogen 20 mg/dL (9-20); Calcium 8.1 mg/dL (8.4-10.2); Carbon Dioxide 26 mmol/L (22-30); Chloride 109 mmol/L (98-107); Glucose 184 mg/dL (74-99); Non-African American GFR(CKD) >90 (>60 ml/min/1.73 sqM); Potassium 3.8 mmol/L (3.5-5.1); Sodium 139 mmol/L (137-145)
[2023-05-02 06:02] LABS: Glucose,Whole Blood 167 mg/dL (70-110)
--- NOTE | 2023-05-02 06:16 | XR ---
EXAM: XR Chest, 1 View CLINICAL HISTORY: ITS.REASON XR Reason: mechanical ventilation TECHNIQUE: Frontal view of the chest. COMPARISON: 05/01/2023 FINDINGS: Lungs: Mild right basilar subsegmental linear areas of atelectasis. Pleural space: Unremarkable. No pneumothorax. Heart: Unremarkable. No cardiomegaly. Mediastinum: Unremarkable. No acute fracture. Bones/joints: Unremarkable. No acute fracture. Tubes, lines and devices: Endotracheal tube tip projects over the mid thoracic trachea. Enteric catheter tip projects at the GE junction. Left central line tip projects at SVC. Esophageal probe tip projects at the GE junction. IMPRESSION: 1. Mild atelectasis, similar. 2. Lines and tubes as above.
[2023-05-02 06:29] LABS: ABG Base Excess 4.1 mmol/L; ABG HCO3 28 mmol/L (21-25); ABG Oxygen Saturation 98.7 % (94-97); ABG PCO2 41 mmHg (35-45); ABG PH 7.45 (7.35-7.45); ABG PO2 110 mmHg (83-108); ABG TCO2 29 mmol/L (19-24); Allen Test Performed? Yes
[2023-05-02] MEDS ORDERED: POTASSIUM BICARBONATE/CIT AC 20 MEQ TABLET.EFF NG-TUBE SCH (07:00)
[2023-05-02] MEDS ORDERED: IMMUNE GLOBULIN (GAMMAGARD) 30 GM in EMPTY BAG 1 BAG IV ONE (09:00)
[2023-05-02] MEDS: PANTOPRAZOLE 40 MG/10 ML VIAL IVP SCH (09:28)
[2023-05-02] MEDS: CHLORHEXIDINE GLUCONATE 15 ML CUP MUCOUS MEM SCH ×2 (09:29→20:40)
[2023-05-02] MEDS: ATORVASTATIN 40 MG TAB PO SCH (09:29)
[2023-05-02] MEDS: THIAMINE 100 MG/ML 2 ML VIAL IVP SCH (09:29)
[2023-05-02] MEDS: LOSARTAN 50 MG TAB PO SCH (09:29)
[2023-05-02] MEDS: METOPROLOL TARTRATE 25 MG TAB PO SCH ×2 (09:29→20:40)
[2023-05-02] MEDS: ASPIRIN 81 MG PO SCH (09:29)
[2023-05-02] MEDS: methylPREDNISolone SOD SUCCIN 500 MG in SODIUM CHLORIDE 0.9% 100 ML IVPB SCH (09:43)
[2023-05-02] MEDS: HYDROmorphone 1 MG/ML 1 ML SYRINGE IVP PRN ×3 (10:02→20:40)
--- NOTE | 2023-05-02 10:29 | P.PN ---
Subjective Progress Note Date: 05/02/23 Principal diagnosis: Critical Limb ischemia, mental status changes, acute stroke Patient seen and examined today as follow-up in the ICU. He remains intubated. He did open his eyes on initially however, he quickly fell back asleep. No acute changes through the night. He remains on argatroban. Yesterday he was given IVIG and started on steroids. Platelet count continues to improve today's repeat platelet count 155,000. Objective - Vital Signs Vital signs: Vital Signs Temp 98.6 F 05/02/23 04:00 Pulse 88 05/02/23 08:34 Resp 13 05/02/23 07:00 BP 140/82 05/02/23 07:11 Pulse Ox 100 05/02/23 07:00 FiO2 40 05/02/23 07:42 Intake & Output 05/01/23 05/02/23 05/02/23 18:59 06:59 18:59 Intake Total 2126.612 2150.321 218.1 Output Total 1380 970 350 Balance 192.443 5762.321 -131.9 Weight 82.4 kg Intake: IV 991 1072 75 CVP + A-line 66 72 Dextrose 5%-0.45% NaCl 1, 825 900 75 000 ml @ 75 mls/hr IV . [id number] [facility] Rx#:[id number] Piperacillin-Tazobactam 3 100 100 .375 gm In Sodium Chloride 0.9% 100 ml @ 25 mls/hr IVPB Q8HR [facility] Rx# :[id number] Intake, IV Titration 535.612 304.321 86.1 Amount Argatroban 50 mg In 50.000 112.924 Sodium Chloride 0.9% 50 ml @ 0.5 MCG/KG/MIN 2.136 mls/hr IV .[id number] [facility] Rx#:[id number] Immune Globulin ( 300 Gammagard) 30 gm In Empty Bag 1 bag @ Per Protocol IV .Q0M [facility] Rx#: [id number] fentaNYL (PF). 1,000 mcg 86.1 In Sodium Chloride 0.9% 80 ml @ 0.5 MCG/KG/HR 3.5 mls/hr IV .Q24H [facility] Rx#: [id number] methylPREDNISolone SOD 100 SUCCIN 500 mg In Sodium Chloride 0.9% 100 ml @ 100 mls/hr IVPB DAILY [facility] Rx#:[id number] propofoL 1,000 mg In 85.612 191.397 Empty Bag 1 bag @ 15 MCG/ KG/MIN 4.905 mls/hr IV . [id number] [facility] Rx#:[id number] Tube Feeding 570 684 57 Other 30 90 Output: Urine 680 920 50 Stool 700 50 300 Other: Voiding Method Indwelling Catheter Indwelling Catheter ABP, PAP, CO, CI - Last Documented Arterial Blood Pressure 149/58 - Exam General appearance: The patient is intubated, awakes spontaneously with stimuli. HET: Head is normocephalic and atraumatic. Neck: Supple. Lungs: Equal expansion, on mechanical ventilation. Abdomen: Soft, nondistended. Extremities: Right hand is ischemic and contracted. Bilateral feet ischemic, with some ischemia of the left lower extremity. Feet cold to touch. Neurological: Patient is intubated, he does open his eyes to stimuli. - Labs CBC & Chem 7: 05/02/23 04:13 05/02/23 04:13 Labs: Abnormal Lab Results - Last 24 Hours (Table) 05/01/23 05/01/23 05/01/23 Range/Units 13:26 13:30 18:09 WBC (3.8-10.6) k/uL RBC (4.30-5.90) m/uL Hgb (13.0-17.5) gm/dL Hct (39.0-53.0) % Neutrophils # (1.3-7.7) k/uL Lymphocytes # (1.0-4.8) k/uL APTT 50.5 H (22.0-30.0) sec ABG pO2 (83-108) mmHg ABG HCO3 (21-25) mmol/L ABG Total CO2 (19-24) mmol/L ABG O2 Saturation (94-97) % Chloride (98-107) mmol/L Creatinine (0.66-1.25) mg/dL Glucose (74-99) mg/dL POC Glucose (mg/dL) 164 H 167 H (70-110) mg/dL Calcium (8.4-10.2) mg/dL 05/02/23 05/02/23 05/02/23 Range/Units 00:24 04:13 04:13 WBC 17.9 H (3.8-10.6) k/uL RBC 3.90 L (4.30-5.90) m/uL Hgb 11.6 L (13.0-17.5) gm/dL Hct 36.9 L (39.0-53.0) % Neutrophils # 16.7 H (1.3-7.7) k/uL Lymphocytes # 0.4 L (1.0-4.8) k/uL APTT (22.0-30.0) sec ABG pO2 (83-108) mmHg ABG HCO3 (21-25) mmol/L ABG Total CO2 (19-24) mmol/L ABG O2 Saturation (94-97) % Chloride 109 H (98-107) mmol/L Creatinine 0.54 L (0.66-1.25) mg/dL Glucose 184 H (74-99) mg/dL POC Glucose (mg/dL) 130 H (70-110) mg/dL Calcium 8.1 L (8.4-10.2) mg/dL 05/02/23 05/02/23 05/02/23 Range/Units 04:13 06:00 06:25 WBC (3.8-10.6) k/uL RBC (4.30-5.90) m/uL Hgb (13.0-17.5) gm/dL Hct (39.0-53.0) % Neutrophils # (1.3-7.7) k/uL Lymphocytes # (1.0-4.8) k/uL APTT 42.9 H (22.0-30.0) sec ABG pO2 110 H (83-108) mmHg ABG HCO3 28 H (21-25) mmol/L ABG Total CO2 29 H (19-24) mmol/L ABG O2 Saturation 98.7 H (94-97) % Chloride (98-107) mmol/L Creatinine (0.66-1.25) mg/dL Glucose (74-99) mg/dL POC Glucose (mg/dL) 167 H (70-110) mg/dL Calcium (8.4-10.2) mg/dL 05/02/23 Range/Units 09:00 WBC (3.8-10.6) k/uL RBC (4.30-5.90) m/uL Hgb (13.0-17.5) gm/dL Hct (39.0-53.0) % Neutrophils # (1.3-7.7) k/uL Lymphocytes # (1.0-4.8) k/uL APTT 39.7 H (22.0-30.0) sec ABG pO2 (83-108) mmHg ABG HCO3 (21-25) mmol/L ABG Total CO2 (19-24) mmol/L ABG O2 Saturation (94-97) % Chloride (98-107) mmol/L Creatinine (0.66-1.25) mg/dL Glucose (74-99) mg/dL POC Glucose (mg/dL) (70-110) mg/dL Calcium (8.4-10.2) mg/dL Microbiology - Last 24 Hours (Table) 04/26/23 19:00 Blood Culture - Final Blood 04/26/23 18:45 Blood Culture - Final Blood Assessment and Plan Assessment: 1. Systemic arterial thrombosis, suspect hypercoagulable syndrome 2. Advanced ischemic changes of the feet and calf areas bilaterally as well as right hand and distal forearm 3. Previous right ulnar, radial, brachial thrombectomy 4. CT brain with Maturing left parietal occipital infarct. Couple of punctuate hyperdensities are present could be petechial hemorrhages present previously and stable 5. Nearly occluding thrombus in the distal descending thoracic aorta 6. CVA 7. Reported recent diagnosis of lung cancer 8. Non-STEMI with severely impaired left ventricle systolic function Plan: Hematology on consult and recommended resuming argatroban, IVIG and steroids started. Patient's overall prognosis is quite poor, if patient survives he will need bilateral lower extremity amputations as well as amputation of the right hand. Again prognosis is poor, patient is not stable to undergo surgical intervention at this time. healthcare social worker will be going to court tomorrow for hearing to obtain public guardian. Further recommendations forthcoming based on clinical course. Continue medical/ICU management. The impression and plan of care has been dictated as directed. Dr. De I performed a history and examination of this patient, discussed the same with the dictator. I agree with the dictator's note ,documented as a scribe. Any additional findings or plans will be noted.
--- NOTE | 2023-05-02 10:50 | P.PN ---
Subjective Progress Note Date: 05/01/23 05/01/2023: Patient is seen for a follow-up. Patient currently on propofol 65 mcg/kg per minute, and also on fentanyl 2 mcg/kg per hour. Patient is having diarrhea. No seizure-like activity. 04/30/2023: Patient was initially seen by Dr. Dr. Alexander Mera. Please refer to his note for details. 58M with subacute left temporal/parietal stroke. Patient had CT head performed yesterday, which revealed 2 areas of small petechial hemorrage in the infarct core. He has left descending aortic thrombus, suspicious for lung cancer, ischemia of extremities (bilateral lower and right upper extremity). Heparin drip stopped for ?HIT. Argatroban was put on hold because of petecthial hemorrhage, but restarted today after the repeat CT head performed today shows stable area of petechial hemorrhage. He is on ASA. Very critical patient. Some other workup during our facility consisted of: Plasma lactic acid venous 12.1 and most recent one is 1.8 Calcium is 10.5 CK level is 10,403 and a repeat is 18,435-->13K Troponin is 8.3 and most recent one is 13.7 Ammonia 14 Lipid panel: TG 209, Cholestroll 95, LDL 25 and HDL 28 TSH: 2.34 Vitamin B12: 797 Folate: 19.3 Initial CO2: >20 and repeated 1.7. AB.17 and repeated and HCO3 9. UDS is nondetected and serum alcohol was less than 10 CT of the head is reported as subacute A by 4 x 4 cm left MCA territory nonhemorrhagic infarction. I personally agree that the patient has subacute changes over the left temporal parietal region. CT cervical spine is prominent by apical lung consolidation. Patient is on IV propofol and fentanyl. He is intubated. 2-D echo was reported as him. All the function. The ejection fraction is about 20-25%. Mild ventricular and apical hypokinesis. Routine EEG: Is abnormal. The background slowing is suggestive of mild encephalopathy. There is no focal slowing, epileptiform discharge or seizure on the EEG. The diffuse suppression is likely due to medication induced (Propofol and fentanyl). Repeat CT head is reported as left [employer] subacute stroke redomenstrated. Difficult to exclude minimal petechial hemmorrhage within the anterior region of infarct. some preserved cortical parenchyma is the alternative consideration. Ongoing follow-up recommended. No midline shift or herniation seen. A small posterior scalp contusion appears to have developed. Carotid duplex is reported as less than 50% stenosis bilateral carotid bifurcation. Repeat CT head 04/29/2023: It is reported as redemonstrated left parietal and temporal subacute infarct. There are increasing aerial petechial hemorrhage without that infarct tone. No midline shift or herniation. Personally reviewed the CT and agree with the report CT of the chest was reported as 2 left hilar masses highly suspicious for neoplasm. Large nearly occluding thrombus in the distal descending thoracic ao rta. Mild basilar infiltrate/atelectasis. Mild groundglass a density in the right middle lobe. Objective - Vital Signs Vital signs: Vital Signs Temp 98.2 F 05/01/23 16:00 Pulse 84 05/01/23 17:00 Resp 22 05/01/23 17:00 BP 128/68 05/01/23 01:00 Pulse Ox 100 05/01/23 17:00 FiO2 40 05/01/23 16:02 Intake & Output 04/30/23 05/01/23 05/01/23 18:59 06:59 18:59 Intake Total 2425.487 2376.210 1903.000 Output Total 1070 1015 920 Balance 2381.105 6155.210 983.000 Weight 77.5 kg Intake: IV 508 1112 910 0.9 NS @ KVO 130 40 CVP + A-line 78 72 60 Dextrose 5% in Water 1, 225 75 000 ml @ 75 mls/hr IV . [id number] [facility] Rx#:[id number] Dextrose 5%-0.45% NaCl 1, 825 750 000 ml @ 75 mls/hr IV . [id number] [facility] Rx#:[id number] Piperacillin-Tazobactam 3 75 100 100 .375 gm In Sodium Chloride 0.9% 100 ml @ 25 mls/hr IVPB Q8HR [facility] Rx# :[id number] Intake, IV Titration 1116.487 460.210 450.000 Amount Argatroban 50 mg In 41.487 58.513 50.000 Sodium Chloride 0.9% 50 ml @ 0.5 MCG/KG/MIN 2.136 mls/hr IV .[id number] [facility] Rx#:[id number] Dextrose 5%-0.45% NaCl 1, 675 000 ml @ 75 mls/hr IV . [id number] [facility] Rx#:[id number] Immune Globulin ( 300 Gammagard) 30 gm In Empty Bag 1 bag @ Per Protocol IV .Q0M ONE Rx#: [id number] Sodium Ferric Gluconat- 100 Sucrose 125 mg In Sodium Chloride 0.9% 100 ml @ 100 mls/hr IVPB DAILY [facility] Rx#:[id number] fentaNYL (PF). 1,000 mcg 100.000 200 In Sodium Chloride 0.9% 80 ml @ 0.5 MCG/KG/HR 3.5 mls/hr IV .Q24H [facility] Rx#: [id number] methylPREDNISolone SOD 100 100 SUCCIN 500 mg In Sodium Chloride 0.9% 100 ml @ 100 mls/hr IVPB DAILY [facility] Rx#:[id number] propofoL 1,000 mg In 100 201.697 Empty Bag 1 bag @ 15 MCG/ KG/MIN 4.905 mls/hr IV . [id number] [facility] Rx#:[id number] Tube Feeding 741 684 513 Other 60 120 30 Output: Urine 1070 1015 620 Stool 300 Other: Voiding Method Indwelling Catheter Indwelling Catheter Indwelling Catheter ABP, PAP, CO, CI - Last Documented Arterial Blood Pressure 128/52 - Exam Patient is laying in the bed, intubated, sedated with propofol 65 mcg/kg per minute, also on fentanyl 2.0 g/kg/hr. Patient does open his eyes to calling his name is still encephalopathic, prefers gaze to the left at times with some neglect on the right visual field. Patient is more sedated today. Patient has possible necrotic and cyanotic changes in the right hand, as well as bilateral feet. Patient's pupils are about 3 mm, minimally reacting. Extraocular muscles appears intact, but patient did not cooperate much. No obvious seizure-like activity noted. Patient's right hand and bilateral feet are very cold. - Labs CBC & Chem 7: 05/02/23 04:13 05/02/23 04:13 Labs: Abnormal Lab Results - Last 24 Hours (Table) 04/27/23 04/30/23 04/30/23 Range/Units 12:12 20:47 23:23 WBC (3.8-10.6) k/uL RBC (4.30-5.90) m/uL Hgb (13.0-17.5) gm/dL Plt Count (150-450) k/uL Neutrophils # (1.3-7.7) k/uL Lymphocytes # (1.0-4.8) k/uL PT (10.0-12.5) sec INR (<1.2) APTT 41.5 H (22.0-30.0) sec ABG pO2 (83-108) mmHg ABG HCO3 (21-25) mmol/L ABG Total CO2 (19-24) mmol/L ABG O2 Saturation (94-97) % Creatinine (0.66-1.25) mg/dL Glucose (74-99) mg/dL POC Glucose (mg/dL) 176 H (70-110) mg/dL Calcium (8.4-10.2) mg/dL AST (17-59) U/L ALT (4-49) U/L Creatine Kinase (55-170) U/L Total Protein (6.3-8.2) g/dL Albumin (3.5-5.0) g/dL Copper 1664 H (665-1480) ug/L 04/30/23 05/01/23 05/01/23 Range/Units 23:24 02:05 05:10 WBC (3.8-10.6) k/uL RBC (4.30-5.90) m/uL Hgb (13.0-17.5) gm/dL Plt Count (150-450) k/uL Neutrophils # (1.3-7.7) k/uL Lymphocytes # (1.0-4.8) k/uL PT (10.0-12.5) sec INR (<1.2) APTT 41.7 H 41.1 H (22.0-30.0) sec ABG pO2 (83-108) mmHg ABG HCO3 (21-25) mmol/L ABG Total CO2 (19-24) mmol/L ABG O2 Saturation (94-97) % Creatinine (0.66-1.25) mg/dL Glucose (74-99) mg/dL POC Glucose (mg/dL) 166 H (70-110) mg/dL Calcium (8.4-10.2) mg/dL AST (17-59) U/L ALT (4-49) U/L Creatine Kinase (55-170) U/L Total Protein (6.3-8.2) g/dL Albumin (3.5-5.0) g/dL Copper (665-1480) ug/L 05/01/23 05/01/23 05/01/23 Range/Units 05:11 05:11 05:11 WBC 16.2 H (3.8-10.6) k/uL RBC 4.29 L (4.30-5.90) m/uL Hgb 12.5 L (13.0-17.5) gm/dL Plt Count 114 L D (150-450) k/uL Neutrophils # 15.2 H (1.3-7.7) k/uL Lymphocytes # 0.3 L (1.0-4.8) k/uL PT 13.4 H (10.0-12.5) sec INR 1.3 H (<1.2) APTT 40.7 H (22.0-30.0) sec ABG pO2 (83-108) mmHg ABG HCO3 (21-25) mmol/L ABG Total CO2 (19-24) mmol/L ABG O2 Saturation (94-97) % Creatinine 0.52 L (0.66-1.25) mg/dL Glucose 159 H (74-99) mg/dL POC Glucose (mg/dL) (70-110) mg/dL Calcium 8.1 L (8.4-10.2) mg/dL AST 250 H (17-59) U/L ALT 137 H (4-49) U/L Creatine Kinase 6279 H* (55-170) U/L Total Protein 4.7 L (6.3-8.2) g/dL Albumin 2.4 L (3.5-5.0) g/dL Copper (665-1480) ug/L 05/01/23 05/01/23 05/01/23 Range/Units 05:52 08:34 13:26 WBC (3.8-10.6) k/uL RBC (4.30-5.90) m/uL Hgb (13.0-17.5) gm/dL Plt Count (150-450) k/uL Neutrophils # (1.3-7.7) k/uL Lymphocytes # (1.0-4.8) k/uL PT (10.0-12.5) sec INR (<1.2) APTT 41.2 H (22.0-30.0) sec ABG pO2 82 L (83-108) mmHg ABG HCO3 27 H (21-25) mmol/L ABG Total CO2 29 H (19-24) mmol/L ABG O2 Saturation 97.2 H (94-97) % Creatinine (0.66-1.25) mg/dL Glucose (74-99) mg/dL POC Glucose (mg/dL) 164 H (70-110) mg/dL Calcium (8.4-10.2) mg/dL AST (17-59) U/L ALT (4-49) U/L Creatine Kinase (55-170) U/L Total Protein (6.3-8.2) g/dL Albumin (3.5-5.0) g/dL Copper (665-1480) ug/L 05/01/23 05/01/23 Range/Units 13:30 18:09 WBC (3.8-10.6) k/uL RBC (4.30-5.90) m/uL Hgb (13.0-17.5) gm/dL Plt Count (150-450) k/uL Neutrophils # (1.3-7.7) k/uL Lymphocytes # (1.0-4.8) k/uL PT (10.0-12.5) sec INR (<1.2) APTT 50.5 H (22.0-30.0) sec ABG pO2 (83-108) mmHg ABG HCO3 (21-25) mmol/L ABG Total CO2 (19-24) mmol/L ABG O2 Saturation (94-97) % Creatinine (0.66-1.25) mg/dL Glucose (74-99) mg/dL POC Glucose (mg/dL) 167 H (70-110) mg/dL Calcium (8.4-10.2) mg/dL AST (17-59) U/L ALT (4-49) U/L Creatine Kinase (55-170) U/L Total Protein (6.3-8.2) g/dL Albumin (3.5-5.0) g/dL Copper (665-1480) ug/L Assessment and Plan Assessment: This is a 58 y/o gentleman was found down in front of his stove on 04/26/2023 and last normal seen was on 04/23/2023. He was recent at [facility] for ischemia of right upper extremity, s/p thrombectomy on third week of March and had repeated surgery and was discharged on eliquis. His CO was >20 and repeated is normal. His CK level is elevated, elevated troponin. CT head show subacute ischemic stroke over the left MCA. Subacute left temporal/parietal with some petechial hemorrhage on repeated CT head. No IV tpa since outside window and appears last normal is 04/23/2023 and risk outweigh benefit. Encephalopathy due to stroke, carbon monoxide poisoning, metabolic encephalopathy and medication effect (Propofol and Fentanyl). EEG is mild encephalopathy but no seizure or discharges. Patient would open his eyes 2 left hilar masses highly suspicious for neoplasm on CT Large nearly occluding thrombus in the distal descending thoracic aorta on CT NSTEMI Acute Rhabdomylolysis--slightly trending down Recent right upper extremity thrombus with ischemia s/p thrombectomy X2 at [facility] towards 3rd week of March 2023. Ishchemia over the bilateral lowers and right upper extremity Carbon monoxide poisoning with carbon monoxide level greater than 20% since was found next to oven---resolved Acute hypoxemic respiratory failure s/p intubated dictaphone mechanic ventilator. DARRYL--resolved. Ejection fraction of 20-25% with apical hypokinesis and 2-D echo Leukocytosis--trending down Hypernatremia--trending down Polycythemia Possible lung cancer Plan: Repeat CT head 04/30/2023 showed maturing left parietal occipital infarct. Couple of punctate hyperdensities are present, could be petechial hemorrhage, previously also present and stable. I personally review CT head, agree with the findings. Areas of hyperdensity appears definite small areas of acute hemorrhage. There is also evidence of a couple small areas of subacute ischemia involving the top right parietal cortex Patient was initially on heparin drip but then there is suspicion of ?HIT so was stopped and started on Argatroban. This was held, but now restarted on Argatroban as benefit outweigh the risk. Also the stool occult blood is positive. Patient has thromboctyopenia and initially there is ?concern for HIT. He is receiving platelete transfusion. Per primary team he thinks there is possible hemodilution effect as well. He is currently on ASA 81mg daily. If has worsening of bleeding or platelets then recommend holding ASA. Will avoid the statin because of his rhabdo but once the rhabdo resolves will place him on statin Hematology is on board. Primary team ordered hypercoagulable work-up and pending. Dr. Alexander Mera has discussed with Dr. Betancourt (Criminal Research Specialist) and he stated there is no benefit of pursuing LEONIDAS. Pending copper level. Continue thiamine 100mg IV daily. Every 2 neurochecks Cardiac monitoring PT OT and ASSOCIATE [employer]ANNER is consulted Cardiology and vascular surgery team are on board He has an estranged brother and otherwise no family members. Pending appointment of an emergent guardian. We'll defer the rest of the medical management to the primary team DVT prophylaxis: use SCD. Overall prognosis appears poor due to significant multiple medical/surgical conditions as above including CVA Discussed with patient's nurse in detail. There is a meeting scheduled with tomorrow for obtaining a public guardian.
[2023-05-02 11:54] LABS: Glucose,Whole Blood 158 mg/dL (70-110)
--- NOTE | 2023-05-02 12:43 | P.PN ---
Subjective Progress Note Date: 05/02/23 Principal diagnosis: Acute hypoxic respiratory failure, left hilar mass, acute multiple limbs ischemia I am seeing this patient in consultation today 04/27/2023 in the intensive care unit after he was brought in by EMS yesterday evening. He was reportedly covered in soot, and found minimally responsive next to the oven. Patient is a 58-year-old white male with limited known past medical history. He did reportedly just have a vascular procedure done at [facility] for right upper limb ischemia recently. The nurses are working on getting this documentation. He also may have recently been diagnosed with lung cancer and is a chronic ongoing smoker. He has no family other than an estranged brother. Patient was last seen well by his neighbor on Sunday. The neighbors did not hear from him for a couple of days and decided to call the police to do a wellness check. He was found on the floor next to the stove, the gas was on. He was covered in soot, He may have been burning something on the stove. He was altered and minimally responsive. Questionable, whether he may have tried to commit suicide, and is petitioned by the police. His carboxyhemoglobin level was greater than 20%. The ER physician did try to reach out to tertiary care centers for possible hy perbaric oxygen therapy, however, no accepting facilities were found. Patient was ultimately intubated for airway protection. Current ventilator settings are assist control, respiratory rate 20, tidal volume 400, FiO2 100%, PEEP of 10. Most recent ABGs show a pO2 of 68, pCO2 of 24, pH of 7.17. Patient has been given 2 A of sodium bicarb and is on a bicarb drip at 100 ML's per hour. Post intubation chest x-ray shows endotracheal tube approximately 1 cm above the chasidy, this will be withdrawn 1-2 cm. There is an orogastric tube coursing into the stomach. There is a left subclavian triple-lumen catheter tip near the cavoatrial junction. There is bilateral multifocal infiltrates consistent with pneumonia, likely aspiration pneumonia. He is covered on Zosyn. BP is stable at this time. He did receive 4 normal saline boluses in the ER. Not requiring any vasopressors at the moment. Patient is currently sedated on propofol which is infusing at 50 mcg/kg/m. He is fairly synchronous with the mechanical ventilator. His right arm appears postsurgical, with two healing and approximated incisions. The extremity is pulseless and cold. Previously on examination, the patient was noted to have a left gaze deviation, a brain and C- spine CT demonstrated a subacute 8 by 4 x 4 centimeters left MCA territory nonhemorrhagic infarct or midline shift. No cervical spine fracture. No seizure like activity noted by nursing staff. Neuro examination is limited by sedation. Urine drug screen negative. CBC on arrival shows a WBC count of 28.5, hemoglobin 20.7, hematocrit 65.1, platelets 115. BMP shows sodium 147, potassium 5, chloride 108, serum bicarbonate 9, BUN 56, creatinine 2.19, glucose 147. Lactic acid level was 12 and is down to 2.4. LFTs mildly elevated. Creatinine kinase is elevated at 10,400 and is consistent with rhabdomyolysis. He was found on the ground. He does bruising on his legs. Troponin elevated, consistent with non-ST elevation NE, likely related to tissue hypoxemia and carbon monoxide poisoning. Chest x-ray did show sinus tachycardia with T-wave inversion in anterior lateral leads. No other ST or T wave abnormalities noted. Patient's condition is obviously critical, and he is being monitored in the intensive care unit. On 04/28/2023, seeing the patient for a follow-up. This morning, the patient is on propofol running at 30 mcg/kg/m. He is arousable. He withdraws to painful stimulation. He is not following commands at this point in time. He is on assist-control mode of mechanical ventilation at the rate of 20, tidal volume of 400, FiO2 is currently at 40% with a PEEP of 10. The blood gas showed a pH of 7.42 with a pCO2 of 40 and pO2 of 252. His, monocyte level is normalized. His chest x-ray from today showing no significant acute abnormalities. There may be a opacity in the left hilar area consistent with his previous history of lung cancer. He has a triple-lumen catheter in his left subclavian vein. The tube is in a good location. No airspace disease or consolidations this point in time. A repeat CAT scan of the brain was done this morning and it showed left GAS LINE INSTALLER territory subacute infarct and possibility of some edema minimal petechial hemorrhage cannot be completely excluded in the anterior margin of the infarct. The patient was started on IV heparin by vascular surgery. I stopped the heparin yesterday based on the fact that the patient's platelet count has dropped onto 57 and at the same time there is a concern of hemorrhagic transformation of his stroke. The same time, the patient is hemodynamically sta ble. Troponins peaked at 16 and then down trended. His echocardiogram showed impaired LV function and his ejection fraction is in order of 20-25%. The patient also has rhabdomyolysis. CPK peaked at 18,000 and currently it is down trending. He continues to have obvious vascular issues. The patient was seen by vascular surgery. We came to find other the patient has undergone a right brachial, radial and ulnar thrombectomy reportedly twice during an earlier hospitalization. His right upper extremity is contracted and dusky and cold with absent pulses and remains ischemic. In same time, the patient has ischemic feet bilaterally with absent pulses in the feet are cold and clammy without any dorsalis pedis or posterior tibialis and a demarcation is being developed at this point in time. Terms of his blood work, sodium levels of 151, potassium is at 4.2, currently 122, BUN is 28 with a creatinine of 0.9 and the patient has recovered from his acute kidney injury. The white cell count dropped at 15.3 with a hemoglobin of 14.7. The patient patient also had a drop in the platelet count down to 57. He was started on IV heparin. I stopped IV heparin. Heparin-induced thrombocytopenia antibodies were sent and the patient is being started on agratoban been based on recommendations done by the vascular team and the medical team. On 04/29/2023, the patient is following some simple commands while being off sedation. Repeat CAT scan of the brain was done today and that is also still pending. The patient has a large ischemic stroke involving the left GAS LINE INSTALLER distribution. Concern is for any evolving bleed especially the patient is currently on agratoban . Otherwise, the patient remains intubated on a mechanical ventilator. He is on assist control mode with a rate of 20, tidal volume of 400, FiO2 of 40% with a PEEP of 5. No blood gas from today. The chest x-ray from today showing no acute abnormalities. The patient has a left hilar mass. EKG was in a good location. I did obtain a CAT scan of his chest yesterday and the patient has a confirmed mass in the left hilum which I believe it was biopsied earlier and the outside hospital. This was a 3.1 cm mass in the left hilar area. The same time, the patient has a thrombus causing the descending resting aorta. There is significant narrowing of the lumen of the ascending aorta and this was discussed with vascular surgery team. Overall vascular condition is extremely poor. The patient has no pulses in his feet bilaterally. His legs are cold and clammy with absent capillary refills. He is developing demarcation lines in his feet. The same for the right upper extremity. He does have a pulse in his left upper extremity. Vascular surgery are following the patient. No intervention is recommended because of his poor prognosis and his underlying comorbidities. Vascular surgery plans to do amputations once patient is more stable. Meanwhile, the patient remains on Agratoban, hit antibodies are still pending, hypercoagulable workup was also done and the blood work was sent to rule out the possibility of any antiphospholipid syndrome in this patient. His platelet count currently is at 49. Hemoglobin is stable at 13.1. The white cycles of 15.7. Rest of the blood work and electrolytes are all within normal limits. Sodium level is improved compared to yesterday's currently down to 146. IV fluids are in the form of D5 water at the rate of 75 mL an hour. He is receiving enteral feeding for nutritional support. He is currently on vital high-protein at the rate of 50 mL an hour. Patient is being seen by different consultants including cardiology, neurology, vascular surgery, hematology oncology. His adequately sedated with a combination of propofol and fentanyl. He remains on broad-spectrum antibiotic coverage with IV Zosyn. No family identified. There is a brother with does not want to be contacted. There is also a neighbor. Legal guardianship is being acquired Patient was [id number]/11/2023, patient remains in the ICU, intubated and mechanically ventilated. Patient is on assist control rate of 20, volume 400 FiO2 40% and PEEP of 5 ABG showed a pO2 of 132 pCO2 40 pH of 7.45. Patient is on propofol at 60 mcg/kg/m is also on fentanyl 2 mcg/kg/h and D5W at 75 mL per hour. Patient is also empirically on Zosyn. And he is receiving iron. Recent CT of the chest showed possible malignancy and thromboses within the aorta at the thoracic level. Patient continues to have significant ischemic and almost gangrenous changes involving his bilateral lower extremities and his right upper extremity. CT of the brain showed petechial hemorrhages with an ischemic stroke area involving the left hemisphere. There is urologist felt the patient had a maturing left parietal occipital infarct and petechial hemorrhages are stable compared to previous CT of the brain. Chest x-ray continues to show diffuse interstitial opacities, either pulmonary vascular congestion or atypical pneumonia. There is also 3.4 cm left hilar mass present. Labs were reviewed, platelets remained low at 64,000 WBC count is 12.2 hemoglobin is 12.2 PTT is 41.6, heparin presently is on hold. Basic metabolic profile is normal, renal profile is normal, blood cultures and sputum cultures have been negative. Urine culture is also negative Reevaluated today on 05/01/2023, remains in the ICU, intubated and mechanically ventilated. Patient is on assist control rate of 20-2400 FiO2 40% and PEEP of 5. ABG showed a pO2 of 82 pCO2 39 pH of 7.45 hence no changes were made regarding his ventilator settings. Patient remains on propofol at 65 mcg/kg/m R get to ban at 1.6 mg/kg/m patient is also on fentanyl at 2 mcg/kg/h and vital HPF 57 mL per hour. Reviewed the pathology report from his previous lung biopsy, and it showed atypical carcinoid. At any rate patient clearly has severe prognosis, he is critically ill, continues to have ischemic changes in the right hand, right lower extremity and left lower extremity, and my fear the patient may eventually end up with DIC. Patient is being followed by hematology. I will discuss with his legal guardian once one is appointed which is supposed to be done next at 1:[address], and I will definitely recommend comfort care measures on this patient. WBC count today is 16.2 hemoglobin 12.5 PTT is 40.7 INR is 1.3. Platelets are up to 114. CPK 6279, renal functioning is normal. Patient continues to have good urine output. Patient was reevaluated today on 05/02/2023, remains in the ICU, intubated and mechanically ventilated, not much has changed over the last 24 hours. Patient is on assist control rate of 20,000 volume 400, FiO2 40% and PEEP of 5 ABG showed a pO2 of 110 pCO2 41 pH of 7.45 hence no vent setting changes were made. Patient is maintained on propofol at 65 mcg/kg/m, fentanyl at 2 mcg/kg/h, uncont rolled and at 1.8 mcg/kg/m, patient is receiving vital HP via orogastric tube. Mentation is about the same, patient opens eyes, but he does not follow any instructions, he is being followed by neurology on the case. His multiple limb ischemia is about the same, patient clearly has significant ischemic changes in his right hand, right foot and left foot. With demarcation, for his low platelets, patient was given IVIG and he was also given steroids by hematology. Hematology still suspecting heparin-induced thrombocytopenia , recommending KALA, this was ordered for confirmation. Patient was found to have positive lupus anticoagulants, DIC workup is negative so far. Again based on the fact that we may be dealing with H I T/catastrophic antiphospholipid syndrome, steroids were given, and IVIG was given. Chest x-ray today showed appropriate position of tubes and lines, and minimal right basilar atelectasis. Objective - Vital Signs Vital signs: Vital Signs Temp 98.6 F 05/02/23 08:00 Pulse 96 05/02/23 11:39 Resp 20 05/02/23 11:00 BP 124/54 05/02/23 11:00 Pulse Ox 97 05/02/23 11:00 FiO2 40 05/02/23 10:39 Intake & Output 05/01/23 05/02/23 05/02/23 18:59 06:59 18:59 Intake Total 2126.612 2150.321 1258.104 Output Total 1380 970 685 Balance 091.122 9235.321 573.104 Weight 82.4 kg Intake: IV 991 1072 730 0.9 NS @ KVO 50 CVP + A-line 66 72 30 Dextrose 5%-0.45% NaCl 1, 825 900 450 000 ml @ 75 mls/hr IV . [id number] [facility] Rx#:[id number] Piperacillin-Tazobactam 3 100 100 100 .375 gm In Sodium Chloride 0.9% 100 ml @ 25 mls/hr IVPB Q8HR [facility] Rx# :[id number] methylPREDNISolone SOD 100 SUCCIN 500 mg In Sodium Chloride 0.9% 100 ml @ 100 mls/hr IVPB DAILY [facility] Rx#:[id number] Intake, IV Titration 535.612 304.321 213.104 Amount Argatroban 50 mg In 50.000 112.924 27.004 Sodium Chloride 0.9% 50 ml @ 0.5 MCG/KG/MIN 2.136 mls/hr IV .[id number] [facility] Rx#:[id number] Immune Globulin ( 300 Gammagard) 30 gm In Empty Bag 1 bag @ Per Protocol IV .Q0M [facility] Rx#: [id number] fentaNYL (PF). 1,000 mcg 86.1 In Sodium Chloride 0.9% 80 ml @ 0.5 MCG/KG/HR 3.5 mls/hr IV .Q24H [facility] Rx#: [id number] methylPREDNISolone SOD 100 SUCCIN 500 mg In Sodium Chloride 0.9% 100 ml @ 100 mls/hr IVPB DAILY [facility] Rx#:[id number] propofoL 1,000 mg In 85.612 191.397 100 Empty Bag 1 bag @ 15 MCG/ KG/MIN 4.905 mls/hr IV . [id number] [facility] Rx#:[id number] Tube Feeding 570 684 285 Other 30 90 30 Output: Urine 680 920 385 Stool 700 50 300 Other: Voiding Method Indwelling Catheter Indwelling Catheter ABP, PAP, CO, CI - Last Documented Arterial Blood Pressure 134/53 - Exam GENERAL EXAM: 58-year-old white male, intubated, mechanically ventilated, sedated, opens eyes but does not follow any instructions HEAD: Normocephalic and atraumatic EENT: PERRLA, EOMI, anicteric, no neck masses, no JVD. CHEST: No chest wall deformity. LUNGS: Good breath sound bilaterally no crackles or rhonchi or wheezes. CVS: Normal S1 and S2, no S3 gallop no murmur ABDOMEN: Soft nontender no megaly no rebound no guarding SKIN: Bilateral lower extremity bruising and mottling. 2 right upper extremity incision sites clean and approximated. CENTRAL NERVOUS SYSTEM: Opens eyes but does not follow any instructions EXTREMITIES: There is bilateral lower extremity bruising and mottling. Right upper extremity is pulseless and cold. No capillary refill. Remaining extremities also have diminished pulses, but are found with Doppler. There is no peripheral edema, clubbing. Feet are also cold and mottled with absent capillary refills. There is also a line of demarcation developing in the lower extremities - Labs CBC & Chem 7: 12/13/23 04:13 05/02/23 04:13 Labs: Abnormal Lab Results - Last 24 Hours (Table) 05/01/23 05/01/23 05/01/23 Range/Units 13:26 13:30 18:09 WBC (3.8-10.6) k/uL RBC (4.30-5.90) m/uL Hgb (13.0-17.5) gm/dL Hct (39.0-53.0) % Neutrophils # (1.3-7.7) k/uL Lymphocytes # (1.0-4.8) k/uL APTT 50.5 H (22.0-30.0) sec ABG pO2 (83-108) mmHg ABG HCO3 (21-25) mmol/L ABG Total CO2 (19-24) mmol/L ABG O2 Saturation (94-97) % Chloride (98-107) mmol/L Creatinine (0.66-1.25) mg/dL Glucose (74-99) mg/dL POC Glucose (mg/dL) 164 H 167 H (70-110) mg/dL Calcium (8.4-10.2) mg/dL 05/02/23 05/02/23 05/02/23 Range/Units 00:24 04:13 04:13 WBC 17.9 H (3.8-10.6) k/uL RBC 3.90 L (4.30-5.90) m/uL Hgb 11.6 L (13.0-17.5) gm/dL Hct 36.9 L (39.0-53.0) % Neutrophils # 16.7 H (1.3-7.7) k/uL Lymphocytes # 0.4 L (1.0-4.8) k/uL APTT (22.0-30.0) sec ABG pO2 (83-108) mmHg ABG HCO3 (21-25) mmol/L ABG Total CO2 (19-24) mmol/L ABG O2 Saturation (94-97) % Chloride 109 H (98-107) mmol/L Creatinine 0.54 L (0.66-1.25) mg/dL Glucose 184 H (74-99) mg/dL POC Glucose (mg/dL) 130 H (70-110) mg/dL Calcium 8.1 L (8.4-10.2) mg/dL 05/02/23 05/02/23 05/02/23 Range/Units 04:13 06:00 06:25 WBC (3.8-10.6) k/uL RBC (4.30-5.90) m/uL Hgb (13.0-17.5) gm/dL Hct (39.0-53.0) % Neutrophils # (1.3-7.7) k/uL Lymphocytes # (1.0-4.8) k/uL APTT 42.9 H (22.0-30.0) sec ABG pO2 110 H (83-108) mmHg ABG HCO3 28 H (21-25) mmol/L ABG Total CO2 29 H (19-24) mmol/L ABG O2 Saturation 98.7 H (94-97) % Chloride (98-107) mmol/L Creatinine (0.66-1.25) mg/dL Glucose (74-99) mg/dL POC Glucose (mg/dL) 167 H (70-110) mg/dL Calcium (8.4-10.2) mg/dL 05/02/23 05/02/23 Range/Units 09:00 11:52 WBC (3.8-10.6) k/uL RBC (4.30-5.90) m/uL Hgb (13.0-17.5) gm/dL Hct (39.0-53.0) % Neutrophils # (1.3-7.7) k/uL Lymphocytes # (1.0-4.8) k/uL APTT 39.7 H (22.0-30.0) sec ABG pO2 (83-108) mmHg ABG HCO3 (21-25) mmol/L ABG Total CO2 (19-24) mmol/L ABG O2 Saturation (94-97) % Chloride (98-107) mmol/L Creatinine (0.66-1.25) mg/dL Glucose (74-99) mg/dL POC Glucose (mg/dL) 158 H (70-110) mg/dL Calcium (8.4-10.2) mg/dL Microbiology - Last 24 Hours (Table) 04/26/23 19:00 Blood Culture - Final Blood 04/26/23 18:45 Blood Culture - Final Blood Assessment and Plan Assessment: Impression: Acute hypoxic respiratory failure requiring intubation and mechanical ventilation, multifactorial Left hilar mass, 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 ascending thoracic aneurysm/clot causing significant narrowing of the lumen of the aorta Elevated carboxyhemoglobin level on admission, suspect acute carbon monoxide po isoning possibly intentional Acute toxic metabolic encephalopathy Severe anion gap metabolic acidosis on presentation, improving Acute kidney injury related to her acute rhabdomyolysis, resolved, patient continues to have relatively elevated CPK Mild transaminitis Hyperchloremic hypernatremia improving with D5 W Acute thrombocytopenia could be heparin-induced, rule out antiphospholipid syndrome,, presently receiving steroids and IVIG as recommended by hematology Recommendation: Continue ventilatory support Continue patient sedated on propofol and fentanyl Continue nutritional support/enteral feeding Awaiting court + legal guardian next , and I would likely discuss with the legal guardian the option of comfort care measures Prognosis is extremely poor, I believe the situation here seems to be mostly a medical futility situation, and I strongly recommend against escalation of care, overall prognosis is extremely poor Continue on argatroban No changes done in the vent settings again today, the vent settings will remain as yesterday. Continue daily labs monitoring Continue IVIG and steroids as recommended by hematology, nonetheless the outcome is going to be extremely poor. And I'm still in favor of seriously considering comfort care measures on this patient. And this had to be addressed with the legal guardian once [place] points 1 Prognosis remains very poor and likely futile Critical care time is over 30 Time with Patient: Greater than 30
--- NOTE | 2023-05-02 16:09 | P.PN ---
Subjective PROGRESS NOTE The patient is a 58-year-old male who was admitted after being found unresponsive with an elevated carboxy hemoglobin level above 20% with unclear reason. Was attempting suicide. Patient has a known history of lung cancer and chronic tobacco use and has underwent recent surgical intervention with revascularization and thrombectomy of the right upper extremity. He was in sinus tachycardia on presentation. There is no history available. Patient is not on vasopressor. He has mottling in his lower extremities. He is intubated and unresponsive. His lab data remarkable for elevation of his CK enzymes at 10,400 with a BUN of 56 and a creatinine 2.19. His troponin is elevated. Other history is not available at this time. The patient has no prior admission to this hospital. April 28: The patient remains intubated, unresponsive, poor urine output and severe mottling of the lower extremities. His echocardiogram showed severe impairment of the left ventricle systolic function with segmental wall motion abnormality. He underwent a computed tomography scan that showed left [employer] subacute infarct. His chest x-ray showed left infrahilar mass. Carotid duplex scan showed no evidence of high-grade stenosis. He has evidence of thrombocytopenia that has worsened since his admission[place] [address]. April 29: The patient remains intubated. His blood pressure and heart rate are stable. He has significant discoloration in his right hand and both feet, cold with absence of pulse. His computed tomography scan showed a thrombus in the aorta. There is no evidence of malignant arrhythmia. According to the nursing staff he shook his head today. He has evidence of left hilar mass. He continues to be on Argatoban. He is receiving feeding tube. 04/30 Patient seen and examined. Patient currently sedated on ventilator with FiO2 40% and PEEP of 5. IV fluids at 75 mL per hour. Remains in sinus rhythm. 05/01 Patient seen and examined. Remains on ventilator. Only Doppler pulses in the femoral arteries. Concern of catastrophic antiphospholipid syndrome and therefore was started on IVIG and high-dose steroids. 05/02 Patient seen and examined. Patient remains on ventilator. Hemoglobin today 11.6, creatinine 0.5 PHYSICAL EXAMINATION: Intubated not responsive Vitals reviewed LUNGS: Clear to auscultation anteriorly HEART: Regular rate and rhythm, S1, S2. No S3. No systolic murmur ABDOMEN: Soft, no organomegaly EXTREMETIES: Severe mottling of the lower extremities him a cold with discoloration of the right upper extremity, status post thrombectomy, demarcation noted on both feet and right hand IMPRESSION: 1. Respiratory failure was elevated carboxy hemoglobin level and severe hypoxemia 2. Non-STEMI with severely impaired left ventricle systolic function of unknown duration or etiology 3. Status post thrombectomy of the right upper extremity with discoloration and mottling of the lower extremities 4. History of smoking 5. History of lung cancer 6. Thrombocytopenia could be related to heparin or DIC, concern of catastrophic antiphospholipid syndrome 7. Evidence of CVA her computed tomography scan PLAN: 1. Continue supportive care 2. Prognosis is very poor 3. Continue beta patt 4. Would not pursue any further escalation of care with prognosis guarded at this point. No further recommendations from cardiology standpoint. Unclear if patient would be a good candidate for any stenting or intervention with multiple metabolic derangements, hypercoagulable state, thrombocytopenia. Please call with any questions if patient has significant recovery. Objective - Vital Signs Vital signs: Vital Signs Temp 98.9 F 05/02/23 12:00 Pulse 93 05/02/23 15:00 Resp 20 05/02/23 14:00 BP 124/54 05/02/23 13:00 Pulse Ox 99 05/02/23 14:00 FiO2 40 05/02/23 14:50 Intake & Output 05/01/23 05/02/23 05/02/23 18:59 06:59 18:59 Intake Total 2126.612 2150.321 2313.914 Output Total 1380 970 935 Balance 505.464 2726.321 1378.914 Weight 82.4 kg 82.4 kg Intake: IV 991 1072 1103 0.9 NS @ KVO 80 CVP + A-line 66 72 48 Dextrose 5%-0.45% NaCl 1, 825 900 675 000 ml @ 75 mls/hr IV . [id number] [facility] Rx#:[id number] Piperacillin-Tazobactam 3 100 100 200 .375 gm In Sodium Chloride 0.9% 100 ml @ 25 mls/hr IVPB Q8HR [facility] Rx# :[id number] methylPREDNISolone SOD 100 SUCCIN 500 mg In Sodium Chloride 0.9% 100 ml @ 100 mls/hr IVPB DAILY [facility] Rx#:[id number] Intake, IV Titration 535.612 304.321 637.914 Amount Argatroban 50 mg In 50.000 112.924 53.114 Sodium Chloride 0.9% 50 ml @ 0.5 MCG/KG/MIN 2.136 mls/hr IV .[id number] [facility] Rx#:[id number] Immune Globulin ( 300 Gammagard) 30 gm In Empty Bag 1 bag @ Per Protocol IV .Q0M [facility] Rx#: [id number] Immune Globulin ( 300 Gammagard) 30 gm In Empty Bag 1 bag @ Per Protocol IV .Q0M [facility] Rx#: [id number] fentaNYL (PF). 1,000 mcg 184.8 In Sodium Chloride 0.9% 80 ml @ 0.5 MCG/KG/HR 3.5 mls/hr IV .Q24H [facility] Rx#: [id number] methylPREDNISolone SOD 100 SUCCIN 500 mg In Sodium Chloride 0.9% 100 ml @ 100 mls/hr IVPB DAILY [facility] Rx#:[id number] propofoL 1,000 mg In 85.612 191.397 100 Empty Bag 1 bag @ 15 MCG/ KG/MIN 4.905 mls/hr IV . [id number] [facility] Rx#:[id number] Tube Feeding 570 684 513 Other 30 90 60 Output: Urine 680 920 635 Stool 700 50 300 Other: Voiding Method Indwelling Catheter Indwelling Catheter ABP, PAP, CO, CI - Last Documented Arterial Blood Pressure 150/59 - Labs CBC & Chem 7: 05/02/23 04:13 05/02/23 04:13 Labs: Abnormal Lab Results - Last 24 Hours (Table) 04/28/23 05/01/23 05/02/23 Range/Units 11:09 18:09 00:24 WBC (3.8-10.6) k/uL RBC (4.30-5.90) m/uL Hgb (13.0-17.5) gm/dL Hct (39.0-53.0) % Neutrophils # (1.3-7.7) k/uL Lymphocytes # (1.0-4.8) k/uL APTT (22.0-30.0) sec Protein S Activity 37 L (54-127) % ABG pO2 (83-108) mmHg ABG HCO3 (21-25) mmol/L ABG Total CO2 (19-24) mmol/L ABG O2 Saturation (94-97) % Chloride (98-107) mmol/L Creatinine (0.66-1.25) mg/dL Glucose (74-99) mg/dL POC Glucose (mg/dL) 167 H 130 H (70-110) mg/dL Calcium (8.4-10.2) mg/dL 05/02/23 05/02/23 05/02/23 Range/Units 04:13 04:13 04:13 WBC 17.9 H (3.8-10.6) k/uL RBC 3.90 L (4.30-5.90) m/uL Hgb 11.6 L (13.0-17.5) gm/dL Hct 36.9 L (39.0-53.0) % Neutrophils # 16.7 H (1.3-7.7) k/uL Lymphocytes # 0.4 L (1.0-4.8) k/uL APTT 42.9 H (22.0-30.0) sec Protein S Activity (54-127) % ABG pO2 (83-108) mmHg ABG HCO3 (21-25) mmol/L ABG Total CO2 (19-24) mmol/L ABG O2 Saturation (94-97) % Chloride 109 H (98-107) mmol/L Creatinine 0.54 L (0.66-1.25) mg/dL Glucose 184 H (74-99) mg/dL POC Glucose (mg/dL) (70-110) mg/dL Calcium 8.1 L (8.4-10.2) mg/dL 05/02/23 05/02/23 05/02/23 Range/Units 06:00 06:25 09:00 WBC (3.8-10.6) k/uL RBC (4.30-5.90) m/uL Hgb (13.0-17.5) gm/dL Hct (39.0-53.0) % Neutrophils # (1.3-7.7) k/uL Lymphocytes # (1.0-4.8) k/uL APTT 39.7 H (22.0-30.0) sec Protein S Activity (54-127) % ABG pO2 110 H (83-108) mmHg ABG HCO3 28 H (21-25) mmol/L ABG Total CO2 29 H (19-24) mmol/L ABG O2 Saturation 98.7 H (94-97) % Chloride (98-107) mmol/L Creatinine (0.66-1.25) mg/dL Glucose (74-99) mg/dL POC Glucose (mg/dL) 167 H (70-110) mg/dL Calcium (8.4-10.2) mg/dL 05/02/23 05/02/23 Range/Units 11:52 13:38 WBC (3.8-10.6) k/uL RBC (4.30-5.90) m/uL Hgb (13.0-17.5) gm/dL Hct (39.0-53.0) % Neutrophils # (1.3-7.7) k/uL Lymphocytes # (1.0-4.8) k/uL APTT 41.1 H (22.0-30.0) sec Protein S Activity (54-127) % ABG pO2 (83-108) mmHg ABG HCO3 (21-25) mmol/L ABG Total CO2 (19-24) mmol/L ABG O2 Saturation (94-97) % Chloride (98-107) mmol/L Creatinine (0.66-1.25) mg/dL Glucose (74-99) mg/dL POC Glucose (mg/dL) 158 H (70-110) mg/dL Calcium (8.4-10.2) mg/dL Microbiology - Last 24 Hours (Table) 04/26/23 19:00 Blood Culture - Final Blood 04/26/23 18:45 Blood Culture - Final Blood
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
[2023-05-02 18:21] LABS: Glucose,Whole Blood 194 mg/dL (70-110)
--- NOTE | 2023-05-02 21:17 | P.PN ---
Subjective Progress Note Date: 05/02/23 Principal diagnosis: Arterial thromboses Pt remains ventilated, no significant changes in his overall condition or physical state. He did open his eyes to voice, he did not follow commands. Objective - Vital Signs Vital signs: Vital Signs Temp 97.5 F L 05/02/23 16:00 Pulse 85 05/02/23 20:22 Resp 20 05/02/23 19:00 BP 140/82 05/02/23 07:11 Pulse Ox 99 05/02/23 19:00 FiO2 40 05/02/23 20:11 Intake & Output 05/02/23 05/02/23 05/03/23 06:59 18:59 06:59 Intake Total 2150.321 2967.946 170.876 Output Total 970 1135 50 Balance 4543.637 5289.946 120.876 Weight 82.4 kg 82.4 kg Intake: IV 1072 1376 91 0.9 NS @ KVO 110 10 CVP + A-line 72 66 6 Dextrose 5%-0.45% NaCl 1, 900 900 75 000 ml @ 75 mls/hr IV . [id number] [facility] Rx#:[id number] Piperacillin-Tazobactam 3 100 200 .375 gm In Sodium Chloride 0.9% 100 ml @ 25 mls/hr IVPB Q8HR [facility] Rx# :[id number] methylPREDNISolone SOD 100 SUCCIN 500 mg In Sodium Chloride 0.9% 100 ml @ 100 mls/hr IVPB DAILY [facility] Rx#:[id number] Intake, IV Titration 304.321 817.946 22.876 Amount Argatroban 50 mg In 112.924 82.842 22.876 Sodium Chloride 0.9% 50 ml @ 0.5 MCG/KG/MIN 2.136 mls/hr IV .[id number] [facility] Rx#:[id number] Immune Globulin ( 300 Gammagard) 30 gm In Empty Bag 1 bag @ Per Protocol IV .Q0M [facility] Rx#: [id number] fentaNYL (PF). 1,000 mcg 184.8 In Sodium Chloride 0.9% 80 ml @ 0.5 MCG/KG/HR 3.5 mls/hr IV .Q24H [facility] Rx#: [id number] propofoL 1,000 mg In 191.397 250.304 Empty Bag 1 bag @ 15 MCG/ KG/MIN 4.905 mls/hr IV . [id number] [facility] Rx#:[id number] Tube Feeding 684 684 57 Other 90 90 Output: Urine 920 835 50 Stool 50 300 Other: Voiding Method Indwelling Catheter Indwelling Catheter ABP, PAP, CO, CI - Last Documented Arterial Blood Pressure 153/56 - Constitutional General appearance: Present: average body habitus, no acute distress - EENT Eyes: Present: anicteric sclerae - Respiratory Respiratory: bilateral: CTA - Cardiovascular Rhythm: regular - Peripheral edema leg Peripheral Edema: bilateral: None - Gastrointestinal General gastrointestinal: Present: soft - Neurologic Neurologic Comment(s): pt opened eyes spontaneously to his name - Labs CBC & Chem 7: 05/02/23 04:13 05/02/23 04:13 Labs: Abnormal Lab Results - Last 24 Hours (Table) 04/28/23 05/02/23 05/02/23 Range/Units 11:09 00:24 04:13 WBC 17.9 H (3.8-10.6) k/uL RBC 3.90 L (4.30-5.90) m/uL Hgb 11.6 L (13.0-17.5) gm/dL Hct 36.9 L (39.0-53.0) % Neutrophils # 16.7 H (1.3-7.7) k/uL Lymphocytes # 0.4 L (1.0-4.8) k/uL APTT (22.0-30.0) sec Protein S Activity 37 L (54-127) % ABG pO2 (83-108) mmHg ABG HCO3 (21-25) mmol/L ABG Total CO2 (19-24) mmol/L ABG O2 Saturation (94-97) % Chloride (98-107) mmol/L Creatinine (0.66-1.25) mg/dL Glucose (74-99) mg/dL POC Glucose (mg/dL) 130 H (70-110) mg/dL Calcium (8.4-10.2) mg/dL 05/02/23 05/02/23 05/02/23 Range/Units 04:13 04:13 06:00 WBC (3.8-10.6) k/uL RBC (4.30-5.90) m/uL Hgb (13.0-17.5) gm/dL Hct (39.0-53.0) % Neutrophils # (1.3-7.7) k/uL Lymphocytes # (1.0-4.8) k/uL APTT 42.9 H (22.0-30.0) sec Protein S Activity (54-127) % ABG pO2 (83-108) mmHg ABG HCO3 (21-25) mmol/L ABG Total CO2 (19-24) mmol/L ABG O2 Saturation (94-97) % Chloride 109 H (98-107) mmol/L Creatinine 0.54 L (0.66-1.25) mg/dL Glucose 184 H (74-99) mg/dL POC Glucose (mg/dL) 167 H (70-110) mg/dL Calcium 8.1 L (8.4-10.2) mg/dL 05/02/23 05/02/23 05/02/23 Range/Units 06:25 09:00 11:52 WBC (3.8-10.6) k/uL RBC (4.30-5.90) m/uL Hgb (13.0-17.5) gm/dL Hct (39.0-53.0) % Neutrophils # (1.3-7.7) k/uL Lymphocytes # (1.0-4.8) k/uL APTT 39.7 H (22.0-30.0) sec Protein S Activity (54-127) % ABG pO2 110 H (83-108) mmHg ABG HCO3 28 H (21-25) mmol/L ABG Total CO2 29 H (19-24) mmol/L ABG O2 Saturation 98.7 H (94-97) % Chloride (98-107) mmol/L Creatinine (0.66-1.25) mg/dL Glucose (74-99) mg/dL POC Glucose (mg/dL) 158 H (70-110) mg/dL Calcium (8.4-10.2) mg/dL 05/02/23 05/02/23 05/02/23 Range/Units 13:38 16:02 18:20 WBC (3.8-10.6) k/uL RBC (4.30-5.90) m/uL Hgb (13.0-17.5) gm/dL Hct (39.0-53.0) % Neutrophils # (1.3-7.7) k/uL Lymphocytes # (1.0-4.8) k/uL APTT 41.1 H 40.7 H (22.0-30.0) sec Protein S Activity (54-127) % ABG pO2 (83-108) mmHg ABG HCO3 (21-25) mmol/L ABG Total CO2 (19-24) mmol/L ABG O2 Saturation (94-97) % Chloride (98-107) mmol/L Creatinine (0.66-1.25) mg/dL Glucose (74-99) mg/dL POC Glucose (mg/dL) 194 H (70-110) mg/dL Calcium (8.4-10.2) mg/dL 05/02/23 Range/Units 19:23 WBC (3.8-10.6) k/uL RBC (4.30-5.90) m/uL Hgb (13.0-17.5) gm/dL Hct (39.0-53.0) % Neutrophils # (1.3-7.7) k/uL Lymphocytes # (1.0-4.8) k/uL APTT 42.1 H (22.0-30.0) sec Protein S Activity (54-127) % ABG pO2 (83-108) mmHg ABG HCO3 (21-25) mmol/L ABG Total CO2 (19-24) mmol/L ABG O2 Saturation (94-97) % Chloride (98-107) mmol/L Creatinine (0.66-1.25) mg/dL Glucose (74-99) mg/dL POC Glucose (mg/dL) (70-110) mg/dL Calcium (8.4-10.2) mg/dL Microbiology - Last 24 Hours (Table) 04/26/23 19:00 Blood Culture - Final Blood 04/26/23 18:45 Blood Culture - Final Blood Assessment and Plan (1) Arterial occlusion Current Visit: Yes Status: Acute Priority: High Code(s): I70.90 - UNSPECIFIED ATHEROSCLEROSIS SNOMED Code(s): 6907902 (2) Thrombocytopenia Current Visit: Yes Status: Acute Priority: High Code(s): D69.6 - THROMBOCYTOPENIA, UNSPECIFIED SNOMED Code(s): 642921404 Plan: Thrombocytopenia -Plt normal at 155,000 today s/p high dose steroids. High dose steroids will be completed tomorrow. -HIT ab was 0.419, then 0.311. Chance of HIT ab <3% but, there is a high clinical suspicion. KALA ordered for confirmation. -Heparin was changed to argatroban, pt cont on at this time -APLS labs and hypercoaguable labs are all reported and neg except for Lupus anticoagulant. This lab can be rechecked once patient has completely recovered from his current situation but, for now, even though patient was on heparin sometime around the drawing of this lab, it is being assumed that it is positive. Patient needs to remain on IV anticoagulation -Acute hepatitis panel, HIV work up negative -Anemia workup showing iron deficiency, parenteral iron given -Hemolysis workup neg -DIC work up neg -Steroids and IVIG being given for possible HIT/catastrophic antiphospholipid syndrome. Arterial occlusions -Recent Dx of RUE arterial occlusion at [facility], s/p radial and ulnar thrombectomy, reportedly twice during the last month. He was placed on xarelto, this is currently held as he is on IV anticoagulation -RUE and BLE are necrotic. -Vascular is following. Pt is unfortunately going to need some degree of amputation in BLE and RUE. NSTEMI -Heparin discontinued. Argatroban started, continues -Cardiology following CVA -04/[address] head reports maturing left parietal-occipital infarct, some punctate hyperdensities could be petechial hemorrhages but reported as present previously and stable -Neuro following. Reviewed goals of care with Attending. Unfortunately, pt condition is extremely guarded with a very poor prognosis. This conclusion is echoed in the assessments of IM, Critical Care and Speciali sts who have been following this case. From a Hematology standpoint we too agree with this assessment. The sequela of this event are going to be permanent, and most likely painful, with great disability. The multi-discipline care thus far has not resulted in the improvements that would be desired for this pt to have any kind of satisfactory outcome. In discussing case with the Enologist involved, all seem to be in agreement that code status should be undated to reflect this patient's very critical condition. Resuscitative efforts at this point would likely be futile and cause more harm then good. attests: I have seen and examined pt, performed H&P, developed impression and plan of care. Discussed with dictator. Agree with documentation, dictated as a scribe.
[2023-05-02 23:54] LABS: Glucose,Whole Blood 191 mg/dL (70-110)
[2023-05-03] MEDS: PIPERACILLIN-TAZOBACTAM 3.375 GM in SODIUM CHLORIDE 0.9% 100 ML IVPB SCH ×3 (00:03→16:25)
[2023-05-03] MEDS: INSULIN ASPART (NovoLOG) 100 UNIT/ML VIAL SQ SCH ×4 (00:03→17:59)
[2023-05-03] MEDS: IPRATROPIUM-ALBUTEROL 3 ML NEB INHALATION SCH ×6 (00:09→19:46)
[2023-05-03] MEDS: ARGATROBAN 50 MG in SODIUM CHLORIDE 0.9% 50 ML IV SCH ×5 (00:43→19:49)
[2023-05-03] MEDS: fentaNYL (PF). 1,000 MCG in SODIUM CHLORIDE 0.9% 80 ML IV SCH ×3 (01:52→19:49)
[2023-05-03 05:01] LABS: Basophils % (A) 0 %; Eosinophils % (A) 0 %; HCT 34.8 % (39.0-53.0); HGB 10.9 gm/dL (13.0-17.5); Hypochromasia Marked; Lymphocytes # (A) 0.4 k/uL (1.0-4.8); Lymphocytes % (A) 3 %; MCH 29.6 pg (25.0-35.0); MCHC 31.4 g/dL (31.0-37.0); MCV 94.3 fL (80.0-100.0); Mean Platelet Volume 8.7; Monocytes # (A) 0.9 k/uL (0-1.0); Monocytes % (A) 6 %; Neutrophils # (A) 13.1 k/uL (1.3-7.7); Neutrophils % (A) 90 %; Platelet Count 228 k/uL (150-450); RBC 3.69 m/uL (4.30-5.90); RDW 15.4 % (11.5-15.5); WBC 14.6 k/uL (3.8-10.6)
[2023-05-03] MEDS: DEXTROSE 5%-0.45% NACL 1,000 ML IV SCH (05:05)
[2023-05-03 05:33] LABS: ALT 109 U/L (4-49); AST 106 U/L (17-59); African American GFR (CKD) >90 (>60 ml/min/1.73 sqM); Albumin 2.1 g/dL (3.5-5.0); Alkaline Phosphatase 60 U/L (38-126); Anion Gap 6 mmol/L; Blood Urea Nitrogen 20 mg/dL (9-20); Calcium 7.9 mg/dL (8.4-10.2); Carbon Dioxide 27 mmol/L (22-30); Chloride 108 mmol/L (98-107); Glucose 171 mg/dL (74-99); Magnesium 2.2 mg/dL (1.6-2.3); Non-African American GFR(CKD) >90 (>60 ml/min/1.73 sqM); Phosphorus 2.7 mg/dL (2.5-4.5); Potassium 3.7 mmol/L (3.5-5.1); Sodium 141 mmol/L (137-145); Total Bilirubin 0.2 mg/dL (0.2-1.3); Total Protein 5.2 g/dL (6.3-8.2)
[2023-05-03 05:55] LABS: Glucose,Whole Blood 174 mg/dL (70-110)
[2023-05-03] MEDS ORDERED: POTASSIUM BICARBONATE/CIT AC 20 MEQ TABLET.EFF NG-TUBE SCH (06:00)
[2023-05-03 06:17] LABS: ABG Base Excess 4.5 mmol/L; ABG HCO3 29 mmol/L (21-25); ABG Oxygen Saturation 98.2 % (94-97); ABG PCO2 44 mmHg (35-45); ABG PH 7.42 (7.35-7.45); ABG PO2 98 mmHg (83-108); ABG TCO2 30 mmol/L (19-24); Allen Test Performed? Yes
--- NOTE | 2023-05-03 07:42 | XR ---
EXAMINATION TYPE: XR chest 1V portable DATE OF EXAM: 05/03/2023 COMPARISON: 05/02/2023 HISTORY: SOB, Follow Up FINDINGS: Indwelling tubes and catheters are unchanged. No change in bibasilar opacities. Stable appearance of the cardio-mediastinal structures at this time. IMPRESSION: 1. Stable portable chest. Clinical correlation and follow up until resolution is recommended.
[2023-05-03] MEDS ORDERED: IMMUNE GLOBULIN (GAMMAGARD) 30 GM in EMPTY BAG 1 BAG IV ONE (09:00)
[2023-05-03] MEDS: METOPROLOL TARTRATE 25 MG TAB PO SCH ×2 (09:43→20:26)
[2023-05-03] MEDS: ATORVASTATIN 40 MG TAB PO SCH (09:43)
[2023-05-03] MEDS: LOSARTAN 50 MG TAB PO SCH (09:44)
[2023-05-03] MEDS: PANTOPRAZOLE 40 MG/10 ML VIAL IVP SCH (09:44)
[2023-05-03] MEDS: THIAMINE 100 MG/ML 2 ML VIAL IVP SCH (09:44)
[2023-05-03] MEDS: CHLORHEXIDINE GLUCONATE 15 ML CUP MUCOUS MEM SCH ×2 (09:44→20:26)
[2023-05-03] MEDS: ASPIRIN 81 MG PO SCH (09:44)
--- NOTE | 2023-05-03 10:56 | P.PN ---
Subjective Progress Note Date: 05/03/23 Principal diagnosis: Critical Limb ischemia, mental status changes, acute stroke Patient is seen and examined today as a follow-up. Remains in the ICU currently intubated. Patient has his eyes closed. Not responding much today. No acute changes through the night. He remains on Argatroban drip, IV steroids, and IVIG. WBC 14.6 hemoglobin 10.9 platelet count 228,000. Social work is planning on guardian hearing today. Patient's prognosis remains poor. Objective - Vital Signs Vital signs: Vital Signs Temp 98.8 F 05/03/23 08:00 Pulse 88 05/03/23 10:00 Resp 29 H 05/03/23 10:00 BP 124/54 05/03/23 10:00 Pulse Ox 100 05/03/23 10:00 FiO2 40 05/03/23 08:11 Intake & Output 05/02/23 05/03/23 05/03/23 18:59 06:59 18:59 Intake Total 2967.946 2469.090 707.642 Output Total 1135 1165 300 Balance 1950.879 1186.090 407.642 Weight 82.4 kg 83.6 kg Intake: IV 1376 1283 373 0.9 NS @ KVO 110 130 30 CVP + A-line 66 78 18 Dextrose 5%-0.45% NaCl 1, 900 975 225 000 ml @ 75 mls/hr IV . [id number] [facility] Rx#:[id number] Piperacillin-Tazobactam 3 200 100 100 .375 gm In Sodium Chloride 0.9% 100 ml @ 25 mls/hr IVPB Q8HR [facility] Rx# :[id number] methylPREDNISolone SOD 100 SUCCIN 500 mg In Sodium Chloride 0.9% 100 ml @ 100 mls/hr IVPB DAILY [facility] Rx#:[id number] Intake, IV Titration 817.946 385.090 133.642 Amount Argatroban 50 mg In 82.842 100.526 33.642 Sodium Chloride 0.9% 50 ml @ 0.5 MCG/KG/MIN 2.136 mls/hr IV .[id number] [facility] Rx#:[id number] Immune Globulin ( 300 Gammagard) 30 gm In Empty Bag 1 bag @ Per Protocol IV .Q0M [facility] Rx#: [id number] fentaNYL (PF). 1,000 mcg 184.8 100 In Sodium Chloride 0.9% 80 ml @ 0.5 MCG/KG/HR 3.5 mls/hr IV .Q24H [facility] Rx#: [id number] propofoL 1,000 mg In 250.304 184.564 100 Empty Bag 1 bag @ 15 MCG/ KG/MIN 4.905 mls/hr IV . [id number] [facility] Rx#:[id number] Tube Feeding 684 741 171 Other 90 60 30 Output: Urine 835 1165 300 Stool 300 Other: Voiding Method Indwelling Catheter Indwelling Catheter Indwelling Catheter ABP, PAP, CO, CI - Last Documented Arterial Blood Pressure 143/61 - Exam General appearance: The patient is intubated, lying with his eyes closed. HET: Head is normocephalic and atraumatic. Neck: Supple. Lungs: Equal expansion, on mechanical ventilation. Abdomen: Soft, nondistended. Extremities: Right hand is ischemic and contracted. Bilateral feet ischemic, with some ischemia of the left lower extremity. Feet cold to touch. Neurological: Patient is intubated, mechanical ventilation. - Labs CBC & Chem 7: 05/03/23 04:36 05/03/23 04:36 Labs: Abnormal Lab Results - Last 24 Hours (Table) 04/28/23 05/02/23 05/02/23 Range/Units 11:09 11:52 13:38 WBC (3.8-10.6) k/uL RBC (4.30-5.90) m/uL Hgb (13.0-17.5) gm/dL Hct (39.0-53.0) % Neutrophils # (1.3-7.7) k/uL Lymphocytes # (1.0-4.8) k/uL APTT 41.1 H (22.0-30.0) sec Protein S Activity 37 L (54-127) % ABG HCO3 (21-25) mmol/L ABG Total CO2 (19-24) mmol/L ABG O2 Saturation (94-97) % Chloride (98-107) mmol/L Creatinine (0.66-1.25) mg/dL Glucose (74-99) mg/dL POC Glucose (mg/dL) 158 H (70-110) mg/dL Calcium (8.4-10.2) mg/dL AST (17-59) U/L ALT (4-49) U/L Total Protein (6.3-8.2) g/dL Albumin (3.5-5.0) g/dL 05/02/23 05/02/23 05/02/23 Range/Units 16:02 18:20 19:23 WBC (3.8-10.6) k/uL RBC (4.30-5.90) m/uL Hgb (13.0-17.5) gm/dL Hct (39.0-53.0) % Neutrophils # (1.3-7.7) k/uL Lymphocytes # (1.0-4.8) k/uL APTT 40.7 H 42.1 H (22.0-30.0) sec Protein S Activity (54-127) % ABG HCO3 (21-25) mmol/L ABG Total CO2 (19-24) mmol/L ABG O2 Saturation (94-97) % Chloride (98-107) mmol/L Creatinine (0.66-1.25) mg/dL Glucose (74-99) mg/dL POC Glucose (mg/dL) 194 H (70-110) mg/dL Calcium (8.4-10.2) mg/dL AST (17-59) U/L ALT (4-49) U/L Total Protein (6.3-8.2) g/dL Albumin (3.5-5.0) g/dL 05/02/23 05/02/23 05/03/23 Range/Units 22:08 23:53 01:27 WBC (3.8-10.6) k/uL RBC (4.30-5.90) m/uL Hgb (13.0-17.5) gm/dL Hct (39.0-53.0) % Neutrophils # (1.3-7.7) k/uL Lymphocytes # (1.0-4.8) k/uL APTT 41.6 H 41.5 H (22.0-30.0) sec Protein S Activity (54-127) % ABG HCO3 (21-25) mmol/L ABG Total CO2 (19-24) mmol/L ABG O2 Saturation (94-97) % Chloride (98-107) mmol/L Creatinine (0.66-1.25) mg/dL Glucose (74-99) mg/dL POC Glucose (mg/dL) 191 H (70-110) mg/dL Calcium (8.4-10.2) mg/dL AST (17-59) U/L ALT (4-49) U/L Total Protein (6.3-8.2) g/dL Albumin (3.5-5.0) g/dL 05/03/23 05/03/23 05/03/23 Range/Units 04:36 04:36 04:36 WBC 14.6 H (3.8-10.6) k/uL RBC 3.69 L (4.30-5.90) m/uL Hgb 10.9 L (13.0-17.5) gm/dL Hct 34.8 L (39.0-53.0) % Neutrophils # 13.1 H (1.3-7.7) k/uL Lymphocytes # 0.4 L (1.0-4.8) k/uL APTT 42.4 H (22.0-30.0) sec Protein S Activity (54-127) % ABG HCO3 (21-25) mmol/L ABG Total CO2 (19-24) mmol/L ABG O2 Saturation (94-97) % Chloride 108 H (98-107) mmol/L Creatinine 0.50 L (0.66-1.25) mg/dL Glucose 171 H (74-99) mg/dL POC Glucose (mg/dL) (70-110) mg/dL Calcium 7.9 L (8.4-10.2) mg/dL AST 106 H (17-59) U/L ALT 109 H (4-49) U/L Total Protein 5.2 L (6.3-8.2) g/dL Albumin 2.1 L (3.5-5.0) g/dL 05/03/23 05/03/23 05/03/23 Range/Units 05:53 06:12 08:49 WBC (3.8-10.6) k/uL RBC (4.30-5.90) m/uL Hgb (13.0-17.5) gm/dL Hct (39.0-53.0) % Neutrophils # (1.3-7.7) k/uL Lymphocytes # (1.0-4.8) k/uL APTT 42.6 H (22.0-30.0) sec Protein S Activity (54-127) % ABG HCO3 29 H (21-25) mmol/L ABG Total CO2 30 H (19-24) mmol/L ABG O2 Saturation 98.2 H (94-97) % Chloride (98-107) mmol/L Creatinine (0.66-1.25) mg/dL Glucose (74-99) mg/dL POC Glucose (mg/dL) 174 H (70-110) mg/dL Calcium (8.4-10.2) mg/dL AST (17-59) U/L ALT (4-49) U/L Total Protein (6.3-8.2) g/dL Albumin (3.5-5.0) g/dL Assessment and Plan Assessment: 1. Systemic arterial thrombosis, suspect hypercoagulable syndrome 2. Advanced ischemic changes of the feet and calf areas bilaterally as well as right hand and distal forearm 3. Previous right ulnar, radial, brachial thrombectomy 4. CT brain with Maturing left parietal occipital infarct. Couple of punctuate hyperdensities are present could be petechial hemorrhages present previously and stable 5. Nearly occluding thrombus in the distal descending thoracic aorta 6. CVA 7. Reported recent diagnosis of lung cancer 8. Non-STEMI with severely impaired left ventricle systolic function Plan: Hematology on consult and recommended resuming argatroban, IVIG and steroids started. Patient's overall prognosis is quite poor, if patient survives he will need bilateral lower extremity amputations as well as amputation of the right hand. Again prognosis is poor, patient is not stable to undergo surgical intervention at this time. 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 Further recommendations forthcoming based on clinical course. Continue medical/ICU management. The impression and plan of care has been dictated as directed. Dr. De I performed a history and examination of this patient, discussed the same with the dictator. I agree with the dictator's note ,documented as a scribe. Any additional findings or plans will be noted.
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
[2023-05-03 11:53] LABS: Glucose,Whole Blood 170 mg/dL (70-110)
--- NOTE | 2023-05-03 12:03 | P.PN ---
Subjective Progress Note Date: 05/03/23 Principal diagnosis: Acute hypoxic respiratory failure, left hilar mass, acute multiple limbs ischemia I am seeing this patient in consultation today 04/27/2023 in the intensive care unit after he was brought in by EMS yesterday evening. He was reportedly covered in soot, and found minimally responsive next to the oven. Patient is a 58-year-old white male with limited known past medical history. He did reportedly just have a vascular procedure done at [facility] for right upper limb ischemia recently. The nurses are working on getting this documentation. He also may have recently been diagnosed with lung cancer and is a chronic ongoing smoker. He has no family other than an estranged brother. Patient was last seen well by his neighbor on Sunday. The neighbors did not hear from him for a couple of days and decided to call the police to do a wellness check. He was found on the floor next to the stove, the gas was on. He was covered in soot, He may have been burning something on the stove. He was altered and minimally responsive. Questionable, whether he may have tried to commit suicide, and is petitioned by the police. His carboxyhemoglobin level was greater than 20%. The ER physician did try to reach out to tertiary care centers for possible hy perbaric oxygen therapy, however, no accepting facilities were found. Patient was ultimately intubated for airway protection. Current ventilator settings are assist control, respiratory rate 20, tidal volume 400, FiO2 100%, PEEP of 10. Most recent ABGs show a pO2 of 68, pCO2 of 24, pH of 7.17. Patient has been given 2 A of sodium bicarb and is on a bicarb drip at 100 ML's per hour. Post intubation chest x-ray shows endotracheal tube approximately 1 cm above the chasidy, this will be withdrawn 1-2 cm. There is an orogastric tube coursing into the stomach. There is a left subclavian triple-lumen catheter tip near the cavoatrial junction. There is bilateral multifocal infiltrates consistent with pneumonia, likely aspiration pneumonia. He is covered on Zosyn. BP is stable at this time. He did receive 4 normal saline boluses in the ER. Not requiring any vasopressors at the moment. Patient is currently sedated on propofol which is infusing at 50 mcg/kg/m. He is fairly synchronous with the mechanical ventilator. His right arm appears postsurgical, with two healing and approximated incisions. The extremity is pulseless and cold. Previously on examination, the patient was noted to have a left gaze deviation, a brain and C- spine CT demonstrated a subacute 8 by 4 x 4 centimeters left MCA territory nonhemorrhagic infarct or midline shift. No cervical spine fracture. No seizure like activity noted by nursing staff. Neuro examination is limited by sedation. Urine drug screen negative. CBC on arrival shows a WBC count of 28.5, hemoglobin 20.7, hematocrit 65.1, platelets 115. BMP shows sodium 147, potassium 5, chloride 108, serum bicarbonate 9, BUN 56, creatinine 2.19, glucose 147. Lactic acid level was 12 and is down to 2.4. LFTs mildly elevated. Creatinine kinase is elevated at 10,400 and is consistent with rhabdomyolysis. He was found on the ground. He does bruising on his legs. Troponin elevated, consistent with non-ST elevation ME, likely related to tissue hypoxemia and carbon monoxide poisoning. Chest x-ray did show sinus tachycardia with T-wave inversion in anterior lateral leads. No other ST or T wave abnormalities noted. Patient's condition is obviously critical, and he is being monitored in the intensive care unit. On 04/28/2023, seeing the patient for a follow-up. This morning, the patient is on propofol running at 30 mcg/kg/m. He is arousable. He withdraws to painful stimulation. He is not following commands at this point in time. He is on assist-control mode of mechanical ventilation at the rate of 20, tidal volume of 400, FiO2 is currently at 40% with a PEEP of 10. The blood gas showed a pH of 7.42 with a pCO2 of 40 and pO2 of 252. His, monocyte level is normalized. His chest x-ray from today showing no significant acute abnormalities. There may be a opacity in the left hilar area consistent with his previous history of lung cancer. He has a triple-lumen catheter in his left subclavian vein. The tube is in a good location. No airspace disease or consolidations this point in time. A repeat CAT scan of the brain was done this morning and it showed left MANAGER TITLE territory subacute infarct and possibility of some edema minimal petechial hemorrhage cannot be completely excluded in the anterior margin of the infarct. The patient was started on IV heparin by vascular surgery. I stopped the heparin yesterday based on the fact that the patient's platelet count has dropped onto 57 and at the same time there is a concern of hemorrhagic transformation of his stroke. The same time, the patient is hemodynamically sta ble. Troponins peaked at 16 and then down trended. His echocardiogram showed impaired LV function and his ejection fraction is in order of 20-25%. The patient also has rhabdomyolysis. CPK peaked at 18,000 and currently it is down trending. He continues to have obvious vascular issues. The patient was seen by vascular surgery. We came to find other the patient has undergone a right brachial, radial and ulnar thrombectomy reportedly twice during an earlier hospitalization. His right upper extremity is contracted and dusky and cold with absent pulses and remains ischemic. In same time, the patient has ischemic feet bilaterally with absent pulses in the feet are cold and clammy without any dorsalis pedis or posterior tibialis and a demarcation is being developed at this point in time. Terms of his blood work, sodium levels of 151, potassium is at 4.2, currently 122, BUN is 28 with a creatinine of 0.9 and the patient has recovered from his acute kidney injury. The white cell count dropped at 15.3 with a hemoglobin of 14.7. The patient patient also had a drop in the platelet count down to 57. He was started on IV heparin. I stopped IV heparin. Heparin-induced thrombocytopenia antibodies were sent and the patient is being started on agratoban been based on recommendations done by the vascular team and the medical team. On 04/29/2023, the patient is following some simple commands while being off sedation. Repeat CAT scan of the brain was done today and that is also still pending. The patient has a large ischemic stroke involving the left MANAGER TITLE distribution. Concern is for any evolving bleed especially the patient is currently on agratoban . Otherwise, the patient remains intubated on a mechanical ventilator. He is on assist control mode with a rate of 20, tidal volume of 400, FiO2 of 40% with a PEEP of 5. No blood gas from today. The chest x-ray from today showing no acute abnormalities. The patient has a left hilar mass. EKG was in a good location. I did obtain a CAT scan of his chest yesterday and the patient has a confirmed mass in the left hilum which I believe it was biopsied earlier and the outside hospital. This was a 3.1 cm mass in the left hilar area. The same time, the patient has a thrombus causing the descending resting aorta. There is significant narrowing of the lumen of the ascending aorta and this was discussed with vascular surgery team. Overall vascular condition is extremely poor. The patient has no pulses in his feet bilaterally. His legs are cold and clammy with absent capillary refills. He is developing demarcation lines in his feet. The same for the right upper extremity. He does have a pulse in his left upper extremity. Vascular surgery are following the patient. No intervention is recommended because of his poor prognosis and his underlying comorbidities. Vascular surgery plans to do amputations once patient is more stable. Meanwhile, the patient remains on Agratoban, hit antibodies are still pending, hypercoagulable workup was also done and the blood work was sent to rule out the possibility of any antiphospholipid syndrome in this patient. His platelet count currently is at 49. Hemoglobin is stable at 13.1. The white cycles of 15.7. Rest of the blood work and electrolytes are all within normal limits. Sodium level is improved compared to yesterday's currently down to 146. IV fluids are in the form of D5 water at the rate of 75 mL an hour. He is receiving enteral feeding for nutritional support. He is currently on vital high-protein at the rate of 50 mL an hour. Patient is being seen by different consultants including cardiology, neurology, vascular surgery, hematology oncology. His adequately sedated with a combination of propofol and fentanyl. He remains on broad-spectrum antibiotic coverage with IV Zosyn. No family identified. There is a brother with does not want to be contacted. There is also a neighbor. Legal guardianship is being acquired Patient was [id number]/11/2023, patient remains in the ICU, intubated and mechanically ventilated. Patient is on assist control rate of 20, volume 400 FiO2 40% and PEEP of 5 ABG showed a pO2 of 132 pCO2 40 pH of 7.45. Patient is on propofol at 60 mcg/kg/m is also on fentanyl 2 mcg/kg/h and D5W at 75 mL per hour. Patient is also empirically on Zosyn. And he is receiving iron. Recent CT of the chest showed possible malignancy and thromboses within the aorta at the thoracic level. Patient continues to have significant ischemic and almost gangrenous changes involving his bilateral lower extremities and his right upper extremity. CT of the brain showed petechial hemorrhages with an ischemic stroke area involving the left hemisphere. There is urologist felt the patient had a maturing left parietal occipital infarct and petechial hemorrhages are stable compared to previous CT of the brain. Chest x-ray continues to show diffuse interstitial opacities, either pulmonary vascular congestion or atypical pneumonia. There is also 3.4 cm left hilar mass present. Labs were reviewed, platelets remained low at 64,000 WBC count is 12.2 hemoglobin is 12.2 PTT is 41.6, heparin presently is on hold. Basic metabolic profile is normal, renal profile is normal, blood cultures and sputum cultures have been negative. Urine culture is also negative Reevaluated today on 05/01/2023, remains in the ICU, intubated and mechanically ventilated. Patient is on assist control rate of 20-2400 FiO2 40% and PEEP of 5. ABG showed a pO2 of 82 pCO2 39 pH of 7.45 hence no changes were made regarding his ventilator settings. Patient remains on propofol at 65 mcg/kg/m R get to ban at 1.6 mg/kg/m patient is also on fentanyl at 2 mcg/kg/h and vital HPF 57 mL per hour. Reviewed the pathology report from his previous lung biopsy, and it showed atypical carcinoid. At any rate patient clearly has severe prognosis, he is critically ill, continues to have ischemic changes in the right hand, right lower extremity and left lower extremity, and my fear the patient may eventually end up with DIC. Patient is being followed by hematology. I will discuss with his legal guardian once one is appointed which is supposed to be done next at 1:[address], and I will definitely recommend comfort care measures on this patient. WBC count today is 16.2 hemoglobin 12.5 PTT is 40.7 INR is 1.3. Platelets are up to 114. CPK 6279, renal functioning is normal. Patient continues to have good urine output. Patient was reevaluated today on 05/02/2023, remains in the ICU, intubated and mechanically ventilated, not much has changed over the last 24 hours. Patient is on assist control rate of 20,000 volume 400, FiO2 40% and PEEP of 5 ABG showed a pO2 of 110 pCO2 41 pH of 7.45 hence no vent setting changes were made. Patient is maintained on propofol at 65 mcg/kg/m, fentanyl at 2 mcg/kg/h, uncont rolled and at 1.8 mcg/kg/m, patient is receiving vital HP via orogastric tube. Mentation is about the same, patient opens eyes, but he does not follow any instructions, he is being followed by neurology on the case. His multiple limb ischemia is about the same, patient clearly has significant ischemic changes in his right hand, right foot and left foot. With demarcation, for his low platelets, patient was given IVIG and he was also given steroids by hematology. Hematology still suspecting heparin-induced thrombocytopenia , recommending KALA, this was ordered for confirmation. Patient was found to have positive lupus anticoagulants, DIC workup is negative so far. Again based on the fact that we may be dealing with H I T/catastrophic antiphospholipid syndrome, steroids were given, and IVIG was given. Chest x-ray today showed appropriate position of tubes and lines, and minimal right basilar atelectasis. Reevaluated today on 05/03/2023, patient is about the same, remains intubated mechanically ventilated, he is on assist control rate of 20 to volume 400 FiO2 40% and PEEP of 5. Patient is on fentanyl at 2 mg/kg/h, R get to ban 2.5 mcg/kg/m, propofol 75 mg/kg/m, vital HP at goal. Patient remains on Zosyn, remains on steroids as recommended by hematology/oncology. ABG showed a pO2 of 98 pCO2 44 pH of 7.42, has no changes were made in the vent settings. We'll see This 14.6 Hemoglobin 10.9. Platelets Are 2 28,000. And PTT Is 42.4. Basic Metabolic Profile Is Normal, Renal Profile Is Normal. Chest X-Ray Is Basically Stable, Continues to Have Minimal Bibasilar Opacity/Atelectasis, Strongly Doubt Pneumonia. Although It Is Not Entirely Ruled Out. Clinically the Patient Is about the Same, Opens Eyes, Does Not Follow Any Instructions. Nonetheless to Requiring Significant Amount of Sedation and Fentanyl. Objective - Vital Signs Vital signs: Vital Signs Temp 98.8 F 05/03/23 08:00 Pulse 82 05/03/23 11:37 Resp 22 05/03/23 11:00 BP 124/54 05/03/23 11:00 Pulse Ox 100 05/03/23 11:00 FiO2 40 05/03/23 10:48 Intake & Output 05/02/23 05/03/23 05/03/23 18:59 06:59 18:59 Intake Total 2967.946 2469.090 907.008 Output Total 1135 1165 400 Balance 6569.631 4749.090 507.008 Weight 82.4 kg 83.6 kg Intake: IV 1376 1283 464 0.9 NS @ KVO 110 130 40 CVP + A-line 66 78 24 Dextrose 5%-0.45% NaCl 1, 900 975 300 000 ml @ 75 mls/hr IV . [id number] [facility] Rx#:[id number] Piperacillin-Tazobactam 3 200 100 100 .375 gm In Sodium Chloride 0.9% 100 ml @ 25 mls/hr IVPB Q8HR [facility] Rx# :[id number] methylPREDNISolone SOD 100 SUCCIN 500 mg In Sodium Chloride 0.9% 100 ml @ 100 mls/hr IVPB DAILY [facility] Rx#:[id number] Intake, IV Titration 817.946 385.090 185.008 Amount Argatroban 50 mg In 82.842 100.526 33.642 Sodium Chloride 0.9% 50 ml @ 0.5 MCG/KG/MIN 2.136 mls/hr IV .[id number] [facility] Rx#:[id number] Immune Globulin ( 300 Gammagard) 30 gm In Empty Bag 1 bag @ Per Protocol IV .Q0M [facility] Rx#: [id number] fentaNYL (PF). 1,000 mcg 184.8 100 In Sodium Chloride 0.9% 80 ml @ 0.5 MCG/KG/HR 3.5 mls/hr IV .Q24H [facility] Rx#: [id number] propofoL 1,000 mg In 250.304 184.564 151.366 Empty Bag 1 bag @ 15 MCG/ KG/MIN 4.905 mls/hr IV . [id number] [facility] Rx#:[id number] Tube Feeding 684 741 228 Other 90 60 30 Output: Urine 835 1165 400 Stool 300 Other: Voiding Method Indwelling Catheter Indwelling Catheter Indwelling Catheter ABP, PAP, CO, CI - Last Documented Arterial Blood Pressure 144/62 - Exam GENERAL EXAM: 58-year-old white male, intubated, mechanically ventilated, sedated, opens eyes but does not follow any instructions HEAD: Normocephalic and atraumatic EENT: PERRLA, EOMI, anicteric, no neck masses, no JVD. CHEST: No chest wall deformity. LUNGS: Good breath sound bilaterally no crackles or rhonchi or wheezes. CVS: Normal S1 and S2, no S3 gallop no murmur ABDOMEN: Soft nontender no megaly no rebound no guarding SKIN: Bilateral lower extremity bruising and mottling. 2 right upper extremity incision sites clean and approximated. CENTRAL NERVOUS SYSTEM: Opens eyes but does not follow any instructions EXTREMITIES: There is bilateral lower extremity bruising and mottling. Right upper extremity is pulseless and cold. No capillary refill. Remaining extremities also have diminished pulses, . There is no peripheral edema, clubbing. Feet are also cold and mottled with absent capillary refills. There is also a line of demarcation developing in the lower extremities - Labs CBC & Chem 7: 05/03/23 04:36 05/03/23 04:36 Labs: Abnormal Lab Results - Last 24 Hours (Table) 04/28/23 05/02/23 05/02/23 Range/Units 11:09 11:52 13:38 WBC (3.8-10.6) k/uL RBC (4.30-5.90) m/uL Hgb (13.0-17.5) gm/dL Hct (39.0-53.0) % Neutrophils # (1.3-7.7) k/uL Lymphocytes # (1.0-4.8) k/uL APTT 41.1 H (22.0-30.0) sec Protein S Activity 37 L (54-127) % ABG HCO3 (21-25) mmol/L ABG Total CO2 (19-24) mmol/L ABG O2 Saturation (94-97) % Chloride (98-107) mmol/L Creatinine (0.66-1.25) mg/dL Glucose (74-99) mg/dL POC Glucose (mg/dL) 158 H (70-110) mg/dL Calcium (8.4-10.2) mg/dL AST (17-59) U/L ALT (4-49) U/L Total Protein (6.3-8.2) g/dL Albumin (3.5-5.0) g/dL 05/02/23 05/02/23 05/02/23 Range/Units 16:02 18:20 19:23 WBC (3.8-10.6) k/uL RBC (4.30-5.90) m/uL Hgb (13.0-17.5) gm/dL Hct (39.0-53.0) % Neutrophils # (1.3-7.7) k/uL Lymphocytes # (1.0-4.8) k/uL APTT 40.7 H 42.1 H (22.0-30.0) sec Protein S Activity (54-127) % ABG HCO3 (21-25) mmol/L ABG Total CO2 (19-24) mmol/L ABG O2 Saturation (94-97) % Chloride (98-107) mmol/L Creatinine (0.66-1.25) mg/dL Glucose (74-99) mg/dL POC Glucose (mg/dL) 194 H (70-110) mg/dL Calcium (8.4-10.2) mg/dL AST (17-59) U/L ALT (4-49) U/L Total Protein (6.3-8.2) g/dL Albumin (3.5-5.0) g/dL 05/02/23 05/02/23 05/03/23 Range/Units 22:08 23:53 01:27 WBC (3.8-10.6) k/uL RBC (4.30-5.90) m/uL Hgb (13.0-17.5) gm/dL Hct (39.0-53.0) % Neutrophils # (1.3-7.7) k/uL Lymphocytes # (1.0-4.8) k/uL APTT 41.6 H 41.5 H (22.0-30.0) sec Protein S Activity (54-127) % ABG HCO3 (21-25) mmol/L ABG Total CO2 (19-24) mmol/L ABG O2 Saturation (94-97) % Chloride (98-107) mmol/L Creatinine (0.66-1.25) mg/dL Glucose (74-99) mg/dL POC Glucose (mg/dL) 191 H (70-110) mg/dL Calcium (8.4-10.2) mg/dL AST (17-59) U/L ALT (4-49) U/L Total Protein (6.3-8.2) g/dL Albumin (3.5-5.0) g/dL 05/03/23 05/03/23 05/03/23 Range/Units 04:36 04:36 04:36 WBC 14.6 H (3.8-10.6) k/uL RBC 3.69 L (4.30-5.90) m/uL Hgb 10.9 L (13.0-17.5) gm/dL Hct 34.8 L (39.0-53.0) % Neutrophils # 13.1 H (1.3-7.7) k/uL Lymphocytes # 0.4 L (1.0-4.8) k/uL APTT 42.4 H (22.0-30.0) sec Protein S Activity (54-127) % ABG HCO3 (21-25) mmol/L ABG Total CO2 (19-24) mmol/L ABG O2 Saturation (94-97) % Chloride 108 H (98-107) mmol/L Creatinine 0.50 L (0.66-1.25) mg/dL Glucose 171 H (74-99) mg/dL POC Glucose (mg/dL) (70-110) mg/dL Calcium 7.9 L (8.4-10.2) mg/dL AST 106 H (17-59) U/L ALT 109 H (4-49) U/L Total Protein 5.2 L (6.3-8.2) g/dL Albumin 2.1 L (3.5-5.0) g/dL 05/03/23 05/03/23 05/03/23 Range/Units 05:53 06:12 08:49 WBC (3.8-10.6) k/uL RBC (4.30-5.90) m/uL Hgb (13.0-17.5) gm/dL Hct (39.0-53.0) % Neutrophils # (1.3-7.7) k/uL Lymphocytes # (1.0-4.8) k/uL APTT 42.6 H (22.0-30.0) sec Protein S Activity (54-127) % ABG HCO3 29 H (21-25) mmol/L ABG Total CO2 30 H (19-24) mmol/L ABG O2 Saturation 98.2 H (94-97) % Chloride (98-107) mmol/L Creatinine (0.66-1.25) mg/dL Glucose (74-99) mg/dL POC Glucose (mg/dL) 174 H (70-110) mg/dL Calcium (8.4-10.2) mg/dL AST (17-59) U/L ALT (4-49) U/L Total Protein (6.3-8.2) g/dL Albumin (3.5-5.0) g/dL 05/03/23 Range/Units 11:41 WBC (3.8-10.6) k/uL RBC (4.30-5.90) m/uL Hgb (13.0-17.5) gm/dL Hct (39.0-53.0) % Neutrophils # (1.3-7.7) k/uL Lymphocytes # (1.0-4.8) k/uL APTT (22.0-30.0) sec Protein S Activity (54-127) % ABG HCO3 (21-25) mmol/L ABG Total CO2 (19-24) mmol/L ABG O2 Saturation (94-97) % Chloride (98-107) mmol/L Creatinine (0.66-1.25) mg/dL Glucose (74-99) mg/dL POC Glucose (mg/dL) 170 H (70-110) mg/dL Calcium (8.4-10.2) mg/dL AST (17-59) U/L ALT (4-49) U/L Total Protein (6.3-8.2) g/dL Albumin (3.5-5.0) g/dL Assessment and Plan Assessment: Impression: Acute hypoxic respiratory failure requiring intubation and mechanical ventilation, multifactorial Left hilar mass, 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 ascending thoracic aneurysm/clot causing significant narrowing of the lumen of the aorta Elevated carboxyhemoglobin level on admission, suspect acute carbon monoxide poisoning possibly intentional Acute toxic metabolic encephalopathy Severe anion gap metabolic acidosis on presentation, improving Acute kidney injury related to her acute rhabdomyolysis, resolved, patient c ontinues to have relatively elevated CPK Mild transaminitis Hyperchloremic hypernatremia improving with D5 W Acute thrombocytopenia could be heparin-induced, rule out antiphospholipid syndrome,, being addressed by hematology on the case Recommendation: Continue ventilatory support Continue patient sedated on propofol and fentanyl Continue nutritional support/enteral feeding Hopefully will get an legal guardian appointed today by court of law, and that legal guardian with deep to be updated on the condition and hopefully get the patient to go to comfort care Prognosis is extremely poor, I believe the situation here seems to be mostly a medical futility situation, and I strongly recommend against escalation of care, overall prognosis is extremely poor Continue on argatroban No changes done in the vent settings again today, the vent settings will remain as yesterday. Continue daily labs monitoring Steroids and IVIG to be addressed by hematology on the case. Prognosis remains very poor and likely futile Critical care time is over 30 Time with Patient: Greater than 30
[2023-05-03] MEDS: HYDROmorphone 1 MG/ML 1 ML SYRINGE IVP PRN ×2 (14:15→20:31)
--- NOTE | 2023-05-03 14:46 | P.PN ---
Subjective PROGRESS NOTE The patient is a 58-year-old male who was admitted after being found unresponsive with an elevated carboxy hemoglobin level above 20% with unclear reason. Was attempting suicide. Patient has a known history of lung cancer and chronic tobacco use and has underwent recent surgical intervention with revascularization and thrombectomy of the right upper extremity. He was in sinus tachycardia on presentation. There is no history available. Patient is not on vasopressor. He has mottling in his lower extremities. He is intubated and unresponsive. His lab data remarkable for elevation of his CK enzymes at 10,400 with a BUN of 56 and a creatinine 2.19. His troponin is elevated. Other history is not available at this time. The patient has no prior admission to this hospital. April 28: The patient remains intubated, unresponsive, poor urine output and severe mottling of the lower extremities. His echocardiogram showed severe impairment of the left ventricle systolic function with segmental wall motion abnormality. He underwent a computed tomography scan that showed left [employer] subacute infarct. His chest x-ray showed left infrahilar mass. Carotid duplex scan showed no evidence of high-grade stenosis. He has evidence of thrombocytopenia that has worsened since his admission. [place] [id number]. April 29: The patient remains intubated. His blood pressure and heart rate are stable. He has significant discoloration in his right hand and both feet, cold with absence of pulse. His computed tomography scan showed a thrombus in the aorta. There is no evidence of malignant arrhythmia. According to the nursing staff he shook his head today. He has evidence of left hilar mass. He continues to be on Argatoban. He is receiving feeding tube. 04/30 Patient seen and examined. Patient currently sedated on ventilator with FiO2 40% and PEEP of 5. IV fluids at 75 mL per hour. Remains in sinus rhythm. 05/01 Patient seen and examined. Remains on ventilator. Only Doppler pulses in the femoral arteries. Concern of catastrophic antiphospholipid syndrome and therefore was started on IVIG and high-dose steroids. 05/02 Patient seen and examined. Patient remains on ventilator. Hemoglobin today 11.6, creatinine 0.5 05/03 Patient seen and examined. Guardianship obtained from court hearing today. BP elevating today. PHYSICAL EXAMINATION: Intubated not responsive Vitals reviewed LUNGS: Clear to auscultation anteriorly HEART: Regular rate and rhythm, S1, S2. No S3. No systolic murmur ABDOMEN: Soft, no organomegaly EXTREMETIES: Severe mottling of the lower extremities him a cold with discoloration of the right upper extremity, status post thrombectomy, demarcation noted on both feet and right hand IMPRESSION: 1. Respiratory failure was elevated carboxy hemoglobin level and severe hypoxemia 2. Non-STEMI with severely impaired left ventricle systolic function of unknown duration or etiology 3. Status post thrombectomy of the right upper extremity with discoloration and mottling of the lower extremities 4. History of smoking 5. History of lung cancer 6. Thrombocytopenia could be related to heparin or DIC, concern of catastrophic antiphospholipid syndrome 7. Evidence of CVA her computed tomography scan PLAN: 1. Continue supportive care 2. Prognosis is very poor 3. Continue beta patt 4. Would not pursue any further escalation of care with prognosis guarded at this point. Unclear if patient would be a good candidate for any stenting or i ntervention with multiple metabolic derangements, hypercoagulable state, thrombocytopenia. Increase Losartan given elevating BP's. Objective - Vital Signs Vital signs: Vital Signs Temp 98.8 F 05/03/23 08:00 Pulse 85 05/03/23 14:41 Resp 20 05/03/23 14:00 BP 143/79 05/03/23 14:00 Pulse Ox 100 05/03/23 14:00 FiO2 40 05/03/23 14:42 Intake & Output 05/02/23 05/03/23 05/03/23 18:59 06:59 18:59 Intake Total 2967.946 2469.090 1571.019 Output Total 1135 1165 850 Balance 2563.318 7886.090 721.019 Weight 82.4 kg 83.6 kg Intake: IV 1376 1283 737 0.9 NS @ KVO 110 130 70 CVP + A-line 66 78 42 Dextrose 5%-0.45% NaCl 1, 900 975 525 000 ml @ 75 mls/hr IV . [id number] [facility] Rx#:[id number] Piperacillin-Tazobactam 3 200 100 100 .375 gm In Sodium Chloride 0.9% 100 ml @ 25 mls/hr IVPB Q8HR [facility] Rx# :[id number] methylPREDNISolone SOD 100 SUCCIN 500 mg In Sodium Chloride 0.9% 100 ml @ 100 mls/hr IVPB DAILY [facility] Rx#:[id number] Intake, IV Titration 817.946 385.090 375.019 Amount Argatroban 50 mg In 82.842 100.526 63.076 Sodium Chloride 0.9% 50 ml @ 0.5 MCG/KG/MIN 2.136 mls/hr IV .[id number] [facility] Rx#:[id number] Immune Globulin ( 300 Gammagard) 30 gm In Empty Bag 1 bag @ Per Protocol IV .Q0M [facility] Rx#: [id number] fentaNYL (PF). 1,000 mcg 184.8 100 100 In Sodium Chloride 0.9% 80 ml @ 0.5 MCG/KG/HR 3.5 mls/hr IV .Q24H [facility] Rx#: [id number] propofoL 1,000 mg In 250.304 184.564 211.943 Empty Bag 1 bag @ 15 MCG/ KG/MIN 4.905 mls/hr IV . [id number] [facility] Rx#:[id number] Tube Feeding 684 741 399 Other 90 60 60 Output: Urine 835 1165 850 Stool 300 Other: Voiding Method Indwelling Catheter Indwelling Catheter Indwelling Catheter ABP, PAP, CO, CI - Last Documented Arterial Blood Pressure 154/60 - Labs CBC & Chem 7: 05/03/23 04:36 05/03/23 04:36 Labs: Abnormal Lab Results - Last 24 Hours (Table) 05/02/23 05/02/23 05/02/23 Range/Units 16:02 18:20 19:23 WBC (3.8-10.6) k/uL RBC (4.30-5.90) m/uL Hgb (13.0-17.5) gm/dL Hct (39.0-53.0) % Neutrophils # (1.3-7.7) k/uL Lymphocytes # (1.0-4.8) k/uL APTT 40.7 H 42.1 H (22.0-30.0) sec ABG HCO3 (21-25) mmol/L ABG Total CO2 (19-24) mmol/L ABG O2 Saturation (94-97) % Chloride (98-107) mmol/L Creatinine (0.66-1.25) mg/dL Glucose (74-99) mg/dL POC Glucose (mg/dL) 194 H (70-110) mg/dL Calcium (8.4-10.2) mg/dL AST (17-59) U/L ALT (4-49) U/L Total Protein (6.3-8.2) g/dL Albumin (3.5-5.0) g/dL 05/02/23 05/02/23 05/03/23 Range/Units 22:08 23:53 01:27 WBC (3.8-10.6) k/uL RBC (4.30-5.90) m/uL Hgb (13.0-17.5) gm/dL Hct (39.0-53.0) % Neutrophils # (1.3-7.7) k/uL Lymphocytes # (1.0-4.8) k/uL APTT 41.6 H 41.5 H (22.0-30.0) sec ABG HCO3 (21-25) mmol/L ABG Total CO2 (19-24) mmol/L ABG O2 Saturation (94-97) % Chloride (98-107) mmol/L Creatinine (0.66-1.25) mg/dL Glucose (74-99) mg/dL POC Glucose (mg/dL) 191 H (70-110) mg/dL Calcium (8.4-10.2) mg/dL AST (17-59) U/L ALT (4-49) U/L Total Protein (6.3-8.2) g/dL Albumin (3.5-5.0) g/dL 05/03/23 05/03/23 05/03/23 Range/Units 04:36 04:36 04:36 WBC 14.6 H (3.8-10.6) k/uL RBC 3.69 L (4.30-5.90) m/uL Hgb 10.9 L (13.0-17.5) gm/dL Hct 34.8 L (39.0-53.0) % Neutrophils # 13.1 H (1.3-7.7) k/uL Lymphocytes # 0.4 L (1.0-4.8) k/uL APTT 42.4 H (22.0-30.0) sec ABG HCO3 (21-25) mmol/L ABG Total CO2 (19-24) mmol/L ABG O2 Saturation (94-97) % Chloride 108 H (98-107) mmol/L Creatinine 0.50 L (0.66-1.25) mg/dL Glucose 171 H (74-99) mg/dL POC Glucose (mg/dL) (70-110) mg/dL Calcium 7.9 L (8.4-10.2) mg/dL AST 106 H (17-59) U/L ALT 109 H (4-49) U/L Total Protein 5.2 L (6.3-8.2) g/dL Albumin 2.1 L (3.5-5.0) g/dL 05/03/23 05/03/23 05/03/23 Range/Units 05:53 06:12 08:49 WBC (3.8-10.6) k/uL RBC (4.30-5.90) m/uL Hgb (13.0-17.5) gm/dL Hct (39.0-53.0) % Neutrophils # (1.3-7.7) k/uL Lymphocytes # (1.0-4.8) k/uL APTT 42.6 H (22.0-30.0) sec ABG HCO3 29 H (21-25) mmol/L ABG Total CO2 30 H (19-24) mmol/L ABG O2 Saturation 98.2 H (94-97) % Chloride (98-107) mmol/L Creatinine (0.66-1.25) mg/dL Glucose (74-99) mg/dL POC Glucose (mg/dL) 174 H (70-110) mg/dL Calcium (8.4-10.2) mg/dL AST (17-59) U/L ALT (4-49) U/L Total Protein (6.3-8.2) g/dL Albumin (3.5-5.0) g/dL 05/03/23 05/03/23 05/03/23 Range/Units 11:41 11:42 14:15 WBC (3.8-10.6) k/uL RBC (4.30-5.90) m/uL Hgb (13.0-17.5) gm/dL Hct (39.0-53.0) % Neutrophils # (1.3-7.7) k/uL Lymphocytes # (1.0-4.8) k/uL APTT 41.3 H 41.7 H (22.0-30.0) sec ABG HCO3 (21-25) mmol/L ABG Total CO2 (19-24) mmol/L ABG O2 Saturation (94-97) % Chloride (98-107) mmol/L Creatinine (0.66-1.25) mg/dL Glucose (74-99) mg/dL POC Glucose (mg/dL) 170 H (70-110) mg/dL Calcium (8.4-10.2) mg/dL AST (17-59) U/L ALT (4-49) U/L Total Protein (6.3-8.2) g/dL Albumin (3.5-5.0) g/dL
[2023-05-03] MEDS ORDERED: LOSARTAN 50 MG TAB PO STA (15:00)
[2023-05-03 17:59] LABS: Glucose,Whole Blood 133 mg/dL (70-110)
[2023-05-04] MEDS: ARGATROBAN 50 MG in SODIUM CHLORIDE 0.9% 50 ML IV SCH ×4 (00:23→13:13)
[2023-05-04 00:29] LABS: Glucose,Whole Blood 117 mg/dL (70-110)
[2023-05-04] MEDS: IPRATROPIUM-ALBUTEROL 3 ML NEB INHALATION SCH ×6 (00:37→20:01)
[2023-05-04] MEDS: INSULIN ASPART (NovoLOG) 100 UNIT/ML VIAL SQ SCH ×2 (00:38→06:10)
[2023-05-04] MEDS: HYDROmorphone 1 MG/ML 1 ML SYRINGE IVP PRN ×2 (00:38→02:29)
[2023-05-04] MEDS: PIPERACILLIN-TAZOBACTAM 3.375 GM in SODIUM CHLORIDE 0.9% 100 ML IVPB SCH ×2 (00:38→09:38)
[2023-05-04] MEDS ORDERED: cloNIDine HCL 0.1 MG TAB PO STA (03:17)
[2023-05-04] MEDS: fentaNYL (PF). 1,000 MCG in SODIUM CHLORIDE 0.9% 80 ML IV SCH ×2 (04:35→13:45)
[2023-05-04 05:58] LABS: ABG Base Excess 5.7 mmol/L; ABG HCO3 30 mmol/L (21-25); ABG PCO2 44 mmHg (35-45); ABG PH 7.44 (7.35-7.45); ABG PO2 94 mmHg (83-108); ABG TCO2 31 mmol/L (19-24); Allen Test Performed? Yes
[2023-05-04 06:09] LABS: African American GFR (CKD) >90 (>60 ml/min/1.73 sqM); Anion Gap 4 mmol/L; Blood Urea Nitrogen 18 mg/dL (9-20); Calcium 7.8 mg/dL (8.4-10.2); Carbon Dioxide 29 mmol/L (22-30); Chloride 108 mmol/L (98-107); Glucose 127 mg/dL (74-99); Non-African American GFR(CKD) >90 (>60 ml/min/1.73 sqM); Potassium 3.8 mmol/L (3.5-5.1); Sodium 141 mmol/L (137-145)
[2023-05-04 06:11] LABS: Glucose,Whole Blood 110 mg/dL (70-110)
[2023-05-04] MEDS: DEXTROSE 5%-0.45% NACL 1,000 ML IV SCH (06:12)
[2023-05-04 07:00] LABS: Basophils % (A) 0 %; Eosinophils # (A) 0.1 k/uL (0-0.7); Eosinophils % (A) 1 %; HCT 37.2 % (39.0-53.0); HGB 11.7 gm/dL (13.0-17.5); Hypochromasia Marked; Lymphocytes # (A) 0.8 k/uL (1.0-4.8); Lymphocytes % (A) 8 %; MCH 29.8 pg (25.0-35.0); MCHC 31.6 g/dL (31.0-37.0); MCV 94.5 fL (80.0-100.0); Mean Platelet Volume 8.8; Monocytes # (A) 0.6 k/uL (0-1.0); Monocytes % (A) 6 %; Neutrophils # (A) 8.7 k/uL (1.3-7.7); Neutrophils % (A) 85 %; Platelet Count 266 k/uL (150-450); RBC 3.94 m/uL (4.30-5.90); RDW 15.4 % (11.5-15.5); WBC 10.2 k/uL (3.8-10.6)
[2023-05-04] MEDS ORDERED: POTASSIUM BICARBONATE/CIT AC 20 MEQ TABLET.EFF NG-TUBE SCH (08:00)
[2023-05-04 08:52] VITALS: BP 137/67; RESP 20
--- NOTE | 2023-05-04 08:58 | XR ---
EXAMINATION TYPE: XR chest 1V portable DATE OF EXAM: 05/04/2023 5:27 AM CLINICAL INDICATION:Male, 58 years old with history of lung status; COMPARISON: Chest radiographs from 05/03/2023. TECHNIQUE: XR chest 1V portable Frontal view of the chest. FINDINGS: Lungs/Pleura: There may be layering pleural effusions bilaterally. There is no evidence of pleural ef fusion, focal consolidation, or pneumothorax. Pulmonary vascularity: Unremarkable. Heart/mediastinum: Cardiomediastinal silhouette is unremarkable. Musculoskeletal: No acute osseous pathology. Other findings: None Endotracheal tube with distal side port near the gastric esophageal junction. IMPRESSION: Stable exam with stable left central venous catheter. Consider advancement of the nasogastric tube up to 10 cm for optimal placement.
[2023-05-04] MEDS ORDERED: LOSARTAN 50 MG TAB PO SCH (09:00)
[2023-05-04] MEDS ORDERED: IMMUNE GLOBULIN (GAMMAGARD) 30 GM in EMPTY BAG 1 BAG IV ONE (09:00)
[2023-05-04] MEDS: CHLORHEXIDINE GLUCONATE 15 ML CUP MUCOUS MEM SCH (09:37)
[2023-05-04] MEDS: PANTOPRAZOLE 40 MG/10 ML VIAL IVP SCH (09:39)
[2023-05-04] MEDS: ASPIRIN 81 MG PO SCH (09:40)
[2023-05-04] MEDS: METOPROLOL TARTRATE 25 MG TAB PO SCH (09:41)
[2023-05-04] MEDS: THIAMINE 100 MG/ML 2 ML VIAL IVP SCH (09:42)
[2023-05-04] MEDS: ATORVASTATIN 40 MG TAB PO SCH (09:42)
[2023-05-04 11:04] VITALS: BMI 27.0
--- NOTE | 2023-05-04 11:10 | P.PN ---
Progress Note - Text Progress Note Date: 05/04/23 Patient has multiple comorbid conditions including left-sided ischemic stroke and bilateral lower extremity and right hand ischemia with setting and dry gangrene. This is complicated by newly discovered cardiomyopathy which has an extremely poor overall prognosis. Additionally patient has a significant clot in the thoracic aorta which is nearly occlusive. I would not recommend any further escalation of care. Had an extensive discussion with appointed guardian. Due to overall poor prognosis, patient will be considered for DO NOT RESUSCITATE status and comfort care measures.
--- NOTE | 2023-05-04 11:16 | P.PN ---
Subjective Progress Note Date: 05/04/23 Principal diagnosis: Critical Limb ischemia, mental status changes, acute stroke Patient is seen and examined today as a follow-up. Remains in the ICU currently intubated remains on mechanical ventilation. Patient has his eyes closed, patient not following commands. No acute changes through the night. He remains on Argatroban drip, IV steroids, and IVIG per recommendations from hematology. Yesterday social work went to court to obtain legal guardianship. Patient's pro gnosis remains poor. Objective - Vital Signs Vital signs: Vital Signs Temp 99.8 F H 05/04/23 08:00 Pulse 107 H 05/04/23 08:41 Resp 20 05/04/23 08:00 BP 137/67 05/04/23 08:00 Pulse Ox 98 05/04/23 08:00 FiO2 40 05/04/23 08:37 Intake & Output 05/03/23 05/04/23 05/04/23 18:59 06:59 18:59 Intake Total 2193.385 2020.761 383.577 Output Total 1475 2700 360 Balance 718.385 -679.239 23.577 Weight 85.4 kg 85.4 kg Intake: IV 961 772 112 0.9 NS @ KVO 110 120 20 CVP + A-line 66 72 12 Dextrose 5%-0.45% NaCl 1, 685 480 80 000 ml @ 50 mls/hr IV . Q20H [facility] Rx#:[id number] Piperacillin-Tazobactam 3 100 100 .375 gm In Sodium Chloride 0.9% 100 ml @ 25 mls/hr IVPB Q8HR [facility] Rx# :[id number] Intake, IV Titration 502.385 564.761 127.577 Amount Argatroban 50 mg In 122.072 131.562 50.351 Sodium Chloride 0.9% 50 ml @ 0.5 MCG/KG/MIN 2.136 mls/hr IV .[id number] [facility] Rx#:[id number] fentaNYL (PF). 1,000 mcg 100 200 In Sodium Chloride 0.9% 80 ml @ 0.5 MCG/KG/HR 3.5 mls/hr IV .Q24H [facility] Rx#: [id number] propofoL 1,000 mg In 280.313 233.199 77.226 Empty Bag 1 bag @ 15 MCG/ KG/MIN 4.905 mls/hr IV . [id number] [facility] Rx#:[id number] Oral 70 Tube Feeding 570 684 114 Other 90 30 Output: Urine 1475 1800 360 Stool 900 Other: Voiding Method Indwelling Catheter Indwelling Catheter ABP, PAP, CO, CI - Last Documented Arterial Blood Pressure 148/57 - Exam General appearance: The patient is intubated, lying with his eyes closed. HET: Head is normocephalic and atraumatic. Neck: Supple. Lungs: Equal expansion, on mechanical ventilation. Abdomen: Soft, nondistended. Extremities: Right hand is ischemic and contracted. Bilateral feet ischemic, with some ischemia of the left lower extremity. Feet cold to touch. Neurological: Patient is intubated, mechanical ventilation. Patient spontaneously open his eyes, he has not following any commands. - Labs CBC & Chem 7: 05/04/23 05:30 05/04/23 05:30 Labs: Abnormal Lab Results - Last 24 Hours (Table) 05/03/23 05/03/23 05/03/23 Range/Units 11:41 11:42 14:15 RBC (4.30-5.90) m/uL Hgb (13.0-17.5) gm/dL Hct (39.0-53.0) % Neutrophils # (1.3-7.7) k/uL Lymphocytes # (1.0-4.8) k/uL APTT 41.3 H 41.7 H (22.0-30.0) sec ABG HCO3 (21-25) mmol/L ABG Total CO2 (19-24) mmol/L ABG O2 Saturation (94-97) % Chloride (98-107) mmol/L Creatinine (0.66-1.25) mg/dL Glucose (74-99) mg/dL POC Glucose (mg/dL) 170 H (70-110) mg/dL Calcium (8.4-10.2) mg/dL 05/03/23 05/03/23 05/03/23 Range/Units 16:15 17:57 19:38 RBC (4.30-5.90) m/uL Hgb (13.0-17.5) gm/dL Hct (39.0-53.0) % Neutrophils # (1.3-7.7) k/uL Lymphocytes # (1.0-4.8) k/uL APTT 41.3 H 41.2 H (22.0-30.0) sec ABG HCO3 (21-25) mmol/L ABG Total CO2 (19-24) mmol/L ABG O2 Saturation (94-97) % Chloride (98-107) mmol/L Creatinine (0.66-1.25) mg/dL Glucose (74-99) mg/dL POC Glucose (mg/dL) 133 H (70-110) mg/dL Calcium (8.4-10.2) mg/dL 05/04/23 05/04/23 05/04/23 Range/Units 00:27 02:10 05:30 RBC 3.94 L (4.30-5.90) m/uL Hgb 11.7 L (13.0-17.5) gm/dL Hct 37.2 L (39.0-53.0) % Neutrophils # 8.7 H (1.3-7.7) k/uL Lymphocytes # 0.8 L (1.0-4.8) k/uL APTT 38.7 H (22.0-30.0) sec ABG HCO3 (21-25) mmol/L ABG Total CO2 (19-24) mmol/L ABG O2 Saturation (94-97) % Chloride (98-107) mmol/L Creatinine (0.66-1.25) mg/dL Glucose (74-99) mg/dL POC Glucose (mg/dL) 117 H (70-110) mg/dL Calcium (8.4-10.2) mg/dL 05/04/23 05/04/23 05/04/23 Range/Units 05:30 05:30 05:50 RBC (4.30-5.90) m/uL Hgb (13.0-17.5) gm/dL Hct (39.0-53.0) % Neutrophils # (1.3-7.7) k/uL Lymphocytes # (1.0-4.8) k/uL APTT 38.5 H (22.0-30.0) sec ABG HCO3 30 H (21-25) mmol/L ABG Total CO2 31 H (19-24) mmol/L ABG O2 Saturation 98.0 H (94-97) % Chloride 108 H (98-107) mmol/L Creatinine 0.52 L (0.66-1.25) mg/dL Glucose 127 H (74-99) mg/dL POC Glucose (mg/dL) (70-110) mg/dL Calcium 7.8 L (8.4-10.2) mg/dL 05/04/23 Range/Units 09:26 RBC (4.30-5.90) m/uL Hgb (13.0-17.5) gm/dL Hct (39.0-53.0) % Neutrophils # (1.3-7.7) k/uL Lymphocytes # (1.0-4.8) k/uL APTT 39.7 H (22.0-30.0) sec ABG HCO3 (21-25) mmol/L ABG Total CO2 (19-24) mmol/L ABG O2 Saturation (94-97) % Chloride (98-107) mmol/L Creatinine (0.66-1.25) mg/dL Glucose (74-99) mg/dL POC Glucose (mg/dL) (70-110) mg/dL Calcium (8.4-10.2) mg/dL Assessment and Plan Assessment: 1. Systemic arterial thrombosis, suspect hypercoagulable syndrome 2. Advanced ischemic changes of the feet and calf areas bilaterally as well as right hand and distal forearm 3. Previous right ulnar, radial, brachial thrombectomy 4. CT brain with Maturing left parietal occipital infarct. Couple of punctuate hyperdensities are present could be petechial hemorrhages present previously and stable 5. Nearly occluding thrombus in the distal descending thoracic aorta 6. CVA 7. Reported recent diagnosis of lung cancer 8. Non-STEMI with severely impaired left ventricle systolic function Plan: E no changes in patient. Yesterday legal guardianship was obtained. Awaiting for medical team to reach legal guardian to make further decisions in patients plan of care. Patient's overall prognosis is quite poor, if patient survives he will need bilateral lower extremity amputations as well as amputation of the right hand. Again prognosis is poor, patient is not stable to undergo surgical intervention at this time. Recommend making patient DO NOT RESUSCITATE and consider comfort care, would recommend against exclamation of care due to overall prognosis being very poor. Further recommendations forthcoming based on clinical course. Continue medical/ICU management. The impression and plan of care has been dictated as directed. Dr. De I performed a history and examination of this patient, discussed the same with the dictator. I agree with the dictator's note ,documented as a scribe. Any additional findings or plans will be noted.
--- NOTE | 2023-05-04 11:40 | P.PN ---
Subjective Progress Note Date: 05/04/23 Principal diagnosis: Acute hypoxic respiratory failure, left hilar mass, acute multiple limbs ischemia I am seeing this patient in consultation today 04/27/2023 in the intensive care unit after he was brought in by EMS yesterday evening. He was reportedly covered in soot, and found minimally responsive next to the oven. Patient is a 58-year-old white male with limited known past medical history. He did reportedly just have a vascular procedure done at [facility] for right upper limb ischemia recently. The nurses are working on getting this documentation. He also may have recently been diagnosed with lung cancer and is a chronic ongoing smoker. He has no family other than an estranged brother. Patient was last seen well by his neighbor on Sunday. The neighbors did not hear from him for a couple of days and decided to call the police to do a wellness check. He was found on the floor next to the stove, the gas was on. He was covered in soot, He may have been burning something on the stove. He was altered and minimally responsive. Questionable, whether he may have tried to commit suicide, and is petitioned by the police. His carboxyhemoglobin level was greater than 20%. The ER physician did try to reach out to tertiary care centers for possible hy perbaric oxygen therapy, however, no accepting facilities were found. Patient was ultimately intubated for airway protection. Current ventilator settings are assist control, respiratory rate 20, tidal volume 400, FiO2 100%, PEEP of 10. Most recent ABGs show a pO2 of 68, pCO2 of 24, pH of 7.17. Patient has been given 2 A of sodium bicarb and is on a bicarb drip at 100 ML's per hour. Post intubation chest x-ray shows endotracheal tube approximately 1 cm above the chasidy, this will be withdrawn 1-2 cm. There is an orogastric tube coursing into the stomach. There is a left subclavian triple-lumen catheter tip near the cavoatrial junction. There is bilateral multifocal infiltrates consistent with pneumonia, likely aspiration pneumonia. He is covered on Zosyn. BP is stable at this time. He did receive 4 normal saline boluses in the ER. Not requiring any vasopressors at the moment. Patient is currently sedated on propofol which is infusing at 50 mcg/kg/m. He is fairly synchronous with the mechanical ventilator. His right arm appears postsurgical, with two healing and approximated incisions. The extremity is pulseless and cold. Previously on examination, the patient was noted to have a left gaze deviation, a brain and C- spine CT demonstrated a subacute 8 by 4 x 4 centimeters left MCA territory nonhemorrhagic infarct or midline shift. No cervical spine fracture. No seizure like activity noted by nursing staff. Neuro examination is limited by sedation. Urine drug screen negative. CBC on arrival shows a WBC count of 28.5, hemoglobin 20.7, hematocrit 65.1, platelets 115. BMP shows sodium 147, potassium 5, chloride 108, serum bicarbonate 9, BUN 56, creatinine 2.19, glucose 147. Lactic acid level was 12 and is down to 2.4. LFTs mildly elevated. Creatinine kinase is elevated at 10,400 and is consistent with rhabdomyolysis. He was found on the ground. He does bruising on his legs. Troponin elevated, consistent with non-ST elevation AR, likely related to tissue hypoxemia and carbon monoxide poisoning. Chest x-ray did show sinus tachycardia with T-wave inversion in anterior lateral leads. No other ST or T wave abnormalities noted. Patient's condition is obviously critical, and he is being monitored in the intensive care unit. On 04/28/2023, seeing the patient for a follow-up. This morning, the patient is on propofol running at 30 mcg/kg/m. He is arousable. He withdraws to painful stimulation. He is not following commands at this point in time. He is on assist-control mode of mechanical ventilation at the rate of 20, tidal volume of 400, FiO2 is currently at 40% with a PEEP of 10. The blood gas showed a pH of 7.42 with a pCO2 of 40 and pO2 of 252. His, monocyte level is normalized. His chest x-ray from today showing no significant acute abnormalities. There may be a opacity in the left hilar area consistent with his previous history of lung cancer. He has a triple-lumen catheter in his left subclavian vein. The tube is in a good location. No airspace disease or consolidations this point in time. A repeat CAT scan of the brain was done this morning and it showed left [employer] territory subacute infarct and possibility of some edema minimal petechial hemorrhage cannot be completely excluded in the anterior margin of the infarct. The patient was started on IV heparin by vascular surgery. I stopped the heparin yesterday based on the fact that the patient's platelet count has dropped onto 57 and at the same time there is a concern of hemorrhagic transformation of his stroke. The same time, the patient is hemodynamically sta ble. Troponins peaked at 16 and then down trended. His echocardiogram showed impaired LV function and his ejection fraction is in order of 20-25%. The patient also has rhabdomyolysis. CPK peaked at 18,000 and currently it is down trending. He continues to have obvious vascular issues. The patient was seen by vascular surgery. We came to find other the patient has undergone a right brachial, radial and ulnar thrombectomy reportedly twice during an earlier hospitalization. His right upper extremity is contracted and dusky and cold with absent pulses and remains ischemic. In same time, the patient has ischemic feet bilaterally with absent pulses in the feet are cold and clammy without any dorsalis pedis or posterior tibialis and a demarcation is being developed at this point in time. Terms of his blood work, sodium levels of 151, potassium is at 4.2, currently 122, BUN is 28 with a creatinine of 0.9 and the patient has recovered from his acute kidney injury. The white cell count dropped at 15.3 with a hemoglobin of 14.7. The patient patient also had a drop in the platelet count down to 57. He was started on IV heparin. I stopped IV heparin. Heparin-induced thrombocytopenia antibodies were sent and the patient is being started on agratoban been based on recommendations done by the vascular team and the medical team. On 04/29/2023, the patient is following some simple commands while being off sedation. Repeat CAT scan of the brain was done today and that is also still pending. The patient has a large ischemic stroke involving the left [employer] distribution. Concern is for any evolving bleed especially the patient is currently on agratoban . Otherwise, the patient remains intubated on a mechanical ventilator. He is on assist control mode with a rate of 20, tidal volume of 400, FiO2 of 40% with a PEEP of 5. No blood gas from today. The chest x-ray from today showing no acute abnormalities. The patient has a left hilar mass. EKG was in a good location. I did obtain a CAT scan of his chest yesterday and the patient has a confirmed mass in the left hilum which I believe it was biopsied earlier and the outside hospital. This was a 3.1 cm mass in the left hilar area. The same time, the patient has a thrombus causing the descending resting aorta. There is significant narrowing of the lumen of the ascending aorta and this was discussed with vascular surgery team. Overall vascular condition is extremely poor. The patient has no pulses in his feet bilaterally. His legs are cold and clammy with absent capillary refills. He is developing demarcation lines in his feet. The same for the right upper extremity. He does have a pulse in his left upper extremity. Vascular surgery are following the patient. No intervention is recommended because of his poor prognosis and his underlying comorbidities. Vascular surgery plans to do amputations once patient is more stable. Meanwhile, the patient remains on Agratoban, hit antibodies are still pending, hypercoagulable workup was also done and the blood work was sent to rule out the possibility of any antiphospholipid syndrome in this patient. His platelet count currently is at 49. Hemoglobin is stable at 13.1. The white cycles of 15.7. Rest of the blood work and electrolytes are all within normal limits. Sodium level is improved compared to yesterday's currently down to 146. IV fluids are in the form of D5 water at the rate of 75 mL an hour. He is receiving enteral feeding for nutritional support. He is currently on vital high-protein at the rate of 50 mL an hour. Patient is being seen by different consultants including cardiology, neurology, vascular surgery, hematology oncology. His adequately sedated with a combination of propofol and fentanyl. He remains on broad-spectrum antibiotic coverage with IV Zosyn. No family identified. There is a brother with does not want to be contacted. There is also a neighbor. Legal guardianship is being acquired Patient was /11/2023, patient remains in the ICU, intubated and mechanically ventilated. Patient is on assist control rate of 20, volume 400 FiO2 40% and PEEP of 5 ABG showed a pO2 of 132 pCO2 40 pH of 7.45. Patient is on propofol at 60 mcg/kg/m is also on fentanyl 2 mcg/kg/h and D5W at 75 mL per hour. Patient is also empirically on Zosyn. And he is receiving iron. Recent CT of the chest showed possible malignancy and thromboses within the aorta at the thoracic level. Patient continues to have significant ischemic and almost gangrenous changes involving his bilateral lower extremities and his right upper extremity. CT of the brain showed petechial hemorrhages with an ischemic stroke area involving the left hemisphere. There is urologist felt the patient had a maturing left parietal occipital infarct and petechial hemorrhages are stable compared to previous CT of the brain. Chest x-ray continues to show diffuse interstitial opacities, either pulmonary vascular congestion or atypical pneumonia. There is also 3.4 cm left hilar mass present. Labs were reviewed, platelets remained low at 64,000 WBC count is 12.2 hemoglobin is 12.2 PTT is 41.6, heparin presently is on hold. Basic metabolic profile is normal, renal profile is normal, blood cultures and sputum cultures have been negative. Urine culture is also negative Reevaluated today on 05/01/2023, remains in the ICU, intubated and mechanically ventilated. Patient is on assist control rate of 20-2400 FiO2 40% and PEEP of 5. ABG showed a pO2 of 82 pCO2 39 pH of 7.45 hence no changes were made regarding his ventilator settings. Patient remains on propofol at 65 mcg/kg/m R get to ban at 1.6 mg/kg/m patient is also on fentanyl at 2 mcg/kg/h and vital HPF 57 mL per hour. Reviewed the pathology report from his previous lung biopsy, and it showed atypical carcinoid. At any rate patient clearly has severe prognosis, he is critically ill, continues to have ischemic changes in the right hand, right lower extremity and left lower extremity, and my fear the patient may eventually end up with DIC. Patient is being followed by hematology. I will discuss with his legal guardian once one is appointed which is supposed to be done next at 1:[address], and I will definitely recommend comfort care measures on this patient. WBC count today is 16.2 hemoglobin 12.5 PTT is 40.7 INR is 1.3. Platelets are up to 114. CPK 6279, renal functioning is normal. Patient continues to have good urine output. Patient was reevaluated today on 05/02/2023, remains in the ICU, intubated and mechanically ventilated, not much has changed over the last 24 hours. Patient is on assist control rate of 20,000 volume 400, FiO2 40% and PEEP of 5 ABG showed a pO2 of 110 pCO2 41 pH of 7.45 hence no vent setting changes were made. Patient is maintained on propofol at 65 mcg/kg/m, fentanyl at 2 mcg/kg/h, uncont rolled and at 1.8 mcg/kg/m, patient is receiving vital HP via orogastric tube. Mentation is about the same, patient opens eyes, but he does not follow any instructions, he is being followed by neurology on the case. His multiple limb ischemia is about the same, patient clearly has significant ischemic changes in his right hand, right foot and left foot. With demarcation, for his low platelets, patient was given IVIG and he was also given steroids by hematology. Hematology still suspecting heparin-induced thrombocytopenia , recommending KALA, this was ordered for confirmation. Patient was found to have positive lupus anticoagulants, DIC workup is negative so far. Again based on the fact that we may be dealing with H I T/catastrophic antiphospholipid syndrome, steroids were given, and IVIG was given. Chest x-ray today showed appropriate position of tubes and lines, and minimal right basilar atelectasis. Reevaluated today on 05/03/2023, patient is about the same, remains intubated mechanically ventilated, he is on assist control rate of 20 to volume 400 FiO2 40% and PEEP of 5. Patient is on fentanyl at 2 mg/kg/h, R get to ban 2.5 mcg/kg/m, propofol 75 mg/kg/m, vital HP at goal. Patient remains on Zosyn, remains on steroids as recommended by hematology/oncology. ABG showed a pO2 of 98 pCO2 44 pH of 7.42, has no changes were made in the vent settings. We'll see This 14.6 Hemoglobin 10.9. Platelets Are 2 28,000. And PTT Is 42.4. Basic Metabolic Profile Is Normal, Renal Profile Is Normal. Chest X-Ray Is Basically Stable, Continues to Have Minimal Bibasilar Opacity/Atelectasis, Strongly Doubt Pneumonia. Although It Is Not Entirely Ruled Out. Clinically the Patient Is about the Same, Opens Eyes, Does Not Follow Any Instructions. Nonetheless to Requiring Significant Amount of Sedation and Fentanyl. Reevaluated today on 05/04/2023, patient remains in the ICU, critically ill, remains intubated and mechanically ventilated. He is on multiple drips, he is on assist control rate of 20 to volume 400 FiO2 40% PEEP of 5 ABG showed a pO2 of 94 pCO2 44 pH of 7.44 patient remains on R get to ban at 3.2 mcg/kg/m fentanyl at 2 mcg/kg/h propofol at 65 mcg/kg/m still receiving vital HP at 57 mL per hour remains on Zosyn empirically. Chest x-ray was reviewed, and r ecommended advancing the endotracheal tube to see him and advancing the orogastric tube about 10 [address]. [address] the [address]-appointed legal guardian for this patient, and the admitting physician is trying to reach the legal guardian to discuss possibly comfort care measures. In the meantime we are continuing the same supportive care measures and I strongly doubt of the legal guardian will need to escalate treatment or to amputations of multiple limbs Objective - Vital Signs Vital signs: Vital Signs Temp 99.8 F H 05/04/23 08:00 Pulse 102 H 05/04/23 11:00 Resp 20 05/04/23 11:00 BP 137/67 05/04/23 08:00 Pulse Ox 98 05/04/23 11:00 FiO2 40 05/04/23 08:37 Intake & Output 05/03/23 05/04/23 05/04/23 18:59 06:59 18:59 Intake Total 2193.385 2020.761 739.577 Output Total 1475 2700 695 Balance 718.385 -679.239 44.577 Weight 85.4 kg 85.4 kg Intake: IV 961 772 324 0.9 NS @ KVO 110 120 40 CVP + A-line 66 72 24 Dextrose 5%-0.45% NaCl 1, 685 480 160 000 ml @ 50 mls/hr IV . Q20H [facility]YLAN Rx#:[id number] Piperacillin-Tazobactam 3 100 100 100 .375 gm In Sodium Chloride 0.9% 100 ml @ 25 mls/hr IVPB Q8HR [facility]YLAN Rx# :[id number] Intake, IV Titration 502.385 564.761 127.577 Amount Argatroban 50 mg In 122.072 131.562 50.351 Sodium Chloride 0.9% 50 ml @ 0.5 MCG/KG/MIN 2.136 mls/hr IV .[id number] DYLAN Rx#:[id number] fentaNYL (PF). 1,000 mcg 100 200 In Sodium Chloride 0.9% 80 ml @ 0.5 MCG/KG/HR 3.5 mls/hr IV .Q24H [facility]YLAN Rx#: [id number] propofoL 1,000 mg In 280.313 233.199 77.226 Empty Bag 1 bag @ 15 MCG/ KG/MIN 4.905 mls/hr IV . [id number] [facility]YLAN Rx#:[id number] Oral 70 Tube Feeding 570 684 228 Other 90 60 Output: Urine 1475 1800 695 Stool 900 Other: Voiding Method Indwelling Catheter Indwelling Catheter ABP, PAP, CO, CI - Last Documented Arterial Blood Pressure 148/59 - Exam GENERAL EXAM: 58-year-old white male, intubated, mechanically ventilated, sedate d, opens eyes but does not follow any instructions HEAD: Normocephalic and atraumatic EENT: PERRLA, EOMI, anicteric, no neck masses, no JVD. CHEST: No chest wall deformity. LUNGS: Good breath sound bilaterally no crackles or rhonchi or wheezes. CVS: Normal S1 and S2, no S3 gallop no murmur ABDOMEN: Soft nontender no megaly no rebound no guarding SKIN: Bilateral lower extremity bruising and mottling. 2 right upper extremity incision sites clean and approximated. CENTRAL NERVOUS SYSTEM: Opens eyes but does not follow any instructions EXTREMITIES: There is bilateral lower extremity bruising and mottling. Right upper extremity is pulseless and cold. No capillary refill. Remaining extremities also have diminished pulses, . There is no peripheral edema, clubbing. Feet are also cold and mottled with absent capillary refills. Gangrenous toes noted in both feet. There is also a line of demarcation developing in the lower extremities - Labs CBC & Chem 7: 05/04/23 05:30 05/04/23 05:30 Labs: Abnormal Lab Results - Last 24 Hours (Table) 05/03/23 05/03/23 05/03/23 Range/Units 11:41 11:42 14:15 RBC (4.30-5.90) m/uL Hgb (13.0-17.5) gm/dL Hct (39.0-53.0) % Neutrophils # (1.3-7.7) k/uL Lymphocytes # (1.0-4.8) k/uL APTT 41.3 H 41.7 H (22.0-30.0) sec ABG HCO3 (21-25) mmol/L ABG Total CO2 (19-24) mmol/L ABG O2 Saturation (94-97) % Chloride (98-107) mmol/L Creatinine (0.66-1.25) mg/dL Glucose (74-99) mg/dL POC Glucose (mg/dL) 170 H (70-110) mg/dL Calcium (8.4-10.2) mg/dL 05/03/23 05/03/23 05/03/23 Range/Units 16:15 17:57 19:38 RBC (4.30-5.90) m/uL Hgb (13.0-17.5) gm/dL Hct (39.0-53.0) % Neutrophils # (1.3-7.7) k/uL Lymphocytes # (1.0-4.8) k/uL APTT 41.3 H 41.2 H (22.0-30.0) sec ABG HCO3 (21-25) mmol/L ABG Total CO2 (19-24) mmol/L ABG O2 Saturation (94-97) % Chloride (98-107) mmol/L Creatinine (0.66-1.25) mg/dL Glucose (74-99) mg/dL POC Glucose (mg/dL) 133 H (70-110) mg/dL Calcium (8.4-10.2) mg/dL 05/04/23 05/04/23 05/04/23 Range/Units 00:27 02:10 05:30 RBC 3.94 L (4.30-5.90) m/uL Hgb 11.7 L (13.0-17.5) gm/dL Hct 37.2 L (39.0-53.0) % Neutrophils # 8.7 H (1.3-7.7) k/uL Lymphocytes # 0.8 L (1.0-4.8) k/uL APTT 38.7 H (22.0-30.0) sec ABG HCO3 (21-25) mmol/L ABG Total CO2 (19-24) mmol/L ABG O2 Saturation (94-97) % Chloride (98-107) mmol/L Creatinine (0.66-1.25) mg/dL Glucose (74-99) mg/dL POC Glucose (mg/dL) 117 H (70-110) mg/dL Calcium (8.4-10.2) mg/dL 05/04/23 05/04/23 05/04/23 Range/Units 05:30 05:30 05:50 RBC (4.30-5.90) m/uL Hgb (13.0-17.5) gm/dL Hct (39.0-53.0) % Neutrophils # (1.3-7.7) k/uL Lymphocytes # (1.0-4.8) k/uL APTT 38.5 H (22.0-30.0) sec ABG HCO3 30 H (21-25) mmol/L ABG Total CO2 31 H (19-24) mmol/L ABG O2 Saturation 98.0 H (94-97) % Chloride 108 H (98-107) mmol/L Creatinine 0.52 L (0.66-1.25) mg/dL Glucose 127 H (74-99) mg/dL POC Glucose (mg/dL) (70-110) mg/dL Calcium 7.8 L (8.4-10.2) mg/dL 05/04/23 Range/Units 09:26 RBC (4.30-5.90) m/uL Hgb (13.0-17.5) gm/dL Hct (39.0-53.0) % Neutrophils # (1.3-7.7) k/uL Lymphocytes # (1.0-4.8) k/uL APTT 39.7 H (22.0-30.0) sec ABG HCO3 (21-25) mmol/L ABG Total CO2 (19-24) mmol/L ABG O2 Saturation (94-97) % Chloride (98-107) mmol/L Creatinine (0.66-1.25) mg/dL Glucose (74-99) mg/dL POC Glucose (mg/dL) (70-110) mg/dL Calcium (8.4-10.2) mg/dL Assessment and Plan Assessment: Impression: Acute hypoxic respiratory failure requiring intubation and mechanical ventilation, multifactorial Left hilar mass, 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 ascending thoracic aneurysm/clot causing significant narrowing of the lumen of the aorta Elevated carboxyhemoglobin level on admission, suspect acute carbon monoxide poisoning possibly intentional Acute toxic metabolic encephalopathy Severe anion gap metabolic acidosis on presentation, improving Acute kidney injury related to her acute rhabdomyolysis, resolved, patient continues to have relatively elevated CPK Mild transaminitis Hyperchloremic hypernatremia improving with D5 W Acute thrombocytopenia could be heparin-induced, rule out antiphospholipid syndrome,, being addressed by hematology on the case Recommendation: Patient remains critically ill Continue ventilatory support Continue fentanyl and propofol mostly for comfort Continue nutritional support/enteral feeding We'll discuss with legal guardian his prognosis and possibly consider comfort care measures Prognosis is extremely poor Continue on argatroban No need to change ventilator settings are now. Continue daily labs monitoring Prognosis remains very poor and likely futile Critical care time is over 30 Time with Patient: Greater than 30
[2023-05-04 12:09] LABS: Glucose,Whole Blood 113 mg/dL (70-110)
[2023-05-04 13:20] LABS: Glucose,Whole Blood 121 mg/dL (70-110)
[2023-05-04] MEDS ORDERED: LORazepam 2 MG/ML INJ IV PRN (14:14)
[2023-05-04] MEDS ORDERED: MORPHINE SULFATE 2 MG/ML SYRINGE IV PRN (14:14)
[2023-05-04] MEDS ORDERED: GLYCOPYRROLATE 0.2 MG/ML 2 ML VIAL IVP PRN (14:14)
[2023-05-04] MEDS ORDERED: ATROPINE OPHTH SOLN 1% 5ML BTL SUBLINGUAL PRN (14:14)
--- NOTE | 2023-05-04 14:35 | P.PN ---
Subjective PROGRESS NOTE The patient is a 58-year-old male who was admitted after being found unresponsive with an elevated carboxy hemoglobin level above 20% with unclear reason. Was attempting suicide. Patient has a known history of lung cancer and chronic tobacco use and has underwent recent surgical intervention with revascularization and thrombectomy of the right upper extremity. He was in sinus tachycardia on presentation. There is no history available. Patient is not on vasopressor. He has mottling in his lower extremities. He is intubated and unresponsive. His lab data remarkable for elevation of his CK enzymes at 10,400 with a BUN of 56 and a creatinine 2.19. His troponin is elevated. Other history is not available at this time. The patient has no prior admission to this hospital. April 28: The patient remains intubated, unresponsive, poor urine output and severe mottling of the lower extremities. His echocardiogram showed severe impairment of the left ventricle systolic function with segmental wall motion abnormality. He underwent a computed tomography scan that showed left [employer] subacute infarct. His chest x-ray showed left infrahilar mass. Carotid duplex scan showed no evidence of high-grade stenosis. He has evidence of thrombocytopenia that has worsened since his admission[place] [address]. April 29: The patient remains intubated. His blood pressure and heart rate are stable. He has significant discoloration in his right hand and both feet, cold with absence of pulse. His computed tomography scan showed a thrombus in the aorta. There is no evidence of malignant arrhythmia. According to the nursing staff he shook his head today. He has evidence of left hilar mass. He continues to be on Argatoban. He is receiving feeding tube. 04/30 Patient seen and examined. Patient currently sedated on ventilator with FiO2 40% and PEEP of 5. IV fluids at 75 mL per hour. Remains in sinus rhythm. 05/01 Patient seen and examined. Remains on ventilator. Only Doppler pulses in the femoral arteries. Concern of catastrophic antiphospholipid syndrome and therefore was started on IVIG and high-dose steroids. 05/02 Patient seen and examined. Patient remains on ventilator. Hemoglobin today 11.6, creatinine 0.5 05/03 Patient seen and examined. Guardianship obtained from court hearing today. BP elevating today. 05/04 Patient seen and examined. Losartan was increased yesterday with blood pressure is mildly improving to 140s over 60s. Remains on ventilator with FiO2 40%. PHYSICAL EXAMINATION: Intubated not responsive Vitals reviewed LUNGS: Clear to auscultation anteriorly HEART: Regular rate and rhythm, S1, S2. No S3. No systolic murmur ABDOMEN: Soft, no organomegaly EXTREMETIES: Severe mottling of the lower extremities him a cold with discoloration of the right upper extremity, status post thrombectomy, demarcation noted on both feet and right hand IMPRESSION: 1. Respiratory failure was elevated carboxy hemoglobin level and severe hypoxemia 2. Non-STEMI with severely impaired left ventricle systolic function of unknown duration or etiology 3. Status post thrombectomy of the right upper extremity with discoloration and mottling of the lower extremities 4. History of smoking 5. History of lung cancer 6. Thrombocytopenia could be related to heparin or DIC, concern of catastrophic antiphospholipid syndrome 7. Evidence of CVA her computed tomography scan PLAN: 1. Continue supportive care 2. Prognosis is very poor 3. Continue beta patt 4. Would not pursue any further escalation of care with prognosis guarded at this point. Unclear if patient would be a good candidate for any stenting or intervention with multiple metabolic derangements, hypercoagulable state, thrombocytopenia. Further goals of care to be discussed with guardian. Appears comfort measures appropriate. Objective - Vital Signs Vital signs: Vital Signs Temp 99.8 F H 05/04/23 08:00 Pulse 97 05/04/23 12:04 Resp 20 05/04/23 11:00 BP 137/67 05/04/23 08:00 Pulse Ox 98 05/04/23 11:00 FiO2 40 05/04/23 11:55 Intake & Output 05/03/23 05/04/23 05/04/23 18:59 06:59 18:59 Intake Total 2193.385 2020.761 1393.247 Output Total 1475 2700 1575 Balance 718.385 -679.239 -181.753 Weight 85.4 kg 85.4 kg Intake: IV 961 772 548 0.9 NS @ KVO 110 120 80 CVP + A-line 66 72 48 Dextrose 5%-0.45% NaCl 1, 685 480 320 000 ml @ 50 mls/hr IV . Q20H [facility] Rx#:[id number] Piperacillin-Tazobactam 3 100 100 100 .375 gm In Sodium Chloride 0.9% 100 ml @ 25 mls/hr IVPB Q8HR [facility] Rx# :[id number] Intake, IV Titration 502.385 564.761 299.247 Amount Argatroban 50 mg In 122.072 131.562 66.404 Sodium Chloride 0.9% 50 ml @ 0.5 MCG/KG/MIN 2.136 mls/hr IV .[id number] [facility] Rx#:[id number] fentaNYL (PF). 1,000 mcg 100 200 100 In Sodium Chloride 0.9% 80 ml @ 0.5 MCG/KG/HR 3.5 mls/hr IV .Q24H [facility] Rx#: [id number] propofoL 1,000 mg In 280.313 233.199 132.843 Empty Bag 1 bag @ 15 MCG/ KG/MIN 4.905 mls/hr IV . [id number] [facility] Rx#:[id number] Oral 70 Tube Feeding 570 684 456 Other 90 90 Output: Urine 1475 1800 1575 Stool 900 Other: Voiding Method Indwelling Catheter Indwelling Catheter Indwelling Catheter ABP, PAP, CO, CI - Last Documented Arterial Blood Pressure 148/59 - Labs CBC & Chem 7: 05/04/23 05:30 05/04/23 05:30 Labs: Abnormal Lab Results - Last 24 Hours (Table) 05/03/23 05/03/23 05/03/23 Range/Units 14:15 16:15 17:57 RBC (4.30-5.90) m/uL Hgb (13.0-17.5) gm/dL Hct (39.0-53.0) % Neutrophils # (1.3-7.7) k/uL Lymphocytes # (1.0-4.8) k/uL APTT 41.7 H 41.3 H (22.0-30.0) sec ABG HCO3 (21-25) mmol/L ABG Total CO2 (19-24) mmol/L ABG O2 Saturation (94-97) % Chloride (98-107) mmol/L Creatinine (0.66-1.25) mg/dL Glucose (74-99) mg/dL POC Glucose (mg/dL) 133 H (70-110) mg/dL Calcium (8.4-10.2) mg/dL 05/03/23 05/04/23 05/04/23 Range/Units 19:38 00:27 02:10 RBC (4.30-5.90) m/uL Hgb (13.0-17.5) gm/dL Hct (39.0-53.0) % Neutrophils # (1.3-7.7) k/uL Lymphocytes # (1.0-4.8) k/uL APTT 41.2 H 38.7 H (22.0-30.0) sec ABG HCO3 (21-25) mmol/L ABG Total CO2 (19-24) mmol/L ABG O2 Saturation (94-97) % Chloride (98-107) mmol/L Creatinine (0.66-1.25) mg/dL Glucose (74-99) mg/dL POC Glucose (mg/dL) 117 H (70-110) mg/dL Calcium (8.4-10.2) mg/dL 05/04/23 05/04/23 05/04/23 Range/Units 05:30 05:30 05:30 RBC 3.94 L (4.30-5.90) m/uL Hgb 11.7 L (13.0-17.5) gm/dL Hct 37.2 L (39.0-53.0) % Neutrophils # 8.7 H (1.3-7.7) k/uL Lymphocytes # 0.8 L (1.0-4.8) k/uL APTT 38.5 H (22.0-30.0) sec ABG HCO3 (21-25) mmol/L ABG Total CO2 (19-24) mmol/L ABG O2 Saturation (94-97) % Chloride 108 H (98-107) mmol/L Creatinine 0.52 L (0.66-1.25) mg/dL Glucose 127 H (74-99) mg/dL POC Glucose (mg/dL) (70-110) mg/dL Calcium 7.8 L (8.4-10.2) mg/dL 05/04/23 05/04/23 05/04/23 Range/Units 05:50 09:26 12:07 RBC (4.30-5.90) m/uL Hgb (13.0-17.5) gm/dL Hct (39.0-53.0) % Neutrophils # (1.3-7.7) k/uL Lymphocytes # (1.0-4.8) k/uL APTT 39.7 H (22.0-30.0) sec ABG HCO3 30 H (21-25) mmol/L ABG Total CO2 31 H (19-24) mmol/L ABG O2 Saturation 98.0 H (94-97) % Chloride (98-107) mmol/L Creatinine (0.66-1.25) mg/dL Glucose (74-99) mg/dL POC Glucose (mg/dL) 113 H (70-110) mg/dL Calcium (8.4-10.2) mg/dL 05/04/23 05/04/23 Range/Units 13:20 13:20 RBC (4.30-5.90) m/uL Hgb (13.0-17.5) gm/dL Hct (39.0-53.0) % Neutrophils # (1.3-7.7) k/uL Lymphocytes # (1.0-4.8) k/uL APTT 39.8 H (22.0-30.0) sec ABG HCO3 (21-25) mmol/L ABG Total CO2 (19-24) mmol/L ABG O2 Saturation (94-97) % Chloride (98-107) mmol/L Creatinine (0.66-1.25) mg/dL Glucose (74-99) mg/dL POC Glucose (mg/dL) 121 H (70-110) mg/dL Calcium (8.4-10.2) mg/dL
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
[2023-05-04 14:48] VITALS: PULSE 102; TEMP 99.6
[2023-05-04] MEDS: MORPHINE SULFATE (100 MG/2 ML) 100 MG in SODIUM CHLORIDE 0.9% 100 ML IV SCH ×3 (15:04→19:01)
[2023-05-04] MEDS: MORPHINE SULFATE 4 MG/ML SYRINGE IV PRN ×2 (15:30→16:19)
--- NOTE | 2023-05-04 16:10 | P.PN ---
Subjective Progress Note Date: 05/04/23 Patient was seen in ICU at todays visit Remains on ventilation. Spoke to nursing today, pt is now comfort care measures only Objective - Vital Signs Vital signs: Vital Signs Temp 99.6 F 05/04/23 12:00 Pulse 102 H 05/04/23 15:00 Resp 20 05/04/23 15:00 BP 137/67 05/04/23 08:00 Pulse Ox 97 05/04/23 15:00 FiO2 40 05/04/23 12:00 Intake & Output 05/03/23 05/04/23 05/04/23 18:59 06:59 18:59 Intake Total 2193.385 2020.761 1630.801 Output Total 1475 2700 1775 Balance 718.385 -679.239 -144.199 Weight 85.4 kg 85.4 kg Intake: IV 961 772 604 0.9 NS @ KVO 110 120 90 CVP + A-line 66 72 54 Dextrose 5%-0.45% NaCl 1, 685 480 360 000 ml @ 50 mls/hr IV . Q20H [facility] Rx#:[id number] Piperacillin-Tazobactam 3 100 100 100 .375 gm In Sodium Chloride 0.9% 100 ml @ 25 mls/hr IVPB Q8HR [facility] Rx# :[id number] Intake, IV Titration 502.385 564.761 423.801 Amount Argatroban 50 mg In 122.072 131.562 93.190 Sodium Chloride 0.9% 50 ml @ 0.5 MCG/KG/MIN 2.136 mls/hr IV .[id number] [facility] Rx#:[id number] Morphine Sulfate (100 mg/ 12.036 2 ml) 100 mg In Sodium Chloride 0.9% 100 ml @ 1 MG/HR 1.02 mls/hr IV . Q24H [facility] Rx#:[id number] fentaNYL (PF). 1,000 mcg 100 200 119.133 In Sodium Chloride 0.9% 80 ml @ 0.5 MCG/KG/HR 3.5 mls/hr IV .Q24H [facility] Rx#: [id number] propofoL 1,000 mg In 280.313 233.199 199.442 Empty Bag 1 bag @ 15 MCG/ KG/MIN 4.905 mls/hr IV . [id number] [facility] Rx#:[id number] Oral 70 Tube Feeding 570 684 513 Other 90 90 Output: Urine 1475 1800 1775 Stool 900 Other: Voiding Method Indwelling Catheter Indwelling Catheter Indwelling Catheter ABP, PAP, CO, CI - Last Documented Arterial Blood Pressure 141/55 - Constitutional General appearance: Present: no acute distress - Respiratory Details: ventilated - Integumentary Integumentary Comment(s): blackening of bilateral lower and lower legs and right hand - Labs CBC & Chem 7: 05/04/23 05:30 05/04/23 05:30 Labs: Abnormal Lab Results - Last 24 Hours (Table) 05/03/23 05/03/23 05/03/23 Range/Units 16:15 17:57 19:38 RBC (4.30-5.90) m/uL Hgb (13.0-17.5) gm/dL Hct (39.0-53.0) % Neutrophils # (1.3-7.7) k/uL Lymphocytes # (1.0-4.8) k/uL APTT 41.3 H 41.2 H (22.0-30.0) sec ABG HCO3 (21-25) mmol/L ABG Total CO2 (19-24) mmol/L ABG O2 Saturation (94-97) % Chloride (98-107) mmol/L Creatinine (0.66-1.25) mg/dL Glucose (74-99) mg/dL POC Glucose (mg/dL) 133 H (70-110) mg/dL Calcium (8.4-10.2) mg/dL 05/04/23 05/04/23 05/04/23 Range/Units 00:27 02:10 05:30 RBC 3.94 L (4.30-5.90) m/uL Hgb 11.7 L (13.0-17.5) gm/dL Hct 37.2 L (39.0-53.0) % Neutrophils # 8.7 H (1.3-7.7) k/uL Lymphocytes # 0.8 L (1.0-4.8) k/uL APTT 38.7 H (22.0-30.0) sec ABG HCO3 (21-25) mmol/L ABG Total CO2 (19-24) mmol/L ABG O2 Saturation (94-97) % Chloride (98-107) mmol/L Creatinine (0.66-1.25) mg/dL Glucose (74-99) mg/dL POC Glucose (mg/dL) 117 H (70-110) mg/dL Calcium (8.4-10.2) mg/dL 05/04/23 05/04/23 05/04/23 Range/Units 05:30 05:30 05:50 RBC (4.30-5.90) m/uL Hgb (13.0-17.5) gm/dL Hct (39.0-53.0) % Neutrophils # (1.3-7.7) k/uL Lymphocytes # (1.0-4.8) k/uL APTT 38.5 H (22.0-30.0) sec ABG HCO3 30 H (21-25) mmol/L ABG Total CO2 31 H (19-24) mmol/L ABG O2 Saturation 98.0 H (94-97) % Chloride 108 H (98-107) mmol/L Creatinine 0.52 L (0.66-1.25) mg/dL Glucose 127 H (74-99) mg/dL POC Glucose (mg/dL) (70-110) mg/dL Calcium 7.8 L (8.4-10.2) mg/dL 05/04/23 05/04/23 05/04/23 Range/Units 09:26 12:07 13:20 RBC (4.30-5.90) m/uL Hgb (13.0-17.5) gm/dL Hct (39.0-53.0) % Neutrophils # (1.3-7.7) k/uL Lymphocytes # (1.0-4.8) k/uL APTT 39.7 H 39.8 H (22.0-30.0) sec ABG HCO3 (21-25) mmol/L ABG Total CO2 (19-24) mmol/L ABG O2 Saturation (94-97) % Chloride (98-107) mmol/L Creatinine (0.66-1.25) mg/dL Glucose (74-99) mg/dL POC Glucose (mg/dL) 113 H (70-110) mg/dL Calcium (8.4-10.2) mg/dL 12/15/23 Range/Units 13:20 RBC (4.30-5.90) m/uL Hgb (13.0-17.5) gm/dL Hct (39.0-53.0) % Neutrophils # (1.3-7.7) k/uL Lymphocytes # (1.0-4.8) k/uL APTT (22.0-30.0) sec ABG HCO3 (21-25) mmol/L ABG Total CO2 (19-24) mmol/L ABG O2 Saturation (94-97) % Chloride (98-107) mmol/L Creatinine (0.66-1.25) mg/dL Glucose (74-99) mg/dL POC Glucose (mg/dL) 121 H (70-110) mg/dL Calcium (8.4-10.2) mg/dL Assessment and Plan (1) Thrombocytopenia Current Visit: Yes Status: Acute Priority: High Code(s): D69.6 - THROMBOCYTOPENIA, UNSPECIFIED SNOMED Code(s): 603163263 (2) DARRYL (acute kidney injury) Current Visit: Yes Status: Acute Priority: High Code(s): N17.9 - ACUTE KIDNEY FAILURE, UNSPECIFIED SNOMED Code(s): 74963156 (3) Arterial occlusion Current Visit: Yes Status: Acute Priority: High Code(s): I70.90 - UNSPECIFIED ATHEROSCLEROSIS SNOMED Code(s): 0524901 (4) Ischemic cerebrovascular accident (CVA) Current Visit: Yes Status: Acute Priority: High Code(s): I63.9 - CEREBRAL INFARCTION, UNSPECIFIED SNOMED Code(s): 019351678 (5) NSTEMI (non-ST elevated myocardial infarction) Current Visit: Yes Status: Acute Priority: High Code(s): I21.4 - NON-ST ELEVATION (NSTEMI) MYOCARDIAL INFARCTION SNOMED Code(s): 56614732 Plan: Thrombocytopenia -Plt normal at 266,000 today s/p high dose steroids. High dose steroids will be completed tomorrow. -HIT ab was 0.419, then 0.311. Chance of HIT ab <3% but, there is a high clinical suspicion. KALA ordered for confirmation, pending. -Heparin was changed to argatroban, pt cont on at this time -APLS labs and hypercoaguable labs are all reported and neg except for Lupus anticoagulant. This lab can be rechecked once patient has completely recovered from his current situation but, for now, even though patient was on heparin sometime around the drawing of this lab, it is being assumed that it is positive. Patient needs to remain on IV anticoagulation -Acute hepatitis panel, HIV work up negative -Anemia workup showing iron deficiency, parenteral iron given -Hemolysis workup neg -DIC work up neg -Steroids and IVIG being given for possible HIT/catastrophic antiphospholipid syndrome. Arterial occlusions -Recent Dx of RUE arterial occlusion at [facility], s/p radial and ulnar thrombectomy, reportedly twice during the last month. He was placed on xarelto, this is currently held as he is on IV anticoagulation -RUE and BLE are necrotic. -Vascular is following. Pt is unfortunately going to need some degree of amputation in BLE and RUE. NSTEMI -Heparin discontinued. Argatroban started, continues -Cardiology following CVA -04/[address] head reports maturing left parietal-occipital infarct, some pun ctate hyperdensities could be petechial hemorrhages but reported as present previously and stable -Neuro following. Reviewed goals of care with Attending. Unfortunately, pt condition is extremely guarded with a very poor prognosis. This conclusion is echoed in the assessments of IM, Critical Care and Specialists who have been following this case. From a Hematology standpoint we too agree with this assessment. The sequela of this event are going to be permanent, and most likely painful, with great disability. The multi-discipline care thus far has not resulted in the improvements that would be desired for this pt to have any kind of satisfactory outcome. Patient is now comfort care measures only. Code status updated to DNR/DNI.
[2023-05-05] MEDS: IPRATROPIUM-ALBUTEROL 3 ML NEB INHALATION SCH (00:20)
[2023-05-05] MEDS ORDERED: IMMUNE GLOBULIN (GAMMAGARD) 30 GM in EMPTY BAG 1 BAG IV ONE (09:00)
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
--- NOTE | 2023-05-06 17:06 | P.PN ---
Subjective Progress Note Date: 05/04/23 05/04/2023: Patient was seen for a follow-up. Still on same level of sedation. No change clinically. Mottling getting worse in the feet. 05/03/2023: Patient was seen for a follow-up. Patient's essentially unchanged. He is intubated, sedated on propofol 65 mcg/kg/m and fentanyl 2 mcg/kg per hour. No seizure-like activity. 05/02/2023: Patient was seen for a follow-up. Continues to be on same dose of propofol and fentanyl as mentioned yesterday. Per nurse report, not much change. No seizure-like activity. 05/01/2023: Patient is seen for a follow-up. Patient currently on propofol 65 mcg/kg per minute, and also on fentanyl 2 mcg/kg per hour. Patient is having diarrhea. No seizure-like activity. 04/30/2023: Patient was initially seen by Dr. Dr. Alexander Mera. Please refer to his note for details. 58M with subacute left temporal/parietal stroke. Patient had CT head performed yesterday, which revealed 2 areas of small petechial hemorrage in the infarct core. He has left descending aortic thrombus, suspicious for lung cancer, ischemia of extremities (bilateral lower and right upper extremity). Heparin drip stopped for ?HIT. Argatroban was put on hold because of petecthial hemor rhage, but restarted today after the repeat CT head performed today shows stable area of petechial hemorrhage. He is on ASA. Very critical patient. Some other workup during our facility consisted of: Plasma lactic acid venous 12.1 and most recent one is 1.8 Calcium is 10.5 CK level is 10,403 and a repeat is 18,435-->13K Troponin is 8.3 and most recent one is 13.7 Ammonia 14 Lipid panel: TG 209, Cholestroll 95, LDL 25 and HDL 28 TSH: 2.34 Vitamin B12: 797 Folate: 19.3 Initial CO2: >20 and repeated 1.7. AB.17 and repeated and HCO3 9. UDS is nondetected and serum alcohol was less than 10 CT of the head is reported as subacute A by 4 x 4 cm left MCA territory nonhemorrhagic infarction. I personally agree that the patient has subacute changes over the left temporal parietal region. CT cervical spine is prominent by apical lung consolidation. Patient is on IV propofol and fentanyl. He is intubated. 2-D echo was reported as him. All the function. The ejection fraction is about 20-25%. Mild ventricular and apical hypokinesis. Routine EEG: Is abnormal. The background slowing is suggestive of mild encephalopathy. There is no focal slowing, epileptiform discharge or seizure on the EEG. The diffuse suppression is likely due to medication induced (Propofol and fentanyl). 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 Diffi cult to exclude minimal petechial hemmorrhage within the anterior region of infarct. some preserved cortical parenchyma is the alternative consideration. Ongoing follow-up recommended. No midline shift or herniation seen. A small posterior scalp contusion appears to have developed. Carotid duplex is reported as less than 50% stenosis bilateral carotid bifurcation. Repeat CT head 04/29/2023: It is reported as redemonstrated left parietal and temporal subacute infarct. There are increasing aerial petechial hemorrhage without that infarct tone. No midline shift or herniation. Personally reviewed the CT and agree with the report CT of the chest was reported as 2 left hilar masses highly suspicious for neoplasm. Large nearly occluding thrombus in the distal descending thoracic aorta. Mild basilar infiltrate/atelectasis. Mild groundglass a density in the right middle lobe. Objective - Vital Signs Vital signs: Vital Signs Temp 99.8 F H 05/04/23 08:00 Pulse 97 05/04/23 12:04 Resp 20 05/04/23 11:00 BP 137/67 05/04/23 08:00 Pulse Ox 98 05/04/23 11:00 FiO2 40 05/04/23 11:55 Intake & Output 05/03/23 05/04/23 05/04/23 18:59 06:59 18:59 Intake Total 2193.385 2020.761 1393.247 Output Total 1475 2700 1575 Balance 718.385 -679.239 -181.753 Weight 85.4 kg 85.4 kg Intake: IV 961 772 548 0.9 NS @ KVO 110 120 80 CVP + A-line 66 72 48 Dextrose 5%-0.45% NaCl 1, 685 480 320 000 ml @ 50 mls/hr IV . Q20H [facility] Rx#:[id number] Piperacillin-Tazobactam 3 100 100 100 .375 gm In Sodium Chloride 0.9% 100 ml @ 25 mls/hr IVPB Q8HR [facility] Rx# :[id number] Intake, IV Titration 502.385 564.761 299.247 Amount Argatroban 50 mg In 122.072 131.562 66.404 Sodium Chloride 0.9% 50 ml @ 0.5 MCG/KG/MIN 2.136 mls/hr IV .[id number] [facility] Rx#:[id number] fentaNYL (PF). 1,000 mcg 100 200 100 In Sodium Chloride 0.9% 80 ml @ 0.5 MCG/KG/HR 3.5 mls/hr IV .Q24H [facility] Rx#: [id number] propofoL 1,000 mg In 280.313 233.199 132.843 Empty Bag 1 bag @ 15 MCG/ KG/MIN 4.905 mls/hr IV . [id number] [facility] Rx#:[id number] Oral 70 Tube Feeding 570 684 456 Other 90 90 Output: Urine 1475 1800 1575 Stool 900 Other: Voiding Method Indwelling Catheter Indwelling Catheter Indwelling Catheter ABP, PAP, CO, CI - Last Documented Arterial Blood Pressure 148/59 - Exam Patient is laying in the bed, intubated, sedated with propofol 65 mcg/kg per minute, also on fentanyl 2.0 g/kg/hr. Patient does not open his eyes to calling his name is still encephalopathic. Patient is more encephalopathic today. Patient has possible necrotic and cyanotic changes in the right hand, as well as bilateral feet. Patient's pupils are about 3 mm, minimally reacting. Extraocular muscles appears intact, but patient did not cooperate much. No obvious seizure-like activity noted. Patient's right hand and bilateral feet are very cold. - Labs CBC & Chem 7: 05/04/23 05:30 05/04/23 05:30 Labs: Abnormal Lab Results - Last 24 Hours (Table) 05/03/23 05/03/23 05/03/23 Range/Units 16:15 17:57 19:38 RBC (4.30-5.90) m/uL Hgb (13.0-17.5) gm/dL Hct (39.0-53.0) % Neutrophils # (1.3-7.7) k/uL Lymphocytes # (1.0-4.8) k/uL APTT 41.3 H 41.2 H (22.0-30.0) sec ABG HCO3 (21-25) mmol/L ABG Total CO2 (19-24) mmol/L ABG O2 Saturation (94-97) % Chloride (98-107) mmol/L Creatinine (0.66-1.25) mg/dL Glucose (74-99) mg/dL POC Glucose (mg/dL) 133 H (70-110) mg/dL Calcium (8.4-10.2) mg/dL 05/04/23 05/04/23 05/04/23 Range/Units 00:27 02:10 05:30 RBC 3.94 L (4.30-5.90) m/uL Hgb 11.7 L (13.0-17.5) gm/dL Hct 37.2 L (39.0-53.0) % Neutrophils # 8.7 H (1.3-7.7) k/uL Lymphocytes # 0.8 L (1.0-4.8) k/uL APTT 38.7 H (22.0-30.0) sec ABG HCO3 (21-25) mmol/L ABG Total CO2 (19-24) mmol/L ABG O2 Saturation (94-97) % Chloride (98-107) mmol/L Creatinine (0.66-1.25) mg/dL Glucose (74-99) mg/dL POC Glucose (mg/dL) 117 H (70-110) mg/dL Calcium (8.4-10.2) mg/dL 05/04/23 05/04/23 05/04/23 Range/Units 05:30 05:30 05:50 RBC (4.30-5.90) m/uL Hgb (13.0-17.5) gm/dL Hct (39.0-53.0) % Neutrophils # (1.3-7.7) k/uL Lymphocytes # (1.0-4.8) k/uL APTT 38.5 H (22.0-30.0) sec ABG HCO3 30 H (21-25) mmol/L ABG Total CO2 31 H (19-24) mmol/L ABG O2 Saturation 98.0 H (94-97) % Chloride 108 H (98-107) mmol/L Creatinine 0.52 L (0.66-1.25) mg/dL Glucose 127 H (74-99) mg/dL POC Glucose (mg/dL) (70-110) mg/dL Calcium 7.8 L (8.4-10.2) mg/dL 05/04/23 05/04/23 05/04/23 Range/Units 09:26 12:07 13:20 RBC (4.30-5.90) m/uL Hgb (13.0-17.5) gm/dL Hct (39.0-53.0) % Neutrophils # (1.3-7.7) k/uL Lymphocytes # (1.0-4.8) k/uL APTT 39.7 H 39.8 H (22.0-30.0) sec ABG HCO3 (21-25) mmol/L ABG Total CO2 (19-24) mmol/L ABG O2 Saturation (94-97) % Chloride (98-107) mmol/L Creatinine (0.66-1.25) mg/dL Glucose (74-99) mg/dL POC Glucose (mg/dL) 113 H (70-110) mg/dL Calcium (8.4-10.2) mg/dL 05/04/23 Range/Units 13:20 RBC (4.30-5.90) m/uL Hgb (13.0-17.5) gm/dL Hct (39.0-53.0) % Neutrophils # (1.3-7.7) k/uL Lymphocytes # (1.0-4.8) k/uL APTT (22.0-30.0) sec ABG HCO3 (21-25) mmol/L ABG Total CO2 (19-24) mmol/L ABG O2 Saturation (94-97) % Chloride (98-107) mmol/L Creatinine (0.66-1.25) mg/dL Glucose (74-99) mg/dL POC Glucose (mg/dL) 121 H (70-110) mg/dL Calcium (8.4-10.2) mg/dL Assessment and Plan Assessment: This is a 58 y/o gentleman was found down in front of his stove on 04/26/2023 and last normal seen was on 04/23/2023. He was recent at [facility] for ischemia of right upper extremity, s/p thrombectomy on third week of March and had repeated surgery and was discharged on eliquis. His CO was >20 and repeated is normal. His CK level is elevated, elevated troponin. CT head show subacute ischemic stroke over the left MCA. Subacute left temporal/parietal with some petechial hemorrhage on repeated CT head. No IV tpa since outside window and appears last normal is 04/23/2023 and risk outweigh benefit. Encephalopathy due to stroke, carbon monoxide poisoning, metabolic encephalopathy and medication effect (Propofol and Fentanyl). EEG is mild encephalopathy but no seizure or discharges. Patient would open his eyes 2 left hilar masses highly suspicious for neoplasm on CT Large nearly occluding thrombus in the distal descending thoracic aorta on CT NSTEMI Acute Rhabdomylolysis--slightly trending down Recent right upper extremity thrombus with ischemia s/p thrombectomy X2 at [facility] towards 3rd week of March 2023. Ishchemia over the bilateral lowers and right upper extremity Carbon monoxide poisoning with carbon monoxide level greater than 20% since was found next to oven---resolved Acute hypoxemic respiratory failure s/p intubated furniture upholstery mechanic ventilator. DARRYL--resolved. 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 Couple of punctate hyperdensities are present, could be petechial hemorrhage, previously also present and stable. I personally review CT head, agree with the findings. Areas of hyperdensity appears definite small areas of acute hemorrhage. There is also evidence of a couple small areas of subacute ischemia involving the top right parietal cortex Will repeat CT head in a.m. Patient was initially on heparin drip but then there is suspicion of ?HIT so was stopped and started on Argatroban. This was held, but now restarted on Argatroban as benefit outweigh the risk. Also the stool occult blood is positive. Patient has thromboctyopenia and initially there is ?concern for HIT. He is receiving platelete transfusion. Per primary team he thinks there is possible hemodilution effect as well. He is currently on ASA 81mg daily. If has worsening of bleeding or platelets then recommend holding ASA. Will avoid the statin because of his rhabdo but once the rhabdo resolves will place him on statin Hematology is on board. Dr. Alexander Mera has discussed with Dr. Betancourt (Power Hair Clipper) and he stated there is no benefit of pursuing LEONIDAS. Pending copper level. Continue thiamine 100mg IV daily. Every 2 neurochecks Cardiac monitoring PT OT and MILLING/POLISHING OPERATOR is consulted Cardiology and vascular surgery team are on board He has an estranged brother and otherwise no family members. Pending appointment of an emergent guardian. We'll defer the rest of the medical management to the primary team DVT prophylaxis: use SCD. Overall prognosis appears poor due to significant multiple medical/surgical conditions as above including CVA Discussed with patient's nurse in detail. Patient is going to be comfort care. We will sign off.
== END 2023-05-04 20:04 | disposition expired | DRG 207 ==
LOC: EC 16:39 → EEVIPCON 21:22 → 2SICU 21:22
PROVIDERS: ADMIT Internal Medicine; ATTEND Internal Medicine
PROC: 0BH17EZ Insertion of Endotracheal Airway into Trachea, Via Natural or Artificial Opening (ICD-10-PCS; principal; 2023-04-26)
PROC: 0D9670Z Drainage of Stomach with Drainage Device, Via Natural or Artificial Opening (ICD-10-PCS; principal; 2023-04-26)
PROC: 3E0G76Z Introduction of Nutritional Substance into Upper GI, Via Natural or Artificial Opening (ICD-10-PCS; principal; 2023-04-26)
PROC: 5A1955Z Respiratory Ventilation, Greater than 96 Consecutive Hours (ICD-10-PCS; principal; 2023-04-26)
PROC: 02HV33Z Insertion of Infusion Device into Superior Vena Cava, Percutaneous Approach (ICD-10-PCS; 2023-04-27)
PROC: 30233R1 Transfusion of Nonautologous Platelets into Peripheral Vein, Percutaneous Approach (ICD-10-PCS; 2023-04-29)
PROC: 03HY32Z Insertion of Monitoring Device into Upper Artery, Percutaneous Approach (ICD-10-PCS; 2023-04-29)
PROC: 4A133B1 Monitoring of Arterial Pressure, Peripheral, Percutaneous Approach (ICD-10-PCS; 2023-04-29)
PROC: 4A133J1 Monitoring of Arterial Pulse, Peripheral, Percutaneous Approach (ICD-10-PCS; 2023-04-29)
DX: J96.01 Acute respiratory failure with hypoxia (principal); J69.0 Pneumonitis due to inhalation of food and vomit; G92.8 Other toxic encephalopathy; I63.512 Cerebral infarction due to unspecified occlusion or stenosis of left middle cerebral artery; I21.4 Non-ST elevation (NSTEMI) myocardial infarction; I50.21 Acute systolic (congestive) heart failure; I63.532 Cerebral infarction due to unspecified occlusion or stenosis of left posterior cerebral artery; I61.8 Other nontraumatic intracerebral hemorrhage; C34.92 Malignant neoplasm of unspecified part of left bronchus or lung; I70.263 Atherosclerosis of native arteries of extremities with gangrene, bilateral legs; C92.40 Acute promyelocytic leukemia, not having achieved remission; D68.51 Activated protein C resistance; D68.52 Prothrombin gene mutation; E11.52 Type 2 diabetes mellitus with diabetic peripheral angiopathy with gangrene; E87.20 Acidosis, unspecified; M62.82 Rhabdomyolysis; N17.9 Acute kidney failure, unspecified; I42.9 Cardiomyopathy, unspecified; I70.268 Atherosclerosis of native arteries of extremities with gangrene, other extremity; I74.11 Embolism and thrombosis of thoracic aorta; D75.829 Heparin-induced thrombocytopenia, unspecified; T58.12XA Toxic effect of carbon monoxide from utility gas, intentional self-harm, initial encounter; Z51.5 Encounter for palliative care; Z66 Do not resuscitate; I11.0 Hypertensive heart disease with heart failure; Z11.52 Encounter for screening for COVID-19; I71.20 Thoracic aortic aneurysm, without rupture, unspecified; D3A.8 Other benign neuroendocrine tumors; T59.81 Toxic effect of smoke; D50.9 Iron deficiency anemia, unspecified; D75.1 Secondary polycythemia; M24.541 Contracture, right hand; R74.01 Elevation of levels of liver transaminase levels; T59.811A Toxic effect of smoke, accidental (unintentional), initial encounter; E87.8 Other disorders of electrolyte and fluid balance, not elsewhere classified; F17.200 Nicotine dependence, unspecified, uncomplicated; H51.8 Other specified disorders of binocular movement; S00.03XA Contusion of scalp, initial encounter; Z71.3 Dietary counseling and surveillance; Z79.899 Other long term (current) drug therapy; Z79.01 Long term (current) use of anticoagulants; Z63.8 Other specified problems related to primary support group; Z86.73 Personal history of transient ischemic attack (TIA), and cerebral infarction without residual deficits
CPT/HCPCS: 31500; 36415; 36600; 70450; 71045; 71260; 72125; 72170; 80048; 80053; 80061; 80074; 80306; 80320; 81001; 81240; 81241; 82140; 82272; 82375; 82525; 82550; 82607; 82728; 82746; 82805; 83010; 83540; 83550; 83605; 83615; 83735; 83921; 84100; 84132; 84443; 84484; 85025; 85027; 85045; 85300; 85303; 85306; 85384; 85598; 85610; 85613; 85730; 85732; 86022; 86038; 86146; 86147; 86850; 86900; 86901; 87040; 87070; 87086; 87205; 87324; 87390; 87636; 93005; 93306; 93880; 94002; 94003; 94640; 95822; 96361; 96365; 96375; 99291